=== PATIENT | female | born 1935 | race Caucasian/White ===

== ENCOUNTER → 2016-10-26 | Outpatient (CLI) | payer OTHER, BC ==
[~2016-10-26] MED LIST: ACET-1256 PO; ALBUAER INH; ARTI1SOL8 OP; BECL0.3A INH; BECL1AER5 NAE; BENZ100C84 PO; CALC500C70 PO; CETI10TA84 PO; CITA40TA4 PO; CLOT10TR2 MT; CLTP PO; CZR50 PO; DOXY100C2 PO; FLUT0.15 NAE; HYDR25TA4 PO; HYOS1TAB PO; METF500T PO; MOME200A PO; MULTTAB58 PO; NXM/40 PO; OXYC1TAB3 PO; PRED10TA PO; PRED20TA PO; SIMV10TA2 PO; SNG10 PO; SYMIN/8045 INH; VNTHFA/IN PO; [UNRECOGNIZED DRUG - CODE] OPB
[2016-10-26 13:13] LABS: ESTIMATED AVERAGE GLUCOSE 117 mg/dl; HA1C FLAG Normal (Normal)
== END | disposition home or self-care (01) ==
LOC: C.LAB1850 10:46
PROVIDERS: ATTEND Internal Medicine Pulmonary Disease
DX: I10 Essential (primary) hypertension (principal); J45.909 Unspecified asthma, uncomplicated; E11.9 Type 2 diabetes mellitus without complications; E78.5 Hyperlipidemia, unspecified; J30.9 Allergic rhinitis, unspecified

== ENCOUNTER 2016-11-03 17:20 | Emergency (ER) | payer OTHER, BC ==
[~2016-11-03] VITALS: Ht 147.3 cm; Wt 68.0 kg
[~2016-11-03 17:20] MED LIST changes: -ARTI1SOL8 OP; -BECL1AER5 NAE; -BENZ100C84 PO; -CALC500C70 PO; -CITA40TA4 PO; -HYOS1TAB PO; -MOME200A PO; -OXYC1TAB3 PO; -PRED20TA PO; -SYMIN/8045 INH; -VNTHFA/IN PO
[2016-11-03 17:22] VITALS: TEMP 36.9; Ht 147.3 cm; Wt 68.0 kg
[2016-11-03] MEDS ORDERED: CZR50 PO (17:31)
[2016-11-03] MEDS ORDERED: SNG10 PO (17:31)
[2016-11-03] MEDS ORDERED: CALC500C70 PO (17:32)
[2016-11-03] MEDS ORDERED: BECL1AER5 NAE (17:32)
[2016-11-03] MEDS ORDERED: MOME200A PO (17:32)
[2016-11-03] MEDS ORDERED: CITA40TA4 PO (17:32)
[2016-11-03] MEDS ORDERED: XYLOCAINE 1%/SOD BICARB 20 ML VIAL INFIL ONE (17:45)
[2016-11-03] MEDS ORDERED: HYOS1TAB PO (18:01)
[2016-11-03] MEDS ORDERED: VNTHFA/IN PO (18:01)
[2016-11-03] MEDS ORDERED: SYMIN/8045 INH (18:01)
[2016-11-03] MEDS ORDERED: ARTI1SOL8 OP (18:01)
--- NOTE | 2016-11-03 18:34 | DIAGNOSTIC IMAGING REPORT ---
CT SCAN OF THE BRAIN WITHOUT IV CONTRAST CLINICAL HISTORY: Fall with head injury. COMPARISON STUDY: No priors. TECHNIQUE: Unenhanced axial CT scan of the brain is performed from the vertex to the skull base. CT DOSE: 537.48 mGy.cm FINDINGS: Brain parenchyma: There are age-related involutional changes noting mild to moderate patchy subcortical and periventricular microangiopathic change. There is no hemorrhage, mass effect, or evidence of acute territorial ischemia by CT criteria. Grullon-white matter is preserved. No extra-axial fluid collection is seen. Ventricles, sulci, cisterns: Prominent secondary to involutional change. Intracranial vasculature: There is atherosclerotic calcification of the cavernous carotid and vertebral arteries. Calvarium: The skeletal structures are osteopenic. There is no depressed calvarial fracture. Soft tissues: There is minimal right posterior scalp contusion. Sinuses and mastoids: The visualized paranasal sinuses are clear. The mastoid air cells are well pneumatized. Orbits: The bony orbits are grossly intact. There are bilateral ocular lens implants. IMPRESSION: There is no hemorrhage, mass effect, or evidence of acute territorial ischemia by CT criteria. Electronically signed by: Derrick Lott M.D. 11/03/2016 6:33 PM Dictated Date/Time: 11/03/2016 6:31 PM
[2016-11-03] MEDS ORDERED: ACETAMINOPHEN 500 MG TAB PO ONE (18:36)
--- NOTE | 2016-11-03 18:50 | EMERGENCY ROOM VISIT NOTE ---
History First contact with patient: 17:31 Chief Complaint: FALL Stated Complaint: FALL IN THE BATHROOM History of Present Illness The patient is a 81 year old female who presents to the Emergency Room with complaints of losing her balance and falling in the bathroom at [facility] just prior to arrival. The patient states that she turned quickly and lost her balance and fell onto the tile floor. She states that her leg and arm hit the floor first and then her head went back against the support for the bathroom stall. The patient denies any loss of consciousness. The patient states her head hurts just at the area of a laceration on the back of her head. The patient denies any dizziness currently or any visual changes. The patient denies any nausea or vomiting. The patient denies any neck or back pain. The patient does admit to skin tears on her right upper arm and on her right lower leg. She states these areas were washed with antiseptic at the [facility] and bandaged the lower leg. The patient denies any elbow pain. She does admit to slight right shoulder pain but is able to move her shoulder without difficulty. The patient denies any knee or ankle pain. She is not on any blood thinners. Review of Systems 10 system review was performed and was negative unless stated otherwise history of present illness. Past Medical/Surgical History Medical Problems: (1) ALLERGIC RHINITIS NOS (2) ASTHMA, UNSPECIFIED (3) DIAB ADRIANA WO COMPL, TYPE II OR UNSPEC TYPE, NOT UNCNTRLD (4) OSTEOPOROSIS NOS Family History Diabetes mellitus FH: heart disease FHx: gallbladder disease Hypertension Social History Smoking Status: Former Smoker Alcohol Use: none Drug Use: none Marital Status: Housing Status: lives with family Occupation Status: retired Current/Historical Medications Scheduled Acetaminophen (Tylenol), 1,000 MG PO HS Artificial Tear Solution (Cvs Natural Tears 0.1-0.3 %), 2 PUFFS OP DAILY Budesonide/Formoterol Fumarate (Symbicort 80/4.5 Inhaler), 2 PUFFS INH BID Calcium/Vitamin D (Os-Lucho 500 Plus D), 1 TAB PO DAILY Cetirizine (Zyrtec), 10 MG PO DAILY Citalopram (Citalopram Hydrobromide), 40 MG PO DAILY Esomeprazole Magnesium (Nexium), 40 MG PO DAILY Fluticasone Propionate (Nasal) (Flonase Allergy Relief), 1 SPRAY VOLODYMYR DAILY Hydrochlorothiazide (Hctz), 25 MG PO DAILY Losartan Potassium (Losartan Potassium), 50 MG PO BID Metformin Hcl (Glucophage), 500 MG PO BID Montelukast Sod (Montelukast Sodium), 10 MG PO QPM Multiple Vitamin (Multivitamin), 1 TAB PO DAILY Simvastatin (Zocor), 10 MG PO QPM Scheduled PRN Albuterol Hfa (Ventolin Hfa), 2 PUFFS PO DAILY PRN for SOB/Wheezing Hyoscyamine Sulfate (Levsin), 0.125 MG PO DAILY PRN for GI Upset Allergies Coded Allergies: BO Inhibitors (Verified Allergy, Unknown, UNK, 11/03/16) Penicillins (Verified Allergy, Unknown, 11/03/16) Tetanus Toxoid (Verified Allergy, Unknown, 11/03/16) Physical Exam Vital Signs Date Time Temp Pulse Resp B/P Pulse Ox O2 Delivery O2 Flow Rate FiO2 11/03/16 17:22 36.9 73 20 145/82 97 Room Air Physical Exam GENERAL: 81-year-old white female appears in no acute distress. MENTAL STATUS: Patient is alert and oriented x3. HEAD: No gross bony abnormality noted there is a 2.5 cm laceration on the posterior aspect with mild active bleeding. The wound looks clean. Remainder hand is unremarkable. EYES: PERRLA. EOMs intact. EARS: Canals clear. TMs without hemotympanum noted. NECK: Supple, no lymphadenopathy noted. No carotid bruits noted. LUNGS: Clear auscultation without wheezes rales or rhonchi. CARDIAC: Regular rate and rhythm without murmur. Pulses is full and equal throughout. NEURO: Grossly intact. SPINE: Entire spine nontender to palpation. RIGHT ARM: There is ecchymosis and 2 small skin tears of the right upper arm. The patient is able to move her shoulder and elbow without difficulty. RIGHT LOWER LEG: Patient is able to move her knee and ankle without difficulty. Small skin tear on the anterior aspect of the proximal lower leg. The wound is clean. Medical Decision & Procedures ER Provider Diagnostic Interpretation: CT SCAN OF THE BRAIN WITHOUT IV CONTRAST CLINICAL HISTORY: Fall with head injury. COMPARISON STUDY: No priors. TECHNIQUE: Unenhanced axial CT scan of the brain is performed from the vertex to the skull base. CT DOSE: 537.48 mGy.cm FINDINGS: Brain parenchyma: There are age-related involutional changes noting mild to moderate patchy subcortical and periventricular microangiopathic change. There is no hemorrhage, mass effect, or evidence of acute territorial ischemia by CT criteria. Grullon-white matter is preserved. No extra-axial fluid collection is seen. Ventricles, sulci, cisterns: Prominent secondary to involutional change. Intracranial vasculature: There is atherosclerotic calcification of the cavernous carotid and vertebral arteries. Calvarium: The skeletal structures are osteopenic. There is no depressed calvarial fracture. Soft tissues: There is minimal right posterior scalp contusion. Sinuses and mastoids: The visualized paranasal sinuses are clear. The mastoid air cells are well pneumatized. Orbits: The bony orbits are grossly intact. There are bilateral ocular lens implants. IMPRESSION: There is no hemorrhage, mass effect, or evidence of acute territorial ischemia by CT criteria. Electronically signed by: Derrick Lott M.D. 11/03/2016 6:33 PM Dictated Date/Time: 11/03/2016 6:31 PM Medications Administered Medications (Trade) Dose Ordered Sig/José Route Start Time Stop Time Status Last Admin Dose Admin Lidocaine HCl (Buffered Lidocaine 1% Inj) 20 ml NOW ONCE INFIL 11/03/16 17:45 11/03/16 17:46 DC 11/03/16 17:45 20 ML Acetaminophen (Tylenol Tab) 1,000 mg STK-MED ONCE PO 11/03/16 18:36 11/03/16 18:37 DC 11/03/16 18:36 1,000 MG Procedure Wound Repair: Complexity: Basic. Verbal consent was obtained after the risks and benefits were explained, including but not limited to bleeding, scarring, infection, pain, and bone/joint /nerve damage. The skin was prepped with betadine and a sterile field set. The wound was anesthetized with 2.0 ml of 1% buffered lidocaine. Copious irrigation was performed using sterile saline. The wound was explored for foreign bodies and none found. Debridement was not performed. The wound edges were approximated using 4 gary Hemostasis and excellent approximation was achieved. Antibacterial ointment and a sterile dressing applied. Detailed wound care instructions and signs and symptoms of infection reviewed with the patient. No complications and the patient tolerated the procedure well. ED Course The patient was evaluated. The patient was given Tylenol 1 g by mouth for headache. The wounds were all cleansed and antibiotic ointment and bandages applied to the right arm and right lower leg. Laceration repair was performed as above. CT the head was ordered and interpreted by the radiologist as above without any acute findings. The patient was independently evaluated by Dr. Marmolejo who agrees with treatment plan. The patient was discharged home in stable condition. Medical Decision Differential includes head contusion, laceration, intercranial bleed, subarachnoid hemorrhage Impression Primary Impression: Fall Additional Impressions: Laceration of head Skin tear of right upper arm without complication Skin tear of right lower leg without complication Departure Information Dispostion Home / Self-Care Condition GOOD Referrals Thomas Edgar M.D. (PCP) Forms HOME CARE DOCUMENTATION FORM, IMPORTANT VISIT INFORMATION Patient Instructions ED Head Injury Closed, [facility] Additional Instructions Tylenol as needed for headache. Read head injury handout instructions. Any problems return to ER immediately. Return to ER in 8-10 days for removal of the gary. Keep the wound dry for 24 hours then you may wash her hair but be careful combing her hair. Keep the skin tears covered with antibiotic ointment and a bandage for 2-3 days. Any signs of infection, follow-up with your family doctor. Problem Qualifiers
--- NOTE | 2016-11-03 18:57 | EMERGENCY ROOM VISIT NOTE ---
ED Visit Note First contact with patient: 17:31 This Patient was discussed with the physician Reversal Print Inspector, Margo Martell PA-C. The pertinent historical and physical exam findings were confirmed. I agree with the studies ordered and with the interpretations of these studies. I agree with the disposition and care plan.
[2016-11-03 19:13] VITALS: BP 139/81; PULSE 75; O2SAT 95
== END 2016-11-03 19:14 | disposition home or self-care (01) ==
LOC: C.EDB 17:21 → C.EDD 19:14
DX: S01.91XA Laceration without foreign body of unspecified part of head, initial encounter (principal); S41.101A Unspecified open wound of right upper arm, initial encounter; S81.801A Unspecified open wound, right lower leg, initial encounter; W01.0XXA Fall on same level from slipping, tripping and stumbling without subsequent striking against object, initial encounter; E11.9 Type 2 diabetes mellitus without complications; J45.909 Unspecified asthma, uncomplicated; M81.0 Age-related osteoporosis without current pathological fracture; Z79.899 Other long term (current) drug therapy; Z87.891 Personal history of nicotine dependence; Z88.0 Allergy status to penicillin; Z88.8 Allergy status to other drugs, medicaments and biological substances; Z83.3 Family history of diabetes mellitus; Z82.49 Family history of ischemic heart disease and other diseases of the circulatory system; Z83.79 Family history of other diseases of the digestive system

== ENCOUNTER 2016-11-11 08:56 | Emergency (ER) | payer OTHER, BC ==
[~2016-11-11] VITALS: Ht 147.3 cm; Wt 69.3 kg
[~2016-11-11 08:56] MED LIST changes: -ALBUAER INH; +ARTI1SOL8 OP; -BECL0.3A INH; +CALC500C70 PO; +CITA40TA4 PO; -CLOT10TR2 MT; -CLTP PO; -DOXY100C2 PO; +HYOS1TAB PO; -PRED10TA PO; +SYMIN/8045 INH; +VNTHFA/IN PO; -[UNRECOGNIZED DRUG - CODE] OPB
[2016-11-11 09:01] VITALS: BP 146/85; PULSE 76; TEMP 36.5; O2SAT 97; Ht 147.3 cm; Wt 69.3 kg
[2016-11-11] MEDS ORDERED: SODIUM CHLORIDE 0.9% 500ML 500 ML IV STA (09:12)
[2016-11-11] MEDS ORDERED: KETOROLAC TROMETHAMINE 30 MG/ML VIAL IV STA (09:12)
[2016-11-11] MEDS ORDERED: PROCHLORPERAZINE 5 MG/ML 2 ML VIAL IV STA (09:12)
[2016-11-11] MEDS ORDERED: LORAZEPAM 2 MG/ML 1 ML VIAL IV STA (09:12)
[2016-11-11] MEDS ORDERED: DiphenhydrAMINE HCL 50 MG/ML VIAL IV STA (09:12)
[2016-11-11] MEDS ORDERED: OXYC1TAB3 PO (10:04)
--- NOTE | 2016-11-11 13:54 | EMERGENCY ROOM VISIT NOTE ---
History First contact with patient: 09:11 Chief Complaint: SUTURE/STAPLE REMOVAL Stated Complaint: STAPLE REMOVAL,RIB PAIN Nursing Triage Summary: pt has gary in her scalp, placed on thurs, pt c/o L Rib pain, she was reaching for a light cord and she stretched to reach for the string and she heard something go "pop" in her L rib area History of Present Illness The patient is a 81 year old female who presents to the Emergency Room for staple removal from a scalp laceration that was repaired in our department 8 days ago. She denies any wound complications. The patient also presents with complaint of left-sided rib pain and right shoulder pain. She reports that her right shoulder pain is likely from her fall that brought her into the emergency department on her last visit. She reports that the pain initially as mild, but is now starting to get worse. The patient does report a prior history of left frozen shoulder. She also complains of left sided rib pain that developed after trying to raise her left arm overhead to turn on a light in her laundry room. Review of Systems 10 system review was performed and was negative except for pertinent positives and negatives as indicated in history of present illness Past Medical/Surgical History Medical Problems: (1) ALLERGIC RHINITIS NOS (2) ASTHMA, UNSPECIFIED (3) DIAB ADRIANA WO COMPL, TYPE II OR UNSPEC TYPE, NOT UNCNTRLD (4) OSTEOPOROSIS NOS Family History Diabetes mellitus FH: heart disease FHx: gallbladder disease Hypertension Social History Smoking Status: Former Smoker Alcohol Use: none Drug Use: none Marital Status: Housing Status: lives with family Occupation Status: retired Current/Historical Medications Scheduled Acetaminophen (Tylenol), 1,000 MG PO HS Artificial Tear Solution (Cvs Natural Tears 0.1-0.3 %), 2 DROPS OP DAILY Budesonide/Formoterol Fumarate (Symbicort 80/4.5 Inhaler), 2 PUFFS INH BID Calcium/Vitamin D (Os-Lucho 500 Plus D), 1 TAB PO DAILY Cetirizine (Zyrtec), 10 MG PO DAILY Citalopram (Citalopram Hydrobromide), 40 MG PO DAILY Esomeprazole Magnesium (Nexium), 40 MG PO DAILY Fluticasone Propionate (Nasal) (Flonase Allergy Relief), 1 SPRAY VOLODYMYR DAILY Hydrochlorothiazide (Hctz), 25 MG PO DAILY Losartan Potassium (Losartan Potassium), 50 MG PO BID Metformin Hcl (Glucophage), 500 MG PO BID Montelukast Sod (Montelukast Sodium), 10 MG PO QPM Multiple Vitamin (Multivitamin), 1 TAB PO DAILY Simvastatin (Zocor), 10 MG PO QPM Scheduled PRN Albuterol Hfa (Ventolin Hfa), 2 PUFFS PO DAILY PRN for SOB/Wheezing Hyoscyamine Sulfate (Levsin), 0.125 MG PO QID PRN for GI Upset Oxycodone Ir (Roxicodone Ir), 1 TAB PO Q4H PRN for Pain Allergies Coded Allergies: BO Inhibitors (Verified Allergy, Unknown, UNK, 11/11/16) Penicillins (Verified Allergy, Unknown, 11/11/16) Tetanus Toxoid (Verified Allergy, Unknown, 11/11/16) Physical Exam Vital Signs Date Time Temp Pulse Resp B/P Pulse Ox O2 Delivery O2 Flow Rate FiO2 11/11/16 09:01 36.5 76 18 146/85 97 Room Air Physical Exam CONSTITUTIONAL: Healthy and well nourished. Alert and oriented X 3 with positive affect. HEENT: Examination shows a well-healed upper occiput laceration without erythema , fluctuance or drainage. No evidence for hematoma or tenderness to palpation about the laceration. NECK: Full active range of motion without discomfort. RESPIRATORY: Clear to auscultation bilaterally with no wheezing, crackles, rhonchi or stridor. CARDIOVASCULAR: Regular rate and rhythm with no murmurs, rubs or gallops. GASTROINTESTINAL: Bowel sounds present in all quadrants. MUSCULOSKELETAL: Examination shows relatively full range of motion of the right shoulder without significant discomfort. She has no focal tenderness over the distal clavicle or acromioclavicular joint. Examination also shows mild left anterolateral rib pain without any crepitance, subcutaneous emphysema or flail segment. Deep breathing does not cause any significant discomfort on exam. INTEGUMENTARY: No rash or other significant dermatologic conditions noted. NEUROLOGIC: No focal neurologic deficits noted. Medical Decision & Procedures ED Course Patient history and physical exam were performed. Scalp gary were removed. Further exam with the patient's complaint of right shoulder and left rib pain did not show any significant findings. I did offer to perform x-rays, but the patient refused, understanding that there really would not be any change in plan of care and treatment of her shoulder or rib. The patient was encouraged to perform deep breathing exercises to minimize risk for pneumonia. She was encouraged to follow-up with her PCP for further management of her rib and shoulder pain. Return to the emergency department for any progressively worsening symptoms. The patient was happy with plan of care, and voiced understanding of all discharge instructions. Medical Decision Impression Primary Impression: Rib pain on left side Additional Impressions: Encounter for removal of gary Right shoulder pain Departure Information Dispostion Home / Self-Care Prescriptions Oxycodone Ir (Roxicodone Ir) 5 Mg Tab 1 TAB PO Q4H Y for Pain, #10 TAB For Initial Treatment Prov: Rodríguez Veliz PA 11/11/16 Forms HOME CARE DOCUMENTATION FORM, IMPORTANT VISIT INFORMATION Patient Instructions [facility] Additional Instructions Intermittently apply ice to your right shoulder and left ribs. Perform shoulder range of motion exercises to prevent stiffness. Tylenol 1000 mg every 6-8 hours. OxyIR if needed for worse rib pain. Remember that OxyIR can make you drowsy and constipated. Follow-up with your family doctor as needed for any persistent symptoms. Problem Qualifiers Additional Impressions: Right shoulder pain Chronicity: acute Qualified Codes: M25.511 - Pain in right shoulder
== END 2016-11-11 10:13 | disposition home or self-care (01) ==
LOC: C.EDB 08:57
DX: R07.81 Pleurodynia (principal); M25.511 Pain in right shoulder; Z48.02 Encounter for removal of sutures; E11.9 Type 2 diabetes mellitus without complications; J45.909 Unspecified asthma, uncomplicated; M81.0 Age-related osteoporosis without current pathological fracture; Z87.891 Personal history of nicotine dependence; Z79.84 Long term (current) use of oral hypoglycemic drugs; Z79.899 Other long term (current) drug therapy; Z88.0 Allergy status to penicillin; Z88.8 Allergy status to other drugs, medicaments and biological substances; Z83.3 Family history of diabetes mellitus; Z82.49 Family history of ischemic heart disease and other diseases of the circulatory system; Z83.79 Family history of other diseases of the digestive system

== ENCOUNTER 2016-11-17 20:38 | Emergency (ER) | payer OTHER, BC ==
[~2016-11-17] VITALS: Ht 147.3 cm; Wt 69.0 kg
[~2016-11-17 20:38] MED LIST changes: +OXYC1TAB3 PO
[2016-11-17 20:43] VITALS: TEMP 36.9; Ht 147.3 cm; Wt 69.0 kg
[2016-11-17] MEDS ORDERED: ALBUT/IPRATROP 3MG/0.5MG NEB 3 ML VIAL INH STA (22:31)
--- NOTE | 2016-11-17 22:40 | EMERGENCY ROOM VISIT NOTE ---
History Report prepared by Henry: Rafy Lainez Under the Supervision of: Dr. Derrick Parson M.D. First contact with patient: 22:25 Chief Complaint: COUGH Stated Complaint: EXCESSIVE COUGHING Nursing Triage Summary: pt states "my asthma is acting up" family reports "she's downplaying it. she was at the doctors today and he downplayed it." reports feeling sob and coughing " so bad my throat hurts." states she has "milky mucous." upon assessment pt alert and oriented x4. breathing WNL, regularly and independently. pt sitting up in wheelchair. pt denies home o2 or smoking. pt denies chest pain. History of Present Illness The patient is a 81 year old female who presents to the Emergency Room with complaints of persistent shortness of breath beginning earlier today. Per the patient and her family, she has been short of breath all day today and has had a somewhat productive cough, occasionally with clear sputum, and nasal congestion for a few days. She has asthma, and has inhalers at home. She used Benadryl, albuterol, and Mucinex about 4.5 hours ago. The patient denies any fever, or chest pain. She did received the flu shot this year, and denies being around anyone with the flu or respiratory illness. The patient reports she has diabetes, but is able to take Prednisone. Source of History: patient Onset: earlier today Position: other (lungs) Quality: other (shortness of breath) Timing: other (persistent) Associated Symptoms: + cough, No chest pain, No fevers Note: The patient notes having nasal congestion. Review of Systems See HPI for pertinent positives & negatives. A total of 10 systems reviewed and were otherwise negative. Past Medical & Surgical Medical Problems: (1) ALLERGIC RHINITIS NOS (2) ASTHMA, UNSPECIFIED (3) DIAB ADRIANA WO COMPL, TYPE II OR UNSPEC TYPE, NOT UNCNTRLD (4) Gallbladder disease (5) OSTEOPOROSIS NOS (6) Pneumonia Family History Diabetes mellitus FH: heart disease FHx: gallbladder disease Hypertension Social History Smoking Status: Former Smoker Alcohol Use: none Drug Use: none Marital Status: Housing Status: lives with family Occupation Status: retired Current/Historical Medications Scheduled Acetaminophen (Tylenol), 1,000 MG PO HS Artificial Tear Solution (Cvs Natural Tears 0.1-0.3 %), 2 DROPS OP DAILY Benzonatate (Tessalon Perles), 1 CAP PO TID Budesonide/Formoterol Fumarate (Symbicort 80/4.5 Inhaler), 2 PUFFS INH BID Calcium/Vitamin D (Os-Lucho 500 Plus D), 1 TAB PO DAILY Cetirizine (Zyrtec), 10 MG PO DAILY Citalopram (Citalopram Hydrobromide), 40 MG PO DAILY Esomeprazole Magnesium (Nexium), 40 MG PO DAILY Fluticasone Propionate (Nasal) (Flonase Allergy Relief), 1 SPRAY VOLODYMYR DAILY Hydrochlorothiazide (Hctz), 25 MG PO DAILY Losartan Potassium (Losartan Potassium), 50 MG PO BID Metformin Hcl (Glucophage), 500 MG PO BID Montelukast Sod (Montelukast Sodium), 10 MG PO QPM Multiple Vitamin (Multivitamin), 1 TAB PO DAILY Prednisone (Prednisone), 0 PO DAILY Simvastatin (Zocor), 10 MG PO QPM Scheduled PRN Albuterol Hfa (Ventolin Hfa), 2 PUFFS PO DAILY PRN for SOB/Wheezing Allergies Coded Allergies: BO Inhibitors (Verified Allergy, Unknown, UNK, 11/17/16) Penicillins (Verified Allergy, Unknown, 11/17/16) Tetanus Toxoid (Verified Allergy, Unknown, 11/17/16) Physical Exam Vital Signs Date Time Temp Pulse Resp B/P Pulse Ox O2 Delivery O2 Flow Rate FiO2 11/17/16 23:50 72 20 167/96 97 Room Air 11/17/16 21:54 98 Room Air 11/17/16 21:54 69 18 150/93 98 Room Air 11/17/16 20:43 98 Room Air 11/17/16 20:43 36.9 70 20 177/83 98 Room Air Physical Exam GENERAL: Patient is in no acute distress. HEENT: No acute trauma, normocephalic atraumatic, mucous membranes moist, mild nasal congestion, no scleral icterus. No throat erythema or exudate. NECK: No stridor, no adenopathy, no meningismus, trachea is midline. LUNGS: Diminished breath sounds bilaterally. Breath sounds are equal. No respiratory distress. Scattered wheezes heard. HEART: Without murmurs gallops or rubs, regular rate and rhythm. ABDOMEN: Soft, nontender, bowel sounds positive, no hernias, no peritonitis. EXTREMITIES: No cyanosis or edema, full range of motion of all the joints without pain or difficulty, no signs for acute trauma. NEUROLOGIC: Oriented x 3, no acute motor or sensory deficits, no focal weakness. SKIN: No rash, no jaundice, no diaphoresis. Medical Decision & Procedures ER Provider Diagnostic Interpretation: Radiology results are stated below per my review and radiologist interpretation: CHEST ONE VIEW PORTABLE FINDINGS: There is mild elevation of the right hemidiaphragm. The heart is normal in size. There are calcified left hilar lymph nodes. There is a calcified granuloma within the left midlung zone. There are linear atelectatic changes at the left lung base. There is no lobar consolidation. There is no failure. There are no pleural effusions. IMPRESSION: No active disease in the chest. Electronically signed by: Zack Grey M.D. 11/17/2016 10:52 PM Dictated Date/Time: 11/17/2016 10:51 PM Medications Administered Medications (Trade) Dose Ordered Sig/Ojsé Route Start Time Stop Time Status Last Admin Dose Admin Albuterol/ Ipratropium (Duoneb) 3 ml NOW STAT INH 11/17/16 22:31 11/17/16 22:34 DC 11/17/16 22:40 3 ML Prednisone (PredniSONE TAB) 40 mg NOW STAT PO 11/17/16 22:31 11/17/16 22:34 DC 11/17/16 22:40 40 MG Benzonatate (Tessalon Perles Cap) 100 mg NOW ONCE PO 11/17/16 23:30 11/17/16 23:31 DC 11/17/16 23:54 100 MG ED Course 2227: The patient was evaluated in room C3. A complete history and physical exam was performed. 2231: Ordered Prednisone 40 mg PO, and Duoneb 3 ml INH. 2330: Ordered Benzonatate 100 mg PO. 2350: Reevaluated the patient. Discussed results and discharge instructions: She verbalized understanding and agreement. The patient is ready for discharge. Medical Decision Differentials include acute bronchitis, exacerbation of asthma, pneumothorax, CHF, and pneumonia. The patient presents with a cough, some shortness of breath and what she describes as an asthma flareup. The patient received a DuoNeb, she felt improved with this. She was given a Tessalon Perle for her cough. She was given a dose of oral prednisone. A chest film was done, no pneumonia, pneumothorax or CHF. The patient feels better after her treatment, she would like to be discharged home. She will be discharged on a prednisone taper. She will contact her doctor tomorrow about a nebulizer machine to use at home. She has agreed to return to this ER for worsening symptoms. The patient has a upper respiratory infection which has caused a flare of her asthma. At this point, I do not think antibiotics are indicated. Impression Primary Impression: Acute bronchitis Additional Impression: Exacerbation of asthma Scribe Attestation The scribe's documentation has been prepared under my direction and personally reviewed by me in its entirety. I confirm that the note above accurately reflects all work, treatment, procedures, and medical decision making performed by me. Departure Information Dispostion Home / Self-Care Prescriptions Benzonatate (Tessalon Perles) 100 Mg Cap 1 CAP PO TID for 10 Days, #30 CAP Prov: Derrick Parson M.D. 11/17/16 Prednisone (Prednisone) 20 Mg Tab 0 PO DAILY, #18 TAB 3 DAILY FOR 3 DAYS, THEN 2 DAILY FOR 3 DAYS, THEN 1 DAILY FOR 3 DAYS. Prov: Derrick Parson M.D. 11/17/16 Referrals Thomas Edgar M.D. (PCP) Patient Instructions My [facility] Additional Instructions talk with your doctor tomorrow for a nebulizer at home prednisone taper as directed deangelo marie for cough return for worsening breathing or if not improving follow with rossana guzman for a recheck chest film today was ok Problem Qualifiers
--- NOTE | 2016-11-17 22:53 | DIAGNOSTIC IMAGING REPORT ---
CHEST ONE VIEW PORTABLE CLINICAL HISTORY: cough COMPARISON STUDY: 01/13/2016 FINDINGS: There is mild elevation of the right hemidiaphragm. The heart is normal in size. There are calcified left hilar lymph nodes. There is a calcified granuloma within the left midlung zone. There are linear atelectatic changes at the left lung base. There is no lobar consolidation. There is no failure. There are no pleural effusions.[ IMPRESSION: No active disease in the chest. Electronically signed by: Zack Grey M.D. 11/17/2016 10:52 PM Dictated Date/Time: 11/17/2016 10:51 PM
[2016-11-17] MEDS ORDERED: BENZONATATE 100MG CAP PO ONE (23:30)
[2016-11-17] MEDS ORDERED: BENZ100C84 PO (23:49)
[2016-11-17] MEDS ORDERED: PRED20TA PO (23:49)
[2016-11-17 23:50] VITALS: BP 167/96; PULSE 72; O2SAT 97
== END 2016-11-18 00:05 | disposition home or self-care (01) ==
LOC: C.EDB 20:38 → C.EDC 11-18 00:05
DX: J20.9 Acute bronchitis, unspecified (principal); J45.901 Unspecified asthma with (acute) exacerbation; E11.9 Type 2 diabetes mellitus without complications; M81.0 Age-related osteoporosis without current pathological fracture; Z87.01 Personal history of pneumonia (recurrent); Z87.891 Personal history of nicotine dependence; Z88.0 Allergy status to penicillin; Z88.7 Allergy status to serum and vaccine; Z83.3 Family history of diabetes mellitus; Z82.49 Family history of ischemic heart disease and other diseases of the circulatory system

== ENCOUNTER → 2016-12-29 | Outpatient (CLI) | payer OTHER, BC ==
[~2016-12-29] MED LIST changes: -HYOS1TAB PO; -OXYC1TAB3 PO; +PRED20TA PO
--- NOTE | 2016-12-29 11:45 | DIAGNOSTIC IMAGING REPORT ---
RIGHT SHOULDER MIN 2 VIEWS ROUTINE CLINICAL HISTORY: M25.511 Shoulder pain, [id number] Right pain COMPARISON: None. DISCUSSION: Mild degenerative narrowing of the glenohumeral joint space. Mild degenerative subchondral cystic change greater tuberosity. Mild degenerative change acromioclavicular joint. There are no abnormal soft tissue calcifications. There is no evidence for soft tissue swelling. IMPRESSION: Mild/moderate degenerative change. Electronically signed by: Isak Martell M.D. 12/29/2016 11:43 AM Dictated Date/Time: 12/29/2016 11:42 AM
--- NOTE | 2016-12-29 11:45 | DIAGNOSTIC IMAGING REPORT ---
LEFT THUMB 3 VIEWS HISTORY: Left thumb pain. COMPARISON: None. FINDINGS: There is no fracture or dislocation. Soft tissues are unremarkable. No radiopaque foreign bodies. 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 There is moderate osteoarthritis at the first carpometacarpal joint. IMPRESSION: No fractures. Degenerative changes as described above. Electronically signed by: Shamar Garcia M.D. 12/29/2016 11:43 AM Dictated Date/Time: 12/29/2016 11:41 AM
== END | disposition home or self-care (01) ==
LOC: C.RAD1850 11:25
PROVIDERS: ATTEND Physician Assistant Medical
DX: M25.511 Pain in right shoulder (principal); M79.646 Pain in unspecified finger(s)

== ENCOUNTER → 2017-02-16 | Outpatient (CLI) | payer OTHER, BC | END | disposition home or self-care (01) | LOC: C.PATHSPEC 08:43 | PROVIDERS: ATTEND Obstetrics & Gynecology | DX: N90.810 Female genital mutilation status, unspecified (principal) ==

== ENCOUNTER → 2017-03-03 | Outpatient (CLI) | payer OTHER, BC ==
[2017-03-03 14:53] LABS: ESTIMATED AVERAGE GLUCOSE 128 mg/dl; HA1C FLAG Normal (Normal)
[2017-03-03 14:57] LABS: BASO % 0.8 %; BASO ABS # 0.05 K/uL (0-0.2); COMPLETE YES; EOS % 1.3 %; HEMATOCRIT 38.6 % (37-47); IG% 0.2 %; LYMPH % 28.4 %; LYMPH ABS # 1.79 K/uL (1.2-3.4); MEAN CELL VOLUME 83.2 fL (80-100); MEAN CORPUSCULAR HEMOGLOBIN 28.4 pg (25-34); MEAN CORPUSCULAR HGB CONC 34.2 g/dl (32-36); MEAN PLATELET VOLUME 9.9 fL (7.4-10.4); MONO % 12.8 %; NEUT % 56.5 %; PLATELET COUNT 344 K/uL (130-400); RED BLOOD COUNT 4.64 M/uL (4.2-5.4); WHITE BLOOD COUNT 6.31 K/uL (4.8-10.8)
[2017-03-03 15:04] LABS: CALCIUM 9.3 mg/dl (8.5-10.1)
[2017-03-03 15:08] LABS: ALT/SGPT 30 U/L (12-78); AST/SGOT 17 U/L (15-37); BLOOD UREA NITROGEN 11 mg/dl (7-18); BUN/CREATININE RATIO 14.3 (10-20); CARBON DIOXIDE 29 mmol/L (21-32); CHLORIDE 100 mmol/L (98-107); CHOLESTEROL 174 mg/dl (0-200); CREATININE 0.79 mg/dl (0.60-1.20); GLUCOSE 98 mg/dl (70-99); POTASSIUM 3.3 mmol/L (3.5-5.1); SODIUM 138 mmol/L (136-145); TRIGLYCERIDES 69 mg/dl (0-150); VERY LOW DENSITY LIPOPROT CALC 14 mg/dl
[2017-03-03 15:17] LABS: ALKALINE PHOSPHATASE 43 U/L (45-117); CHOLESTEROL/HDL RATIO 2.2; HDL CHOLESTEROL 79 mg/dl; LDL CHOLESTEROL CALCULATED 81 mg/dl
== END | disposition home or self-care (01) ==
LOC: C.LAB1850 10:49
PROVIDERS: ATTEND Internal Medicine Pulmonary Disease
DX: I10 Essential (primary) hypertension (principal); J45.909 Unspecified asthma, uncomplicated; E11.9 Type 2 diabetes mellitus without complications; E78.5 Hyperlipidemia, unspecified; J30.9 Allergic rhinitis, unspecified

== ENCOUNTER 2017-05-02 10:55 | Emergency (ER) | payer OTHER, BC ==
[~2017-05-02] VITALS: Ht 147.3 cm; Wt 68.0 kg
[2017-05-02 10:57] VITALS: TEMP 36.7; Ht 147.3 cm; Wt 68.0 kg
[2017-05-02] MEDS ORDERED: ONDANSETRON INJ 2 MG/ML 2 ML VIAL IV STA (12:18)
[2017-05-02] MEDS ORDERED: MECLIZINE HCL 12.5 MG TAB PO STA (12:18)
[2017-05-02] MEDS ORDERED: SODIUM CHLORIDE 0.9% 500ML 500 ML IV STA (12:18)
--- NOTE | 2017-05-02 12:24 | EMERGENCY ROOM VISIT NOTE ---
History Report prepared by Henry: Jeanette Wagner Under the Supervision of: Dr. Nader Castañeda M.D. First contact with patient: 11:08 Chief Complaint: FALL Stated Complaint: FELL BECAUSE LIGHTHEADED/DIZZY, COUGH History of Present Illness The patient is an 82 year old female who presents to the Emergency Room with complaints of an episode of a fall occurring this morning. The patient states that she became dizzy and lightheaded since last night. She states that she had a headache before she fell. She denies loss of consciousness and notes she landed on her butt. She denies any pain from the fall. She notes that she felt flushed and cold when she fell. She denies ringing in her ears when she fell. The patient currently complains of excessive cough and shortness of breath. She states that she believes the shortness of breath is related to her asthma. She states that movement worsens her symptoms. The patient denies taking blood thinners, chest pain, swelling in her legs, nausea, vomiting, medicine changes, ear pain, cardiac history, alcohol use, tobacco use, and visual changes. She notes that she had recently traveled by car to [place] and normally uses cane outside the house. She notes that today she had to use her walker. Source of History: patient Onset: this morning Position: other (global) Quality: other (global) Timing: other (episode) Modifying Factors (Worsening): movement Associated Symptoms: + headache, + cough, + SOB, No LOC, No chest pain, No nausea, No vomiting Note: The patient complains of dizziness and lightheadedness. The patient denies ringing in her ears before the fall, blood thinners, swelling in her legs, medicine changes, ear pain, cardiac history, alcohol use, tobacco use, and visual changes. Review of Systems See HPI for pertinent positives and negatives. A total of ten systems were reviewed and were otherwise negative. Past Medical & Surgical Medical Problems: (1) ALLERGIC RHINITIS NOS (2) ASTHMA, UNSPECIFIED (3) DIAB ADRIANA WO COMPL, TYPE II OR UNSPEC TYPE, NOT UNCNTRLD (4) Gallbladder disease (5) IBS (irritable bowel syndrome) (6) OSTEOPOROSIS NOS (7) Pneumonia Surgical Problems: (1) Hx of CABG Family History Diabetes mellitus FH: heart disease FHx: gallbladder disease Hypertension Social History Smoking Status: Former Smoker Alcohol Use: none Drug Use: none Marital Status: Housing Status: lives with family Occupation Status: retired Current/Historical Medications Scheduled Acetaminophen (Tylenol), 1,000 MG PO HS Artificial Tear Solution ([facility] Natural Tears 0.1-0.3 %), 2 DROPS OP DAILY Budesonide/Formoterol Fumarate (Symbicort 80/4.5 Inhaler), 2 PUFFS INH BID Calcium/Vitamin D (Os-Lucho 500 Plus D), 1 TAB PO DAILY Cetirizine (Zyrtec), 10 MG PO DAILY Citalopram (Citalopram Hydrobromide), 40 MG PO DAILY Esomeprazole Magnesium (Nexium), 40 MG PO DAILY Fluticasone Propionate (Nasal) (Flonase Allergy Relief), 1 SPRAY VOLODYMYR DAILY Hydrochlorothiazide (Hctz), 25 MG PO DAILY Losartan Potassium (Losartan Potassium), 50 MG PO BID Metformin Hcl (Glucophage), 500 MG PO BID Montelukast Sod (Montelukast Sodium), 10 MG PO QPM Multiple Vitamin (Multivitamin), 1 TAB PO DAILY Simvastatin (Zocor), 10 MG PO QPM Scheduled PRN Albuterol Hfa (Ventolin Hfa), 2 PUFFS PO DAILY PRN for SOB/Wheezing Allergies Coded Allergies: BO Inhibitors (Verified Allergy, Unknown, UNK, 05/02/17) Penicillins (Verified Allergy, Unknown, 05/02/17) Tetanus Toxoid (Verified Allergy, Unknown, 05/02/17) Physical Exam Vital Signs Date Time Temp Pulse Resp B/P (MAP) Pulse Ox O2 Delivery O2 Flow Rate FiO2 05/02/17 14:52 65 18 102/42 99 05/02/17 14:21 72 18 102/42 96 Room Air 05/02/17 12:18 75 20 105/64 96 Room Air 05/02/17 12:10 80 05/02/17 11:12 75 121/62 77 114/59 99 93/47 05/02/17 10:57 36.7 84 18 113/66 95 Physical Exam GENERAL: Awake, alert, well-appearing, NAD HENT: Normocephalic, atraumatic. EYES: Normal conjunctiva. Sclera non-icteric. NECK: Supple. No nuchal rigidity. FROM. RESPIRATORY: CTAB, no rhonchi, wheezing, crackles CARDIAC: RRR, no MRG ABDOMEN: Soft, NTND, BS+ MSK: No chest wall TTP, no LE edema. Bills negative NEURO: GCS 15, CN 2-12 intact, moves all 4s on command. Good finger to nose. No pronator drift. 5/5 UE and LE strength. GCS 15. SKIN: No rash or jaundice noted. Medical Decision & Procedures ER Provider Diagnostic Interpretation: Radiology results as stated below per my review and radiologist interpretation: CT HEAD WITHOUT CONTRAST (CT) CLINICAL HISTORY: vertigo COMPARISON STUDY: 11/03/2016 TECHNIQUE: Axial CT of the brain is performed from the vertex to the skull base. IV contrast was not administered for this examination. A dose lowering technique was utilized adhering to the principles of ALARA. CT DOSE: 537.48 mGy.cm FINDINGS: No intra or extra-axial mass lesions are visualized. There is no CT evidence of acute cortical infarction. There is no evidence of midline shift. There is no acute hemorrhage. No calvarial fractures are visualized. There are moderate white matter hypodensities likely on a small vessel basis. There is no evidence of pathologic ventricular dilatation. There is no evidence of acute sinusitis IMPRESSION: No acute intracranial findings Electronically signed by: Zack Grey M.D. 05/02/2017 12:51 PM Dictated Date/Time: 05/02/2017 12:50 PM CHEST ONE VIEW PORTABLE CLINICAL HISTORY: SOB TRAUMA. LIGHTHEADED. DIZZINESS. COMPARISON STUDY: 11/17/2016 FINDINGS: The heart is normal in size. There are calcified left hilar and mediastinal lymph nodes. There is a calcified left midlung zone granuloma. There is left basal atelectasis/scarring. There is no failure. There is no focal pulmonary consolidation. There are no pleural effusions.[ IMPRESSION: Old post inflammatory changes. No acute findings. Electronically signed by: Zack Grey M.D. 05/02/2017 12:36 PM Dictated Date/Time: 05/02/2017 12:35 PM Laboratory Results 05/02/17 12:04 Red Blood Count 5.14, Mean Corpuscular Volume 81.1, Mean Corpuscular Hemoglobin 26.5, Mean Corpuscular Hemoglobin Concent 32.6, Mean Platelet Volume 10.1, Neutrophils (%) (Auto) 71.9, Lymphocytes (%) (Auto) 13.1, Monocytes (%) (Auto) 14.4, Eosinophils (%) (Auto) 0.0, Basophils (%) (Auto) 0.2, Neutrophils # (Auto ) 4.11, Lymphocytes # (Auto) 0.75, Monocytes # (Auto) 0.82, Eosinophils # (Auto ) 0.00, Basophils # (Auto) 0.01 05/02/17 12:04 Test 05/02/17 12:04 05/02/17 13:15 05/02/17 13:28 White Blood Count 5.71 K/uL (4.8-10.8) Red Blood Count 5.14 M/uL (4.2-5.4) Hemoglobin 13.6 g/dL (12.0-16.0) Hematocrit 41.7 % (37-47) Mean Corpuscular Volume 81.1 fL (80-100) Mean Corpuscular Hemoglobin 26.5 pg (25-34) Mean Corpuscular Hemoglobin Concent 32.6 g/dl (32-36) Platelet Count 282 K/uL (130-400) Mean Platelet Volume 10.1 fL (7.4-10.4) Neutrophils (%) (Auto) 71.9 % Lymphocytes (%) (Auto) 13.1 % Monocytes (%) (Auto) 14.4 % Eosinophils (%) (Auto) 0.0 % Basophils (%) (Auto) 0.2 % Neutrophils # (Auto) 4.11 K/uL (1.4-6.5) Lymphocytes # (Auto) 0.75 K/uL (1.2-3.4) Monocytes # (Auto) 0.82 K/uL (0.11-0.59) Eosinophils # (Auto) 0.00 K/uL (0-0.5) Basophils # (Auto) 0.01 K/uL (0-0.2) RDW Standard Deviation 42.5 fL (36.4-46.3) RDW Coefficient of Variation 14.3 % (11.5-14.5) Immature Granulocyte % (Auto) 0.4 % Immature Granulocyte # (Auto) 0.02 K/uL (0.00-0.02) Prothrombin Time 11.3 SECONDS (9.0-12.0) Prothromb Time International Ratio 1.1 (0.9-1.1) Activated Partial Thromboplast Time 33.7 SECONDS (21.0-31.0) Partial Thromboplastin Ratio 1.3 Anion Gap 7.0 mmol/L (3-11) Est Creatinine Clear Calc Drug Dose 40.2 ml/min Estimated GFR () 70.9 Estimated GFR (Non- 61.2 BUN/Creatinine Ratio 10.2 (10-20) Calcium Level 8.9 mg/dl (8.5-10.1) Troponin I < 0.015 ng/ml (0-0.045) Venous Blood pH 7.40 (7.36-7.41) Venous Blood Partial Pressure CO2 41 mmHg (38.0-50.0) Venous Blood Partial Pressure O2 39 mmHg Venous Blood HCO3 25 mmol/L Venous Blood Oxygen Saturation 71.1 % Venous Blood Base Excess 0.3 mEq/L Bedside Lactic Acid Venous 1.92 mmol/L (0.90-1.70) Laboratory results reviewed by me Medications Administered Medications (Trade) Dose Ordered Sig/José Route Start Time Stop Time Status Last Admin Dose Admin Ondansetron HCl (Zofran Inj) 4 mg NOW STAT IV 05/02/17 12:18 05/02/17 12:21 DC 05/02/17 12:31 4 MG Sodium Chloride 500 ml @ 500 mls/hr Q1H STAT IV 05/02/17 12:18 05/02/17 13:17 DC 05/02/17 12:31 500 MLS/HR Meclizine HCl (Antivert Tab) 25 mg STK-MED ONCE PO 05/02/17 12:26 05/02/17 12:27 DC 05/02/17 12:31 25 MG ECG Indication: other (fall) Rate (beats per minute): 78 Rhythm: normal sinus Findings: other (normal PRS QTC interval, no significant STS changes and TWI) Comparison ECG Date: 01/13/2016 Change: no significant change ED Course 1122: The patient was evaluated in room C6. A complete history and physical exam was performed. 1218: Ordered NSS 500 ml @ 500 mls/hr IV, Antivert Tab 12.5 mg PO, Zofran Inj 4 mg IV. 1415: I reevaluated the patient and she is feeling mildly improved. We discussed her hyponatremia and its relation to her medication. Discussed results and discharge instructions: She verbalized understanding and agreement. The patient is ready for discharge. Medical Decision The patient is an 82 year old female who presents to the Emergency Room with complaints of an episode of a fall occurring this morning. The patient has a history of asthma, DM, a right CABG, and IBS. Differential diagnoses include peripheral vertigo, TIA, asthma, CHF. Patient's lab work was fairly unremarkable. Patient did have noted hypokalemia as well as hypo-tree media and hypochloremia. Patient is taking a thiazide diuretics which is most likely attributable to her hyponatremia. Of note patient's sodium was about the same at 129 over a year ago. Patient does not appear volume overloaded so less likely related to CHF liver or kidney failure. Patient's renal function fairly normal. Patient's neuro exam fairly unremarkable and given the chronicity of her vertigo CT of the brain was performed given her most recent fall onto her bottom however this was negative. Patient felt mildly improved after fluids and meclizine. Thus, at this time a CTA was performed. Patient was told that she should return if she has any worsening symptoms which included numbness tingling or weakness or difficulty with speech. Patient did have some chronic shortness of breath and had a fairly normal EKG. Patient did have some chronic changes on chest x-ray but nothing acute. Patient's cough has been more dry and does not some purulent patient was offered a course of azithromycin in the event she had a possible bronchitis versus atypical pneumonia. Patient declined at this time. Patient did have blood pressures approximately 100/40 and the patient was asymptomatic without any chest pain or shortness of breath. Patient did have a lactate of 1.9 that was less than 2 she was given additional fluid. Patient was able to ambulate with assistance which she does have at home. Patient was also informed of her chronic electrolyte abnormalities. Patient was comfortable with going home at this time and did not want to stay in the hospital. She was well-appearing. Patient was given strict follow-up, discharge, return precautions. Patient agreed with the plan of care and patient was discharged home. Medication Reconcilliation Current Medication List: was personally reviewed by me Blood Pressure Screening Patient's blood pressure: Normal blood pressure Impression Primary Impression: Chronic hyponatremia Additional Impressions: Vertigo Generalized weakness Cough Hypokalemia Scribe Attestation The scribe's documentation has been prepared under my direction and personally reviewed by me in its entirety. I confirm that the note above accurately reflects all work, treatment, procedures, and medical decision making performed by me. Departure Information Dispostion Home / Self-Care Referrals Thomas Edgar M.D. (PCP) Forms HOME CARE DOCUMENTATION FORM, IMPORTANT VISIT INFORMATION Patient Instructions ED Vertigo Unspecified, Hyponatremia Dc, My [facility] Additional Instructions Please follow-up with your primary care physician as you're able. If you have worsening or recurrent symptoms please return to the emergency department call your primary care's office. Problem Qualifiers
[2017-05-02] MEDS ORDERED: MECLIZINE HCL 25 MG TAB PO ONE (12:26)
--- NOTE | 2017-05-02 12:37 | DIAGNOSTIC IMAGING REPORT ---
CHEST ONE VIEW PORTABLE CLINICAL HISTORY: SOB TRAUMA. LIGHTHEADED. DIZZINESS. COMPARISON STUDY: 11/17/2016 FINDINGS: The heart is normal in size. There are calcified left hilar and mediastinal lymph nodes. There is a calcified left midlung zone granuloma. There is left basal atelectasis/scarring. There is no failure. There is no focal pulmonary consolidation. There are no pleural effusions.[ IMPRESSION: Old post inflammatory changes. No acute findings. Electronically signed by: Zack Grey M.D. 05/02/2017 12:36 PM Dictated Date/Time: 05/02/2017 12:35 PM
[2017-05-02 12:43] LABS: BASO % 0.2 %; BASO ABS # 0.01 K/uL (0-0.2); COMPLETE YES; HEMATOCRIT 41.7 % (37-47); IG% 0.4 %; LYMPH % 13.1 %; LYMPH ABS # 0.75 K/uL (1.2-3.4); MEAN CELL VOLUME 81.1 fL (80-100); MEAN CORPUSCULAR HEMOGLOBIN 26.5 pg (25-34); MEAN CORPUSCULAR HGB CONC 32.6 g/dl (32-36); MEAN PLATELET VOLUME 10.1 fL (7.4-10.4); MONO % 14.4 %; NEUT % 71.9 %; PLATELET COUNT 282 K/uL (130-400); RED BLOOD COUNT 5.14 M/uL (4.2-5.4); WHITE BLOOD COUNT 5.71 K/uL (4.8-10.8)
[2017-05-02 12:46] LABS: INR 1.1 (0.9-1.1); PARTIAL THROMBOPLASTIN RATIO 1.3; PROTHROMBIN TIME (PATIENT) 11.3 SECONDS (9.0-12.0)
--- NOTE | 2017-05-02 12:52 | DIAGNOSTIC IMAGING REPORT ---
CT HEAD WITHOUT CONTRAST (CT) CLINICAL HISTORY: vertigo COMPARISON STUDY: 11/03/2016 TECHNIQUE: Axial CT of the brain is performed from the vertex to the skull base. IV contrast was not administered for this examination. A dose lowering technique was utilized adhering to the principles of ALARA. CT DOSE: 537.48 mGy.cm FINDINGS: No intra or extra-axial mass lesions are visualized. There is no CT evidence of acute cortical infarction. There is no evidence of midline shift. There is no acute hemorrhage. No calvarial fractures are visualized. There are moderate white matter hypodensities likely on a small vessel basis. There is no evidence of pathologic ventricular dilatation. There is no evidence of acute sinusitis IMPRESSION: No acute intracranial findings Electronically signed by: Zack Grey M.D. 05/02/2017 12:51 PM Dictated Date/Time: 05/02/2017 12:50 PM
[2017-05-02 12:56] LABS: BLOOD UREA NITROGEN 9 mg/dl (7-18); BUN/CREATININE RATIO 10.2 (10-20); CALCIUM 8.9 mg/dl (8.5-10.1); CARBON DIOXIDE 27 mmol/L (21-32); CHLORIDE 93 mmol/L (98-107); CREATININE 0.88 mg/dl (0.60-1.20); GLUCOSE 121 mg/dl (70-99); SODIUM 127 mmol/L (136-145)
[2017-05-02 13:31] LABS: VEN BLD GAS O2 SATURATION 71.1 %; VEN BLOOD GAS BASE EXCESS 0.3 mEq/L
[2017-05-02 14:52] VITALS: BP 102/42; PULSE 65; O2SAT 99
== END 2017-05-02 14:53 | disposition home or self-care (01) ==
LOC: C.EDB 10:57 → C.EDC 14:53
DX: E87.1 Hypo-osmolality and hyponatremia (principal); R42 Dizziness and giddiness; R53.1 Weakness; R05 Cough; E87.6 Hypokalemia; W19.XXXA Unspecified fall, initial encounter; J45.909 Unspecified asthma, uncomplicated; E11.9 Type 2 diabetes mellitus without complications; K58.9 Irritable bowel syndrome, unspecified; M81.0 Age-related osteoporosis without current pathological fracture; Z83.3 Family history of diabetes mellitus; Z82.49 Family history of ischemic heart disease and other diseases of the circulatory system; Z87.891 Personal history of nicotine dependence

== ENCOUNTER → 2017-05-11 | Outpatient (CLI) | payer OTHER, BC ==
[~2017-05-11] MED LIST changes: -PRED20TA PO
[2017-05-11 16:03] LABS: BLOOD UREA NITROGEN 18 mg/dl (7-18); BUN/CREATININE RATIO 20.1 (10-20); CALCIUM 8.9 mg/dl (8.5-10.1); CARBON DIOXIDE 27 mmol/L (21-32); CHLORIDE 93 mmol/L (98-107); GLUCOSE 104 mg/dl (70-99); POTASSIUM 2.9 mmol/L (3.5-5.1); SODIUM 130 mmol/L (136-145)
== END | disposition home or self-care (01) ==
LOC: C.LAB1850 14:30
PROVIDERS: ATTEND Physician Assistant Medical
DX: E87.6 Hypokalemia (principal); E87.1 Hypo-osmolality and hyponatremia; E87.8 Other disorders of electrolyte and fluid balance, not elsewhere classified

== ENCOUNTER → 2017-05-19 | Outpatient (CLI) | payer OTHER, BC ==
[2017-05-19 13:55] LABS: BLOOD UREA NITROGEN 11 mg/dl (7-18); BUN/CREATININE RATIO 16.1 (10-20); CARBON DIOXIDE 31 mmol/L (21-32); CHLORIDE 103 mmol/L (98-107); GLUCOSE 91 mg/dl (70-99); POTASSIUM 3.7 mmol/L (3.5-5.1); SODIUM 138 mmol/L (136-145)
== END | disposition home or self-care (01) ==
LOC: C.LAB1850 12:09
PROVIDERS: ATTEND Physician Assistant Medical
DX: E87.6 Hypokalemia (principal); E87.1 Hypo-osmolality and hyponatremia; E87.8 Other disorders of electrolyte and fluid balance, not elsewhere classified

== ENCOUNTER → 2017-06-15 | Outpatient (CLI) | payer OTHER, BC ==
--- NOTE | 2017-06-15 12:06 | DIAGNOSTIC IMAGING REPORT ---
CHEST 2 VIEWS ROUTINE CLINICAL HISTORY: R05 [id number] cough. Dyspnea. COMPARISON STUDY: 05/02/2017 FINDINGS: Several stable calcified left hilar nodes. No evidence for cardiac enlargement. Unchanging platelike atelectasis left base. Mild chronic elevation right hemidiaphragm. No focal infiltrate. IMPRESSION: Chronic change. No acute process. The above report was generated using voice recognition software. It may contain grammatical, syntax or spelling errors. Electronically signed by: Isak Martell M.D. 06/15/2017 12:05 PM Dictated Date/Time: 06/15/2017 12:04 PM
[2017-06-15 13:24] LABS: BASO % 0.4 %; BASO ABS # 0.03 K/uL (0-0.2); COMPLETE YES; EOS % 1.7 %; HEMATOCRIT 37.6 % (37-47); IG% 0.5 %; LYMPH % 12.3 %; LYMPH ABS # 0.92 K/uL (1.2-3.4); MEAN CELL VOLUME 83.2 fL (80-100); MEAN CORPUSCULAR HEMOGLOBIN 27.2 pg (25-34); MEAN CORPUSCULAR HGB CONC 32.7 g/dl (32-36); MEAN PLATELET VOLUME 9.5 fL (7.4-10.4); MONO % 10.4 %; NEUT % 74.7 %; PLATELET COUNT 303 K/uL (130-400); RED BLOOD COUNT 4.52 M/uL (4.2-5.4)
[2017-06-15 13:37] LABS: ESTIMATED AVERAGE GLUCOSE 128 mg/dl; HA1C FLAG Normal (Normal)
[2017-06-15 13:53] LABS: BLOOD UREA NITROGEN 9 mg/dl (7-18); CREATININE 0.66 mg/dl (0.60-1.20); GLUCOSE 92 mg/dl (70-99)
[2017-06-15 13:54] LABS: ALT/SGPT 19 U/L (12-78); CALCIUM 8.8 mg/dl (8.5-10.1); CARBON DIOXIDE 25 mmol/L (21-32); CHLORIDE 101 mmol/L (98-107); POTASSIUM 3.3 mmol/L (3.5-5.1); SODIUM 134 mmol/L (136-145)
[2017-06-15 13:56] LABS: ALB/GLOB RATIO 0.7 (0.9-2); ALKALINE PHOSPHATASE 56 U/L (45-117); AST/SGOT 18 U/L (15-37)
== END | disposition home or self-care (01) ==
LOC: C.RAD1850 11:39
PROVIDERS: ATTEND Physician Assistant Medical
DX: I10 Essential (primary) hypertension (principal); J45.909 Unspecified asthma, uncomplicated; E11.9 Type 2 diabetes mellitus without complications; E78.5 Hyperlipidemia, unspecified; J30.9 Allergic rhinitis, unspecified; R05 Cough; R26.81 Unsteadiness on feet

== ENCOUNTER → 2017-06-29 | Outpatient (CLI) | payer OTHER, BC | END | disposition home or self-care (01) | LOC: C.LAB1850 14:01 | PROVIDERS: ATTEND Physician Assistant Medical | DX: F32.9 Major depressive disorder, single episode, unspecified (principal); R53.83 Other fatigue ==

== ENCOUNTER → 2017-08-16 | Outpatient (CLI) | payer OTHER, BC ==
[2017-08-16 15:06] LABS: BLOOD UREA NITROGEN 12 mg/dl (7-18); CREATININE 0.82 mg/dl (0.60-1.20)
== END | disposition home or self-care (01) ==
LOC: C.LAB1850 13:10
PROVIDERS: ATTEND Physician Assistant
DX: Z00.00 Encounter for general adult medical examination without abnormal findings (principal); E11.9 Type 2 diabetes mellitus without complications; R41.3 Other amnesia; R25.1 Tremor, unspecified

== ENCOUNTER → 2017-08-25 | Outpatient (CLI) | payer OTHER, BC ==
[~2017-08-25] MED LIST changes: +GADAVIST IV PRN
--- NOTE | 2017-08-25 15:05 | DIAGNOSTIC IMAGING REPORT ---
Brain MRI WITH AND WITHOUT CONTRAST HISTORY: Dizziness. BALANCE PROBLEM, MEMORY LOSS, TREMOR TECHNIQUE: Multiplanar multisequence MRI of the brain was performed both before and after the intravenous administration of contrast. COMPARISON STUDY: Head CT 05/02/2017. FINDINGS: There is no mass, hematoma, midline shift, or acute infarct. The paranasal sinuses are clear. The mastoid air cells are clear. The ventricles and sulci demonstrate mild age-related involutional changes. Scattered foci of T2 hyperintensity seen within the periventricular and subcortical white matter are nonspecific but suggestive of moderate microvascular ischemic changes. The major vascular flow voids at the skull base are well-maintained. No abnormal enhancement. IMPRESSION: No acute intracranial abnormality. Patchy areas of of T2 hyperintensity seen within the periventricular and subcortical white matter are nonspecific but favors moderate microvascular ischemic change. Electronically signed by: Shamar Garcia M.D. 08/25/2017 3:04 PM Dictated Date/Time: 08/25/2017 2:56 PM
== END | disposition home or self-care (01) ==
LOC: C.MRIBC 13:57
PROVIDERS: ATTEND Physician Assistant
DX: R41.3 Other amnesia (principal); R25.1 Tremor, unspecified; R26.89 Other abnormalities of gait and mobility; R90.89 Other abnormal findings on diagnostic imaging of central nervous system

== ENCOUNTER 2017-10-03 13:30 | Emergency (ER) | payer OTHER, BC ==
[~2017-10-03] VITALS: Ht 147.3 cm; Wt 67.0 kg
[~2017-10-03 13:30] MED LIST changes: -GADAVIST IV PRN
[2017-10-03 13:48] VITALS: TEMP 36.6; Ht 147.3 cm; Wt 67.0 kg
[2017-10-03] MEDS ORDERED: SODIUM CHLORIDE 0.9% 250ML 250 ML IV STA (14:40)
--- NOTE | 2017-10-03 14:56 | EMERGENCY ROOM VISIT NOTE ---
History First contact with patient: 14:28 Chief Complaint: WEAKNESS Stated Complaint: MUSCLE WEAKNESS History of Present Illness The patient is a 82 year old female who presents to the Emergency Room with complaints of muscle weakness that started yesterday morning. The patient has had difficulty ambulating at home. She typically is able to ambulate on her own. Yesterday, she had to use a walker. She is having difficulty even rising from the toilet. She denies any dizziness or lightheadedness. She denies any recent illnesses. There has been a cough/cold going around the household. She has been eating and drinking normally. No nausea or vomiting. Bowel movements have been regular. She denies any difficulty breathing. No chest pain. No urinary symptoms. Review of Systems 10 system review performed and negative unless noted in HPI or below Past Medical/Surgical History Medical Problems: (1) ALLERGIC RHINITIS NOS (2) ASTHMA, UNSPECIFIED (3) DIAB ADRIANA WO COMPL, TYPE II OR UNSPEC TYPE, NOT UNCNTRLD (4) Gallbladder disease (5) IBS (irritable bowel syndrome) (6) OSTEOPOROSIS NOS (7) Pneumonia Surgical Problems: (1) Hx of CABG Heart disease Family History Diabetes mellitus FH: heart disease FHx: gallbladder disease Hypertension Social History Smoking Status: Former Smoker Alcohol Use: none Drug Use: none Marital Status: Housing Status: lives with family Occupation Status: retired Current/Historical Medications Scheduled Acetaminophen (Tylenol), 1,000 MG PO HS Artificial Tear Solution ([facility] Natural Tears 0.1-0.3 %), 2 DROPS OP DAILY Artificial Tear Solution (Tears Naturale), 2 DROPS OPB DAILY Budesonide/Formoterol Fumarate (Symbicort 80/4.5 Inhaler), 2 PUFFS INH BID Budesonide/Formoterol Fumarate (Symbicort 80/4.5 Inhaler), 2 PUFFS INH BID Cetirizine (Zyrtec), 10 MG PO DAILY Cholecalciferol (Vitamin D), 1,000 UNITS PO BID Citalopram (Citalopram Hydrobromide), 40 MG PO DAILY Clobetasol Propionate (Clobetasol Propionate), 1 APPLN TOP BID Donepezil HCl (Aricept), 5 MG PO HS Esomeprazole Magnesium (Nexium), 40 MG PO DAILY Fluticasone Propionate (Nasal) (Flonase Allergy Relief), 1 SPRAY VOLODYMYR DAILY Hydrochlorothiazide (Hctz), 25 MG PO DAILY Losartan Potassium (Losartan Potassium), 50 MG PO BID Metformin Hcl (Glucophage), 500 MG PO BID Montelukast Sod (Montelukast Sodium), 10 MG PO QPM Multiple Vitamin (Multivitamin), 1 TAB PO DAILY Simvastatin (Zocor), 10 MG PO QPM Scheduled PRN Albuterol Hfa (Ventolin Hfa), 2 PUFFS PO DAILY PRN for SOB/Wheezing Physical Exam Vital Signs Date Time Temp Pulse Resp B/P (MAP) Pulse Ox O2 Delivery O2 Flow Rate FiO2 10/03/17 19:25 68 18 123/87 98 10/03/17 16:33 72 10/03/17 16:17 74 20 140/98 98 Room Air 10/03/17 15:19 90 16 96 Room Air 10/03/17 13:48 36.6 81 18 163/81 94 Room Air Physical Exam VITALS: Vitals are noted on the nurse's note and reviewed by myself. Vital signs stable. GENERAL: 82-year-old female, in no acute distress, nondiaphoretic, well- developed well-nourished. SKIN: The skin was without rashes, erythema, edema, or bruising. HEAD: Normocephalic atraumatic. EYES: Pupils equal round and reactive to light and accommodation. Conjunctivae without injection, sclerae without icterus. Extraocular movements intact. MOUTH: Mucous membranes moist. Tonsils are not enlarged. Pharynx without erythema or exudate. Uvula midline. Airway patent. Tongue does not deviate. NECK: Supple without nuchal rigidity. No lymphadenopathy. Cervical spine is nontender. No JVD. HEART: Regular rate and rhythm without murmurs gallops or rubs. LUNGS: Clear to auscultation bilaterally without wheezes, rales or rhonchi. No accessory muscle use. ABDOMEN: Positive bowel sounds x 4.Soft, nontender, without organomegaly. No guarding or rebound tenderness. MUSCULOSKELETAL: No muscle atrophy, erythema, or edema in the lower extremities bilaterally. Left upper extremity strength 4/5. Right upper extremity 5/5. Lower extremities 5/5 bilaterally. NEURO: Patient was alert and oriented to person place and time. Normal sensation to touch. No focal neurological deficits. Medical Decision & Procedures ER Provider Diagnostic Interpretation: Chest x-ray Patient Name: MIKE CHANEY Unit Number: [id number] Dictated: 10/03/171600 Transcribed: 10/03/171600 ARG Printed Date/Time: [~ rep prt dt]/[~ rep prt tm] [~ rep ct labl] - [~ rep ct ivnm] [facility] Radiology Department [place] [id number] Dictated: 10/03/171600 Transcribed: 10/03/171600 ARG Printed Date/Time: [~ rep prt dt]/[~ rep prt tm] [~ rep ct labl] - [~ rep ct ivnm] IMPRESSION: 1. Postinflammatory changes with stable lingular atelectasis/scarring 2. No acute parenchymal consolidation. No evidence of failure 3. Equivocal right basilar nodule, likely representing a summation Electronically signed by: Zack Grey M.D. 10/03/2017 4:03 PM Dictated Date/Time: 10/03/2017 4:01 PM The status of this report is Signed. Draft = Not yet reviewed or approved by Radiologist. Signed = Reviewed and approved by Radiologist. <AttendingPhy></AttendingPhy> <FamilyPhy>Thomas Edgar M.D.</FamilyPhy> < PrimaryPhy>Thomas Edgar M.D.</PrimaryPhy> <UnitNumber>[id number]</UnitNumber> < VisitNumber>[id number]</VisitNumber> <PatientName>MIKE CHANEY</PatientName > <DateOfBirth>1935</DateOfBirth> <Location>[facility]</Location> <ServiceDate> 10/03/17</ServiceDate> <MNE>ESINDI</MNE> <OrderingPhy>Pastora Webb PA-C</ OrderingPhy> <OrderingPhyMNE>f rep ord dr hillman</OrderingPhyMNE> <DictatingPhyMNE> f rep dict dr hillman</DictatingPhyMNE> <CCListMNE>f rep ct mne</CCListMNE> < AdmittingPhyMNE>f pt admit dr hillman</AdmittingPhyMNE> <AttendingPhyMNE>f pt attend dr hillman</AttendingPhyMNE> <ConsultingPhyMNE>f pt consult dr hillman</ConsultingPhyMNE> <FamilyPhyMNE>f pt fam dr hillman</FamilyPhyMNE> <OtherPhyMNE>f pt other dr hillman</OtherPhyMNE> < PrimaryPhyMNE>f pt prim care dr hillman</PrimaryPhyMNE> <ReferringPhyMNE>f pt referring dr hillman</ReferringPhyMNE> CT head without contrast Impression: Age-related change. No acute process. No change from the prior exam. The above report was generated using voice recognition software. It may contain grammatical, syntax or spelling errors. Electronically signed by: Isak Martell M.D. 10/03/2017 3:28 PM Dictated Date/Time: 10/03/2017 3:26 PM The status of this report is Signed. Draft = Not yet reviewed or approved by Radiologist. Signed = Reviewed and approved by Radiologist. Laboratory Results 10/03/17 15:00 Red Blood Count 4.79, Mean Corpuscular Volume 82.0, Mean Corpuscular Hemoglobin 26.9, Mean Corpuscular Hemoglobin Concent 32.8, Mean Platelet Volume 10.1, Neutrophils (%) (Auto) 72.0, Lymphocytes (%) (Auto) 13.0, Monocytes (%) (Auto) 14.0, Eosinophils (%) (Auto) 0.6, Basophils (%) (Auto) 0.2, Neutrophils # (Auto ) 6.29, Lymphocytes # (Auto) 1.14, Monocytes # (Auto) 1.22, Eosinophils # (Auto ) 0.05, Basophils # (Auto) 0.02 10/03/17 15:00 Test 10/03/17 15:00 10/03/17 15:40 White Blood Count 8.74 K/uL (4.8-10.8) Red Blood Count 4.79 M/uL (4.2-5.4) Hemoglobin 12.9 g/dL (12.0-16.0) Hematocrit 39.3 % (37-47) Mean Corpuscular Volume 82.0 fL (80-100) Mean Corpuscular Hemoglobin 26.9 pg (25-34) Mean Corpuscular Hemoglobin Concent 32.8 g/dl (32-36) Platelet Count 355 K/uL (130-400) Mean Platelet Volume 10.1 fL (7.4-10.4) Neutrophils (%) (Auto) 72.0 % Lymphocytes (%) (Auto) 13.0 % Monocytes (%) (Auto) 14.0 % Eosinophils (%) (Auto) 0.6 % Basophils (%) (Auto) 0.2 % Neutrophils # (Auto) 6.29 K/uL (1.4-6.5) Lymphocytes # (Auto) 1.14 K/uL (1.2-3.4) Monocytes # (Auto) 1.22 K/uL (0.11-0.59) Eosinophils # (Auto) 0.05 K/uL (0-0.5) Basophils # (Auto) 0.02 K/uL (0-0.2) RDW Standard Deviation 44.6 fL (36.4-46.3) RDW Coefficient of Variation 15.0 % (11.5-14.5) Immature Granulocyte % (Auto) 0.2 % Immature Granulocyte # (Auto) 0.02 K/uL (0.00-0.02) Anion Gap 6.0 mmol/L (3-11) Est Creatinine Clear Calc Drug Dose 50.9 ml/min Estimated GFR () 94.0 Estimated GFR (Non- 81.1 BUN/Creatinine Ratio 16.0 (10-20) Calcium Level 9.1 mg/dl (8.5-10.1) Total Bilirubin 2.1 mg/dl (0.2-1) Aspartate Amino Transf (AST/SGOT) 18 U/L (15-37) Alanine Aminotransferase (ALT/SGPT) 20 U/L (12-78) Alkaline Phosphatase 66 U/L (45-117) Total Protein 7.1 gm/dl (6.4-8.2) Albumin 3.2 gm/dl (3.4-5.0) Globulin 3.9 gm/dl (2.5-4.0) Albumin/Globulin Ratio 0.8 (0.9-2) Thyroid Stimulating Hormone (TSH) 2.850 uIu/ml (0.300-4.500) Influenza Type A Antigen Neg for Influ A (NEG) Influenza Type B Antigen Neg for Influ B (NEG) Urine Color DK YELLOW Urine Appearance CLEAR (CLEAR) Urine pH 6.5 (4.5-7.5) Urine Specific [place] 1.024 (1.000-1.030) Urine Protein NEG (NEG) Urine Glucose (UA) NEG (NEG) Urine Ketones NEG (NEG) Urine Occult Blood NEG (NEG) Urine Nitrite NEG (NEG) Urine Bilirubin NEG (NEG) Urine Urobilinogen POS (NEG) Urine Leukocyte Esterase NEG (NEG) Medications Administered Medications (Trade) Dose Ordered Sig/José Route Start Time Stop Time Status Last Admin Dose Admin Sodium Chloride 250 ml @ 999 mls/hr Q16M STAT IV 10/03/17 14:40 10/03/17 14:55 DC 10/03/17 15:07 999 MLS/HR ECG Indication: weakness Rate (beats per minute): 73 Rhythm: normal sinus ED Course Patient was seen and examined Vital signs including blood pressure were reviewed medications list was verified with patient Labs were obtained, and a saline lock was established The patient did not want anything for pain. She was hydrated with 250 mL of normal saline. The patient was also seen and evaluated by my supervising physician, who is in agreement with my plan. The case was discussed with case management who spoke with the patient and the patient's family. We reviewed her workup. She voiced understanding. An ambulatory trial was performed. This did not go well. Disposition options were discussed. The patient and the patient's family feel that rehabilitation is appropriate. A referral was made to [facility]. The patient was accepted, and transferred from the emergency department. Medical Decision Differential diagnosis: Dehydration, infectious etiology, intracranial abnormality, metabolic encephalopathy, peripheral neuromuscular disease, This patient is an 82-year-old female that presents to the emergency department with overall weakness for 1 day. On exam, her right upper extremity was slightly weaker than the rest of her extremities. Otherwise, her exam was unremarkable. She was alert and oriented 3. Her workup is fairly unremarkable. Renal function in tact. She is not anemic. Chest x-ray is not showing any signs of pneumonia. No UTI. CT of the head did not show any acute abnormalities. Medically, the patient is stable for discharge. It is possible that musculoskeletal pain is contributing to her symptoms. The patient did not do well with ambulatory trial. Rehabilitation was felt appropriate. The patient and the patient's daughter are comfortable with this plan. She will be transferred to [facility] for further treatment. This chart was completed in part utilizing [employer] Speech Voice Recognition software. Attempts were made to minimize the grammatical errors, random word insertions, pronoun errors and incomplete sentences. Any formal questions or concerns about the content, text or information contained within the body of this dictation should be directly addressed to the provider for clarification. Medication Reconcilliation Current Medication List: was personally reviewed by me Blood Pressure Screening Patient's blood pressure: Elevated blood pressure Blood pressure disposition: Did not require urgent referral Consults Consulting Physician: [facility] Impression Primary Impression: Ambulatory dysfunction Departure Information Dispostion Home / Self-Care Condition FAIR Referrals Thomas Edgar M.D. (PCP) Patient Instructions My [facility] Additional Instructions You had been evaluated in the emergency department for difficulty walking. No significant abnormalities were found in blood work and imaging today. Please go to [facility] rehabilitation for further treatment. Continue current medications as prescribed. Please follow-up with your primary care physician as soon as possible for a recheck. Please do not hesitate to return to the emergency department with any new, worsening or concerning symptoms.
[2017-10-03 15:18] LABS: BASO % 0.2 %; BASO ABS # 0.02 K/uL (0-0.2); EOS % 0.6 %; EOS ABS # 0.05 K/uL (0-0.5); HEMATOCRIT 39.3 % (37-47); HEMOGLOBIN 12.9 g/dL (12.0-16.0); IG# 0.02 K/uL (0.00-0.02); LYMPH ABS # 1.14 K/uL (1.2-3.4); MEAN CORPUSCULAR HEMOGLOBIN 26.9 pg (25-34); MEAN CORPUSCULAR HGB CONC 32.8 g/dl (32-36); MEAN PLATELET VOLUME 10.1 fL (7.4-10.4); MONO ABS # 1.22 K/uL (0.11-0.59); NEUT ABS # 6.29 K/uL (1.4-6.5); PLATELET COUNT 355 K/uL (130-400); RED CELL DISTRIBUTION WIDTH SD 44.6 fL (36.4-46.3); WHITE BLOOD COUNT 8.74 K/uL (4.8-10.8)
--- NOTE | 2017-10-03 15:29 | DIAGNOSTIC IMAGING REPORT ---
HEAD WITHOUT CONTRAST (CT) CT DOSE: 537.48 mGy.cm HISTORY: Mental status change weakness ? R>L UE TECHNIQUE: Multiaxial CT images of the head were performed without the use of intravenous contrast. A dose lowering technique was utilized adhering to the principles of ALARA. Comparison: HISTORY: 2016 Findings: The paranasal sinuses and mastoid air cells are clear. Chronic small vessel change of aging. No acute intracranial hemorrhage. Ventricular system is midline. Impression: Age-related change. No acute process. No change from the prior exam. The above report was generated using voice recognition software. It may contain grammatical, syntax or spelling errors. Electronically signed by: Isak Martell M.D. 10/03/2017 3:28 PM Dictated Date/Time: 10/03/2017 3:26 PM
[2017-10-03 15:39] LABS: ALBUMIN 3.2 gm/dl (3.4-5.0); CALCIUM 9.1 mg/dl (8.5-10.1); CREATININE 0.69 mg/dl (0.60-1.20); POTASSIUM 3.7 mmol/L (3.5-5.1)
[2017-10-03 15:46] LABS: INFLUENZA B ANTIGEN Neg for Influ B (NEG)
[2017-10-03 15:50] LABS: TOTAL PROTEIN 7.1 gm/dl (6.4-8.2)
--- NOTE | 2017-10-03 16:04 | DIAGNOSTIC IMAGING REPORT ---
CHEST 2 VIEWS ROUTINE CLINICAL HISTORY: cough weakness COMPARISON STUDY: 06/15/2017 FINDINGS: There is mild elevation right hemidiaphragm. There are densely calcified left hilar lymph nodes unchanged the prior study. There is a calcified left midlung zone granuloma. There is a linear atelectasis/scarring within the lingula. There is no failure. There is no acute parenchymal consolidation. There are no pleural effusions. Equivocal right basilar nodule, likely represents a summation. IMPRESSION: 1. Postinflammatory changes with stable lingular atelectasis/scarring 2. No acute parenchymal consolidation. No evidence of failure 3. Equivocal right basilar nodule, likely representing a summation Electronically signed by: Zack Grey M.D. 10/03/2017 4:03 PM Dictated Date/Time: 10/03/2017 4:01 PM
[2017-10-03] MEDS ORDERED: SYMIN/8045 INH (16:32)
[2017-10-03] MEDS ORDERED: DONE5TAB9 PO (16:32)
[2017-10-03] MEDS ORDERED: CLBPO15 TOP (16:32)
[2017-10-03] MEDS ORDERED: CHOL100010 PO (16:32)
[2017-10-03] MEDS ORDERED: ARTISOL OPB (16:32)
[2017-10-03 19:25] VITALS: BP 123/87; PULSE 68; O2SAT 98
== END 2017-10-03 19:29 ==
LOC: C.EDB 13:32 → C.EDC 19:29
DX: R26.89 Other abnormalities of gait and mobility (principal); J45.909 Unspecified asthma, uncomplicated; E11.9 Type 2 diabetes mellitus without complications; M81.0 Age-related osteoporosis without current pathological fracture; Z87.891 Personal history of nicotine dependence; Z83.3 Family history of diabetes mellitus; Z82.49 Family history of ischemic heart disease and other diseases of the circulatory system; Z83.79 Family history of other diseases of the digestive system

== ENCOUNTER → 2017-11-09 | Outpatient (CLI) | payer OTHER, BC ==
[~2017-11-09] MED LIST changes: +ARTISOL OPB; -CALC500C70 PO; +CHOL100010 PO; +CLBPO15 TOP; +DONE5TAB9 PO
[2017-11-09 15:08] LABS: BASO % 0.7 %; BASO ABS # 0.04 K/uL (0-0.2); EOS % 1.4 %; EOS ABS # 0.08 K/uL (0-0.5); HEMATOCRIT 39.5 % (37-47); HEMOGLOBIN 12.6 g/dL (12.0-16.0); IG# 0.01 K/uL (0.00-0.02); LYMPH % 30.3 %; LYMPH ABS # 1.74 K/uL (1.2-3.4); MEAN CELL VOLUME 81.6 fL (80-100); MEAN CORPUSCULAR HGB CONC 31.9 g/dl (32-36); MEAN PLATELET VOLUME 10.4 fL (7.4-10.4); MONO % 14.4 %; MONO ABS # 0.83 K/uL (0.11-0.59); NEUT ABS # 3.05 K/uL (1.4-6.5); PLATELET COUNT 261 K/uL (130-400); RED CELL DISTRIBUTION WIDTH SD 45.2 fL (36.4-46.3); WHITE BLOOD COUNT 5.75 K/uL (4.8-10.8)
[2017-11-09 15:15] LABS: ALBUMIN 3.2 gm/dl (3.4-5.0); ALT/SGPT 20 U/L (12-78); AST/SGOT 17 U/L (15-37); BLOOD UREA NITROGEN 10 mg/dl (7-18); CARBON DIOXIDE 28 mmol/L (21-32); CREATININE 0.73 mg/dl (0.60-1.20); GLUCOSE 84 mg/dl (70-99); POTASSIUM 3.9 mmol/L (3.5-5.1); SODIUM 138 mmol/L (136-145)
[2017-11-09 15:17] LABS: ALKALINE PHOSPHATASE 52 U/L (45-117); CHOLESTEROL 182 mg/dl (0-200); LDL CHOLESTEROL CALCULATED 91 mg/dl; TOTAL PROTEIN 6.9 gm/dl (6.4-8.2)
[2017-11-09 16:00] LABS: HEMOGLOBIN A1C 5.7 % (4.5-5.6)
== END | disposition home or self-care (01) ==
LOC: C.LAB1850 12:18
PROVIDERS: ATTEND Internal Medicine Pulmonary Disease
DX: I10 Essential (primary) hypertension (principal)

== ENCOUNTER → 2018-04-30 | Outpatient (CLI) | payer OTHER, BC ==
[2018-04-30 16:11] LABS: BLOOD UREA NITROGEN 16 mg/dl (7-18); CALCIUM 8.3 mg/dl (8.5-10.1); CARBON DIOXIDE 25 mmol/L (21-32); CREATININE 0.84 mg/dl (0.60-1.20); GLUCOSE 97 mg/dl (70-99); POTASSIUM 3.5 mmol/L (3.5-5.1); SODIUM 138 mmol/L (136-145)
== END | disposition home or self-care (01) ==
LOC: C.LAB1850 15:01
PROVIDERS: ATTEND Physician Assistant Medical
DX: R35.0 Frequency of micturition (principal)

== ENCOUNTER 2021-05-09 02:03 | Inpatient (IN) ==
[2021-05-09] MEDS ORDERED: ACETAMINOPHEN 1,000 MG/100 ML VIAL IV STA (04:23)
[2021-05-09] MEDS ORDERED: fentaNYL citrate 100 MCG/2 ML VIAL IV STA (04:23)
[2021-05-09 04:52] LABS: Hematocrit (blood only) 39.6 % (37-47); Hemoglobin 13.4 g/dL (12.0-16.0); Immature Granulocytes # (auto) 0.01 K/uL (0.00-0.02); Immature Granulocytes % (auto) 0.2 %; Lymphocytes # (auto) 0.97 K/uL (1.2-3.4); Lymphocytes % (auto) 21.5 %; Mean Corpuscular Hemoglobin 29.2 pg (25-34); Mean Corpuscular Hgb Conc 33.8 g/dL (32-36); Mean Corpuscular Volume 86.3 fL (80-100); Mean Platelet Volume 10.8 fL (7.4-10.4); Monocytes # (auto) 0.47 K/uL (0.11-0.59); Monocytes % (auto) 10.4 %; Neutrophils # (auto) 3.07 K/uL (1.4-6.5); Neutrophils % (auto) 67.9 %; Platelet Count 191 K/uL (130-400); RDW Coefficient of Variation 15.3 % (11.5-14.5); RDW Standard Deviation 48.8 fL (36.4-46.3); Red Blood Count 4.59 M/uL (4.2-5.4); White Blood Count 4.52 K/uL (4.8-10.8)
--- NOTE | 2021-05-09 05:07 | Emergency Department Note ---
History of Present Illness General Chief complaint: Fall Stated complaint: FALL w/RT. KNEE; lt WRIST PAIN Time Seen by Provider: 05/09/21 02:05 Source: patient Mode of arrival: EMS Limitations: no limitations History of Present Illness Provider complaint: Fall, knee pain, wrist pain Onset (ago): hour(s) Location: upper extremity and lower extremity Maximum Pain Intensity: 8 Associated symptoms: + denies other symptoms Treatments prior to arrival: none This is an 86-year-old female who presents via EMS from home after an accidental fall. Patient states she got up to do something and when she went to set her Rollator to the side her right knee gave out, however she states she fell towards her left. Patient denies striking her head or loss of consciousness. Patient states her right knee buckled underneath her and is painful and swollen. Patient is holding the leg in a flexed position. Patient also complains of pain along her left wrist. She denies headache, neck or back pain, numbness or tingling, other upper extremity injury, rib pain, or hip pain. Patient is not on antiplatelet or anticoagulation therapy. Patient states she has previously had similar falls. Pt seen during a time of high acuity and national emergency pandemic while wearing PPE. Home Medications Medication Instructions Recorded Confirmed Type cholecalciferol (vitamin D3) 25 2,000 unit PO DAILY 12/24/18 05/09/21 History mcg (1,000 unit) capsule (Vitamin D3) esomeprazole magnesium 40 mg 40 mg PO DAILY #90 cap 06/30/20 05/09/21 Rx capsule,delayed release losartan 50 mg tablet 50 mg PO BID #180 tab 07/07/20 05/09/21 Rx simvastatin 10 mg tablet 10 mg PO DAILY #90 tab 08/24/20 05/09/21 Rx albuterol sulfate 2.5 mg INHALATION QID PRN 09/23/20 05/09/21 History fluticasone propionate 50 1 spray INTRANASAL BID 09/23/20 05/09/21 History mcg/actuation nasal spray,suspension clobetasol 0.05 % topical ointment 1 g TOPICAL 2XWK #60 gm 09/29/20 05/09/21 Rx montelukast 10 mg tablet 10 mg PO DAILY #90 tab 10/14/20 05/09/21 Rx donepezil 10 mg tablet 10 mg PO DAILY #90 tab 12/02/20 05/09/21 Rx albuterol sulfate 90 mcg/actuation 2 puff INHALATION QID PRN #8.5 g 03/03/21 05/09/21 Rx aerosol inhaler citalopram 40 mg tablet 40 mg PO DAILY #90 tab 03/05/21 05/09/21 Rx budesonide-formoterol HFA 160 2 puff INHALATION BID #3 inhaler 04/26/21 05/09/21 Rx mcg-4.5 mcg/actuation aerosol inhaler (Symbicort) buspirone 7.5 mg tablet 7.5 mg PO BID #60 tab 05/04/21 05/09/21 Rx prednisone 10 mg tablet See Rx Instructions PO DAILY #40 05/07/21 05/09/21 Rx tab Allergies Allergy/AdvReac Type Severity Reaction Status Date / Time sulfamethoxazole Allergy Intermediate UNSURE Verified 05/09/21 02:30 trimethoprim Allergy Intermediate UNSURE Verified 05/09/21 02:30 BO Inhibitors Allergy Unknown UNK Verified 05/09/21 02:30 Penicillins Allergy Unknown Unknown Verified 05/09/21 02:30 tetanus toxoid, adsorbed Allergy Unknown Unknown Verified 05/09/21 02:30 Past Med/Surg History Medical History (Updated 05/09/21 @ 09:40 by Derrick Wiggins PA-C) Generalized weakness IBS (irritable bowel syndrome) Osteopenia Pneumonia Postmenopausal atrophic vaginitis Vertigo Vitamin D deficiency Surgical History History of appendectomy S/P bronchoscopy S/P cholecystectomy S/P colonoscopy S/P dilation and curettage S/P tonsillectomy and adenoidectomy S/P tooth extraction Family History Unknown Coronary arteriosclerosis Aneurysm of abdominal aorta Mother No problems noted. Other No pertinent family history Denies family history of Ovarian cancer Social History Smoking Status: Former smoker Tobacco Type: Cigarettes Second Hand Exposure: No; Do You Dip or Chew Tobacco: No; Tobacco Cessation Education Requested by Patient: No Hx Alcohol Use: No Hx Substance Use: No Preferred Language: Turkish Communication Ability: Effective Leadership Development Manager Required: No Beliefs That Will Affect Care: None marital status: / Current Living Situation: Family Current Living Situation Comment: Daughter and family live in Pt's home current occupational status: retired Other Information That Helps Us Care for You: No Feels Safe at Home: Yes Safety Concerns: Feels Safe At This Time Seatbelt Use: always Assistive Devices: Denture - Upper, Denture - Lower and Walker Review of Systems A total of 10 systems reviewed and were otherwise negative All systems reviewed & are unremarkable except as noted in HPI & below Physical Exam Vital Signs Vital Signs - 24 hr 05/09/21 02:07 05/09/21 04:48 05/09/21 06:00 Temperature 37.0 C Temperature Source Oral Pulse Rate 61 72 Pulse Rate [Bilateral] 74 Pulse Rate from SpO2 Sensor 73 Pulse Rhythm [Bilateral] Regular Pulse Strength [Bilateral] Normal Respiratory Rate 20 18 19 Respiratory Effort / Characteristics Non-Labored Spontaneous Respiratory Depth Normal Normal Blood Pressure 232/94 H 224/90 H Blood Pressure [Right Arm] 214/88 H Blood Pressure Mean 140 134 Blood Pressure Mean [Right Arm] 130 Blood Pressure Position [Right Arm] Lying Pulse Oximetry 95 92 94 Oxygen Delivery Method Room Air Room Air Room Air Oxygen Flow Rate Sepsis New/Unexplained Change in Mental Status N/A Sepsis Action Taken by Nursing No Action Required Oxygen Flow Rate - Titration Pulse Oximetry Post Tiitration 05/09/21 07:01 05/09/21 07:40 05/09/21 08:00 Temperature Temperature Source Pulse Rate 66 68 67 Pulse Rate [Bilateral] Pulse Rate from SpO2 Sensor 60 70 73 Pulse Rhythm [Bilateral] Pulse Strength [Bilateral] Respiratory Rate 22 13 21 Respiratory Effort / Characteristics Respiratory Depth Blood Pressure 210/110 H 195/119 H 205/105 H Blood Pressure [Right Arm] Blood Pressure Mean 143 144 138 Blood Pressure Mean [Right Arm] Blood Pressure Position [Right Arm] Pulse Oximetry 94 98 98 Oxygen Delivery Method Nasal Cannula Oxygen Flow Rate 0 Sepsis New/Unexplained Change in Mental Status Sepsis Action Taken by Nursing Oxygen Flow Rate - Titration 2 Pulse Oximetry Post Tiitration 98 05/09/21 09:00 05/09/21 09:24 Temperature Temperature Source Pulse Rate 85 Pulse Rate [Bilateral] Pulse Rate from SpO2 Sensor 67 Pulse Rhythm [Bilateral] Pulse Strength [Bilateral] Respiratory Rate 18 Respiratory Effort / Characteristics Respiratory Depth Blood Pressure 215/98 H Blood Pressure [Right Arm] 192/100 H Blood Pressure Mean 137 Blood Pressure Mean [Right Arm] 130 Blood Pressure Position [Right Arm] Lying Pulse Oximetry 98 Oxygen Delivery Method Oxygen Flow Rate Sepsis New/Unexplained Change in Mental Status Sepsis Action Taken by Nursing Oxygen Flow Rate - Titration Pulse Oximetry Post Tiitration GENERAL: alert, well appearing, well nourished, no distress, non-toxic HEAD: n/at, no evidence of facial trauma, no moscoso signs, no raccoon eyes EYE EXAM: normal conjunctiva, PERRL and EOM's grossly intact OROPHARYNX: no exudate, no erythema, lips, buccal mucosa, and tongue normal and mucous membranes are moist NECK: supple, no nuchal rigidity, no adenopathy, non-tender LUNGS: Clear to auscultation. Normal chest wall mechanics, no w/r/r HEART: no murmurs, S1 normal and S2 normal ABDOMEN: abdomen soft, non-tender, normo-active bowel sounds, no masses, no rebound or guarding. PELVIS: Stable to compression, nontender with palpation BACK: Back is symmetrical on inspection and there is no deformity, no midline tenderness, no CVA tenderness. SKIN: no rashes and no bruising UPPER EXTREMITIES: upper extremities are grossly normal. FROM, nml pulses b/l. LOWER EXTREMITIES: No pitting edema. FROM left lower extremity, nml pulses b/l. Sensation intact bilaterally. Patient's right knee held in flexion, unable to move secondary to pain. There is evidence of evolving contusion laterally as well as evolving joint effusion. Compartments soft. No other evidence for trauma. Pt can wiggle toes of RLE but refuses to perform any additional movement due to pain. NEURO EXAM: Normal sensorium, cranial nerves II-XII grossly intact, normal speech, no gross weakness of arms, no gross weakness of legs. Gross sensation intact. Course Course 0436: Patient and family at bedside updated on x-ray imaging. 07: Pt updated on CT results. Pt still hypertensive. Pain improved with pain meds. 08: Discussed with Dr. Bernal. 08: Patient splinted at bedside. Patient could not tolerate any additional extension at the knee. Patient given additional pain medication. NVS intact post splinting. 824: Discussed with Derrick Wiggins PA-C, [facility] physician group. Administered Medications Acetaminophen (Acetaminophen 325 Mg Tab) 650 mg PO Q4H PRN PRN Reason: Pain or Fever Stop: 06/08/21 10:44 Last Admin: 05/09/21 19:02 Dose: 650 mg Documented by: [id number] Admin: 05/09/21 13:55 Dose: 650 mg Documented by: [id number] Buspirone HCl (Buspirone 7.5 Mg Tab) 7.5 mg PO BID [facility] Stop: 06/08/21 20:59 Last Admin: 05/09/21 20:35 Dose: 7.5 mg Documented by: [id number] Clobetasol Propionate (Clobetasol Propionate 0.05% Oint 15 Gm Tube) 1 appln EXT 2XWK [facility] Stop: 06/08/21 10:44 Last Admin: 05/09/21 12:34 Dose: 1 appln Documented by: [id number] Enoxaparin Sodium (Enoxaparin Inj 40 Mg/0.4 Ml Syr) 40 mg SQ Q24H [facility] Stop: 06/08/21 10:44 Last Admin: 05/09/21 10:45 Dose: Not Given Documented by: [id number] Fluticasone Propionate (Fluticasone Propionate Na Spr 16 Gm Btl) 1 sprays VOLODYMYR BID [facility] Stop: 06/08/21 20:59 Last Admin: 05/09/21 20:35 Dose: 1 sprays Documented by: [id number] Hydralazine HCl (Hydralazine Hcl 20 Mg/Ml Vial) 10 mg IV Q8H PRN PRN Reason: Blood Pressure - High Stop: 06/08/21 10:44 Last Admin: 05/09/21 22:30 Dose: 10 mg Documented by: [id number] Sodium Chloride (Nss 1000ml) 1,000 mls @ 80 mls/hr IV .[id number] [facility] Stop: 05/10/21 21:14 Last Admin: 05/09/21 20:16 Dose: 80 mls/hr Documented by: [id number] Lorazepam (Lorazepam 1 Mg Tab) 0.5 mg SL Q8H PRN PRN Reason: Agitation Stop: 06/08/21 09:26 Last Admin: 05/09/21 23:36 Dose: 0.5 mg Documented by: [id number] Losartan Potassium (Losartan Potassium 50 Mg Tab) 50 mg PO BID [facility] Stop: 06/08/21 20:59 Last Admin: 05/09/21 20:35 Dose: 50 mg Documented by: [id number] Morphine Sulfate (Morphine Sulfate 2 Mg/Ml Carp) 2 mg IV Q3H PRN PRN Reason: Pain Stop: 05/23/21 10:44 Last Admin: 05/09/21 21:51 Dose: 2 mg Documented by: [id number] Discontinued Medications Fentanyl Citrate (Fentanyl Citrate 100 Mcg/2 Ml Vial) 50 mcg IV NOW STA Stop: 05/09/21 04:24 Last Admin: 05/09/21 04:39 Dose: 50 mcg Documented by: [id number] Hydralazine HCl (Hydralazine Hcl 20 Mg/Ml Vial) 10 mg IV NOW STA Stop: 05/09/21 09:28 Last Admin: 05/09/21 09:37 Dose: 10 mg Documented by: [id number] Acetaminophen (Ofirmev) 1,000 mg in 100 mls @ 400 mls/hr IV NOW STA Stop: 05/09/21 04:37 Last Infusion: 05/09/21 04:55 Dose: 0 mls/hr Documented by: [id number] Admin: 05/09/21 04:40 Dose: 400 mls/hr Documented by: [id number] Sodium Chloride (Nss) 500 mls @ 125 mls/hr IV .Q4H [facility] Stop: 06/08/21 06:59 Last Infusion: 05/09/21 20:17 Dose: 0 mls/hr Documented by: [id number] Admin: 05/09/21 19:06 Dose: 125 mls/hr Documented by: [id number] Infusion: 05/09/21 19:06 Dose: 125 mls/hr Documented by: [id number] Admin: 05/09/21 18:00 Dose: 125 mls/hr Documented by: [id number] Infusion: 05/09/21 17:56 Dose: 0 mls/hr Documented by: [id number] Admin: 05/09/21 13:56 Dose: 125 mls/hr Documented by: [id number] Infusion: 05/09/21 10:56 Dose: 0 mls/hr Documented by: [id number] Admin: 05/09/21 06:56 Dose: 125 mls/hr Documented by: [id number] Losartan Potassium (Losartan Potassium 50 Mg Tab) 50 mg PO NOW STA Stop: 05/09/21 08:04 Last Admin: 05/09/21 08:25 Dose: 50 mg Documented by: [id number] Morphine Sulfate (Morphine Sulfate 4 Mg/Ml 1 Ml Carp\Vial) 4 mg IV NOW STA Stop: 05/09/21 06:47 Last Admin: 05/09/21 06:54 Dose: 4 mg Documented by: [id number] Morphine Sulfate (Morphine Sulfate 2 Mg/Ml Carp) 2 mg IV NOW STA Stop: 05/09/21 08:21 Last Admin: 05/09/21 08:25 Dose: 2 mg Documented by: [id number] Medical Decision Making Differential Diagnosis Fracture, subluxation, dislocation, contusion, ligamentous injury, neurovascular, compartment syndrome, rhabdomyolysis, as well as other pathologies. Medical Records Attestation: I reviewed the patient's medical records. Home Medications Current Medication List: was personally reviewed by me Laboratory Data Attestation: I reviewed the patient's lab results. Result diagrams: 05/09/21 04:42 05/09/21 04:42 Lab Results 05/09/21 05/09/21 05/09/21 Range/Units 04:42 04:42 08:43 WBC 4.52 L (4.8-10.8) K/uL RBC 4.59 (4.2-5.4) M/uL Hgb 13.4 (12.0-16.0) g/dL Hct 39.6 (37-47) % MCV 86.3 (80-100) fL MCH 29.2 (25-34) pg MCHC 33.8 (32-36) g/dL RDW Std Deviation 48.8 H (36.4-46.3) fL RDW Coeff of Sukumar 15.3 H (11.5-14.5) % Plt Count 191 (130-400) K/uL MPV 10.8 H (7.4-10.4) fL Immature Gran % (Auto) 0.2 % Neut % (Auto) 67.9 % Lymph % (Auto) 21.5 % [place] % (Auto) 10.4 % Eos % (Auto) 0.0 % Baso % (Auto) 0.0 % Neut # (Auto) 3.07 (1.4-6.5) K/uL Lymph # (Auto) 0.97 L (1.2-3.4) K/uL [place] # (Auto) 0.47 (0.11-0.59) K/uL Eos # (Auto) 0.00 (0-0.5) K/uL Baso # (Auto) 0.00 (0-0.2) K/uL Immature Gran # (Auto) 0.01 (0.00-0.02) K/uL Sodium 141 (136-145) mmol/L Potassium 3.5 (3.5-5.1) mmol/L Chloride 109 H (98-107) mmol/L Carbon Dioxide 26 (21-32) mmol/L Anion Gap 6.0 (3-11) BUN 16 (7-18) mg/dl Creatinine 0.69 (0.6-1.2) mg/dl Est Cr Clr Drug Dosing 46.6 ml/min Est GFR ( Amer) 91.4 ml/min Est GFR (Non-Af Amer) 78.8 ml/min BUN/Creatinine Ratio 23.4 H (10-20) Glucose 103 H (70-99) mg/dl Calcium 8.8 (8.5-10.1) mg/dl Total Bilirubin 1.1 H (0.2-1) mg/dl AST 25 (15-37) U/L ALT 21 (12-78) U/L Alkaline Phosphatase 84 (45-117) U/L Total Protein 7.3 (6.4-8.2) gm/dl Albumin 3.7 (3.4-5.0) gm/dl Globulin 3.6 (2.5-4.0) gm/dl Albumin/Globulin Ratio 1.0 (0.9-2) COVID-19 Eval Order Covid19 at [facility] SARS-CoV-2 (PCR) (Negative) 05/09/21 Range/Units 08:43 WBC (4.8-10.8) K/uL RBC (4.2-5.4) M/uL Hgb (12.0-16.0) g/dL Hct (37-47) % MCV (80-100) fL MCH (25-34) pg MCHC (32-36) g/dL RDW Std Deviation (36.4-46.3) fL RDW Coeff of Sukumar (11.5-14.5) % Plt Count (130-400) K/uL MPV (7.4-10.4) fL Immature Gran % (Auto) % Neut % (Auto) % Lymph % (Auto) % [place] % (Auto) % Eos % (Auto) % Baso % (Auto) % Neut # (Auto) (1.4-6.5) K/uL Lymph # (Auto) (1.2-3.4) K/uL [place] # (Auto) (0.11-0.59) K/uL Eos # (Auto) (0-0.5) K/uL Baso # (Auto) (0-0.2) K/uL Immature Gran # (Auto) (0.00-0.02) K/uL Sodium (136-145) mmol/L Potassium (3.5-5.1) mmol/L Chloride (98-107) mmol/L Carbon Dioxide (21-32) mmol/L Anion Gap (3-11) BUN (7-18) mg/dl Creatinine (0.6-1.2) mg/dl Est Cr Clr Drug Dosing ml/min Est GFR ( Amer) ml/min Est GFR (Non-Af Amer) ml/min BUN/Creatinine Ratio (10-20) Glucose (70-99) mg/dl Calcium (8.5-10.1) mg/dl Total Bilirubin (0.2-1) mg/dl AST (15-37) U/L ALT (12-78) U/L Alkaline Phosphatase (45-117) U/L Total Protein (6.4-8.2) gm/dl Albumin (3.4-5.0) gm/dl Globulin (2.5-4.0) gm/dl Albumin/Globulin Ratio (0.9-2) COVID-19 Eval Order SARS-CoV-2 (PCR) NEGATIVE (Negative) Imaging Data My Impression: X-ray: I interpreted the following studies. Chest: A single view study of the chest was reviewed and was negative for cardiomegaly, focal infiltrate, effusion, pulmonary edema, or wide mediastinum. No obvious rib fracture or pneumothorax. Left wrist: No obvious fracture/dislocation/subluxation. Pelvis: No obvious fracture or dislocation. Right knee: Evidence of distal femur fracture and patella fracture. No obvious displacement of the femur fracture, there is significant distraction of the 2 fracture segments of the patella Radiologist's Impression: Chest X-Ray 05/09/21 02:41 XR chest 1V portable HISTORY: 86 years-old Female trauma acute chest trauma COMPARISON: 02/28/2021 TECHNIQUE: AP view of the chest FINDINGS: Cardiac silhouette is enlarged. Calcified hilar lymph nodes. Calcified pulmonary granulomata. No pneumothorax, pleural effusion, airspace consolidation or overt pulmonary edema. Mild right hemidiaphragmatic elevation. Degenerative changes of the shoulders and spine. IMPRESSION: 1. No acute process. 2. Prior granulomatous disease. ACT 112: Negative or not required by law. The above report was generated using voice recognition software. It may contain grammatical, syntax or spelling errors. Electronically signed by: Kunal River M.D. 05/09/2021 8:11 AM Hip/Pelvis X-Ray 05/09/21 02:41 XR hip LT 2V w pelvis HISTORY: 86 years-old Female trauma acute pelvic trauma COMPARISON: None TECHNIQUE: AP view the pelvis with 2 views of the left hip FINDINGS: Demineralized appearance of the bones. Mild osteoarthritis of the hips. No acute fracture, dislocation or avascular necrosis. Unremarkable soft tissues. IMPRESSION: No acute fracture. ACT 112: Negative or not required by law. The above report was generated using voice recognition software. It may contain grammatical, syntax or spelling errors. Electronically signed by: Kunal River M.D. 05/09/2021 8:01 AM Knee X-Ray 05/09/21 02:41 XR knee RT 3V HISTORY: 86 years-old Female trauma acute posttraumatic right knee pain COMPARISON: Right knee CT of same day TECHNIQUE: 3 views of the right knee FINDINGS: There is an acute comminuted and slightly distracted fracture of the patella with fracture separation measuring up to 7 mm. Moderate lipohemarthrosis. Dystrophic calcifications of the distal quadriceps. Demineralized appearance of the bones. Moderate tricompartmental osteoarthritis. No additional acute fracture or dislocation. IMPRESSION: Acute comminuted mildly displaced mid patellar fracture with moderate lipohemarthrosis. ACT 112: Negative or not required by law. The above report was generated using voice recognition software. It may contain grammatical, syntax or spelling errors. Electronically signed by: Kunal River M.D. 05/09/2021 7:59 AM Wrist X-Ray 05/09/21 02:44 XR wrist LT min 3V routine HISTORY: 86 years-old Female trauma acute left wrist pain status post fall COMPARISON: 12/24/2018 TECHNIQUE: 4 views of the left wrist FINDINGS: Chondrocalcinosis. Demineralized appearance of the bones. Multifocal osteo arthritis, severe within the first carpal metacarpal joint. No acute fracture, dislocation or opaque foreign body. Mild circumferential soft tissue swelling. IMPRESSION: Mild soft tissue swelling without acute fracture. ACT 112: Negative or not required by law. The above report was generated using voice recognition software. It may contain grammatical, syntax or spelling errors. Electronically signed by: Kunal River M.D. 05/09/2021 8:[address] 05/09/21 04:[address] DOSE: 200.99 mGy.cm HISTORY: Fall. distal femur fx/patella fx TECHNIQUE: Multiaxial CT images of the right knee were performed and reformatted in the sagittal and coronal plane without the use of contrast. A dose lowering technique was utilized adhering to the principles of ALARA. COMPARISON: Right knee 05/09/2021. FINDINGS: Slightly comminuted and distracted horizontal fracture within the mid patella. This demonstrates up to 8 mm of distraction. The distal femur, proximal tibia, and proximal fibula appear intact. There is chondrocalcinosis. There is a moderate lipohemarthrosis. IMPRESSION: Slightly comminuted and distracted fracture within the mid patella. ACT 112: Negative or not required by law. Electronically signed by: Shamar Garcia M.D. 05/09/2021 7:[address] right knee: Findings consistent with acute patellar fracture, with comminution and distraction. Hemarthrosis. Prepatellar soft tissue swelling. Chondrocalcinosis and tricompartmental degenerative changes. Severe joint space narrowing at patellofemoral compartment. Radiologist: Héctor Retana MD MDM Narrative This is an 86-year-old female who presents from home following a fall. Patient with obvious edema and injury to the right knee. Initially x-rays performed due to concern for injury, and patient found to have obvious patellar fracture to right knee. Due to concern for additional occult injury given significant joint effusion, patient sent for CT in addition. Patient initially markedly hypertensive here although initially this was thought to be secondary to pain. Patient cautiously given several doses of pain medication. Unfortunately with these she would temporarily become hypoxic. She was maintained well on oxygen v ia nasal cannula. Gentle IV fluid hydration was added. Patient denied any head injury or LOC throughout the event and is not anticoagulated. Significant delay obtaining CT results due to delays with overnight radiology group. CT with significant joint effusion/hemarthrosis in addition to the comminuted and distracted patellar fracture. No other acute injury noted based on my read. Case discussed with on-call orthopedics as a precaution. Due to significant pain and difficulty controlling pain without adverse reactions, joint effusion with accompanying hemarthrosis, and need to find an additional rehab or make additional arrangements for placement, case was discussed with the hospitalist for additional evaluation and management. Per orthopedic recommendations, a bulky dressing with lateral splinting was performed. Patient unable perform any additional extension due to pain. She was given additional pain medication. Will allow patient to remain in this flexed and splinted position at this time pending additional orthopedic follow-up. Patient neurovascularly intact throughout. Impression & Plan Acute pain of right knee, Fall, Patellar fracture, Hemarthrosis, Acute joint effusion Discharge Plan Visit Data Chief Complaint: Fall Stated Complaint: FALL w/RT. KNEE; lt WRIST PAIN ED Provider: Angie Carlisle Discharge Problem: Acute pain of right knee, Fall, Patellar fracture, Hemarthrosis, Acute joint effusion Patient Disposition: Admitted As Inpatient Discharge Instructions Interventions: ED Discharge Assessment Last Done: 05/09/21 10:08 Discharge Problem: Fall Qualifiers: Encounter type: initial encounter Qualified Code(s): W19.XXXA - Unspecified fall, initial encounter Patellar fracture Qualifiers: Encounter type: initial encounter Fracture type: closed Fracture morphology: comminuted Fracture alignment: displaced Laterality: right Qualified Code(s): S82.041A - Displaced comminuted fracture of right patella, initial encounter for closed fracture
[2021-05-09 05:10] LABS: Albumin Level 3.7 gm/dl (3.4-5.0); BUN Creatinine Ratio 23.4 (10-20); Calcium 8.8 mg/dl (8.5-10.1); Creatinine Clr Calc Pharmacy 46.6 ml/min; Est GFR (African American) 91.4 ml/min; Est GFR (Non-African American) 78.8 ml/min; Potassium 3.5 mmol/L (3.5-5.1)
[2021-05-09 05:13] LABS: Bilirubin,Total 1.1 mg/dl (0.2-1); Globulin 3.6 gm/dl (2.5-4.0); Total Protein 7.3 gm/dl (6.4-8.2)
[2021-05-09] MEDS ORDERED: MoRPHine SULFATE 4 MG/ML 1 ML CARP\\VIAL IV STA (06:46)
[2021-05-09] MEDS: SODIUM CHLORIDE 0.9% 500 ML IV SCH ×4 (06:56→19:06)
--- NOTE | 2021-05-09 07:35 | CT Scan Report ---
RIGHT KNEE CT CT DOSE: 200.99 mGy.cm HISTORY: Fall. distal femur fx/patella fx TECHNIQUE: Multiaxial CT images of the right knee were performed and reformatted in the sagittal and coronal plane without the use of contrast. A dose lowering technique was utilized adhering to the pr inciples of FLORECITA. COMPARISON: Right knee 05/09/2021. FINDINGS: Slightly comminuted and distracted horizontal fracture within the mid patella. This demonst rates up to 8 mm of distraction. The distal femur, proximal tibia, and proximal fibula appear intact. There is chondrocalcinosis. There is a moderate lipohemarthrosis. IMPRESSION: Slightly comminuted and distracted fracture within the mid patella. ACT 112: Negative or not required by law. Electronically signed by: Shamar Garcia M.D. 05/09/2021 7:34 AM
--- NOTE | 2021-05-09 08:01 | XRay Report ---
XR knee RT 3V HISTORY: 86 years-old Female trauma acute posttraumatic right knee pain COMPARISON: Right knee CT of same day TECHNIQUE: 3 views of the right knee FINDINGS: There is an acute comminuted and slightly distracted fracture of the patella with fracture separation measuring up to 7 mm. Moderate lipohemarthrosis. Dystrophic calcifications of the distal quadriceps. Demineralized appearance of the bones. Moderate tricompartmental osteoarthritis. No additional acute fracture or dislocation. IMPRESSION: Acute comminuted mildly displaced mid patellar fracture with moderate lipohemarthrosis. ACT 112: Negative or not required by law. The above report was generated using voice recognition software. It may contain grammatical, syntax o r spelling errors. Electronically signed by: Kunal River M.D. 05/09/2021 7:59 AM
--- NOTE | 2021-05-09 08:02 | XRay Report ---
XR hip LT 2V w pelvis HISTORY: 86 years-old Female trauma acute pelvic trauma COMPARISON: None TECHNIQUE: AP view the pelvis with 2 views of the left hip FINDINGS: Demineralized appearance of the bones. Mild osteoarthritis of the hips. No acute fracture, dislocatio n or avascular necrosis. Unremarkable soft tissues. IMPRESSION: No acute fracture. ACT 112: Negative or not required by law. The above report was generated using voice recognition software. It may contain grammatical, syntax o r spelling errors. Electronically signed by: Kunal River M.D. 05/09/2021 8:01 AM
[2021-05-09] MEDS ORDERED: LOSARTAN POTASSIUM 50 MG TAB PO STA (08:03)
--- NOTE | 2021-05-09 08:09 | XRay Report ---
XR wrist LT min 3V routine HISTORY: 86 years-old Female trauma acute left wrist pain status post fall COMPARISON: 12/24/2018 TECHNIQUE: 4 views of the left wrist FINDINGS: Chondrocalcinosis. Demineralized appearance of the bones. Multifocal osteoarthritis, severe within th e first carpal metacarpal joint. No acute fracture, dislocation or opaque foreign body. Mild circumfe rential soft tissue swelling. IMPRESSION: Mild soft tissue swelling without acute fracture. ACT 112: Negative or not required by law. The above report was generated using voice recognition software. It may contain grammatical, syntax o r spelling errors. Electronically signed by: Kunal River M.D. 05/09/2021 8:07 AM
--- NOTE | 2021-05-09 08:12 | XRay Report ---
XR chest 1V portable HISTORY: 86 years-old Female trauma acute chest trauma COMPARISON: 02/28/2021 TECHNIQUE: AP view of the chest FINDINGS: Cardiac silhouette is enlarged. Calcified hilar lymph nodes. Calcified pulmonary granulomata. No pneu mothorax, pleural effusion, airspace consolidation or overt pulmonary edema. Mild right hemidiaphragm atic elevation. Degenerative changes of the shoulders and spine. IMPRESSION: 1. No acute process. 2. Prior granulomatous disease. ACT 112: Negative or not required by law. The above report was generated using voice recognition software. It may contain grammatical, syntax o r spelling errors. Electronically signed by: Kunal River M.D. 05/09/2021 8:11 AM
[2021-05-09] MEDS ORDERED: MoRPHine SULFATE 2 MG/ML CARP IV STA (08:20)
[2021-05-09] MEDS ORDERED: hydrALAZINE HCL 20 MG/ML VIAL IV STA (09:27)
--- NOTE | 2021-05-09 09:43 | History & Physical Report ---
Date of Service May 09, 2021 Assessment & Plan (1) Patellar fracture: Plan: Attending: Dr. Combs Impression: 86-year-old female with a mechanical fall at home in the middle of the night. She was transferring from a roller board onto the toilet. She had her right leg give out and she struck her right knee on the floor resulting in a patellar fracture. This was confirmed by x-ray as well as CT scan of the knee. Dr. Bernal was contacted by the emergency department and at this time will follow peripherally. Patient also had hypertensive urgency with a systolic pressure of 205 on my arrival. She was given her home dose of 50 mg of losartan and 10 mg of IV hydralazine. She will be admitted to the medical telemetry unit. Once blood pressure is managed, she can be transferred to [facility]. Patellar fracture: * Mechanical fall * Morphine 2 mg every 3 hours IV for pain * Lorazepam 0.5 mg sublingually every 8 hours for anxiety * PT/OT evaluations ordered. Nonweightbearing on right leg * Further management per orthopedics (2) Acute pain of right knee: Plan: Secondary to acute fracture patella Patient also has chronic osteoarthritis and degenerative joint disease of the knees PT/OT Pain management as above Followed by [facility] as an outpatient (3) Fall: Plan: This appears to be a mechanical fall per patient's history Will administer telemetry until blood pressure is well managed PT/OT Suspect patient will need some level of assisted or rehab prior to returning home (4) Asthma: Plan: Follows with Dr. Edgar She was recently placed on a prednisone taper starting Monday, May 07, 2021 No bronchospasm on exam At this time we will discontinue prednisone taper as this is most likely adding to anxiety with her fracture (5) Diabetes mellitus: Plan: Patient reports that this is resolved and diet controlled She is not on any insulin or oral treatment at home We will continue with diabetic diet Outpatient management (6) Acid reflux: Plan: No current complaints Continue PPI (7) Anxiety: Plan: Discontinue prednisone taper which was started on 05/07/2021 Lorazepam 0.5 mg sublingually every 8 hours as needed (8) Mild dementia: Plan: Continue Aricept (9) Hypertension: Plan: Continue home medications We will also start hydralazine 10 mg IV Follow on medical telemetry until stable (10) Dyslipidemia: Plan: Continue simvastatin 10 mg daily (11) Depression: Plan: Continue citalopram and buspirone (12) Allergic rhinitis: Plan: Flonase twice daily (13) DVT prophylaxis: Plan: Lovenox 40 mg subcutaneously daily Please refer to Dr. Combs's addendum for further recommendations and corrections. History of Present Illness Chief Complaint: Status post fall Right patellar fracture Primary Care Provider: Thomas Edgar MD Attending: Dr. Combs This is an 86-year-old female with a past medical tension, asthma, anx iety, degenerative arthritis of the knee, mild dementia, balance impairment, dyslipidemia, irritable bowel syndrome, history of diabetes mellitus, acid reflux, and history of remote tobacco abuse Patient lives with her family and got up this morning to go to the bathroom. She was using a roller board to transfer to the toilet when her knee gave out and she fell striking her knee on the floor. Family was able to get her up and brought her to the emergency department where she was found to have a right fractured patella with hemarthrosis on x-ray and confirmed by CT of the knee. The patient reports that she is anxious that she has family plans that she was hoping to go camping this week. Her blood pressure was elevated at 192/100. She was given her home dose of 50 mg of oral losartan without much improvement. 10 mg of IV hydralazine has been ordered but not yet administered. Patient also is ordered 1/2 mg of sublingual lorazepam for anxiety. The patient denies syncope or presyncope with the fall. She had no loss of consciousness. She had no lightheadedness or dizziness. She had no chest pain or tightness or dyspnea. She reports it was strictly a mechanical fall. Patient denies any recent illness. She has no fever, chills, sweats, rigors. She has no recent travel. Family is traveling in to visit but she has not seen them yet. She has no history of Covid. She does report that she has been vaccinated for Covid. She was recently seen in Dr. Edgar's office and was started on a prednisone taper on 05/07/2021. She took her dose as prescribed on Monday and on Monday. This most likely is contributing to some of her anxiety. This taper will be held while inpatient and patient will be monitored for respiratory status. The patient does have remote tobacco abuse history of 30 pack years. She states that she quit smoking in the 1960s The patient does report some intentional weight loss over the past year. Otherwise health has been stable. Allergies Allergy/AdvReac Type Severity Reaction Status Date / Time sulfamethoxazole Allergy Intermediate UNSURE Verified 05/09/21 02:30 trimethoprim Allergy Intermediate UNSURE Verified 05/09/21 02:30 SHARAN Inhibitors Allergy Unknown UNK Verified 05/09/21 02:30 Penicillins Allergy Unknown Unknown Verified 05/09/21 02:30 tetanus toxoid, adsorbed Allergy Unknown Unknown Verified 05/09/21 02:30 Home Medications Medication Instructions Recorded Confirmed Type cholecalciferol (vitamin D3) 25 2,000 unit PO DAILY 12/24/18 05/09/21 History mcg (1,000 unit) capsule (Vitamin D3) esomeprazole magnesium 40 mg 40 mg PO DAILY #90 cap 06/30/20 05/09/21 Rx capsule,delayed release losartan 50 mg tablet 50 mg PO BID #180 tab 07/07/20 05/09/21 Rx simvastatin 10 mg tablet 10 mg PO DAILY #90 tab 08/24/20 05/09/21 Rx albuterol sulfate 2.5 mg INHALATION QID PRN 09/23/20 05/09/21 History fluticasone propionate 50 1 spray INTRANASAL BID 09/23/20 05/09/21 History mcg/actuation nasal spray,suspension clobetasol 0.05 % topical ointment 1 g TOPICAL 2XWK #60 gm 09/29/20 05/09/21 Rx montelukast 10 mg tablet 10 mg PO DAILY #90 tab 10/14/20 05/09/21 Rx donepezil 10 mg tablet 10 mg PO DAILY #90 tab 12/02/20 05/09/21 Rx albuterol sulfate 90 mcg/actuation 2 puff INHALATION QID PRN #8.5 g 03/03/21 05/09/21 Rx aerosol inhaler citalopram 40 mg tablet 40 mg PO DAILY #90 tab 03/05/21 05/09/21 Rx budesonide-formoterol HFA 160 2 puff INHALATION BID #3 inhaler 04/26/21 05/09/21 Rx mcg-4.5 mcg/actuation aerosol inhaler (Symbicort) buspirone 7.5 mg tablet 7.5 mg PO BID #60 tab 05/04/21 05/09/21 Rx prednisone 10 mg tablet See Rx Instructions PO DAILY #40 05/07/21 05/09/21 Rx tab Past Med/Surg History Medical History (Updated 05/09/21 @ 09:40 by Derrick Wiggins PA-C) Generalized weakness IBS (irritable bowel syndrome) Osteopenia Pneumonia Postmenopausal atrophic vaginitis Vertigo Vitamin D deficiency Surgical History History of appendectomy S/P bronchoscopy S/P cholecystectomy S/P colonoscopy S/P dilation and curettage S/P tonsillectomy and adenoidectomy S/P tooth extraction Family History Unknown Coronary arteriosclerosis Aneurysm of abdominal aorta Mother No problems noted. Other No pertinent family history Denies family history of Ovarian cancer Social History Smoking Status: Former smoker Tobacco Type: Cigarettes Second Hand Exposure: No; Do You Dip or Chew Tobacco: No; Tobacco Cessation Education Requested by Patient: No Hx Alcohol Use: No Hx Substance Use: No Preferred Language: Slovak Communication Ability: Effective Whitewasher Required: No Beliefs That Will Affect Care: None marital status: / Current Living Situation: Family Current Living Situation Comment: Daughter and family live in Pt's home current occupational status: retired Other Information That Helps Us Care for You: No Feels Safe at Home: Yes Safety Concerns: Feels Safe At This Time Seatbelt Use: always Assistive Devices: Denture - Upper, Denture - Lower and Walker Review of Systems Review of Systems: All systems reviewed & are unremarkable except as noted in Subjective Physical Exam Physical Exam: GENERAL : No acute distress but noticeably anxious EYES: No icterus, gaze conjugate. Pupils equal round and reactive to light NOSE: No evidence of epistaxis. MOUTH: No lesions or candidiasis. Upper dentures and lower bridge is intact. Tongue is midline. Mucosa is moist. NECK: Supple. No carotid bruits or stridor appreciated LUNGS: CTA B/L, no wheezes, rales or rhonchi HEART: Regular, rate controlled ABDOMEN: Soft, NT, ND, BS Present EXTREMITIES: No LE edema, pedal pulses intact and equal bilaterally. Patient has Sharan wrap from the mid thigh down to the calf NEURO: A&OX3. Pupils equal round and reactive to light. Results & Data Results & Data ([facility]) Vital Signs (Past 12 Hours) Vital Signs Temp Pulse Pulse Resp BP BP Pulse Ox 05/09/21 09:24 192/100 H 05/09/21 08:00 67 21 205/105 H 98 05/09/21 07:40 68 13 195/119 H 98 05/09/21 07:01 66 22 210/110 H 94 05/09/21 06:00 72 19 224/90 H 94 05/09/21 04:48 74 18 214/88 H 92 05/09/21 02:07 37.0 C 61 20 232/94 H 95 Laboratory Results 05/09/21 04:42 05/09/21 04:42 Diagnostic Findings XR chest 1V portable HISTORY: 86 years-old Female trauma acute chest trauma COMPARISON: 02/28/2021 TECHNIQUE: AP view of the chest FINDINGS: Cardiac silhouette is enlarged. Calcified hilar lymph nodes. Calcified pulmonary granulomata. No pneumothorax, pleural effusion, airspace consolidation or overt pulmonary edema. Mild right hemidiaphragmatic elevation. Degenerative changes of the shoulders and spine. IMPRESSION: 1. No acute process. 2. Prior granulomatous disease. ACT 112: Negative or not required by law. The above report was generated using voice recognition software. It may contain grammatical, syntax or spelling errors. Electronically signed by: Kunal River M.D. 05/09/2021 8:[address] DOSE: 200.99 mGy.cm HISTORY: Fall. distal femur fx/patella fx TECHNIQUE: Multiaxial CT images of the right knee were performed and reformatted in the sagittal and coronal plane without the use of contrast. A dose lowering technique was utilized adhering to the principles of ALARA. COMPARISON: Right knee 05/09/2021. FINDINGS: Slightly comminuted and distracted horizontal fracture within the mid patella. This demonstrates up to 8 mm of distraction. The distal femur, proximal tibia, and proximal fibula appear intact. There is chondrocalcinosis. There is a moderate lipohemarthrosis. IMPRESSION: Slightly comminuted and distracted fracture within the mid patella. ACT 112: Negative or not required by law. Electronically signed by: Shamar Garcia M.D. 05/09/2021 7:34 AM Code Status & VTE Plan Code Status Full resuscitation: Level I VTE Prophylaxis Plan VTE Prophylaxis will be ordered: Yes Supervising Physician Co-Signing Physician Notes Patient was seen and examined independently I discussed the case with Derrick UGARTE I reviewed pertinent past medical social family history and also the plan of care and agree with the plan of care. Patient seen in the ER has significant knee pain and swelling on the right. She also explains about a recent progressive worsening of some panic attacks. She is very angry at herself for having this fall and having her not be able to attend family camping weakness being planned for the next week Physical examination her heart sounds regular I do not hear murmurs her lungs are clear abdomen NABS and soft her knee is markedly swollen its almost too tender to touch she is kept it in flexion she has distal strength sensation capillary refill intact. Orthopedic has recommended conservative management but will review of the patient mid for pain control physical occupational therapy. Any exceptions will be noted below PG Care Time/CCT Total # of Minutes Spent Total Time Spent with Patient: Total time spent is greater than 50% in coordination of care (as documented) at patient's floor/unit and/or counseling patient: 60 minutes Coding Level of Care Code 19193 Initial Inpt Care Lvl 3 Diagnoses Patellar fracture S82.041A Encounter type: initial encounter Fracture alignment: displaced Fracture morphology: comminuted Fracture type: closed Laterality: right Acute pain of right knee M25.561 Fall W19.XXXA Encounter type: initial encounter Asthma J45.909 Diabetes mellitus E11.9 Acid reflux K21.9 Anxiety F41.9 Mild dementia F03.90 Hypertension I10 Dyslipidemia E78.5 Depression F32.9 Allergic rhinitis J30.9 DVT prophylaxis Z29.9 Time Spent (min) 60 (1) Fall Encounter type: initial encounter Qualified Code(s): W19.XXXA - Unspecified fall, initial encounter (2) Patellar fracture Encounter type: initial encounter Fracture alignment: displaced Fracture morphology: comminuted Fracture type: closed Laterality: right Qualified Code(s): S82.041A - Displaced comminuted fracture of right patella, initial encounter for closed fracture
[2021-05-09] MEDS ORDERED: Nursing to Pharmacy Communication SCH (10:30)
[2021-05-09] MEDS ORDERED: ALBUTEROL 0.083% NEBU SOLN 3 ML VIAL INH PRN (10:45)
[2021-05-09] MEDS ORDERED: ONDANSETRON INJ 2 MG/ML 2 ML VIAL IV PRN (10:45)
[2021-05-09] MEDS ORDERED: ALBUTEROL HFA 8 GM INHALER INH PRN (10:45)
[2021-05-09] MEDS ORDERED: MAGNESIUM HYDROXIDE SUSP 30 ML UDC PO PRN (10:45)
[2021-05-09] MEDS ORDERED: ALUMINUM/MAGNESIUM SUSP 30 ML UDC PO PRN (10:45)
[2021-05-09] MEDS: ENOXAPARIN INJ 40 MG/0.4 ML SYR SQ SCH (10:45)
[2021-05-09] MEDS ORDERED: POLYETHYLENE (MIRALAX) 17 GM PACK PO PRN (10:45)
--- NOTE | 2021-05-09 11:42 | Consultation Report ---
DATE OF SURGERY: 05/09/2021. Special attention to right patella fracture. HISTORY OF PRESENT ILLNESS: This is an 86-year-old female who sustained a mechanical fall approximately 1:00 a.m. last night. She was transferring on a roller board onto her toilet. She states her right knee gave out. She is uncertain if she struck the floor, also gave out prior to striking the floor. She was seen in the Emergency Department, admitted to the hospitalist service with hypertensive urgency and a patella fracture. Right leg examination, her compartments are soft. She is currently in a Dalal dressing with a slab of plaster on each side of the knee. Compartments are soft in the thigh. She can flex and extend her ankle and her toes. Her foot is warm and well perfused. As per the Emergency Department there is no evidence of open injuries. PAST MEDICAL HISTORY: Hypertensive urgency, history of asthma, recently on prednisone taper, history of diabetes, diet controlled, acid reflux, history of anxiety, mild dementia. I reviewed, AP and lateral of the right knee as well as CAT scan of the right knee. The knee does show a flexed posture, which is likely due to hemarthrosis. There is no evidence of a knee dislocation. The patella does show a fracture with approximately 1 cm of displacement. I do not identify any evidence of additional fractures, but the knee does show significant underlying arthritic changes and osteoporosis. ASSESSMENT: An 86-year-old female with right patella fracture. PLAN: I discussed findings and treatment with her, options for treatment can include a surgical treatment with ORIF of the patella which would be a reasonable consideration. She was seen recently in our office by Dr. Salmeron's team for injection for arthritis in the knee with hyaluronic acid. We will discuss further with Dr. Salmeron and team further treatment options for patellar ORIF. At this point in time, we will hold Lovenox and make NPO after midnight. Job ID: [id number] [facility]
[2021-05-09] MEDS: CLOBETASOL PROPIONATE 0.05% OINT 15 GM TUBE EXT SCH (12:34)
[2021-05-09] MEDS: ACETAMINOPHEN 325 MG TAB PO PRN ×2 (13:55→19:02)
[2021-05-09] MEDS: SODIUM CHLORIDE 0.9% 1000ML 1,000 ML IV SCH (20:16)
[2021-05-09] MEDS: busPIRone 7.5 MG TAB PO SCH (20:35)
[2021-05-09] MEDS: FLUTICASONE PROPIONATE NA SPR 16 GM BTL NAE SCH (20:35)
[2021-05-09] MEDS: LOSARTAN POTASSIUM 50 MG TAB PO SCH (20:35)
[2021-05-09] MEDS: MoRPHine SULFATE 2 MG/ML CARP IV PRN (21:51)
[2021-05-09] MEDS: hydrALAZINE HCL 20 MG/ML VIAL IV PRN (22:30)
[2021-05-09] MEDS: LORazepam 1 MG TAB SL PRN (23:36)
[2021-05-10] MEDS: ACETAMINOPHEN 325 MG TAB PO PRN ×2 (02:08→06:10)
[2021-05-10] MEDS: MoRPHine SULFATE 2 MG/ML CARP IV PRN ×2 (07:41→11:15)
[2021-05-10 08:27] LABS: INR 1.1 (0.9-1.1); Partial Thromboplastin Ratio 1.1; Partial Thromboplastin Time 29.3 Seconds (21.0-31.0); Prothrombin Time 11.2 Seconds (9.0-12.0)
[2021-05-10 08:51] LABS: BUN Creatinine Ratio 23.6 (10-20); Calcium 7.9 mg/dl (8.5-10.1); Creatinine Clr Calc Pharmacy 57.7 ml/min; Est GFR (African American) 98.4 ml/min; Est GFR (Non-African American) 84.9 ml/min; Potassium 3.1 mmol/L (3.5-5.1)
[2021-05-10] MEDS: SODIUM CHLORIDE 0.9% 1000ML 1,000 ML IV SCH (08:51)
[2021-05-10] MEDS: PANTOprazole 40 MG TAB PO SCH (08:52)
[2021-05-10] MEDS: busPIRone 7.5 MG TAB PO SCH ×2 (08:52→20:31)
[2021-05-10] MEDS: DONEPEZIL HCL 10 MG TAB PO SCH (08:53)
[2021-05-10] MEDS: MONTELUKAST SODIUM 10 MG TABLET PO SCH (08:53)
[2021-05-10] MEDS: CHOLECALCIFEROL 1,000 UNITS 25 MCG TAB PO SCH (08:53)
[2021-05-10] MEDS: CITALOPRAM 40 MG TAB PO SCH (08:53)
[2021-05-10] MEDS: LOSARTAN POTASSIUM 50 MG TAB PO SCH ×2 (08:54→20:31)
[2021-05-10] MEDS: FLUTICASONE PROPIONATE NA SPR 16 GM BTL NAE SCH ×2 (08:54→20:32)
[2021-05-10] MEDS: FLUTICASONE/VILANTEROL 200/25MCG 14 PUFFS/INHALER INH SCH (08:55)
[2021-05-10] MEDS: SIMVASTATIN 10 MG TAB PO SCH (10:07)
[2021-05-10] MEDS: LORazepam 1 MG TAB SL PRN (10:08)
[2021-05-10] MEDS: hydrALAZINE HCL 20 MG/ML VIAL IV PRN ×2 (10:08→18:35)
[2021-05-10] MEDS: CLOBETASOL PROPIONATE 0.05% OINT 15 GM TUBE EXT SCH (11:17)
[2021-05-10] MEDS ORDERED: fentaNYL citrate 100 MCG/2 ML VIAL IV PRN (14:01)
[2021-05-10] MEDS ORDERED: ONDANSETRON INJ 2 MG/ML 2 ML VIAL IV PRN (14:01)
[2021-05-10] MEDS ORDERED: ePHEDrine sulfate 50 MG/ML AMP IV PRN (14:01)
[2021-05-10] MEDS ORDERED: ATROPINE SULFATE 0.1 MG/ML 10ML SYR IV PRN (14:01)
[2021-05-10] MEDS ORDERED: HYDROmorphone INJ 2 MG/ML SYR/VIAL IV PRN (14:01)
--- NOTE | 2021-05-10 14:01 | Anesthesiology Consultation ---
Date of Service May 10, 2021 Assessment & Plan ASA ASA3 Proposed Anesthesia Anesthesia Type: General Risk / Benefits Reviewed With: PT / POA / Parent / Guardian, Accepts Plan and Informed Consent Obtained History Surgery Operation Date: 05/10/21 07:00 Proposed Procedures p Right Patella Open Reduction Internal Fixation - Yordan Salmeron MD Height/Weight Height: 4 ft 9 in Weight: 66.6 kg Allergies Allergy/AdvReac Type Severity Reaction Status Date / Time sulfamethoxazole Allergy Intermediate UNSURE Verified 05/09/21 02:30 trimethoprim Allergy Intermediate UNSURE Verified 05/09/21 02:30 BO Inhibitors Allergy Unknown UNK Verified 05/09/21 02:30 Penicillins Allergy Unknown Unknown Verified 05/09/21 02:30 tetanus toxoid, adsorbed Allergy Unknown Unknown Verified 05/09/21 02:30 Medications Home Medications Medication Instructions Recorded Confirmed Last Taken cholecalciferol (vitamin D3) 25 2,000 unit PO DAILY 12/24/18 05/09/21 05/08/21 mcg (1,000 unit) capsule (Vitamin D3) esomeprazole magnesium 40 mg 40 mg PO DAILY #90 cap 06/30/20 05/09/21 05/08/21 capsule,delayed release losartan 50 mg tablet 50 mg PO BID #180 tab 07/07/20 05/09/21 05/08/21 simvastatin 10 mg tablet 10 mg PO DAILY #90 tab 08/24/20 05/09/21 05/08/21 albuterol sulfate 2.5 mg INHALATION QID PRN 09/23/20 05/09/21 09/22/20 fluticasone propionate 50 1 spray INTRANASAL BID 09/23/20 05/09/21 05/08/21 mcg/actuation nasal spray,suspension clobetasol 0.05 % topical ointment 1 g TOPICAL 2XWK #60 gm 09/29/20 05/09/21 Unknown montelukast 10 mg tablet 10 mg PO DAILY #90 tab 10/14/20 05/09/21 05/08/21 donepezil 10 mg tablet 10 mg PO DAILY #90 tab 12/02/20 05/09/21 05/08/21 albuterol sulfate 90 mcg/actuation 2 puff INHALATION QID PRN #8.5 g 03/03/21 05/09/21 Unknown aerosol inhaler citalopram 40 mg tablet 40 mg PO DAILY #90 tab 03/05/21 05/09/21 05/08/21 budesonide-formoterol HFA 160 2 puff INHALATION BID #3 inhaler 04/26/21 05/09/21 05/08/21 mcg-4.5 mcg/actuation aerosol inhaler (Symbicort) buspirone 7.5 mg tablet 7.5 mg PO BID #60 tab 05/04/21 05/09/21 05/09/21 01:30 prednisone 10 mg tablet See Rx Instructions PO DAILY #40 05/07/21 05/09/21 05/08/21 tab 40 MG DAY . Active Medications Generic Name Dose Route Start Last Admin Trade Name Freq PRN Reason Stop Dose Admin Acetaminophen 650 mg 05/09/21 10:45 05/10/21 06:10 Acetaminophen 325 Mg Tab PO 06/08/21 10:44 650 mg Q4H PRN Administration Pain or Fever Buspirone HCl 7.5 mg 05/09/21 21:00 05/10/21 08:52 Buspirone 7.5 Mg Tab PO 06/08/21 20:59 7.5 mg BID MASON Administration Citalopram Hydrobromide 40 mg 05/10/21 09:00 05/10/21 08:53 Citalopram 40 Mg Tab PO 06/09/21 08:59 40 mg DAILY MASON Administration Clobetasol Propionate 1 appln 05/09/21 10:45 05/10/21 11:17 Clobetasol Propionate 0.05% Oint 15 Gm Tube EXT 06/08/21 10:44 Not Given 2XWK MASON Donepezil HCl 10 mg 05/10/21 09:00 05/10/21 08:53 Donepezil Hcl 10 Mg Tab PO 06/09/21 08:59 10 mg DAILY MASON Administration Enoxaparin Sodium 40 mg 05/09/21 10:45 05/09/21 10:45 Enoxaparin Inj 40 Mg/0.4 Ml Syr SQ 06/08/21 10:44 Not Given Q24H MASON Fluticasone Propionate 1 sprays 05/09/21 21:00 05/10/21 08:54 Fluticasone Propionate Na Spr 16 Gm Btl VOLODYMYR 06/08/21 20:59 1 sprays BID MASON Administration Fluticasone/Vilanterol 1 puffs 05/10/21 09:00 05/10/21 08:55 Fluticasone/Vilanterol 200/25mcg 14 Puffs/Inhaler INH 06/09/21 08:59 1 puffs DAILY MASON Administration Hydralazine HCl 10 mg 05/09/21 10:45 05/10/21 10:08 Hydralazine Hcl 20 Mg/Ml Vial IV 06/08/21 10:44 10 mg Q8H PRN Administration Blood Pressure - High Lorazepam 0.5 mg 05/09/21 09:27 05/10/21 10:08 Lorazepam 1 Mg Tab SL 06/08/21 09:26 0.5 mg Q8H PRN Administration Agitation Losartan Potassium 50 mg 05/09/21 21:00 05/10/21 08:54 Losartan Potassium 50 Mg Tab PO 06/08/21 20:59 50 mg BID MASON Administration Montelukast Sodium 10 mg 05/10/21 09:00 05/10/21 08:53 Montelukast Sodium 10 Mg Tablet PO 06/09/21 08:59 10 mg DAILY MASON Administration Morphine Sulfate 2 mg 05/09/21 10:45 05/10/21 11:15 Morphine Sulfate 2 Mg/Ml Carp IV 05/23/21 10:44 2 mg Q3H PRN Administration Pain Pantoprazole Sodium 40 mg 05/10/21 09:00 05/10/21 08:52 Pantoprazole 40 Mg Tab PO 06/09/21 08:59 40 mg DAILY MASON Administration Simvastatin 10 mg 05/10/21 09:00 05/10/21 10:07 Simvastatin 10 Mg Tab PO 06/09/21 08:59 10 mg DAILY MASON Administration Vitamin D 2,000 units 05/10/21 09:00 05/10/21 08:53 Cholecalciferol 1,000 Units 25 Mcg Tab PO 06/09/21 08:59 2,000 units DAILY MASON Administration NPO Date Last Intake of Fluids: 05/09/21 Time Last Intake of Fluids: 23:55 Date Last Intake of Solids: 05/09/21 Time Last Intake of Solids: 17:00 Past Medical History Medical History (Updated 05/09/21 @ 09:40 by Derrick Wiggins PA-C) Generalized weakness IBS (irritable bowel syndrome) Osteopenia Pneumonia Postmenopausal atrophic vaginitis Vertigo Vitamin D deficiency Exercise / Class Metabolic Activity II 4-5 Yardwork/Stairs/Walk up hill Past Family History Family History Unknown Coronary arteriosclerosis Aneurysm of abdominal aorta Mother No problems noted. Other No pertinent family history Denies family history of Ovarian cancer Past Surgical History Surgical History History of appendectomy S/P bronchoscopy S/P cholecystectomy S/P colonoscopy S/P dilation and curettage S/P tonsillectomy and adenoidectomy S/P tooth extraction Past Anesthesia History No Hx of Anesthesia Complications and No Family Hx of Anesthesia Complications History of PONV No Hx of PONV and No Hx of Motion Sickness Social History Smoking Status: Former smoker tobacco type: cigarettes Do You Dip or Chew Tobacco: No Hx Alcohol Use: No Hx Substance Use: No substance use type: does not use Review of Systems denies fever/cough/ colds/ chest pain/ SOB/ SHERIF denies SHERIF Physical Exam Vital Signs Last Vital Signs Temp 37.3 C 05/10/21 13:36 Pulse 84 05/10/21 13:36 Resp 20 05/10/21 13:36 BP 170/64 H 05/10/21 13:36 Pulse Ox 95 05/10/21 13:50 ENMT Mouth: + dentures; no TMJ abnormality and no dentition abnormality Thyromental Distance: > or= 3.5 Finger Breadths Mallampati Class: II Neck neck extension not limited Respiratory normal respiratory effort; no respiratory distress Auscultation: lungs clear to auscultation bilaterally Cardiovascular Rate/Rhythm: regular rate and regular rhythm Neurologic moves all extremities Psychiatric Orientation: alert and oriented x 3 Testing Laboratory Results 05/09/21 04:42 05/10/21 07:56 PT 11.2 Seconds (9.0-12.0) 05/10/21 07:56 INR 1.1 (0.9-1.1) 05/10/21 07:56 APTT 29.3 Seconds (21.0-31.0) 05/10/21 07:56 05/10/21 05/10/21 11:18 07:36 POC Glucose 99 103 H
--- NOTE | 2021-05-10 14:04 | History & Physical Bridge Note ---
Date of Service May 10, 2021 History & Physical Bridge Note I have examined the patient, reviewed the History & Physical and in the interval since the performance of the History & Physical I have noted the following changes of clinical significance: no changes noted
[2021-05-10] MEDS ORDERED: CLINDAMYCIN 600 MG/54 ML D5W IV ONE ×2 (14:06→14:07)
[2021-05-10] MEDS ORDERED: BUPIVACAINE 0.5 % 5 MG/1 ML MPF 30ML VIAL ONE (14:15)
[2021-05-10] MEDS ORDERED: CLINDAMYCIN 600 MG/54 ML BAG IV SCH (14:30)
[2021-05-10] MEDS ORDERED: ONDANSETRON INJ 2 MG/ML 2 ML VIAL ONE (14:33)
[2021-05-10] MEDS ORDERED: PROPOFOL IV EMULSION 10 MG/ML 20 ML VIAL IV ONE (14:33)
[2021-05-10] MEDS ORDERED: LIDOCAINE 2% 2 ML VIAL/AMP(20MG/ML) INFIL ONE (14:33)
[2021-05-10] MEDS ORDERED: MIDAZOLAM HCL 1 MG/ML 2ML VIAL ONE (14:34)
[2021-05-10] MEDS ORDERED: fentaNYL citrate 100 MCG/2 ML VIAL ONE ×2 (14:34→15:13)
--- NOTE | 2021-05-10 16:13 | Operative Report ---
Post Operative Report Pre & Post Diagnosis Operation Date: 05/10/21 07:00 Pre-Op Diagnosis: Fractured right patella with comminution and displacement Post-Op Diagnosis: Fractured right patella with comminution and displacement I identified the patient and participated in the time-out.: Yes Procedure Operation Date: 05/10/21 07:00 Actual Procedures p Right Patella Open Reduction Internal Fixation, tension band wiring technique (Right) - Yordan Salmeron MD Surgeon Yordan Salmeron MD Student Services Rep Reed VEE Estimated Blood Loss 15 Findings Consistent with Post-Op Diagnosis Specimens None Drains None Anesthesia Type General Complications none Disposition Accompanied Patient To Recovery: No Disposition: Recovery Room Indications 86-year-old female with advanced osteoarthritis in the right knee suffered an injury and fracture to patella. X-rays and CT scan demonstrate comminuted transverse displaced patella fracture. There is a reasonable amount of bone in the inferior pole of the patella that we can use for internal fixation. Description of Procedure Patient was placed under general LMA anesthesia. Pneumatic tourniquet was placed about the right upper thigh right lower extremity was prepped and draped in sterile fashion. Patient had relatively thin leg. Patella had a defect in the central to inferior third consistent with a displaced fracture. Skin was intact. The leg was elevated exsanguinated with an Esmarch bandage and the pneumatic tourniquet was raised to 300 mmHg. A longitudinal anterior incision was made across the patella. Subcutaneous flaps were elevated. Transverse incision was made through the periosteum over the fracture site exposing a moderately large hematoma and hemarthrosis. Bone fragments were distracted superiorly and inferiorly and the intra-articular hemarthrosis was evacuated with suction and the knee was copiously irrigated pulsatile lavage saline solution. It was noted that there was eburnated bone in the trochlear groove with ridging and similar findings on the patella consistent with grade 4 end- stage osteoarthritis of the patellofemoral joint. Most of the comminuted fragments were dorsal and around the edges and there was a reasonably large inferior pole fragment that could be internally fixed with K wires. The bone fragments were positioned together anatomically and a bone clamp was placed from the superior to inferior pole the patella. The fluoroscopy C arm was used to visualize the fracture reduction on AP and lateral views to be acceptable. The joint was anatomically aligned. Under fluoroscopic guidance 2 parallel 1.6 mm K wires were placed from superior to inferior capturing bone fragments on both sides of the fracture. A 14-gauge angiocatheter was used to assist in passing an 18-gauge wire in a [id number] fashion underlying the pins distally at the inferior pole and proximal mid superior pole. Tension band wire fixation was tightened leaving the wire in 1 side and tightening both sides down together to make symmetrical tightening. The wires were then cut and bent over impacted into the superior patella with a bone tamp. The proximal ends of the K wire were bent at a right angle turned and impacted into the quad tendon with a bone tamp. Knee was taken through range of motion under fluoroscopy the construction was stable with passive range of motion the patella was anatomically aligned. There was no tension on repair with 0 through 45 degrees range of motion. The transverse separation in the tendon and periosteal tissue was repaired with interrupted #1 Vicryl sutures. The subcutaneous tissues were closed into 2-0 Vicryl sutures the skin was closed with gary sterile dressings were applied and a knee immobilizer with the knee in full extension. The tourniquet was let down patient had satisfactory capillary refill. The patient tolerated the procedure well. There were no complications. My lpn or medical assistant Reed VEE assisted me throughout the procedure including patient positioning tourniquet application soft tissue retraction and perform the subcutaneous and skin closure and will participate in postop care the patient. I attest to the content of the Intraoperative Record and any orders documented therein. Any exceptions are noted below.
[2021-05-10] MEDS ORDERED: ePHEDrine sulfate 50 MG/ML SYR ONE (16:45)
--- NOTE | 2021-05-10 16:51 | Fluoroscopy Report ---
FL knee RT 1 or 2V CLINICAL HISTORY: RT ORIF PATELLA. Patellar fracture. Intraoperative study COMPARISON STUDY: Right knee CT 05/09/2021. FLUOROSCOPY TIME: 31 seconds. FINDINGS: 2 fluoroscopic spot images of the right knee demonstrates internal fixation of the patellar fracture with 2 pins and cerclage wires. The hardware appears intact. The alignment is near-anatomic . IMPRESSION: Fluoroscopy provided for internal fixation of a right patellar fracture. ACT 112: Negative or not required by law. Electronically signed by: Shamar Garcia M.D. 05/10/2021 4:50 PM
[2021-05-10] MEDS ORDERED: SODIUM CHLORIDE 0.9% 1000ML 1,000 ML IV SCH (17:13)
[2021-05-10] MEDS ORDERED: NALOXONE HCL 0.4 MG/1 ML VIAL/CARP IV PRN (17:13)
[2021-05-10] MEDS ORDERED: bisacodyL 10 MG SUPP PR PRN (17:13)
--- NOTE | 2021-05-10 17:24 | Anesthesiology Progress Note ---
Date of Service May 10, 2021 Anesthesia Post Procedure Vital Signs Vital Signs: Temp Pulse Pulse Pulse Pulse Resp BP 05/10/21 16:59 36.4 C L 65 16 180/72 H 05/10/21 16:50 66 16 168/69 H 05/10/21 16:40 67 18 163/70 H 05/10/21 16:32 36.4 C L 68 18 143/63 H 05/10/21 13:50 05/10/21 13:48 05/10/21 13:36 37.3 C 84 20 170/64 H 05/10/21 13:13 36.6 C 79 18 169/70 H 05/10/21 11:26 36.9 C 76 20 166/67 H 05/10/21 10:20 73 05/10/21 08:00 36.7 C 76 18 212/76 H 05/10/21 04:27 74 05/10/21 02:30 37 C 76 18 162/67 H 05/09/21 22:27 36.9 C 60 18 210/102 H 05/09/21 19:26 36.6 C 60 18 181/67 H Pulse Ox 05/10/21 16:59 94 05/10/21 16:50 94 05/10/21 16:40 93 05/10/21 16:32 92 05/10/21 13:50 95 05/10/21 13:48 90 05/10/21 13:36 91 05/10/21 13:13 93 05/10/21 11:26 95 05/10/21 10:20 05/10/21 08:00 96 05/10/21 04:27 05/10/21 02:30 96 05/09/21 22:27 99 05/09/21 19:26 98 Pain Intensity Right Knee: Pain Intensity: 7 Transfer of Care Handoff Completed per policy Notes Mental Status: alert / awake / arousable and participated in evaluation Patient Amnestic to Procedure: Yes Nausea / Vomiting: adequately controlled Pain: adequately controlled Airway Patency, RR, SpO2: stable & adequate BP & HR: stable & adequate Hydration State: stable & adequate Anesthetic Complications: no major complications apparent
[2021-05-10] MEDS: POTASSIUM CHLORIDE 30 MEQ in SODIUM CHLORIDE 0.9% 1000ML 1,000 ML IV SCH (18:11)
[2021-05-10] MEDS: POTASSIUM CHLORIDE / WTR 10 MEQ/100 ML PLCT IV SCH ×3 (18:12→20:07)
[2021-05-10] MEDS: traMADol HCL 50 MG TABLET PO PRN (18:34)
--- NOTE | 2021-05-10 20:15 | Hospitalist Progress Note ---
Date of Service May 10, 2021 Assessment & Plan (1) Patellar fracture: Plan: - Comminuted and Displaced; Secondary to a mechanical fall now S/P ORIF on 10 May - Pain control with Tylenol, Tramadol, and Morphine PRN - PT/OT evaluations; case management - Orthopedics following - appreciate surgical intervention and management (2) Asthma: Plan: - STABLE; Follows with Dr. Edgar - Recent prednisone taper initiated on 07 May - currently on hold and possibly contributing to anxiety - Continue Albuterol PRN; Singulair 10 mg dailiy (3) Diabetes mellitus: Plan: - Diet controlled (4) Acid reflux: Plan: - STABLE - Continue (5) Anxiety: Plan: - Anxiety and Depression - Prednisone taper was discontinued which was started on 05/07/2021 - Lorazepam 0.5 mg PRN; Buspar 7.5 mg BID; Celexa 40 mg daily (6) Mild dementia: Plan: - Continue Aricept 10 mg daily (7) Hypertension: Plan: - IMPROVED - has been elevated likely related to pain and anxiety - Currently on monitor - if remains stable can likely be removed - Continue Losartan 50 mg BID (8) Dyslipidemia: Plan: - Continue Simvastatin 10 mg daily (9) DVT prophylaxis: Plan: - Lovenox 40 mg subcutaneously daily currently on hold 2/2 surgical intervention Admission and Anticipated Discharge Date Admission Date: May 09, 2021 Subjective Pt was seen post-operatively. Resting comfortably in bed. Drowsy but answering questions. Reports no current pain at this time. Review of Systems Constitutional: + fatigue; no fever and no chills Respiratory: no cough and no dyspnea Cardiovascular: no chest pain Gastrointestinal: no abdominal pain and no nausea Musculoskeletal: no joint pain Psychiatric: no anxiety Physical Exam Constitutional: no acute distress Eyes: no conjunctival abnormality Neck: trachea midline Respiratory: normal respiratory effort, lungs clear to auscultation + cough Cardiovascular: RRR, no murmur, no edema Gastrointestinal (Abdomen): normal bowel sounds, soft, nontender, no hepatosplenomegaly Musculoskeletal: RLE with juan wrap and ice packs applied Psychiatric: Orientation: alert (but drowsy) Results & Data Results & Data ([facility]) Vital Signs (Past 12 Hours) Vital Signs Temp Pulse Pulse Pulse Pulse Resp BP 05/10/21 19:43 36.9 C 74 18 128/68 05/10/21 18:43 36.9 C 77 18 131/69 05/10/21 18:29 37.1 C 69 18 189/77 H 05/10/21 17:25 37.1 C 69 18 168/82 H 05/10/21 17:13 37.1 C 69 69 18 168/75 H 05/10/21 16:59 36.4 C L 65 16 180/72 H 05/10/21 16:50 66 16 168/69 H 05/10/21 16:40 67 18 163/70 H 05/10/21 16:32 36.4 C L 68 18 143/63 H 05/10/21 13:50 05/10/21 13:48 05/10/21 13:36 37.3 C 84 20 170/64 H 05/10/21 13:13 36.6 C 79 18 169/70 H 05/10/21 11:26 36.9 C 76 20 166/67 H 05/10/21 10:20 73 05/10/21 08:00 36.7 C 76 18 212/76 H Pulse Ox 05/10/21 19:43 96 05/10/21 18:43 96 05/10/21 18:29 96 05/10/21 17:25 2 L 05/10/21 17:13 96 05/10/21 16:59 94 05/10/21 16:50 94 05/10/21 16:40 93 05/10/21 16:32 92 05/10/21 13:50 95 05/10/21 13:48 90 05/10/21 13:36 91 05/10/21 13:13 93 05/10/21 11:26 95 05/10/21 10:20 05/10/21 08:00 96 PG Care Time/CCT Total # of Minutes Spent Total Time Spent with Patient: Total time spent is greater than 50% in coordination of care (as documented) at patient's floor/unit and/or counseling patient: Coding Level of Care Code 86496 Subseq Hosp Care Lvl 2 Diagnoses Patellar fracture S82.041A Encounter type: initial encounter Fracture alignment: displaced Fracture morphology: comminuted Fracture type: closed Laterality: right Asthma J45.909 Diabetes mellitus E11.9 Acid reflux K21.9 Anxiety F41.9 Mild dementia F03.90 Hypertension I10 Dyslipidemia E78.5 DVT prophylaxis Z29.9 (1) Patellar fracture Encounter type: initial encounter Fracture alignment: displaced Fracture morphology: comminuted Fracture type: closed Laterality: right Qualified Code(s): S82.041A - Displaced comminuted fracture of right patella, initial encounter for closed fracture
[2021-05-10] MEDS: CLINDAMYCIN 600 MG in DEXTROSE 5% 50 ML IV SCH (21:19)
[2021-05-11] MEDS: LORazepam 1 MG TAB SL PRN ×2 (00:45→23:44)
[2021-05-11] MEDS: CLINDAMYCIN 600 MG in DEXTROSE 5% 50 ML IV SCH (05:52)
[2021-05-11] MEDS: POTASSIUM CHLORIDE 30 MEQ in SODIUM CHLORIDE 0.9% 1000ML 1,000 ML IV SCH ×2 (06:24→18:48)
[2021-05-11] MEDS: CITALOPRAM 40 MG TAB PO SCH (08:33)
[2021-05-11] MEDS: LOSARTAN POTASSIUM 50 MG TAB PO SCH ×2 (08:33→20:50)
[2021-05-11] MEDS: SIMVASTATIN 10 MG TAB PO SCH (08:33)
[2021-05-11] MEDS: DONEPEZIL HCL 10 MG TAB PO SCH (08:33)
[2021-05-11] MEDS: busPIRone 7.5 MG TAB PO SCH ×2 (08:33→20:49)
[2021-05-11] MEDS: CHOLECALCIFEROL 1,000 UNITS 25 MCG TAB PO SCH (08:34)
[2021-05-11] MEDS: PANTOprazole 40 MG TAB PO SCH (08:34)
[2021-05-11] MEDS: FLUTICASONE/VILANTEROL 200/25MCG 14 PUFFS/INHALER INH SCH (08:34)
[2021-05-11] MEDS: MONTELUKAST SODIUM 10 MG TABLET PO SCH (08:34)
[2021-05-11] MEDS: FLUTICASONE PROPIONATE NA SPR 16 GM BTL NAE SCH ×2 (08:35→20:49)
[2021-05-11] MEDS: CLOBETASOL PROPIONATE 0.05% OINT 15 GM TUBE EXT SCH (10:50)
--- NOTE | 2021-05-11 10:53 | Orthopedic Progress Note ---
Date of Service May 11, 2021 Assessment & Plan (1) Patellar fracture: Plan: POD 1 s/p ORIF Right Patella PT/OT protocol. WBAT with immobilizer on at all times. DVT prophylaxis - Resume Enoxaparin later today. SCD's Pain management as written. Possible need for Rehab. Will see how she progresses with PT/OT. Admission and Anticipated Discharge Date Admission Date: May 09, 2021 Subjective POD 1 Pt sitting up in bed. About to start her PT session. Having some pain in the knee today. No other complaints. Discussed use of immobilizer and WB status (WBAT) Physical Exam Physical Exam: Dressings C/D/I. Toes pink/warm. Calves soft, NT. NV intact. Toes mobile. Results & Data ([facility]) Vital Signs (Past 12 Hours) Vital Signs Temp Pulse Pulse Resp BP BP Pulse Ox 05/11/21 07:52 90 05/11/21 07:37 37.0 C 91 H 20 189/88 H 96 05/11/21 03:46 36.7 C 89 20 178/73 H 94 05/10/21 23:15 37 C 77 18 143/63 H 95 (1) Patellar fracture Encounter type: initial encounter Fracture alignment: displaced Fracture morphology: comminuted Fracture type: closed Laterality: right Qualified Code(s): S82.041A - Displaced comminuted fracture of right patella, initial encounter for closed fracture
[2021-05-11] MEDS: ACETAMINOPHEN 325 MG TAB PO PRN ×2 (13:50→18:47)
--- NOTE | 2021-05-11 17:04 | Hospitalist Progress Note ---
Date of Service May 11, 2021 Assessment & Plan (1) Patellar fracture: Plan: - Comminuted and Displaced; Secondary to a mechanical fall now S/P ORIF on 10 May - Pain control with Tylenol, Tramadol, and Morphine PRN - continue to be mindful of sedation - PT/OT evaluations; case management - Orthopedics following - appreciate surgical intervention and management - Resume DVT prophylaxis; WBAT with knee immobilizer (2) Asthma: Plan: - STABLE; Follows with Dr. Edgar - Recent prednisone taper initiated on 07 May - currently on hold and possibly contributing to anxiety - Continue Albuterol PRN; Singulair 10 mg dailiy (3) Diabetes mellitus: Plan: - Diet controlled (4) Acid reflux: Plan: - STABLE - Continue Protonix 40 mg daily (5) Anxiety: Plan: - Anxiety and Depression - Prednisone taper was discontinued which was started on 05/07/2021 - Lorazepam 0.5 mg PRN; Buspar 7.5 mg BID; Celexa 40 mg daily (6) Mild dementia: Plan: - Continue Aricept 10 mg daily (7) Hypertension: Plan: - IMPROVED - has been elevated likely related to pain and anxiety - Currently on monitor - if remains stable can likely be removed - Continue Losartan 50 mg BID (8) Dyslipidemia: Plan: - Continue Simvastatin 10 mg daily (9) DVT prophylaxis: Plan: - Lovenox 40 mg subcutaneously daily resumed Disposition: - PT/OT recommendations for rehab; discussed with daughter who is considering [facility] - Case management to make arrangements; will F/U with orthopedics for any further management needs and DVT prophylaxis duration Admission and Anticipated Discharge Date Admission Date: May 09, 2021 Subjective Reports pain level is much improved since having surgery. However increased with movement. She continues to be drowsy but easily awakens and participated in therapy and eating meals. BP remains elevated. Can be WBAT with immobilizer. Discussed with daughter over the phone with patient permission. Daughter recommending inpatient rehab before returning home Review of Systems Constitutional: + fatigue; no fever and no chills Respiratory: no cough and no dyspnea Cardiovascular: no chest pain Gastrointestinal: no abdominal pain and no nausea Musculoskeletal: no joint pain (at rest; increased pain with movement) Psychiatric: no anxiety Physical Exam Constitutional: no acute distress Eyes: no conjunctival abnormality Neck: trachea midline Respiratory: normal respiratory effort, lungs clear to auscultation no cough Cardiovascular: RRR, no murmur, no edema Gastrointestinal (Abdomen): normal bowel sounds, soft, nontender, no hepatosplenomegaly Musculoskeletal: RLE with BO wrap and immobilizer; movement to toes present and sensation intact to light touch Psychiatric: Orientation: alert (but drowsy) Results & Data Results & Data ([facility]) Vital Signs (Past 12 Hours) Vital Signs Temp Pulse Pulse Resp BP Pulse Ox 05/11/21 16:36 81 16 96 05/11/21 15:27 37.2 C 89 18 172/75 H 94 05/11/21 15:21 88 05/11/21 13:55 95 05/11/21 07:52 90 05/11/21 07:37 37.0 C 91 H 20 189/88 H 96 PG Care Time/CCT Total # of Minutes Spent Total Time Spent with Patient: Total time spent is greater than 50% in coordination of care (as documented) at patient's floor/unit and/or counseling patient: Coding Level of Care Code 32818 Subseq Hosp Care Lvl 2 Diagnoses Patellar fracture S82.041A Encounter type: initial encounter Fracture alignment: displaced Fracture morphology: comminuted Fracture type: closed Laterality: right Asthma J45.909 Diabetes mellitus E11.9 Acid reflux K21.9 Anxiety F41.9 Mild dementia F03.90 Hypertension I10 Dyslipidemia E78.5 DVT prophylaxis Z29.9 (1) Patellar fracture Encounter type: initial encounter Fracture alignment: displaced Fracture morphology: comminuted Fracture type: closed Laterality: right Qualified Code(s): S82.041A - Displaced comminuted fracture of right patella, initial encounter for closed fracture
[2021-05-11] MEDS: hydrALAZINE HCL 20 MG/ML VIAL IV PRN (23:55)
[2021-05-12] MEDS: POTASSIUM CHLORIDE 30 MEQ in SODIUM CHLORIDE 0.9% 1000ML 1,000 ML IV SCH (06:25)
[2021-05-12 08:05] LABS: Hematocrit (blood only) 34.4 % (37-47); Hemoglobin 11.3 g/dL (12.0-16.0); Mean Corpuscular Hemoglobin 28.9 pg (25-34); Mean Corpuscular Hgb Conc 32.8 g/dL (32-36); Mean Platelet Volume 10.5 fL (7.4-10.4); Platelet Count 164 K/uL (130-400); RDW Coefficient of Variation 15.6 % (11.5-14.5); RDW Standard Deviation 50.3 fL (36.4-46.3); Red Blood Count 3.91 M/uL (4.2-5.4); White Blood Count 7.56 K/uL (4.8-10.8)
[2021-05-12] MEDS: DONEPEZIL HCL 10 MG TAB PO SCH (08:33)
[2021-05-12] MEDS: CITALOPRAM 40 MG TAB PO SCH (08:33)
[2021-05-12] MEDS: CHOLECALCIFEROL 1,000 UNITS 25 MCG TAB PO SCH (08:33)
[2021-05-12] MEDS: FLUTICASONE PROPIONATE NA SPR 16 GM BTL NAE SCH ×2 (08:33→20:48)
[2021-05-12] MEDS: busPIRone 7.5 MG TAB PO SCH ×2 (08:33→20:49)
[2021-05-12] MEDS: SIMVASTATIN 10 MG TAB PO SCH (08:34)
[2021-05-12] MEDS: PANTOprazole 40 MG TAB PO SCH (08:34)
[2021-05-12] MEDS: FLUTICASONE/VILANTEROL 200/25MCG 14 PUFFS/INHALER INH SCH (08:34)
[2021-05-12] MEDS: MONTELUKAST SODIUM 10 MG TABLET PO SCH (08:34)
[2021-05-12] MEDS: LOSARTAN POTASSIUM 50 MG TAB PO SCH ×2 (08:34→20:49)
[2021-05-12 08:35] LABS: BUN Creatinine Ratio 23.8 (10-20); Calcium 7.9 mg/dl (8.5-10.1); Creatinine Clr Calc Pharmacy 80.2 ml/min; Est GFR (African American) 109.3 ml/min; Est GFR (Non-African American) 94.3 ml/min; Potassium 3.8 mmol/L (3.5-5.1)
[2021-05-12] MEDS: traMADol HCL 50 MG TABLET PO PRN (10:48)
--- NOTE | 2021-05-12 10:49 | Orthopedic Progress Note ---
Date of Service May 12, 2021 Assessment & Plan (1) Patellar fracture: Plan: POD 2 s/p ORIF Right Patella PT/OT protocol. WBAT with immobilizer on at all times. DVT prophylaxis - Enoxaparin, SCD's Pain management as written. Possible need for Rehab. Will see how she progresses with PT/OT. Admission and Anticipated Discharge Date Admission Date: May 09, 2021 Subjective POD 2 Pt sitting up in bed. No complaints this AM. Pain controlled. Would like to get OOB if possible. Physical Exam Physical Exam: Dressings changed. Incision benign. Mild ecchymosis noted. Mild erythema. No drainage. Calves soft,NT. NV intact. Toes mobile. Redressed. Immobilizer placed back on. Results & Data ([facility]) Vital Signs (Past 12 Hours) Vital Signs Temp Pulse Pulse Resp BP BP Pulse Ox 05/12/21 07:19 84 05/12/21 07:00 37.0 C 90 16 202/80 H 108/65 92 05/12/21 03:15 187/71 H 05/12/21 03:14 187/71 H 05/12/21 03:07 37.6 C H 97 H 18 187/71 H 93 05/12/21 01:16 201/73 H 05/12/21 00:29 92 H 199/75 H 05/11/21 23:51 224/90 H 05/11/21 23:50 216/90 H 05/11/21 23:29 36.9 C 84 16 229/93 H 93 (1) Patellar fracture Encounter type: initial encounter Fracture alignment: displaced Fracture morphology: comminuted Fracture type: closed Laterality: right Qualified Code(s): S82.041A - Displaced comminuted fracture of right patella, initial en counter for closed fracture
[2021-05-12] MEDS: CLOBETASOL PROPIONATE 0.05% OINT 15 GM TUBE EXT SCH (10:50)
--- NOTE | 2021-05-12 11:06 | Hospitalist Progress Note ---
Date of Service May 12, 2021 Assessment & Plan (1) Patellar fracture: Plan: - Comminuted and Displaced; Secondary to a mechanical fall now S/P ORIF on 10 May - Pain control with Tylenol, Tramadol, and Morphine PRN - will MASON Tylenol to get better around the clock coverage with other options for PRN usage - DVT prophylaxis - Lovenox - PT/OT evaluations; case management - Orthopedics following - appreciate surgical intervention and management - WBAT with knee immobilizer (2) Asthma: Plan: - STABLE; Follows with Dr. Edgar - Recent prednisone taper initiated on 07 May - currently on hold and possibly contributing to anxiety - Continue Albuterol PRN; Singulair 10 mg dailiy (3) Diabetes mellitus: Plan: - Diet controlled (4) Acid reflux: Plan: - STABLE - Continue Protonix 40 mg daily (5) Anxiety: Plan: - Anxiety and Depression - Prednisone taper was discontinued which was started on 05/07/2021 - Lorazepam 0.5 mg PRN; Buspar 7.5 mg BID; Celexa 40 mg daily (6) Mild dementia: Plan: - Continue Aricept 10 mg daily (7) Hypertension: Plan: - Variable - has been elevated likely related to pain and anxiety and worsens at night -- Only had Tylenol intermittent on 11 May and doesn't ask for medications often - will MASON Tylenol and try to better control pain as likely contributing - Continue Losartan 50 mg BID; Hydralazine PRN (8) Dyslipidemia: Plan: - Continue Simvastatin 10 mg daily (9) DVT prophylaxis: Plan: - Lovenox 40 mg subcutaneously daily Disposition: - PT/OT recommendations for rehab; discussed with daughter who is considering [facility] - Case management to make arrangements; will F/U with orthopedics for any further management needs and DVT prophylaxis duration Admission and Anticipated Discharge Date Admission Date: May 09, 2021 Subjective Patient reporting feeling uncomfortable today. States she is not used to sitting in a bed so much. Having knee pain but also buttocks pain that she states is still sore from her fall. She feels restless and uncomfortable. BP was elevated through the night. Coming down this AM since BP medication given. Uncomfortable this AM but doesn't ask for much in regards to pain medication. Will MASON Tylenol and stop extra IV fluids as she is eating and drinking. And monitor BP Review of Systems Constitutional: + fatigue; no fever and no chills Respiratory: no cough and no dyspnea Cardiovascular: no chest pain Gastrointestinal: no abdominal pain and no nausea Musculoskeletal: + joint pain (R knee) Neurologic: no tingling and no numbness Physical Exam Constitutional: no acute distress (but uncomfortable appearing) Eyes: + anicteric sclerae; no conjunctival abnormality Neck: trachea midline Respiratory: normal respiratory effort, lungs clear to auscultation no cough Cardiovascular: RRR, no murmur, no edema Gastrointestinal (Abdomen): normal bowel sounds, soft, nontender, no hepatosplenomegaly Musculoskeletal: R knee with BO wrap around knee and immobilizer in place (removed for assessment); sensation and movement to toes; pedal pulse 2+ Neurologic: moves all extremities (did not have patient actively move RLE) Psychiatric: Orientation: alert Results & Data Results & Data ([facility]) Vital Signs (Past 12 Hours) Vital Signs Temp Pulse Pulse Resp BP BP Pulse Ox 05/12/21 10:50 178/90 H 05/12/21 07:19 84 05/12/21 07:00 37.0 C 90 16 202/80 H 108/65 92 05/12/21 03:15 187/71 H 05/12/21 03:14 187/71 H 05/12/21 03:07 37.6 C H 97 H 18 187/71 H 93 05/12/21 01:16 201/73 H 05/12/21 00:29 92 H 199/75 H 05/11/21 23:51 224/90 H 05/11/21 23:50 216/90 H 05/11/21 23:29 36.9 C 84 16 229/93 H 93 PG Care Time/CCT Total # of Minutes Spent Total Time Spent with Patient: Total time spent is greater than 50% in coordination of care (as documented) at patient's floor/unit and/or counseling patient: Coding Level of Care Code 42723 Subseq Hosp Care Lvl 3 Diagnoses Patellar fracture S82.041A Encounter type: initial encounter Fracture alignment: displaced Fracture morphology: comminuted Fracture type: closed Laterality: right Asthma J45.909 Diabetes mellitus E11.9 Acid reflux K21.9 Anxiety F41.9 Mild dementia F03.90 Hypertension I10 Dyslipidemia E78.5 DVT prophylaxis Z29.9 (1) Patellar fracture Encounter type: initial encounter Fracture alignment: displaced Fracture morphology: comminuted Fracture type: closed Laterality: right Qualified Code(s): S82.041A - Displaced comminuted fracture of right patella, initial encounter for closed fracture
[2021-05-12] MEDS: hydrALAZINE HCL 20 MG/ML VIAL IV PRN (11:57)
[2021-05-12] MEDS: ACETAMINOPHEN 500 MG TAB PO SCH ×2 (13:34→20:48)
[2021-05-12] MEDS: ENOXAPARIN INJ 40 MG/0.4 ML SYR SQ SCH (13:35)
[2021-05-12] MEDS ORDERED: amLODIPine BESYLATE 5 MG TAB PO ONE (15:04)
[2021-05-13] MEDS: hydrALAZINE HCL 20 MG/ML VIAL IV PRN (03:50)
[2021-05-13] MEDS: ACETAMINOPHEN 500 MG TAB PO SCH ×3 (08:27→21:07)
[2021-05-13] MEDS: busPIRone 7.5 MG TAB PO SCH ×2 (08:28→21:05)
[2021-05-13] MEDS: amLODIPine BESYLATE 5 MG TAB PO SCH (08:28)
[2021-05-13] MEDS: CHOLECALCIFEROL 1,000 UNITS 25 MCG TAB PO SCH (08:29)
[2021-05-13] MEDS: CITALOPRAM 40 MG TAB PO SCH (08:29)
[2021-05-13] MEDS: DONEPEZIL HCL 10 MG TAB PO SCH (08:29)
[2021-05-13] MEDS: FLUTICASONE PROPIONATE NA SPR 16 GM BTL NAE SCH ×2 (08:30→21:10)
[2021-05-13] MEDS: MONTELUKAST SODIUM 10 MG TABLET PO SCH (08:31)
[2021-05-13] MEDS: LOSARTAN POTASSIUM 50 MG TAB PO SCH ×2 (08:31→21:05)
[2021-05-13] MEDS: FLUTICASONE/VILANTEROL 200/25MCG 14 PUFFS/INHALER INH SCH (08:31)
[2021-05-13] MEDS: PANTOprazole 40 MG TAB PO SCH (08:32)
[2021-05-13] MEDS: SIMVASTATIN 10 MG TAB PO SCH (08:32)
[2021-05-13] MEDS ORDERED: amLODIPine BESYLATE 5 MG TAB PO SCH (09:00)
[2021-05-13] MEDS: ENOXAPARIN INJ 40 MG/0.4 ML SYR SQ SCH (10:15)
--- NOTE | 2021-05-13 11:50 | Orthopedic Progress Note ---
Date of Service May 13, 2021 Assessment & Plan (1) Right patella fracture: Plan: Postoperative day #3 status post ORIF of right patella fracture by Dr. Salmeron. Weightbearing as tolerated in full knee extension with the knee immobilizer in place. Continue working with therapy. Follow-up with Dr. Salmeron at [facility] 10 to 14 days after surgery. Please call [phone] to make an appointment. Orthopedics will sign off at this time. Please call with questions. Admission and Anticipated Discharge Date Admission Date: May 09, 2021 Subjective Patient resting comfortably. She is sitting in a chair. She says of the this is the first time she has been out of bed since surgery. She feels like her knee is better every day. Physical Exam Physical Exam: Immobilizer and dressings are clean, dry, and intact. Motor a nd sensory function is intact distally. Results & Data ([facility]) Vital Signs (Past 12 Hours) Vital Signs Temp Pulse Pulse Resp BP Pulse Ox 05/13/21 07:23 85 05/13/21 07:00 36.8 C 84 18 200/75 H 95 05/13/21 03:07 36.7 C 84 16 212/87 H 95 05/13/21 00:00 89
[2021-05-13] MEDS: CLOBETASOL PROPIONATE 0.05% OINT 15 GM TUBE EXT SCH (14:19)
--- NOTE | 2021-05-13 17:43 | Hospitalist Progress Note ---
Date of Service May 13, 2021 Assessment & Plan (1) Patellar fracture: Plan: - Comminuted and Displaced; Secondary to a mechanical fall now S/P ORIF on 10 May - Pain control with Tylenol, Tramadol, and Morphine PRN - MASON Tylenol to get better around the clock coverage with other options for PRN usage - DVT prophylaxis - Lovenox - PT/OT evaluations; case management - Orthopedics following - appreciate surgical intervention and management - WBAT with knee immobilizer - Discussed with ortho - good to move to rehab (2) Asthma: Plan: - STABLE; Follows with Dr. Edgar - Recent prednisone taper initiated on 07 May - currently on hold and possibly contributed to anxiety - Continue Albuterol PRN; Singulair 10 mg daily (3) Diabetes mellitus: Plan: - Diet controlled (4) Acid reflux: Plan: - STABLE - Continue Protonix 40 mg daily (5) Anxiety: Plan: - Anxiety and Depression - Prednisone taper was discontinued which was started on 05/07/2021 - Lorazepam 0.5 mg PRN; Buspar 7.5 mg BID; Celexa 40 mg daily (6) Mild dementia: Plan: - Continue Aricept 10 mg daily (7) Hypertension: Plan: - Variable - has been elevated likely related to pain and anxiety and worsens at night however diastolic has been consistent and acceptable -- Some systolic differences noted between arms however this is not consistent as well - Continue Losartan 50 mg BID; did add Amlodipine 10 mg and can continue (8) Dyslipidemia: Plan: - Continue Simvastatin 10 mg daily (9) DVT prophylaxis: Plan: - Lovenox 40 mg subcutaneously daily Disposition: - PT/OT recommendations for rehab - can go to [facility] tomorrow; daughter requesting [facility] for transport Admission and Anticipated Discharge Date Admission Date: May 09, 2021 Subjective Pt with some pain this AM. Assisted with placing on bedpen and was quite anxious. However, drastically improved throughout the day and reports pain is doing better. BP is improving with amlodipine and also with her feeling more comfortable. Tolerating diet without issue. Planning on D/C to [facility] tomorrow Review of Systems Review of Systems: REVIEW OF SYSTEMS General/Constitutional: Denies fever/chills, fatigue, weakness Cardiovascular: Denies chest pain, palpitations, edema Respiratory: Denies cough, sputum, SOB, wheezing, orthopnea GI: Denies nausea, vomiting, abdominal pain, constipation, diarrhea : Denies dysuria, frequency, hematuria Musculoskeletal: + R knee pain Neurologic: Denies dizziness/lightheadedness, numbness/tingling Skin: Denies rash, itch, new skin changes Physical Exam Physical Exam: PHYSICAL EXAM General Appearance: WDWN in NAD who is A&O x 3 HEENT: Head is normocephalic/atraumatic; Hearing grossly intact; Mucous membranes moist; Pharynx negative for exudate/lesions Neck: Supple; Trachea midline; Neg JVD Heart: RRR with no M/G/R Lungs: CTA in all lung bedolla bilaterally; Respirations unlabored; Neg accessory muscle use Abdomen: Soft, non-tender, non-distended; Positive BS x 4 quadrants Extremities: Capillary refill < 2 seconds; Neg cyanosis or edema Neurological: Speech clear; Gross motor/sensory function intact; Neg focal neurologic deficits Psychiatric: Appropriate mood/affect; intermittently anxious but has been improving especially with family members visiting Skin: Normal Color; Warm/Dry; Neg rashes Results & Data Results & Data ([facility]) Vital Signs (Past 12 Hours) Vital Signs Temp Pulse Pulse Resp BP BP Pulse Ox 05/13/21 15:19 51 L 05/13/21 15:00 36.6 C 88 20 144/73 H 95 05/13/21 11:00 36.6 C 94 H 18 119/71 95 05/13/21 07:23 85 05/13/21 07:00 36.8 C 84 18 200/75 H 95 PG Care Time/CCT Total # of Minutes Spent Total Time Spent with Patient: Total time spent is greater than 50% in coordination of care (as documented) at patient's floor/unit and/or counseling patient: Coding Level of Care Code 62444 Subseq Hosp Care Lvl 2 Diagnoses Patellar fracture S82.041A Encounter type: initial encounter Fracture alignment: displaced Fracture morphology: comminuted Fracture type: closed Laterality: right Asthma J45.909 Diabetes mellitus E11.9 Acid reflux K21.9 Anxiety F41.9 Mild dementia F03.90 Hypertension I10 Dyslipidemia E78.5 DVT prophylaxis Z29.9 (1) Patellar fracture Encounter type: initial encounter Fracture alignment: displaced Fracture morphology: comminuted Fracture type: closed Laterality: right Qualified Code(s): S82.041A - Displaced comminuted fracture of right patella, initial encounter for closed fracture
[2021-05-14] MEDS: MoRPHine SULFATE 2 MG/ML CARP IV PRN (01:42)
[2021-05-14 08:37] LABS: Hematocrit (blood only) 37.4 % (37-47); Hemoglobin 12.3 g/dL (12.0-16.0); Mean Corpuscular Hemoglobin 28.4 pg (25-34); Mean Corpuscular Hgb Conc 32.9 g/dL (32-36); Mean Corpuscular Volume 86.4 fL (80-100); Mean Platelet Volume 9.8 fL (7.4-10.4); Platelet Count 236 K/uL (130-400); RDW Coefficient of Variation 15.7 % (11.5-14.5); RDW Standard Deviation 49.8 fL (36.4-46.3); Red Blood Count 4.33 M/uL (4.2-5.4); White Blood Count 5.21 K/uL (4.8-10.8)
[2021-05-14] MEDS: FLUTICASONE/VILANTEROL 200/25MCG 14 PUFFS/INHALER INH SCH (08:42)
[2021-05-14] MEDS: FLUTICASONE PROPIONATE NA SPR 16 GM BTL NAE SCH (08:42)
[2021-05-14] MEDS: ACETAMINOPHEN 500 MG TAB PO SCH ×2 (08:43→12:46)
[2021-05-14] MEDS: LOSARTAN POTASSIUM 50 MG TAB PO SCH (08:44)
[2021-05-14] MEDS: busPIRone 7.5 MG TAB PO SCH (08:45)
[2021-05-14] MEDS: PANTOprazole 40 MG TAB PO SCH (08:45)
[2021-05-14] MEDS: DONEPEZIL HCL 10 MG TAB PO SCH (08:45)
[2021-05-14] MEDS: CITALOPRAM 40 MG TAB PO SCH (08:45)
[2021-05-14] MEDS: MONTELUKAST SODIUM 10 MG TABLET PO SCH (08:45)
[2021-05-14] MEDS: SIMVASTATIN 10 MG TAB PO SCH (08:46)
[2021-05-14] MEDS: CHOLECALCIFEROL 1,000 UNITS 25 MCG TAB PO SCH (08:46)
[2021-05-14 08:54] LABS: BUN Creatinine Ratio 16.7 (10-20); Calcium 8.3 mg/dl (8.5-10.1); Creatinine Clr Calc Pharmacy 62.4 ml/min; Est GFR (African American) 100.9 ml/min; Est GFR (Non-African American) 87.1 ml/min; Potassium 3.3 mmol/L (3.5-5.1)
[2021-05-14] MEDS: amLODIPine BESYLATE 5 MG TAB PO SCH (11:07)
[2021-05-14] MEDS: ENOXAPARIN INJ 40 MG/0.4 ML SYR SQ SCH (11:11)
[2021-05-14] MEDS: CLOBETASOL PROPIONATE 0.05% OINT 15 GM TUBE EXT SCH (11:22)
[2021-05-14] MEDS: traMADol HCL 50 MG TABLET PO PRN (11:35)
--- NOTE | 2021-05-14 18:58 | Discharge Summary ---
Date of Service May 14, 2021 Admission HPI Per Admitting Provider Attending: Dr. Combs This is an 86-year-old female with a past medical tension, asthma, anxiety, degenerative arthritis of the knee, mild dementia, balance impairment, dyslipidemia, irritable bowel syndrome, history of diabetes mellitus, acid reflux, and history of remote tobacco abuse Patient lives with her family and got up this morning to go to the bathroom. She was using a roller board to transfer to the toilet when her knee gave out and she fell striking her knee on the floor. Family was able to get her up and brought her to the emergency department where she was found to have a right fra ctured patella with hemarthrosis on x-ray and confirmed by CT of the knee. The patient reports that she is anxious that she has family plans that she was hoping to go camping this week. Her blood pressure was elevated at 192/100. She was given her home dose of 50 mg of oral losartan without much improvement. 10 mg of IV hydralazine has been ordered but not yet administered. Patient also is ordered 1/2 mg of sublingual lorazepam for anxiety. The patient denies syncope or presyncope with the fall. She had no loss of consciousness. She had no lightheadedness or dizziness. She had no chest pain or tightness or dyspnea. She reports it was strictly a mechanical fall. Patient denies any recent illness. She has no fever, chills, sweats, rigors. She has no recent travel. Family is traveling in to visit but she has not seen them yet. She has no history of Covid. She does report that she has been vaccinated for Covid. She was recently seen in Dr. Edgar's office and was started on a prednisone taper on 05/07/2021. She took her dose as prescribed on Monday and on Monday. This most likely is contributing to some of her anxiety. This taper will be held while inpatient and patient will be monitored for respiratory status. The patient does have remote tobacco abuse history of 30 pack years. She states that she quit smoking in the 1960s The patient does report some intentional weight loss over the past year. Otherwise health has been stable. Principal Diagnosis R Fractured Patella S/P Repair Discharge Exam Constitutional no acute distress Eyes + anicteric sclerae; no conjunctival abnormality Neck trachea midline Respiratory normal respiratory effort, lungs clear to auscultation no cough Cardiovascular RRR, no murmur, no edema Gastrointestinal (Abdomen) normal bowel sounds, soft, nontender, no hepatosplenomegaly Musculoskeletal knee immobilizer in place Neurologic moves all extremities Psychiatric Orientation: alert Discharge Data Allergies Allergy/AdvReac Type Severity Reaction Status Date / Time sulfamethoxazole Allergy Intermediate UNSURE Verified 05/09/21 02:30 trimethoprim Allergy Intermediate UNSURE Verified 05/09/21 02:30 BO Inhibitors Allergy Unknown UNK Verified 05/09/21 02:30 Penicillins Allergy Unknown Unknown Verified 05/09/21 02:30 tetanus toxoid, adsorbed Allergy Unknown Unknown Verified 05/09/21 02:30 Consultations 05/09/21 08:30 ED Decision to Admit Stat 05/09/21 10:45 Consult Orthopedic Surgery Routine Procedures Performed Operation Date: 05/10/21 07:00 Actual Procedures p Right Patella Open Reduction Internal Fixation(Right) - Yordan Salmeron MD Ordered Studies 05/09/21 04:23 CT knee RT wo con Urgent 05/10/21 FL knee RT 1 or 2V Routine Hospital Course (1) Patellar fracture: - Comminuted and Displaced; Secondary to a mechanical fall now S/P ORIF on 10 May - Pain control with MASON Tylenol and Tramadol PRN - DVT prophylaxis - Lovenox - discussed with ortho to continue x 4 weeks unless better mobility - Orthopedics following; plan on outpatient follow-up in 10-14 days - WBAT with knee immobilizer (2) Asthma: - STABLE; Follows with Dr. Edgar - Recent prednisone taper initiated on 07 May - currently on hold and possibly contributed to anxiety in-house - Continue Albuterol PRN; Singulair 10 mg daily (3) Diabetes mellitus: - Diet controlled (4) Acid reflux: - STABLE - Continue Protonix 40 mg daily (5) Anxiety: - Anxiety and Depression - Lorazepam 0.5 mg PRN; Buspar 7.5 mg BID; Celexa 40 mg daily (6) Mild dementia: - Continue Aricept 10 mg daily (7) Hypertension: - Variable - has been elevated likely related to pain and anxiety and worsens at night however diastolic has been consistent and acceptable -- Some systolic differences noted between arms however this is not consistent as well and rotates between each arm - Continue Losartan 50 mg BID; did add Amlodipine 10 mg and can continue and monitor while at [facility] (8) Dyslipidemia: - Continue Simvastatin 10 mg daily (9) DVT prophylaxis: - Lovenox 40 mg subcutaneously daily until more mobility Disposition: - [facility] for rehab Total Time Total Time Spent Total Time Spent (In Minutes): Greater than 30 minutes Discharge Plan Discharge Items Patient Disposition: Transfer Inpatient Rehab Fac Reason For Visit: FRACTURED RIGHT PATELLA Discharge Diagnosis: Fractured Right Patella with Repair Activity: Per Instructions section Lifting: Gradually increase as tolerated Bathing: No limitations Exercise/Sports: Gradually increase as tolerated Weightbearing: Right weightbearing Weightbearing Comment: weight as tolerated with immobilizer on Non-emergency contact: Primary Care Provider and Surgeon Call non-emergency contact if: you have any medication questions, your symptoms worsen and you have a fever Follow-up/Referrals: Thomas Edgar MD [Primary Care Provider] - Yordan Salmeron MD [Surgeon] - (follow up in 10-14 days for wound check) Diet: Regular Addtl Attending Provider Instructions: Patellar fracture: - Comminuted and Displaced; Secondary to a mechanical fall now S/P ORIF on 10 May - Pain control with MASON Tylenol and Tramadol as needed for breakthrough - each day is slightly improving; morning the worst for pain - Lovenox daily - discussed with orthopedics and can reduce as she gets more mobile - Please follow the directions as below from ortho for ambulation instructions and follow-up Asthma: - STABLE; Follows with Dr. Edgar - Recent prednisone taper initiated on 07 May - currently on hold and possibly contributed to anxiety - Continue Albuterol PRN; Singulair 10 mg daily Diabetes mellitus: - Diet controlled Acid reflux: - STABLE - Continue Protonix 40 mg daily Anxiety: - Anxiety and Depression Buspar 7.5 mg BID; Celexa 40 mg daily Mild dementia: - Continue Aricept 10 mg daily Hypertension: - Variable - has been elevated likely related to pain and anxiety and worsens at night however diastolic has been consistent and acceptable -- Some systolic differences noted between arms however this is not consistent as well - Continue Losartan 50 mg BID; did add Amlodipine 10 mg and can continue Dyslipidemia: - Continue Simvastatin 10 mg daily DVT prophylaxis: - Lovenox 40 mg subcutaneously daily Addtl Trim Setter Provider Instructions: Weight bearing as tolerated on the right foot. You MUST wear the immobilizer at all times. You may remove for bathing and changing clothes. No Range of Motion of the right knee at this time. Do not bend the knee. Change your dressing daily. If the wound is dry, you can change the dressing every other day. Follow up with Dr. Salmeron in 10-14 days from the day of surgery. [phone] Pending Studies at Discharge: No Stand-Alone Forms: My [facility] Skilled Items Patient informed of condition?: Yes DNR: No Discharge Level of Care: Acute rehab Communicable Disease: No Discharge Prognosis: Stable Lines: None Urinary Catheter: No Medications and DC Order Prescriptions: New enoxaparin 40 mg/0.4 mL Syringe 40 mg subcut Q24H 21 Days Qty: 8.4 RF: 0 amlodipine [Norvasc] 5 mg Tablet 10 mg PO QAM 30 Days Qty: 60 RF: 0 acetaminophen [Tylenol Extra Strength] 500 mg Tablet 1,000 mg PO TID 30 Days Qty: 180 RF: 0 Continued esomeprazole magnesium 40 mg capsule,delayed release(DR/EC) 40 mg PO DAILY Qty: 90 RF: 3 losartan 50 mg tablet 50 mg PO BID Qty: 180 RF: 3 simvastatin 10 mg tablet 10 mg PO DAILY Qty: 90 RF: 3 clobetasol 0.05 % ointment 1 g topical 2XWK Qty: 60 RF: 0 montelukast 10 mg tablet 10 mg PO DAILY Qty: 90 RF: 3 donepezil 10 mg tablet 10 mg PO DAILY Qty: 90 RF: 3 albuterol sulfate 90 mcg/actuation HFA aerosol inhaler 2 puff INHALATION QID PRN (Reason: Shortness Of Breath Or Wheezing) Qty: 8.5 RF: 6 citalopram 40 mg tablet 40 mg PO DAILY Qty: 90 RF: 3 Symbicort 160-4.5 mcg/actuation HFA aerosol inhaler 2 puff Inhalation BID Qty: 3 RF: 3 buspirone 7.5 mg tablet 7.5 mg PO BID Qty: 60 RF: 4 cholecalciferol (vitamin D3) [Vitamin D3] 1,000 unit Capsule 2,000 unit PO DAILY RF: 0 fluticasone propionate 50 mcg/actuation spray,suspension 1 spray intranasal BID RF: 0 albuterol sulfate 2.5 mg /3 mL (0.083 %) Solution For Nebulization 2.5 mg INHALATION QID PRN (Reason: Shortness Of Breath Or Wheezing) RF: 0 Discontinued prednisone 10 mg tablet See Rx Instructions PO DAILY Qty: 40 RF: 0 Discharge Orders: Discharge Order (Routine); Ordered 05/14/21 Ordered By: Destiney Norris Admission Data Admit Date/Time: 05/09/21 09:27 Attending Provider: Joselo Tellez Admit Provider: Geoff Combs Primary Care Provider: Thomas Edgar Other Providers: Geoff Combs ; Dipesh Bernal ; [facility] Other Interventions: Discharge Summary Assessment (RN) Last Done: 05/14/21 13:03 Supervising Physician Co-Signing Physician Notes Attending note: patient seen and examined with Destiney Norris PA-C. I agree with her discharge summary. I personally reviewed the labs and imaging findings. patients pain is reasonably controlled some issues with BP management, needed to add amlodipine, could be due to pain/anxiety/white coat HTN? eating well, breathing comfortably, no chest pain/pressure, moving bowels - Patellar fracture, s/p ORIF: will go to rehab today Coding Level of Care Code D/C DAY MANAGEMENT >30 MINS Diagnoses Patellar fracture S82.041A Encounter type: initial encounter Fracture alignment: displaced Fracture morphology: comminuted Fracture type: closed Laterality: right Asthma J45.909 Diabetes mellitus E11.9 Acid reflux K21.9 Anxiety F41.9 Mild dementia F03.90 Hypertension I10 Dyslipidemia E78.5 DVT prophylaxis Z29.9
== END 2021-05-14 14:10 | DRG 517 ==
LOC: ED 02:03 → 2N 09:27 → SUATTDRO 09:27 → 2N 10:08

== ENCOUNTER 2023-05-01 20:16 | Inpatient (IN) ==
[2023-05-01] MEDS ORDERED: methylPREDNISolone 1,000 MG in DEXTROSE 5% 250 ML IV STA (20:52)
[2023-05-01] MEDS ORDERED: IMMUNE GLOBULIN (HUMAN) SOLN IV ONE (20:52)
[2023-05-01 21:05] LABS: Partial Thromboplastin Time 29.2 Seconds (21.0-31.0)
[2023-05-01 21:07] LABS: Albumin Level 4.1 gm/dl (3.4-5.0); Bilirubin,Total 1.2 mg/dl (0.2-1.0); Calcium 8.8 mg/dl (8.6-10.3); Potassium 3.7 mmol/L (3.5-5.1)
[2023-05-01 21:08] LABS: Basophils # (auto) 0.01 K/uL (0-0.2); Basophils % (auto) 0.2 %; Eosinophils # (auto) 0.01 K/uL (0-0.50); Eosinophils % (auto) 0.2 %; Hematocrit (blood only) 37.9 % (37.0-47.0); Immature Granulocytes # (auto) 0.03 K/uL (0.01-0.20); Immature Granulocytes % (auto) 0.7 %; Lymphocytes # (auto) 1.31 K/uL (1.2-3.4); Lymphocytes % (auto) 30.4 %; Mean Corpuscular Hemoglobin 25.8 pg (25.0-34.0); Mean Corpuscular Hgb Conc 31.7 g/dL (32.0-36.0); Mean Corpuscular Volume 81.3 fL (80.0-100.0); Monocytes # (auto) 0.89 K/uL (0.11-0.59); Monocytes % (auto) 20.6 %; Neutrophils # (auto) 2.06 K/uL (1.40-6.50); Neutrophils % (auto) 47.9 %; Platelet Count 2 K/uL (130-400); Platelet Estimate Signific. Decreased (Normal); RDW Coefficient of Variation 18.9 % (11.5-14.5); Red Blood Count 4.66 M/uL (4.20-5.40); White Blood Count 4.31 K/ul (4.8-10.8)
[2023-05-01 21:13] LABS: Albumin Globulin Ratio 1.2 (0.9-2); Creatinine Clr Calc Pharmacy 36.7 ml/min; Est GFR (African American) 75.2 ml/min; Est GFR (Non-African American) 64.8 ml/min; Globulin 3.3 gm/dl (2.5-4.0); Total Protein 7.4 gm/dl (6.0-8.3)
--- NOTE | 2023-05-01 21:44 | CT Scan Report ---
Exam(s): CT HEAD Without Contrast EXAM: CT Head Without Intravenous Contrast CLINICAL HISTORY: Reason for exam: ro ich. TECHNIQUE: Axial computed tomography images of the head/brain without intravenous contrast. CTDI is 37.95 mGy and DLP is 546.36 mGy-cm. Automated exposure control was utilized for the study. A dose lowering technique was utilized adhering to the principles of ALARA. COMPARISON: Head CT 10/03/17. FINDINGS: Brain: No mass effect or acute infarct. No acute hemorrhage. Moderate atrophy and chronic white matter disease, relatively unchanged. Ventricles: No hydrocephalus or midline shift. Bones/joints: No skull fracture. Soft tissues: No scalp hematoma. Sinuses: Clear. Mastoid air cells: No mastoid effusion. IMPRESSION: 1. Moderate age-related findings are stable. 2. No acute infarct, bleed, or acute intracranial abnormality. Electronically signed by: Silvia Santana M.D. 05/01/23 21:43 PM
[2023-05-01 22:24] LABS: Folate (Folic Acid),Ser orPlas 6.97 ng/ml (>5.38)
[2023-05-01] MEDS ORDERED: Octagam 10% IVIG 5 gram bottle IV SCH (23:00)
--- NOTE | 2023-05-01 23:05 | Emergency Department Note ---
History of Present Illness General Chief Complaint: Abnormal Labs/Diagnostic Testing Stated Complaint: PLATELET COUNT LOW Time Seen by Provider: 05/01/23 20:38 History of Present Illness Provider Complaint: + abnormal lab Description of abnormal result: Platelet count 1 Associated symptoms: + rash; no chest pain or no shortness of breath HPI narrative: 80-year-old female presents emergency department for abnormal labs. Patient reports that she has been having increasing bruising on her body. She states she went to her PCP who did outpatient blood work which showed a platelet count of 1 and she was referred to the emergency department. Patient denies any vaginal bleeding. She denies any melena or hematochezia. No hematuria. No abdominal pain. No chest pain. No headaches. Home Medications Medication Instructions Recorded Confirmed Type acetaminophen 500 mg tablet 1,000 mg PO DIRECTED PRN Pain 02/03/22 05/01/23 History cetirizine 10 mg tablet 10 mg PO DAILY 02/03/22 05/01/23 History focus select 2 tab PO DAILY 02/03/22 05/01/23 History albuterol sulfate 90 mcg/actuation 2 puff inhalation QID PRN 01/12/23 05/01/23 Rx aerosol inhaler Shortness Of Breath Or Wheezing #8.5 grams cholecalciferol (vitamin D3) 25 1,000 unit PO DAILY 01/30/23 05/01/23 History mcg (1,000 unit) capsule (Vitamin D3) ipratropium bromide 21 mcg (0.03 See Rx Instructions .Route 02/23/23 05/01/23 Rx %) nasal spray .COMPLEX #30 mL memantine 5 mg tablet 5 mg PO BID #60 tabs 02/27/23 05/01/23 Rx amlodipine 10 mg tablet 10 mg PO DAILY #30 tabs 04/03/23 05/01/23 Rx prednisone 10 mg tablet See Rx Instructions PO DAILY #30 04/20/23 05/01/23 Rx tabs budesonide-formoterol HFA 160 2 inh inhalation BID 05/01/23 05/01/23 History mcg-4.5 mcg/actuation aerosol inhaler (Symbicort) buspirone 10 mg tablet 10 mg PO BID 05/01/23 05/01/23 History citalopram 40 mg tablet 40 mg PO DAILY 05/01/23 05/01/23 History clobetasol 0.05 % topical ointment 1 applic topical 2XWK 05/01/23 05/01/23 History donepezil 10 mg tablet 10 mg PO DAILY 05/01/23 05/01/23 History esomeprazole magnesium 40 mg 40 mg PO DAILY 05/01/23 05/01/23 History capsule,delayed release fluticasone propionate 50 1 spray intranasal BID 05/01/23 05/01/23 History mcg/actuation nasal spray,suspension losartan 50 mg tablet 50 mg PO BID 05/01/23 05/01/23 History montelukast 10 mg tablet 10 mg PO DAILY 05/01/23 05/01/23 History simvastatin 10 mg tablet 10 mg PO DAILY 05/01/23 05/01/23 History Allergies Allergy/AdvReac Type Severity Reaction Status Date / Time sulfamethoxazole Allergy Intermediate UNSURE Verified 05/01/23 21:47 trimethoprim Allergy Intermediate UNSURE Verified 05/01/23 21:47 BO Inhibitors Allergy Unknown UNK Verified 05/01/23 21:47 Penicillins Allergy Unknown Unknown Verified 05/01/23 21:47 tetanus toxoid, adsorbed Allergy Unknown Unknown Verified 05/01/23 21:47 Past Med/Surg History Medical History (Updated 05/01/23 @ 23:05 by Lester Kendrick MD) Acute joint effusion Fall Generalized weakness Hemarthrosis IBS (irritable bowel syndrome) Osteopenia Pneumonia Postmenopausal atrophic vaginitis Vertigo Vitamin D deficiency Surgical History History of appendectomy S/P bronchoscopy S/P cholecystectomy S/P colonoscopy S/P dilation and curettage S/P tonsillectomy and adenoidectomy S/P tooth extraction Family History Unknown Coronary arteriosclerosis Aneurysm of abdominal aorta Mother No problems noted. Other No pertinent family history Denies family history of Ovarian cancer Social History Smoking Status: Former smoker Tobacco Type: Cigarettes Second Hand Exposure: No; Do You Dip or Chew Tobacco: No; Hx Alcohol Use: No Hx Substance Use: No Preferred Language: Thai Communication Ability: Effective Pegger Required: No Beliefs That Will Affect Care: None marital status: / Current Living Situation: Family Current Living Situation Comment: Daughter and family live in Pt's home current occupational status: retired Feels Safe at Home: Yes Seatbelt Use: always Assistive Devices: Glasses Physical Exam Vital Signs: Vital Signs - 24 hr 05/01/23 20:20 05/01/23 20:59 05/01/23 21:20 Temperature 36.4 C L Temperature Source Temporal Artery Sc an Pulse Rate 78 64 Pulse Rate [Apical ] 64 Pulse Rate from Sp O2 Sensor 64 Respiratory Rate 16 15 14 Respiratory Depth Normal Blood Pressure [Le ft Arm] 132/74 Blood Pressure Tessa n [Left Arm] 93 Blood Pressure Pos ition [Left Arm] Lying Pulse Oximetry 97 95 97 Oxygen Delivery Me thod Room Air Sepsis Recent Feve r Within 48 Hours No Sepsis New/Unexpla ined Change in Men manuel Status No Sepsis Action Take n by Nursing No Action Required 05/01/23 21:30 05/01/23 21:40 05/01/23 21:50 Temperature Temperature Source Pulse Rate 63 62 64 Pulse Rate [Apical ] Pulse Rate from Sp O2 Sensor 63 63 64 Respiratory Rate 16 15 21 Respiratory Depth Blood Pressure [Le ft Arm] Blood Pressure Tessa n [Left Arm] Blood Pressure Pos ition [Left Arm] Pulse Oximetry 95 97 97 Oxygen Delivery Me thod Sepsis Recent Feve r Within 48 Hours Sepsis New/Unexpla ined Change in Men manuel Status Sepsis Action Take n by Nursing 05/01/23 22:00 05/01/23 22:10 05/01/23 22:20 Temperature Temperature Source Pulse Rate 61 61 61 Pulse Rate [Apical ] Pulse Rate from Sp O2 Sensor 63 62 61 Respiratory Rate 21 18 16 Respiratory Depth Blood Pressure [Le ft Arm] Blood Pressure Tessa n [Left Arm] Blood Pressure Pos ition [Left Arm] Pulse Oximetry 95 95 95 Oxygen Delivery Me thod Sepsis Recent Feve r Within 48 Hours Sepsis New/Unexpla ined Change in Men manuel Status Sepsis Action Take n by Nursing Physical Exam: Physical Exam GENERAL: She is oriented to person, place, and time. She appears well-developed and well-nourished. She does not appear distressed. HENT: Exam performed. -Head: Normocephalic and atraumatic. -Mouth/Throat: Wet purpura lesions over the patient's upper hard and soft palate. EYES: Conjunctivae and EOM are normal. Pupils are equal, round, and reactive to light. Right eye exhibits no discharge. Left eye exhibits no discharge. No scleral icterus. NECK: Normal range of motion. Neck supple. No JVD present. No spinous process tenderness present. No tracheal deviation and normal range of motion present. CV: Normal rate, regular rhythm, normal heart sounds and intact distal pulses. There is no peripheral edema. Palpable radial pulses bue. PULM/CHEST: Effort normal and breath sounds normal. No respiratory distress. No stridor. She has no wheezes. She has no rales. ABD: The abdomen is soft. There is no tenderness. There is no rebound, no guarding NEURO:She has normal strength. No cranial nerve deficit or sensory deficit. GCS eye subscore is 4. GCS verbal subscore is 5. GCS motor subscore is 6. Cerebellar tests wnl. SKIN: Diffuse ecchymosis over the patient's bilateral upper and bilateral lower extremities. Petechial rash over the patient's bilateral lower extremities also. Course Course 2037: The patient was evaluated in room B8. A complete history and physical exam was performed Cardiac monitoring: An order was placed for continuous cardiac monitoring. The monitor shows a rate of 60 with sinus rhythm interpreted by in 2048: Spoke with Dr. Spence who agrees that this sounds like ITP. She recommends methylprednisolone 1 g/day. She recommends IVIG 63 g/day. She states no platelet transfusion at this time. She also asked that a peripheral smear Path consultation be placed, hepatitis acute panel be placed, a folate level be placed, she [facility]. [facility]237: Received a [facility] Her[facility]. She was asking if the IVIG should be done based off of adjusted body weight and should be 50 g. I told her that the dosing was done by Dr. Spence who was contacted and stated she would contact her about the dosing of the IVIG. Dr. Romero notified. Administered Medications Discontinued Medications Methylprednisolone 1,000 mg/ (Dextrose) 266 mls @ 266 mls/hr IV NOW STA Stop: 05/01/23 21:51 Last Admin: 05/01/23 21:32 Dose: 266 mls/hr Documented By: [facility] Medical Decision Making Laboratory Data Attestation: I reviewed the patient's lab results. 05/01/23 20:05 05/01/23 20:05 Lab Results 05/01/23 05/01/23 05/01/23 Range/Units 20:05 20:05 20:05 WBC 4.31 L (4.8-10.8) K/ul RBC 4.66 (4.20-5.40) M/uL Hgb 12.0 (12.0-16.0) g/dl Hct 37.9 (37.0-47.0) % MCV 81.3 (80.0-100.0) fL MCH 25.8 (25.0-34.0) pg MCHC 31.7 L (32.0-36.0) g/dL RDW Std Deviation 55.0 H (36.4-46.3) fL RDW Coeff of Sukumar 18.9 H (11.5-14.5) % Plt Count 2 L* D (130-400) K/uL Immature Gran % (Auto) 0.7 % Neut % (Auto) 47.9 % Lymph % (Auto) 30.4 % Wetzel % (Auto) 20.6 % Eos % (Auto) 0.2 % Baso % (Auto) 0.2 % Neut # (Auto) 2.06 (1.40-6.50) K/uL Lymph # (Auto) 1.31 (1.2-3.4) K/uL Wetzel # (Auto) 0.89 H (0.11-0.59) K/uL Eos # (Auto) 0.01 (0-0.50) K/uL Baso # (Auto) 0.01 (0-0.2) K/uL Immature Gran # (Auto) 0.03 (0.01-0.20) K/uL Platelet Estimate Signific. Decreased L (Normal) Peripher Smr Path Cons PT 11.0 (9.0-12.0) Seconds INR 1.0 (0.9-1.1) APTT 29.2 (21.0-31.0) Seconds PTT Ratio 1.0 Sodium 138 (136-145) mmol/L Potassium 3.7 (3.5-5.1) mmol/L Chloride 105 (98-107) mmol/L Carbon Dioxide 24 (21-32) mmol/L Anion Gap 9 (3-11) BUN 17 (6-23) mg/dl Creatinine 0.81 (0.6-1.2) mg/dl Est Cr Clr Drug Dosing 36.7 ml/min Est GFR ( Amer) 75.2 ml/min Est GFR (Non-Af Amer) 64.8 ml/min BUN/Creatinine Ratio 21.0 H (10-20) Glucose 90 (70-99(Fasting)) mg/dl Calcium 8.8 (8.6-10.3) mg/dl Total Bilirubin 1.2 H (0.2-1.0) mg/dl AST 26 (13-39) U/L ALT 11 (7-52) U/L Alkaline Phosphatase 53 (34-104) U/L Total Protein 7.4 (6.0-8.3) gm/dl Albumin 4.1 (3.4-5.0) gm/dl Globulin 3.3 (2.5-4.0) gm/dl Albumin/Globulin Ratio 1.2 (0.9-2) Vitamin B12 Folate Blood Type Blood Type Recheck Antibody Screen 05/01/23 05/01/23 05/01/23 Range/Units 20:05 20:21 21:28 WBC (4.8-10.8) K/ul RBC (4.20-5.40) M/uL Hgb (12.0-16.0) g/dl Hct (37.0-47.0) % MCV (80.0-100.0) fL MCH (25.0-34.0) pg MCHC (32.0-36.0) g/dL RDW Std Deviation (36.4-46.3) fL RDW Coeff of Sukumar (11.5-14.5) % Plt Count (130-400) K/uL Immature Gran % (Auto) % Neut % (Auto) % Lymph % (Auto) % Wetzel % (Auto) % Eos % (Auto) % Baso % (Auto) % Neut # (Auto) (1.40-6.50) K/uL Lymph # (Auto) (1.2-3.4) K/uL Wetzel # (Auto) (0.11-0.59) K/uL Eos # (Auto) (0-0.50) K/uL Baso # (Auto) (0-0.2) K/uL Immature Gran # (Auto) (0.01-0.20) K/uL Platelet Estimate (Normal) Peripher Smr Path Cons Cancelled PT (9.0-12.0) Seconds INR (0.9-1.1) APTT (21.0-31.0) Seconds PTT Ratio Sodium (136-145) mmol/L Potassium (3.5-5.1) mmol/L Chloride (98-107) mmol/L Carbon Dioxide (21-32) mmol/L Anion Gap (3-11) BUN (6-23) mg/dl Creatinine (0.6-1.2) mg/dl Est Cr Clr Drug Dosing ml/min Est GFR ( Amer) ml/min Est GFR (Non-Af Amer) ml/min BUN/Creatinine Ratio (10-20) Glucose (70-99(Fasting)) mg/dl Calcium (8.6-10.3) mg/dl Total Bilirubin (0.2-1.0) mg/dl AST (13-39) U/L ALT (7-52) U/L Alkaline Phosphatase (34-104) U/L Total Protein (6.0-8.3) gm/dl Albumin (3.4-5.0) gm/dl Globulin (2.5-4.0) gm/dl Albumin/Globulin Ratio (0.9-2) Vitamin B12 Cancelled Folate Cancelled Blood Type A Positive Blood Type Recheck Antibody Screen NEGATIVE 05/01/23 05/01/23 Range/Units 21:28 21:30 WBC (4.8-10.8) K/ul RBC (4.20-5.40) M/uL Hgb (12.0-16.0) g/dl Hct (37.0-47.0) % MCV (80.0-100.0) fL MCH (25.0-34.0) pg MCHC (32.0-36.0) g/dL RDW Std Deviation (36.4-46.3) fL RDW Coeff of Sukumar (11.5-14.5) % Plt Count (130-400) K/uL Immature Gran % (Auto) % Neut % (Auto) % Lymph % (Auto) % Wetzel % (Auto) % Eos % (Auto) % Baso % (Auto) % Neut # (Auto) (1.40-6.50) K/uL Lymph # (Auto) (1.2-3.4) K/uL Wetzel # (Auto) (0.11-0.59) K/uL Eos # (Auto) (0-0.50) K/uL Baso # (Auto) (0-0.2) K/uL Immature Gran # (Auto) (0.01-0.20) K/uL Platelet Estimate (Normal) Peripher Smr Path Cons PT (9.0-12.0) Seconds INR (0.9-1.1) APTT (21.0-31.0) Seconds PTT Ratio Sodium (136-145) mmol/L Potassium (3.5-5.1) mmol/L Chloride (98-107) mmol/L Carbon Dioxide (21-32) mmol/L Anion Gap (3-11) BUN (6-23) mg/dl Creatinine (0.6-1.2) mg/dl Est Cr Clr Drug Dosing ml/min Est GFR ( Amer) ml/min Est GFR (Non-Af Amer) ml/min BUN/Creatinine Ratio (10-20) Glucose (70-99(Fasting)) mg/dl Calcium (8.6-10.3) mg/dl Total Bilirubin (0.2-1.0) mg/dl AST (13-39) U/L ALT (7-52) U/L Alkaline Phosphatase (34-104) U/L Total Protein (6.0-8.3) gm/dl Albumin (3.4-5.0) gm/dl Globulin (2.5-4.0) gm/dl Albumin/Globulin Ratio (0.9-2) Vitamin B12 417 Folate 6.97 Blood Type Blood Type Recheck A Positive Antibody Screen Imaging Data Radiologist's Impression: Head CT 05/01/23 20:38 Exam(s): CT HEAD Without Contrast EXAM: CT Head Without Intravenous Contrast CLINICAL HISTORY: Reason for exam: ro ich. TECHNIQUE: Axial computed tomography images of the head/brain without intravenous contrast. CTDI is 37.95 mGy and DLP is 546.36 mGy-cm. Automated exposure control was utilized for the study. A dose lowering technique was utilized adhering to the principles of ALARA. COMPARISON: Head CT 10/03/17. FINDINGS: Brain: No mass effect or acute infarct. No acute hemorrhage. Moderate atrophy and chronic white matter disease, relatively unchanged. Ventricles: No hydrocephalus or midline shift. Bones/joints: No skull fracture. Soft tissues: No scalp hematoma. Sinuses: Clear. Mastoid air cells: No mastoid effusion. IMPRESSION: 1. Moderate age-related findings are stable. 2. No acute infarct, bleed, or acute intracranial abnormality. Electronically signed by: Silvia Santana M.D. 05/01/23 21:43 PM [facility] Narrative 2037: The patient was evaluated in room B8. A complete history and physical exam was performed Cardiac monitoring: An order was placed for continuous cardiac monitoring. The monitor shows a rate of 60 with sinus rhythm interpreted by in 2048: Spoke with Dr. Spence who agrees that this sounds like ITP. She recommends methylprednisolone 1 g/day. She recommends IVIG 63 g/day. She states no platelet transfusion at this time. She also asked that a peripheral smear Path consultation be placed, hepatitis acute panel be placed, a folate level be placed, she recommends inpatient admission. [facility] hospitalist team Dr. Romero will be notified. 2237: Received a [facility]. She was asking if the IVIG should be done based off of adjusted body weight and should be 50 g. I told her that the dosing was done by Dr. Spence who was contacted and stated she would contact her about the dosing of the IVIG. Dr. Romero notified. Impression & Plan Acute ITP Discharge Plan Visit Data Chief Complaint: Abnormal Labs/Diagnostic Testing Stated Complaint: PLATELET COUNT LOW ED Provider: Lester Kendrick Discharge Problem: Acute ITP Patient Disposition: Admitted As Inpatient Forms Stand Alone Forms: My [facility] Prescriptions Prescriptions: No Action albuterol sulfate 90 mcg/actuation HFA aerosol inhaler 2 puff INHALATION QID PRN (Reason: Shortness Of Breath Or Wheezing) Qty: 8.5 6RF memantine 5 mg tablet 5 mg PO BID Qty: 60 2RF Rx Instructions: PER PT'S FAMILY, "ON HOLD PER MD". amlodipine 10 mg tablet 10 mg PO DAILY Qty: 30 11RF focus select 2 tab PO DAILY acetaminophen 500 mg tablet 1,000 mg PO DIRECTED PRN (Reason: Pain) cetirizine 10 mg tablet 10 mg PO DAILY prednisone 10 mg tablet See Rx Instructions PO DAILY Qty: 30 0RF Rx Instructions: STARTED 04/20/23 FOR 12 DAYS. TAKE 4 TABS DAILY X3 DAYS, 3 TABS DAILY X3 DAYS, 2 TABS DAILY X3 DAYS, AND 1 TAB DAILY X3 DAYS WITH FOOD. ipratropium bromide 21 mcg (0.03 %) spray,non-aerosol See Rx Instructions .ROUTE .COMPLEX Qty: 30 5RF Rx Instructions: USE 1-2 SPRAYS EACH NOSTRIL 1-2 TIMES DAILY.; administer into each nostril cholecalciferol (vitamin D3) [Vitamin D3] 25 mcg (1,000 unit) capsule 1,000 unit PO DAILY losartan 50 mg tablet 50 mg PO BID Rx Instructions: TAKE 1 TABLET BY MOUTH TWICE DAILY citalopram 40 mg tablet 40 mg PO DAILY Rx Instructions: TAKE 1 TABLET BY MOUTH ONCE DAILY donepezil 10 mg tablet 10 mg PO DAILY Rx Instructions: TAKE 1 TABLET BY MOUTH ONCE DAILY simvastatin 10 mg tablet 10 mg PO DAILY Rx Instructions: TAKE 1 TABLET BY MOUTH ONCE DAILY esomeprazole magnesium 40 mg capsule,delayed release(DR/EC) 40 mg PO DAILY Rx Instructions: TAKE 1 CAPSULE BY MOUTH ONCE DAILY buspirone 10 mg tablet 10 mg PO BID Rx Instructions: TAKE 1 TABLET BY MOUTH TWICE DAILY montelukast 10 mg tablet 10 mg PO DAILY Rx Instructions: TAKE 1 TABLET BY MOUTH ONCE DAILY clobetasol 0.05 % ointment 1 applic topical 2XWK Rx Instructions: 1 applic topical monday, fluticasone propionate 50 mcg/actuation spray,suspension 1 spray intranasal BID Rx Instructions: USE 1 SPRAY IN EACH NOSTRIL ONCE TO TWICE DAILY budesonide-formoterol [Symbicort] 160-4.5 mcg/actuation HFA aerosol inhaler 2 inh inhalation BID Rx Instructions: INHALE 2 PUFFS TWICE DAILY BY MOUTH WITH A RINSE OF WATER AFTERWARDS Referrals Referrals: Thomas Edgar MD [Primary Care Provider] -
--- NOTE | 2023-05-01 23:59 | History & Physical Report ---
Date of Service May 01, 2023 Assessment & Plan (1) Acute ITP: (2) Acid reflux: (3) Allergic rhinitis: (4) Asthma: (5) Depression: (6) Diabetes mellitus: (7) Dyslipidemia: (8) Hypertension: (9) Mild dementia: Plan #ITP - Isolated thrombocytopenia, Plt count of 2, in the setting of preserved PT/PTT, 11.0 and 29.2 respectively - Hematology consult placed - Continue Methylprednisolone 1g daily - Continue IVIG 63g daily - Lyme/anaplasmosis screen pending - Blood smear pending #Acid Reflux - continue PPi #Allergic Rhinitis: - Continue Cetirizine #Asthma - continue symbicort + albuterol + singulair #Depression - continue citalopram #Diabetes Mellitus - Insulin sliding scale #HLD - continue simvastatin #HTN: - continue losartan, amlodipine #Mild Dementia: - Continue Donepezil - Hold memantine - thrombocytopenia listed as a rare adverse effect, unlikely to be cause of current presentation but will still hold for time being VTE ppx: SCD Dispo: PCU Diet: DM2/HH Full Code Admission and Anticipated Discharge Date Admission Date: 05/01/2023 History of Present Illness Primary Care Provider: Thomas Edgar MD Pt is an 88 year old female presenting due to abnormal outpatient lab results. Patient and daughter have noticed that patient has been bruising much more easily for the past 1-1.5 weeks, outpatient lab work showed severe thrombocytopenia, patient was told to present to the ED for further evaluation. Patient denies recent heparin exposure, newest medication change was addition of memantine in February 2023. Patient denies history of abnormal platelet counts in the past. Denies h/o autoimmune conditions. Denies overt bleeding. Denies recent illness. ED course: - Plt count 2 in ED - CT Head negative for ICH or other acute processes - Blood smear pending - Patient started on IV methylprednisolone and IVIG in ED Allergies Allergy/AdvReac Type Severity Reaction Status Date / Time sulfamethoxazole Allergy Intermediate UNSURE Verified 05/01/23 21:47 trimethoprim Allergy Intermediate UNSURE Verified 05/01/23 21:47 BO Inhibitors Allergy Unknown UNK Verified 05/01/23 21:47 Penicillins Allergy Unknown Unknown Verified 05/01/23 21:47 tetanus toxoid, adsorbed Allergy Unknown Unknown Verified 05/01/23 21:47 Home Medications Medication Instructions Recorded Confirmed Type acetaminophen 500 mg tablet 1,000 mg PO DIRECTED PRN Pain 02/03/22 05/01/23 History cetirizine 10 mg tablet 10 mg PO DAILY 02/03/22 05/01/23 History focus select 2 tab PO DAILY 02/03/22 05/01/23 History albuterol sulfate 90 mcg/actuation 2 puff inhalation QID PRN 01/12/23 05/01/23 Rx aerosol inhaler Shortness Of Breath Or Wheezing #8.5 grams cholecalciferol (vitamin D3) 25 1,000 unit PO DAILY 01/30/23 05/01/23 History mcg (1,000 unit) capsule (Vitamin D3) ipratropium bromide 21 mcg (0.03 See Rx Instructions .Route 02/23/23 05/01/23 Rx %) nasal spray .COMPLEX #30 mL memantine 5 mg tablet 5 mg PO BID #60 tabs 02/27/23 05/01/23 Rx amlodipine 10 mg tablet 10 mg PO DAILY #30 tabs 04/03/23 05/01/23 Rx prednisone 10 mg tablet See Rx Instructions PO DAILY #30 04/20/23 05/01/23 Rx tabs budesonide-formoterol HFA 160 2 inh inhalation BID 05/01/23 05/01/23 History mcg-4.5 mcg/actuation aerosol inhaler (Symbicort) buspirone 10 mg tablet 10 mg PO BID 05/01/23 05/01/23 History citalopram 40 mg tablet 40 mg PO DAILY 05/01/23 05/01/23 History clobetasol 0.05 % topical ointment 1 applic topical 2XWK 05/01/23 05/01/23 History donepezil 10 mg tablet 10 mg PO DAILY 05/01/23 05/01/23 History esomeprazole magnesium 40 mg 40 mg PO DAILY 05/01/23 05/01/23 History capsule,delayed release fluticasone propionate 50 1 spray intranasal BID 05/01/23 05/01/23 History mcg/actuation nasal spray,suspension losartan 50 mg tablet 50 mg PO BID 05/01/23 05/01/23 History montelukast 10 mg tablet 10 mg PO DAILY 05/01/23 05/01/23 History simvastatin 10 mg tablet 10 mg PO DAILY 05/01/23 05/01/23 History Past Med/Surg History Medical History (Updated 05/01/23 @ 23:05 by Lester Kendrick MD) Acute joint effusion Fall Generalized weakness Hemarthrosis IBS (irritable bowel syndrome) Osteopenia Pneumonia Postmenopausal atrophic vaginitis Vertigo Vitamin D deficiency Surgical History History of appendectomy S/P bronchoscopy S/P cholecystectomy S/P colonoscopy S/P dilation and curettage S/P tonsillectomy and adenoidectomy S/P tooth extraction Family History Unknown Coronary arteriosclerosis Aneurysm of abdominal aorta Mother No problems noted. Other No pertinent family history Denies family history of Ovarian cancer Social History Smoking Status: Former smoker Tobacco Type: Cigarettes Second Hand Exposure: No; Do You Dip or Chew Tobacco: No; Hx Alcohol Use: No Hx Substance Use: No Preferred Language: Macedonian Communication Ability: Effective Servicing Rep Required: No Beliefs That Will Affect Care: None marital status: / Current Living Situation: Family Current Living Situation Comment: lives with daughter and son in law current occupational status: retired Feels Safe at Home: Yes Safety Concerns: Feels Safe At This Time Seatbelt Use: always Assistive Devices: Glasses and Walker Review of Systems Review of Systems: All systems reviewed & are unremarkable except as noted in HPI & below Physical Exam Constitutional: WD/WN, vitals as above + frail appearing; no acute distress ENMT: - oral mucosal bleeding Respiratory: normal respiratory effort, lungs clear to auscultation Cardiovascular: regular rate and rhythm, systolic ejection murmur appreciated on auscultation Skin: diffuse petechiae and purpura throughout body Psychiatric: A+Ox3, euthymic affect Results & Data Results & Data Vital Signs (Past 12 Hours) Vital Signs Temp Pulse Pulse Resp BP Pulse Ox O2 Del Method 05/01/23 22:20 61 16 95 05/01/23 22:10 61 18 95 05/01/23 22:00 61 21 95 05/01/23 21:50 64 21 97 05/01/23 21:40 62 15 97 05/01/23 21:30 63 16 95 05/01/23 21:20 64 14 97 05/01/23 20:59 64 15 132/74 95 05/01/23 20:20 36.4 C L 78 16 97 Room Air Code Status & VTE Plan VTE Prophylaxis Plan VTE Prophylaxis will be ordered: Yes Supervising Physician Co-Signing Physician Notes Patient seen and examined, chart reviewed, case discussed with Dr. Glass and I agree with the assessment and plan as documented above. In brief, patient is an 88yo female presenting with thrombocytopenia - platelets=2. She has petechiae, diffuse bruising and wet purpura on her lip and palate. On exam patient is an elderly female patient, oriented x 2 Skin - diffuse bruising, petechiae, purpura on oropharynx HEENT - NC/AT, PERRL Heart - +S1/S2, regular, no m/r/g Lungs - CTA Abd - soft, NT/ND Ext - warm, well perfused, no clubbing/cyanosis or edema Labs and images reviewed CT head with no bleeding Assessment/Plan Severe thrombocytopenia - platelets=2. No recent illness reported. No recent exposure to heparin. Recently started on namenda. No prior thrombocytopenia episodes per patient. Ddx to include ITP, less likely viral or medication effects, consider malignancy -Check acute hepatitis panel -B12, Folate, Peripheral smear -Solumedrol and IVIG given in the ER with direction from Hematology - will continue -Repeat labs in AM -Remainder as above Resident Activity Tracking Resident Involvement: Resident Care Provided Care Provided: Adult Hospital Medicine
[2023-05-02] MEDS ORDERED: ALBUTEROL HFA 8 GM INHALER INH PRN (00:32)
[2023-05-02] MEDS ORDERED: GLUCOSE 10 TAB/TUBE PO PRN (00:32)
[2023-05-02] MEDS ORDERED: GLUCAGON FOR INJ 1 MG VIAL SQ PRN (00:32)
[2023-05-02] MEDS ORDERED: ONDANSETRON 4 MG OD TAB PO PRN (00:32)
[2023-05-02] MEDS ORDERED: POLYETHYLENE (MIRALAX) 17 GM PACK PO PRN (00:32)
[2023-05-02] MEDS ORDERED: GLUCOSE 40% GEL 15 GM TUBE PO PRN (00:32)
[2023-05-02] MEDS ORDERED: CARBOHYDRATES FOR HYPOGLYCEMIA PO PRN (00:32)
[2023-05-02] MEDS ORDERED: DEXTROSE 50% 50 ML SYRINGE IV PRN (00:32)
[2023-05-02] MEDS ORDERED: ACETAMINOPHEN 325 MG TAB PO PRN (00:32)
[2023-05-02] MEDS ORDERED: PNEUMOCOCCAL POLYSACCHARIDES 25 MCG/0.5 ML VIAL/SYR IM ONE (00:56)
[2023-05-02 01:25] LABS: Lyme Ab IgG w/WB Rflx Negative (Negative)
[2023-05-02 01:26] LABS: Lyme Ab IgM w/WB Rflx Negative (Negative)
[2023-05-02] MEDS: Octagam 10% IVIG 20 gram bottle IV SCH ×3 (01:30→04:27)
--- NOTE | 2023-05-02 01:45 | Billing Data ---
Date of Service May 01, 2023 Coding Level of Care Code 13051 INT INP/OBS CARE
[2023-05-02 07:14] LABS: INR 1.1 (0.9-1.1); Partial Thromboplastin Time 27.9 Seconds (21.0-31.0); Prothrombin Time 11.7 Seconds (9.0-12.0)
[2023-05-02 07:21] LABS: Hematocrit (blood only) 29.9 % (37.0-47.0); Hemoglobin 9.5 g/dl (12.0-16.0); Mean Corpuscular Hemoglobin 25.5 pg (25.0-34.0); Mean Corpuscular Hgb Conc 31.8 g/dL (32.0-36.0); Mean Corpuscular Volume 80.4 fL (80.0-100.0); Platelet Count 1 K/uL (130-400); Platelet Estimate Signific. Decreased (Normal); RDW Coefficient of Variation 18.6 % (11.5-14.5); RDW Standard Deviation 53.9 fL (36.4-46.3); Red Blood Count 3.72 M/uL (4.20-5.40); White Blood Count 0.84 K/ul (4.8-10.8)
[2023-05-02 07:43] LABS: Albumin Globulin Ratio 0.6 (0.9-2); Albumin Level 3.2 gm/dl (3.4-5.0); BUN Creatinine Ratio 22.7 (10-20); Bilirubin,Total 1.1 mg/dl (0.2-1.0); Calcium 8.2 mg/dl (8.6-10.3); Est GFR (African American) 82.5 ml/min; Est GFR (Non-African American) 71.2 ml/min; Potassium 3.9 mmol/L (3.5-5.1); Total Protein 8.2 gm/dl (6.0-8.3)
[2023-05-02 07:44] LABS: Estimated Average Glucose 111 mg/dl; Hemoglobin A1C 5.5 % (4.5-5.6)
--- NOTE | 2023-05-02 07:46 | Oncology Consultation ---
Date of Consultation May 02, 2023 Assessment & Plan (1) Pancytopenia: Plan Very pleasant patient who initially presented with severe thrombocytopenia and platelet count of 2000 highly suggestive of ITP. At the time of initial presentation, she had a normal hemoglobin and white blood cell count which was highly suggestive of ITP for which she was started on IVIG and high-dose steroids. Repeat CBC obtained today however shows pancytopenia with white cell count of less than 1000 and hemoglobin of 9.5 as well as persistent thrombocytopenia with platelet count of 1000. Viral studies including acute hepatitis panel are pending -Would recommend repeating CBC. Although, still have high suspicion that she has ITP, cannot rule out underlying hematologic malignancy such as MDS/acute leukemia in the setting of new onset pancytopenia . Therefore recommend obtaining bone marrow biopsy to rule out underlying malignancy. In the meantime, continue with IVIG and steroids pending bone marrow biopsy results -Obtain work-up for infection including blood cultures and urinalysis with reflex to culture to rule out infectious causes of pancytopenia. -Although I usually do not recommend platelet transfusion in the setting of ITP because of brief response, Can consider transfusing in this setting with 1 unit of platelets since underlying hematologic malignancy/infection cannot be ruled out at this time and Platelet count is less than 10,000. Thank you for this consult. Hematology will continue following patient while in the hospital. Please feel free to call if have any further questions History of Present Illness Reason for Consultation: Severe thrombocytopenia Attending Physician: Dipesh Beckwith MD History of Present Illness Very pleasant 88-year-old female with history of mild dementia who presented to the ER at [facility] on advice of PCP due to CBC. Labs obtained in the ED revealed white cell count of 4.31, hemoglobin of 12.0, hematocrit of 37.9, MCV of 81.3 and platelet count of 2000.Due to concern for ITP, recommended starting her on IVIG 1 g/kg/day and methylprednisolone 1 g/day which was started in the ER. Peripheral smear review did not show any evidence of dysplastic changes or obvious hematologic malignancy. Repeat CBC obtained this morning revealed white cell count of 0.84, hemoglobin of 9.5 and platelet count of 1000 She endorses significant bruising which started last week. Denies abnormal bleeding. Denies new medications or infections. Denies significant weight loss or palpable lymphadenopathy. Allergies Allergy/AdvReac Type Severity Reaction Status Date / Time sulfamethoxazole Allergy Intermediate UNSURE Verified 05/01/23 21:47 trimethoprim Allergy Intermediate UNSURE Verified 05/01/23 21:47 BO Inhibitors Allergy Unknown UNK Verified 05/01/23 21:47 Penicillins Allergy Unknown Unknown Verified 05/01/23 21:47 tetanus toxoid, adsorbed Allergy Unknown Unknown Verified 05/01/23 21:47 Home Medications Medication Instructions Recorded Confirmed Type acetaminophen 500 mg tablet 1,000 mg PO DIRECTED PRN Pain 02/03/22 05/01/23 History cetirizine 10 mg tablet 10 mg PO DAILY 02/03/22 05/01/23 History focus select 2 tab PO DAILY 02/03/22 05/01/23 History albuterol sulfate 90 mcg/actuation 2 puff inhalation QID PRN 01/12/23 05/01/23 Rx aerosol inhaler Shortness Of Breath Or Wheezing #8.5 grams cholecalciferol (vitamin D3) 25 1,000 unit PO DAILY 01/30/23 05/01/23 History mcg (1,000 unit) capsule (Vitamin D3) ipratropium bromide 21 mcg (0.03 See Rx Instructions .Route 02/23/23 05/01/23 Rx %) nasal spray .COMPLEX #30 mL memantine 5 mg tablet 5 mg PO BID #60 tabs 02/27/23 05/01/23 Rx amlodipine 10 mg tablet 10 mg PO DAILY #30 tabs 04/03/23 05/01/23 Rx prednisone 10 mg tablet See Rx Instructions PO DAILY #30 04/20/23 05/01/23 Rx tabs budesonide-formoterol HFA 160 2 inh inhalation BID 05/01/23 05/01/23 History mcg-4.5 mcg/actuation aerosol inhaler (Symbicort) buspirone 10 mg tablet 10 mg PO BID 05/01/23 05/01/23 History citalopram 40 mg tablet 40 mg PO DAILY 05/01/23 05/01/23 History clobetasol 0.05 % topical ointment 1 applic topical 2XWK 05/01/23 05/01/23 History donepezil 10 mg tablet 10 mg PO DAILY 05/01/23 05/01/23 History esomeprazole magnesium 40 mg 40 mg PO DAILY 05/01/23 05/01/23 History capsule,delayed release fluticasone propionate 50 1 spray intranasal BID 05/01/23 05/01/23 History mcg/actuation nasal spray,suspension losartan 50 mg tablet 50 mg PO BID 05/01/23 05/01/23 History montelukast 10 mg tablet 10 mg PO DAILY 05/01/23 05/01/23 History simvastatin 10 mg tablet 10 mg PO DAILY 05/01/23 05/01/23 History Patient History Medical History (Updated 05/01/23 @ 23:05 by Lester Kendrick MD) Acute joint effusion Fall Generalized weakness Hemarthrosis IBS (irritable bowel syndrome) Osteopenia Pneumonia Postmenopausal atrophic vaginitis Vertigo Vitamin D deficiency Surgical History History of appendectomy S/P bronchoscopy S/P cholecystectomy S/P colonoscopy S/P dilation and curettage S/P tonsillectomy and adenoidectomy S/P tooth extraction Family History Unknown Coronary arteriosclerosis Aneurysm of abdominal aorta Mother No problems noted. Other No pertinent family history Denies family history of Ovarian cancer Social History Smoking Status: Former smoker Tobacco Type: Cigarettes Second Hand Exposure: No; Do You Dip or Chew Tobacco: No; Hx Alcohol Use: No Hx Substance Use: No Preferred Language: Danish Communication Ability: Effective Survey Methodologist Required: No Beliefs That Will Affect Care: None marital status: / Current Living Situation: Family Current Living Situation Comment: lives with daughter and son in law current occupational status: retired Feels Safe at Home: Yes Safety Concerns: Feels Safe At This Time Seatbelt Use: always Assistive Devices: None Physical Exam Constitutional: WD/WN, vitals as above Eyes: PERRL, conjunctivae normal, anicteric sclerae Respiratory: normal respiratory effort, lungs clear to auscultation Cardiovascular: RRR, no murmur, no edema Gastrointestinal (Abdomen): normal bowel sounds, soft, nontender, no hepatosplenomegaly Results & Data Vital Signs (Past 12 Hours) Vital Signs Temp Pulse Pulse Resp BP BP Pulse Ox 05/02/23 07:22 62 05/02/23 00:47 63 05/02/23 00:45 05/02/23 02:31 36.5 C 61 16 124/64 95 05/02/23 00:45 36.3 C L 66 20 138/72 95 05/01/23 22:20 61 16 95 05/01/23 22:10 61 18 95 05/01/23 22:00 61 21 95 05/01/23 21:50 64 21 97 05/01/23 21:40 62 15 97 05/01/23 21:30 63 16 95 05/01/23 21:20 64 14 97 05/01/23 20:59 64 15 132/74 95 05/01/23 20:20 36.4 C L 78 16 97 O2 Del Method 05/02/23 07:22 05/02/23 00:47 05/02/23 00:45 Room Air 05/02/23 02:31 Room Air 05/02/23 00:45 Room Air 05/01/23 22:20 05/01/23 22:10 05/01/23 22:00 05/01/23 21:50 05/01/23 21:40 05/01/23 21:30 05/01/23 21:20 05/01/23 20:59 05/01/23 20:20 Room Air
[2023-05-02] MEDS: INSULIN ASPART PER UNIT CHARGE SC SCH ×4 (08:31→20:37)
[2023-05-02] MEDS: busPIRone 5 MG TAB PO SCH ×2 (09:28→21:03)
[2023-05-02] MEDS: amLODIPine BESYLATE 5 MG TAB PO SCH (09:28)
[2023-05-02] MEDS: CETIRIZINE HCL 10 MG TABLET PO SCH (09:28)
[2023-05-02] MEDS: CITALOPRAM 40 MG TAB PO SCH (09:29)
[2023-05-02] MEDS: FLUTICASONE PROPIONATE NA SPR 16 GM BTL NAE SCH ×2 (09:29→21:03)
[2023-05-02] MEDS: FLUTICASONE/VILANTEROL 200/25MCG 14 PUFFS/INHALER INH SCH (09:29)
[2023-05-02] MEDS: MONTELUKAST SODIUM 10 MG TABLET PO SCH (09:29)
[2023-05-02] MEDS: DONEPEZIL HCL 10 MG TAB PO SCH (09:29)
[2023-05-02] MEDS: LOSARTAN POTASSIUM 50 MG TAB PO SCH ×2 (09:29→21:03)
[2023-05-02] MEDS: SIMVASTATIN 10 MG TAB PO SCH (09:30)
--- NOTE | 2023-05-02 10:42 | Hospitalist Progress Note ---
Date of Service May 02, 2023 Assessment & Plan (1) Acute ITP: (2) Acid reflux: (3) Allergic rhinitis: (4) Asthma: (5) Depression: (6) Diabetes mellitus: (7) Dyslipidemia: (8) Hypertension: (9) Mild dementia: Plan 1) ITP -- now pancytopenia - Isolated thrombocytopenia with plt count of 2 on admission -- now pancytopenia WBC .84, Hgb 9, Plt 1 -Repeat CBC this afternoon 05/02 improved WBC 1.43, Hgb 9.7, plt 8 -- possible dilutional component? - Preserved PT/PTT, 11.7 and 27.9 respectively - Patient received methylprednisolone and IVIG in ED - Lyme/anaplasmosis screen negative -- PCR pending - Blood smear: No obvious dysplastic changes or abnormal findings other than reactive monocytes.Neoplasm cannot be ruled out. - Hematology consult placed: - Recommend bone marrow biopsy - Continue Methylprednisolone 1g daily pending biopsy results - Continue IVIG 63g daily pending biopsy results - Can consider transfusing in this setting with 1 unit of platelets since underlying hematologic malignancy/infection cannot be ruled out at this time and Platelet count is less than 10,000 -- patient's daughter (POA) consented and patient transfused 1unit 05/02 2) Acid Reflux - continue PPi 3) Allergic Rhinitis: - Continue Cetirizine 4) Asthma - continue symbicort + albuterol + singulair 5) Depression - continue citalopram 6) Diabetes Mellitus - Insulin sliding scale 7) HLD - continue simvastatin 8) HTN: - continue losartan, amlodipine 9) Mild Dementia: - Continue Donepezil - Hold memantine - thrombocytopenia listed as a rare adverse effect, unlikely to be cause of current presentation but will still hold for time being VTE ppx: SCD Dispo: PCU Diet: DM2/HH Full Code Admission and Anticipated Discharge Date Admission Date: May 01, 2023 Supervising Physician Co-Signing Physician Notes Attending attestation Pt seen and examined in concert with St. Dr Medhat Shannon. In agreement with the documented findings as noted in the resident documentation with any exceptions or additions as noted here. Resting in bed anxious regarding her health but without any other new complaint. Chronic cough is nonproductive and 'worse when nervous' but tolerable at present without wheezing/SOB/hemoptysis. On examination, S1/S2 nl RRR no MCG. CTAB. Abd NT/ND BS+ve. Diffuse ecchymoses which are stable from previous. Pancytopenia - hematology consult - continue dexamethasone, IVIG. After review of hematology recommendations, will transfuse platelets 1U and repeat after completion. Pending bone marrow biopsy and send out studies. Reassuring that initial infectious studies are WNL though definitive pending. Close trend with mild rebound. Else see resident documentation as noted. Subjective Today patient is feeling well but is anxious. Reports no pain other than her chronic right knee pain, and no new symptoms other than her bruising. She does report that her previously well controlled asthma has been worse this spring, but otherwise cannot recall any other symptoms she had prior to coming in. Physical Exam Physical Exam: Constitutional: Well appearing, in no acute distress Eyes: PERRL, conjunctivae normal, anicteric sclerae Respiratory: normal respiratory effort, lungs clear to auscultation bilaterally Cardiovascular: RRR, no murmur, no edema Gastrointestinal (Abdomen): normoactive bowel sounds, soft, nontender, no hepatosplenomegaly Skin: Significant bruises present on forearms and legs. Results & Data Results & Data Vital Signs (Past 12 Hours) Vital Signs Temp Pulse Pulse Resp BP BP Pulse Ox 05/02/23 08:30 05/02/23 07:58 36.7 C 59 L 16 143/48 H 96 05/02/23 07:22 62 05/02/23 00:47 63 05/02/23 00:45 05/02/23 02:31 36.5 C 61 16 124/64 95 05/02/23 00:45 36.3 C L 66 20 138/72 95 O2 Del Method 05/02/23 08:30 Room Air 05/02/23 07:58 Room Air 05/02/23 07:22 05/02/23 00:47 05/02/23 00:45 Room Air 05/02/23 02:31 Room Air 05/02/23 00:45 Room Air
[2023-05-02 15:29] LABS: Hematocrit (blood only) 30.8 % (37.0-47.0); Hemoglobin 9.7 g/dl (12.0-16.0); Mean Corpuscular Hemoglobin 25.1 pg (25.0-34.0); Mean Corpuscular Hgb Conc 31.5 g/dL (32.0-36.0); Mean Corpuscular Volume 79.6 fL (80.0-100.0); Platelet Count 8 K/uL (130-400); RDW Coefficient of Variation 18.6 % (11.5-14.5); Red Blood Count 3.87 M/uL (4.20-5.40); White Blood Count 1.43 K/ul (4.8-10.8)
[2023-05-02 15:49] LABS: Immature Granulocytes # (auto) 0.01 K/uL (0.01-0.20); Immature Granulocytes % (auto) 0.7 %; Lymphocytes # (auto) 0.21 K/uL (1.2-3.4); Lymphocytes % (auto) 14.7 %; Monocytes # (auto) 0.08 K/uL (0.11-0.59); Monocytes % (auto) 5.6 %; Neutrophils # (auto) 1.13 K/uL (1.40-6.50)
[2023-05-02] MEDS: methylPREDNISolone 1,000 MG in DEXTROSE 5% 250 ML IV SCH (21:09)
[2023-05-02] MEDS: ACETAMINOPHEN 500 MG TAB PO PRN (22:19)
[2023-05-03 00:15] LABS: Hematocrit (blood only) 29.1 % (37.0-47.0); Hemoglobin 9.3 g/dl (12.0-16.0); Mean Corpuscular Hemoglobin 25.5 pg (25.0-34.0); Mean Corpuscular Volume 79.7 fL (80.0-100.0); Platelet Count 20 K/uL (130-400); RDW Coefficient of Variation 18.8 % (11.5-14.5); RDW Standard Deviation 54.8 fL (36.4-46.3); Red Blood Count 3.65 M/uL (4.20-5.40); White Blood Count 2.19 K/ul (4.8-10.8)
[2023-05-03 00:16] LABS: Immature Granulocytes # (auto) 0.02 K/uL (0.01-0.20); Immature Granulocytes % (auto) 0.9 %; Lymphocytes # (auto) 0.21 K/uL (1.2-3.4); Lymphocytes % (auto) 9.6 %; Monocytes % (auto) 4.6 %; Neutrophils # (auto) 1.86 K/uL (1.40-6.50); Neutrophils % (auto) 84.9 %; RBC Morphology Unremarkable
[2023-05-03] MEDS ORDERED: Nursing to Pharmacy Communication SCH ×3 (00:45→11:15)
[2023-05-03] MEDS ORDERED: INSULIN ASPART PER UNIT CHARGE SC ONE (01:30)
[2023-05-03] MEDS ORDERED: INSULIN ASPART PER UNIT CHARGE SC SCH (06:00)
[2023-05-03 06:35] LABS: Hematocrit (blood only) 31.1 % (37.0-47.0); Hemoglobin 9.9 g/dl (12.0-16.0); Mean Corpuscular Hemoglobin 25.5 pg (25.0-34.0); Mean Corpuscular Hgb Conc 31.8 g/dL (32.0-36.0); Mean Corpuscular Volume 80.2 fL (80.0-100.0); Platelet Count 25 K/uL (130-400); RDW Standard Deviation 54.4 fL (36.4-46.3); Red Blood Count 3.88 M/uL (4.20-5.40); White Blood Count 2.17 K/ul (4.8-10.8)
[2023-05-03 06:39] LABS: BUN Creatinine Ratio 22.5 (10-20); Calcium 8.3 mg/dl (8.6-10.3); Creatinine Clr Calc Pharmacy 37.5 ml/min; Est GFR (African American) 76.3 ml/min; Est GFR (Non-African American) 65.8 ml/min
[2023-05-03 06:59] LABS: Immature Granulocytes # (auto) 0.02 K/uL (0.01-0.20); Immature Granulocytes % (auto) 0.9 %; Lymphocytes # (auto) 0.25 K/uL (1.2-3.4); Lymphocytes % (auto) 11.5 %; Monocytes # (auto) 0.06 K/uL (0.11-0.59); Monocytes % (auto) 2.8 %; Neutrophils # (auto) 1.84 K/uL (1.40-6.50); Neutrophils % (auto) 84.8 %
--- NOTE | 2023-05-03 07:46 | Hospitalist Progress Note ---
Date of Service May 03, 2023 Assessment & Plan (1) Acute ITP: (2) Acid reflux: (3) Allergic rhinitis: (4) Asthma: (5) Depression: (6) Diabetes mellitus: (7) Dyslipidemia: (8) Hypertension: (9) Mild dementia: Plan 1) ITP -- now pancytopenia - Isolated thrombocytopenia with plt count of 2 on admission -- now pancytopenia WBC .84, Hgb 9, Plt 1 -Repeat CBC 05/03 improved WBC 2.17, Hgb 9.9, plt 25 - s/p 1unit platelets given 05/02 - Preserved PT/PTT, 11.7 and 27.9 respectively - Patient received methylprednisolone and IVIG in ED - Lyme/anaplasmosis screen negative -- PCR pending - Blood smear: No obvious dysplastic changes or abnormal findings other than meera ctive monocytes.Neoplasm cannot be ruled out. - Hematology consult placed: - Bone marrow biopsy performed today 05/03 -- results pending - Continue Methylprednisolone 1g daily pending biopsy results - Continue IVIG 63g daily pending biopsy results 2) Acid Reflux - continue PPi 3) Allergic Rhinitis: - Continue Cetirizine 4) Asthma - continue symbicort + albuterol + singulair 5) Depression - continue citalopram 6) Diabetes Mellitus - Insulin sliding scale 7) HLD - continue simvastatin 8) HTN: - continue losartan, amlodipine 9) Mild Dementia: - Continue Donepezil - Hold memantine - thrombocytopenia listed as a rare adverse effect, unlikely to be cause of current presentation but will still hold for time being VTE ppx: SCD Dispo: PCU Diet: DM2/HH Full Code Admission and Anticipated Discharge Date Admission Date: May 01, 2023 Supervising Physician Co-Signing Physician Notes Attending attestation Pt seen and examined in concert with St. Dr Medhat Shannon. In agreement with the documented findings as noted in the resident documentation with any exceptions or additions as noted here. Resting in bed, feeling more relaxed today now that her care has a clearer picture. Chronic cough has improved On examination, S1/S2 nl RRR no MCG. CTAB. Abd NT/ND BS+ve. Diffuse ecchymoses which are stable from previous. Pancytopenia - hematology consult - s/p 1 U platelets - continue dexamethasone, IVIG. s/p bone marrow bx today and pending results of that and send out testing. Else see resident documentation as noted. Subjective Patient feeling well this morning. Reports some anxiety over pending procedures, but is more comfortable than previously. She has no pain. Physical Exam Physical Exam: Constitutional: Well appearing, in no acute distress Eyes: PERRL, conjunctivae normal, anicteric sclerae Respiratory: normal respiratory effort, lungs clear to auscultation bilaterally Cardiovascular: RRR, no murmur, no edema Gastrointestinal (Abdomen): normoactive bowel sounds, soft, nontender, no hepatosplenomegaly Skin: Significant bruises present on forearms and legs, stable from previous Results & Data Results & Data Vital Signs (Past 12 Hours) Vital Signs Temp Pulse Pulse Resp BP Pulse Ox O2 Del Method 05/03/23 03:00 36.5 C 67 18 128/68 98 Room Air 05/02/23 22:00 Room Air 05/02/23 22:00 73 05/02/23 22:41 36.8 C 71 18 144/66 H 95 Room Air
[2023-05-03] MEDS: FLUTICASONE/VILANTEROL 200/25MCG 14 PUFFS/INHALER INH SCH (08:38)
[2023-05-03] MEDS: FLUTICASONE PROPIONATE NA SPR 16 GM BTL NAE SCH ×2 (08:38→19:50)
[2023-05-03] MEDS: LOSARTAN POTASSIUM 50 MG TAB PO SCH ×2 (08:39→20:58)
[2023-05-03] MEDS: busPIRone 5 MG TAB PO SCH ×2 (08:39→20:57)
[2023-05-03] MEDS: amLODIPine BESYLATE 5 MG TAB PO SCH (08:39)
[2023-05-03] MEDS: CETIRIZINE HCL 10 MG TABLET PO SCH (08:40)
[2023-05-03] MEDS: DONEPEZIL HCL 10 MG TAB PO SCH (08:40)
[2023-05-03] MEDS: MONTELUKAST SODIUM 10 MG TABLET PO SCH (08:40)
[2023-05-03] MEDS: CITALOPRAM 40 MG TAB PO SCH (08:40)
[2023-05-03] MEDS: SIMVASTATIN 10 MG TAB PO SCH (08:41)
[2023-05-03] MEDS ORDERED: fentaNYL citrate PF 100 MCG/2 ML VIAL ONE (09:50)
[2023-05-03] MEDS ORDERED: ACETAMINOPHEN 1000 MG/100 ML IV IV ONE (09:50)
[2023-05-03 11:22] LABS: HBSAG NON-REACTIVE (NON-REACTIVE); Hepatitis A Antibody IgM NON-REACTIVE (NON-REACTIVE); Hepatitis B Core Antibody IgM NON-REACTIVE (NON-REACTIVE)
[2023-05-03] MEDS: INSULIN ASPART PER UNIT CHARGE SC SCH ×3 (12:20→20:42)
--- NOTE | 2023-05-03 14:21 | CT Scan Report ---
CT-guided bone marrow biopsy INDICATION: Pancytopenia PROCEDURE: Procedure and risks were explained. Informed consent was obtained. A final timeout was com pleted. The patient was placed prone on the CT exam table. The left gluteal region was prepped and dr aped in sterile fashion. 1% buffered lidocaine was utilized for skin anesthesia. The patient received 1 g Tylenol IV. Utilizing CT guidance, an 11-gauge bone biopsy needle was advanced into the left iliac bone. Multiple aspirates and one bone core was obtained and sent to the lab. The needle was removed and Band-Aid ap plied. The patient tolerated the procedure well. Vital signs will be monitored postprocedure. IMPRESSION: Bone marrow biopsy as above. Performed, dictated, and signed by Tyrone Mack PA-C; to be co-signed by Dr. Joselo Dunn. Electronically signed by: Joselo Dunn M.D. 05/03/2023 5:58 PM
[2023-05-03] MEDS: methylPREDNISolone 1,000 MG in DEXTROSE 5% 250 ML IV SCH (19:44)
[2023-05-03] MEDS: ACETAMINOPHEN 500 MG TAB PO PRN (21:01)
[2023-05-04 06:33] LABS: Hematocrit (blood only) 30.7 % (37.0-47.0); Mean Corpuscular Hgb Conc 32.6 g/dL (32.0-36.0); Mean Corpuscular Volume 79.7 fL (80.0-100.0); Platelet Count 82 K/uL (130-400); RDW Coefficient of Variation 19.1 % (11.5-14.5); RDW Standard Deviation 54.9 fL (36.4-46.3); Red Blood Count 3.85 M/uL (4.20-5.40); White Blood Count 2.41 K/ul (4.8-10.8)
[2023-05-04 06:40] LABS: BUN Creatinine Ratio 29.5 (10-20); Creatinine Clr Calc Pharmacy 38.5 ml/min; Est GFR (African American) 78.7 ml/min; Est GFR (Non-African American) 67.9 ml/min; Potassium 4.1 mmol/L (3.5-5.1)
[2023-05-04 06:56] LABS: Immature Granulocytes # (auto) 0.03 K/uL (0.01-0.20); Immature Granulocytes % (auto) 1.2 %; Lymphocytes # (auto) 0.26 K/uL (1.2-3.4); Lymphocytes % (auto) 10.8 %; Monocytes # (auto) 0.02 K/uL (0.11-0.59); Monocytes % (auto) 0.8 %; Neutrophils % (auto) 87.2 %
--- NOTE | 2023-05-04 07:29 | Progress Note ---
Date of Service May 04, 2023 Assessment & Plan (1) Acute ITP: (2) Pancytopenia: (3) Iron deficiency: Plan Labs show improvement in platelet count greater than 80,000 with steroids and IVIG indicating that she most likely has ITP. Preliminary bone marrow biopsy unremarkable at this time except for low iron stores for which I recommend giving IV Venofer 200 mg x 1 dose today. I will schedule her for follow-up with me in about 1 week. Recommend discharging home on dexamethasone 40 mg daily x 4 days Admission and Anticipated Discharge Date Admission Date: May 01, 2023 Subjective No new issues. Preliminary bone marrow biopsy results does not show any evidence to suggest underlying hematologic malignancy. Platelet count has improved to 82,000 with steroids Results & Data Vital Signs (Past 12 Hours) Vital Signs Temp Pulse Pulse Resp BP Pulse Ox O2 Del Method 05/04/23 06:57 36.5 C 60 18 137/66 96 Room Air 05/04/23 03:16 36.6 C 58 L 18 118/65 96 Room Air 05/03/23 22:15 62 05/03/23 22:56 36.5 C 63 18 115/55 L 94 Room Air 05/03/23 20:15 Room Air
[2023-05-04] MEDS: busPIRone 5 MG TAB PO SCH (08:37)
[2023-05-04] MEDS: LOSARTAN POTASSIUM 50 MG TAB PO SCH (08:37)
[2023-05-04] MEDS: amLODIPine BESYLATE 5 MG TAB PO SCH (08:37)
[2023-05-04] MEDS: FLUTICASONE/VILANTEROL 200/25MCG 14 PUFFS/INHALER INH SCH (08:38)
[2023-05-04] MEDS: FLUTICASONE PROPIONATE NA SPR 16 GM BTL NAE SCH (08:39)
[2023-05-04] MEDS: INSULIN ASPART PER UNIT CHARGE SC SCH ×2 (08:49→12:35)
[2023-05-04] MEDS: CITALOPRAM 40 MG TAB PO SCH (09:37)
[2023-05-04] MEDS: SIMVASTATIN 10 MG TAB PO SCH (09:38)
[2023-05-04] MEDS: CETIRIZINE HCL 10 MG TABLET PO SCH (09:38)
[2023-05-04] MEDS: DONEPEZIL HCL 10 MG TAB PO SCH (09:38)
--- NOTE | 2023-05-04 10:02 | Discharge Summary ---
Date of Service May 04, 2023 Admission HPI Per Admitting Provider Pt is an 88 year old female presenting due to abnormal outpatient lab results. Patient and daughter have noticed that patient has been bruising much more easily for the past 1-1.5 weeks, outpatient lab work showed severe thrombocytopenia, patient was told to present to the ED for further evaluation. Patient denies recent heparin exposure, newest medication change was addition of memantine in February 2023. Patient denies history of abnormal platelet counts in the past. Denies h/o autoimmune conditions. Denies overt bleeding. Denies recent illness. ED course: - Plt count 2 in ED - CT Head negative for ICH or other acute processes - Blood smear pending - Patient started on IV methylprednisolone and IVIG in ED Admission Exam (Per Admitting) Constitutional Constitutional: WD/WN, vitals as above + frail appearing; no acute distress ENMT: - oral mucosal bleeding Respiratory: normal respiratory effort, lungs clear to auscultation Cardiovascular: regular rate and rhythm, systolic ejection murmur appreciated on auscultation Skin: diffuse petechiae and purpura throughout body Psychiatric: A+Ox3, euthymic affect Discharge Data Consultations 05/01/23 22:09 ED Decision to Admit Stat 05/01/23 23:31 Consult Hematology Routine Hospital Course (1) Acute ITP: (2) Acid reflux: (3) Allergic rhinitis: (4) Asthma: (5) Depression: (6) Diabetes mellitus: (7) Dyslipidemia: (8) Hypertension: (9) Mild dementia: Plan Iris Vega is an 88 year old woman with a history of 1-2 months of easy bruising who was directed to the ED after her outside labs showed severe thrombocytopenia. On admission her labs showed pancytopenia, with WBC .84, Hgb 9, Plt 1, and she was admitted for further evaluation. She was treated with Methylprednisolone and IVIG during her stay. Her lyme/anaplasmosis screens were negative. Her blood smear showed no obvious dysplastic changes or abnormal findings other than reactive monocytes. Hematology was consulted. Per their recommendations, one unit of platelets was transfused 05/02. A bone marrow biopsy was performed 05/03, these results are still pending. On discharge the patients blood lines were recovering. She had a WBC of 2.41, Hgb 10, and Plt 82. She will be discharged on dexamethasone 40mg daily for 4 days. She has a follow up appointment with hematology scheduled in 2 weeks. Supervising Physician Co-Signing Physician Notes Attending attestation Pt seen and examined in concert with [facility]. Dr Medhat Shannon. In agreement with the documented findings as noted in the resident documentation with any exceptions or additions as noted here. Resting in bed, feeling well with improving ecchymoses throughout. On examination, S1/S2 nl RRR no MCG. CTAB. Abd NT/ND BS+ve. Diffuse ecchymoses which are stable from previous. Pancytopenia - hematology consult - s/p 1 U platelets - pending results of sendout lab studies and follow up with hematology. Complete steroid course as noted. Recommend repeat CBC on follow up with PCP. Else see resident documentation as noted. Total attending physician time spent with this patient's care on the day of discharge: 35 minutes.
[2023-05-04] MEDS ORDERED: IRON SUCROSE 200 MG in 0.9 % SODIUM CHLORIDE 100 ML IV ONE (11:00)
[2023-05-04 11:48] LABS: Ferritin 33.8 ng/ml (8-388)
[2023-05-04] MEDS: MONTELUKAST SODIUM 10 MG TABLET PO SCH (13:55)
[2023-05-06 01:22] LABS: Babesia microti DNA Not Detected (Not Detected)
== END 2023-05-04 13:55 | disposition home or self-care (01) | DRG 813 ==
LOC: ED 20:16 → SUATTDRO 23:31 → 2S 23:31

== ENCOUNTER 2023-07-22 15:49 | Inpatient (IN) ==
--- NOTE | 2023-07-22 16:31 | Emergency Department Note ---
ED Provider Note History of Present Illness Chief Complaint: Back Injury/Pain Stated Complaint: UPPER BACK PAIN Time Seen by Provider: 07/22/23 16:13 Source: patient Mode of arrival: ambulatory Limitations: no limitations This patient is an 88-year-old female who presents to the emergency department for evaluation of upper back pain. Pain is bilateral. Patient has a history of asthma and has a frequent cough. She believes that she may have hurt the back of coughing, but does not recall a specific injury. She states that she woke up with the pain. Pain is more severe on the right side. She has been using Tylenol and lidocaine patch without much relief. It is worse with cough, deep breath and movement. She does report some mild shortness of breath. Denies fevers. Denies history of blood clots. She is not sure if the pain radiates into the chest. Home Medications Medication Instructions Recorded Confirmed Type acetaminophen 500 mg tablet 1,000 mg PO DIRECTED PRN Pain 02/03/22 07/22/23 History cetirizine 10 mg tablet 10 mg PO DAILY 02/03/22 07/22/23 History focus select 2 tab PO DAILY 02/03/22 07/22/23 History albuterol sulfate 90 mcg/actuation 2 puff inhalation QID PRN 01/12/23 07/22/23 Rx aerosol inhaler Shortness Of Breath Or Wheezing #8.5 grams cholecalciferol (vitamin D3) 25 1,000 unit PO DAILY 01/30/23 07/22/23 History mcg (1,000 unit) capsule (Vitamin D3) ipratropium bromide 21 mcg (0.03 See Rx Instructions .Route 02/23/23 07/22/23 Rx %) nasal spray .COMPLEX #30 mL amlodipine 10 mg tablet 10 mg PO DAILY #30 tabs 04/03/23 07/22/23 Rx budesonide-formoterol HFA 160 2 inh inhalation BID 05/01/23 07/22/23 History mcg-4.5 mcg/actuation aerosol inhaler (Symbicort) citalopram 40 mg tablet 40 mg PO DAILY 05/01/23 07/22/23 History donepezil 10 mg tablet 10 mg PO DAILY 05/01/23 07/22/23 History fluticasone propionate 50 1 spray intranasal BID 05/01/23 07/22/23 History mcg/actuation nasal spray,suspension montelukast 10 mg tablet 10 mg PO DAILY 05/01/23 07/22/23 History losartan 50 mg tablet See Rx Instructions .Route 05/08/23 07/22/23 Rx .COMPLEX #180 tabs clobetasol 0.05 % topical ointment 1 applic topical 2XWK #30 grams 06/07/23 07/22/23 Rx simvastatin 10 mg tablet 10 mg PO DAILY #90 tabs 06/30/23 07/22/23 Rx hydrochlorothiazide 12.5 mg tablet 12.5 mg PO DAILY #30 tabs 07/04/23 07/22/23 Rx mecobalamin (vitamin B12) 1,000 1,000 mcg PO DAILY 07/04/23 07/22/23 History mcg chewable tablet memantine 10 mg tablet 10 mg PO BID #60 tabs 07/10/23 07/22/23 Rx buspirone 10 mg tablet 10 mg PO BID 07/22/23 07/22/23 History esomeprazole magnesium 40 mg 40 mg PO DAILY 07/22/23 07/22/23 History capsule,delayed release Allergies Allergy/AdvReac Type Severity Reaction Status Date / Time sulfamethoxazole Allergy Intermediate UNSURE Verified 07/10/23 11:39 trimethoprim Allergy Intermediate UNSURE Verified 07/10/23 11:39 BO Inhibitors Allergy Unknown UNK Verified 07/10/23 11:39 Penicillins Allergy Unknown Unknown Verified 07/10/23 11:39 tetanus toxoid, adsorbed Allergy Unknown Unknown Verified 07/10/23 11:39 Past Med/Surg History Medical History (Updated 07/23/23 @ 20:51 by Debbie Rdz PA-C) Acute ITP Acute joint effusion Fall Generalized weakness Hemarthrosis IBS (irritable bowel syndrome) Osteopenia Pancytopenia Pneumonia Postmenopausal atrophic vaginitis Vertigo Vitamin D deficiency Surgical History History of appendectomy S/P bronchoscopy S/P cholecystectomy S/P colonoscopy S/P dilation and curettage S/P tonsillectomy and adenoidectomy S/P tooth extraction Family History Unknown Coronary arteriosclerosis Aneurysm of abdominal aorta Mother No problems noted. Other No pertinent family history Denies family history of Ovarian cancer Social History Smoking Status: Former smoker Tobacco Type: Cigarettes Second Hand Exposure: No; Do You Dip or Chew Tobacco: No; Hx Alcohol Use: No Hx Substance Use: No Preferred Language: Latvian Communication Ability: Effective Table Maker Required: No Beliefs That Will Affect Care: None marital status: / Current Living Situation: Family Current Living Situation Comment: lives with daughter and son in law current occupational status: retired Other Information That Helps Us Care for You: No Feels Safe at Home: Yes Safety Concerns: Feels Safe At This Time Seatbelt Use: always Assistive Devices: Denture - Upper, Denture - Lower, Glasses and Walker Physical Exam Vital Signs Vital Signs - 24 hr 07/22/23 23:24 Pulse Rate [Apical] 67 Respiratory Rate 18 Blood Pressure [Left Arm] 139/75 Blood Pressure Mean [Left Arm] 96 Pulse Oximetry 98 Oxygen Delivery Method Room Air VITALS: Vitals are noted on the nurse's note and reviewed by myself. GENERAL: This is an 88-year-old female, in no acute distress, well-developed well-nourished. SKIN: The skin was without rashes. MOUTH: Mucous membranes moist. NECK: Supple without nuchal rigidity. HEART: Regular rate and rhythm without murmurs gallops or rubs. LUNGS: Clear to auscultation bilaterally without wheezes, rales or rhonchi. No retractions or accessory muscle use. ABDOMEN: Positive bowel sounds x 4. Soft, nontender to palpation. MUSCULOSKELETAL: Tenderness to palpation over the right thoracic back/flank. NEURO: Patient was alert and oriented to person place and time. Course Administered Medications Amlodipine Besylate (Amlodipine Besylate 5 Mg Tab) 10 mg PO DAILY MASON Stop: 08/22/23 08:59 Last Admin: 07/23/23 10:52 Dose: Not Given Documented By: RADHA Buspirone HCl (Buspirone 5 Mg Tab) 10 mg PO BID MASON Stop: 08/22/23 08:59 Last Admin: 07/23/23 20:34 Dose: 10 mg Documented By: Admin: 07/23/23 10:52 Dose: Not Given Documented By: RADHA Cetirizine HCl (Cetirizine Hcl 10 Mg Tablet) 10 mg PO DAILY MASON Stop: 08/22/23 08:59 Last Admin: 07/23/23 11:30 Dose: 10 mg Documented By: RADHA Citalopram Hydrobromide (Citalopram 40 Mg Tab) 40 mg PO DAILY MASON Stop: 08/22/23 08:59 Last Admin: 07/23/23 11:29 Dose: 40 mg Documented By: RADHA Donepezil HCl (Donepezil Hcl 10 Mg Tab) 10 mg PO DAILY MASON Stop: 08/22/23 08:59 Last Admin: 07/23/23 11:29 Dose: 10 mg Documented By: RADHA Fluticasone Propionate (Fluticasone Propionate Na Spr 16 Gm Btl) 1 sprays VOLODYMYR BID MASON Stop: 08/22/23 08:59 Last Admin: 07/23/23 20:32 Dose: 1 sprays Documented By: Admin: 07/23/23 07:57 Dose: 1 sprays Documented By: RADHA Fluticasone/Vilanterol (Fluticasone/Vilanterol 200/25mcg 14 Puffs/Inhaler) 1 puffs INH DAILY MASON Stop: 08/22/23 08:59 Last Admin: 07/23/23 07:57 Dose: 1 puffs Documented By: RADHA Heparin Sodium (Porcine) (Heparin Sod 5,000 Unit/0.5 Ml Vial) 5,000 units SQ Q12 MASON Stop: 08/22/23 20:59 Last Admin: 07/23/23 20:32 Dose: 5,000 units Documented By: EKF Sodium Chloride (Nss) 1,000 mls @ 60 mls/hr IV .[id number] MASON Stop: 08/22/23 03:33 Last Admin: 07/23/23 17:23 Dose: 60 mls/hr Documented By: Infusion: 07/23/23 17:23 Dose: 0 mls/hr Documented By: Infusion: 07/23/23 13:54 Dose: 60 mls/hr Documented By: Infusion: 07/23/23 10:50 Dose: 100 mls/hr Documented By: Infusion: 07/23/23 09:45 Dose: 0 mls/hr Documented By: Admin: 07/23/23 04:00 Dose: 100 mls/hr Documented By: EKF Pantoprazole Sodium 40 mg/ (Syringe) 10 mls @ 5 mls/min IV DAILY@1100 MASON Stop: 08/22/23 10:59 Last Admin: 07/23/23 11:28 Dose: 5 mls/min Documented By: RADHA Ciprofloxacin (Cipro / D5w) 400 mg in 200 mls @ 100 mls/hr IV Q12H MASON; Protocol Stop: 08/02/23 11:59 Last Infusion: 07/23/23 16:18 Dose: 0 mls/hr Documented By: Admin: 07/23/23 14:18 Dose: 100 mls/hr Documented By: RADHA Ipratropium [place] (Ipratropium [place] Nasal [place] 0.06% 15ml) 2 sprays VOLODYMYR Q12 MASON Stop: 08/22/23 08:59 Last Admin: 07/23/23 20:32 Dose: 2 sprays Documented By: Admin: 07/23/23 07:57 Dose: 2 sprays Documented By: RADHA Losartan Potassium (Losartan Potassium 50 Mg Tab) 50 mg PO BID MASON Stop: 08/22/23 08:59 Last Admin: 07/23/23 20:35 Dose: 50 mg Documented By: Admin: 07/23/23 10:52 Dose: Not Given Documented By: RADHA Memantine (Memantine Hcl 10 Mg Tab) 10 mg PO BID MASON Stop: 08/22/23 08:59 Last Admin: 07/23/23 20:34 Dose: 10 mg Documented By: Admin: 07/23/23 10:52 Dose: Not Given Documented By: RADHA Montelukast Sodium (Montelukast Sodium 10 Mg Tablet) 10 mg PO DAILY MASON Stop: 08/22/23 08:59 Last Admin: 07/23/23 11:29 Dose: 10 mg Documented By: RADHA Simvastatin (Simvastatin 10 Mg Tab) 10 mg PO DAILY MASON Stop: 08/22/23 08:59 Last Admin: 07/23/23 10:51 Dose: Not Given Documented By: RADHA Discontinued Medications Hydrochlorothiazide (Hydrochlorothiazide 25 Mg Tab) 12.5 mg PO DAILY MASON Stop: 08/22/23 08:59 Last Admin: 07/23/23 10:21 Dose: Not Given Documented By: RADHA Ioversol (Optiray 320 500ml) 114 ml IV ONCE ONE Stop: 07/22/23 18:23 Last Admin: 10/28/23 18:24 Dose: 114 ml Documented By: JAVID Morphine Sulfate (Morphine Sulfate 2 Mg/Ml Carp) 2 mg IV NOW STA Stop: 07/22/23 16:49 Last Admin: 07/22/23 17:13 Dose: 2 mg Documented By: NKECHI Morphine Sulfate (Morphine Sulfate 2 Mg/Ml Carp) 2 mg IV NOW STA Stop: 07/22/23 18:05 Last Admin: 07/22/23 18:08 Dose: 2 mg Documented By: NKECHI Morphine Sulfate (Morphine Sulfate 2 Mg/Ml Carp) 2 mg IV NOW STA Stop: 07/23/23 00:26 Last Admin: 07/23/23 00:48 Dose: 2 mg Documented By: PREM Ondansetron HCl (Ondansetron Inj 2 Mg/Ml 2 Ml Vial) 4 mg IV NOW STA Stop: 07/22/23 16:49 Last Admin: 07/22/23 17:13 Dose: 4 mg Documented By: NKECHI Pantoprazole Sodium (Pantoprazole 40 Mg Tab) 40 mg PO DAILY MASON Stop: 08/22/23 08:59 Last Admin: 07/23/23 10:21 Dose: Not Given Documented By: RADHA Medical Decision Making Differential Diagnosis Differential diagnosis includes renal calculus, pyelonephritis, musculoskeletal pain, ruptured AAA, aortic dissection, diverticulitis, perforated viscus, bowel obstruction, biliary pathology, pancreatitis, PE, pneumonia, pneumothorax, trauma, herpes zoster, malignancy, among others. Home Medications was personally reviewed by me Laboratory Data Attestation: I reviewed the patient's lab results. 07/22/23 17:11 07/22/23 17:11 Lab Results 07/22/23 07/22/23 07/22/23 Range/Units 17:11 17:11 17:11 WBC 8.95 (4.8-10.8) K/ul RBC 4.45 (4.20-5.40) M/uL Hgb 13.0 (12.0-16.0) g/dl Hct 38.7 (37.0-47.0) % MCV 87.0 (80.0-100.0) fL MCH 29.2 (25.0-34.0) pg MCHC 33.6 (32.0-36.0) g/dL RDW Std Deviation 59.7 H (36.4-46.3) fL RDW Coeff of Sukumar 18.6 H (11.5-14.5) % Plt Count 184 (130-400) K/uL MPV 10.2 (9.4-12.4) fL Immature Gran % (Auto) 1.0 % Neut % (Auto) 69.0 % Lymph % (Auto) 11.2 % Osborne % (Auto) 18.5 % Eos % (Auto) 0.2 % Baso % (Auto) 0.1 % Neut # (Auto) 6.17 (1.40-6.50) K/uL Lymph # (Auto) 1.00 L (1.20-3.40) K/uL Osborne # (Auto) 1.66 H (0.11-0.59) K/uL Eos # (Auto) 0.02 (0.00-0.50) K/uL Baso # (Auto) 0.01 (0.00-0.20) K/uL Immature Gran # (Auto) 0.09 (0.01-0.20) K/uL D-Dimer 1890 H* (0-500) ug/L FEU Sodium 133 L (136-145) mmol/L Potassium 3.9 (3.5-5.1) mmol/L Chloride 103 (98-107) mmol/L Carbon Dioxide 24 (21-32) mmol/L Anion Gap 6 (3-11) BUN 20 (6-23) mg/dl Creatinine 0.67 (0.6-1.2) mg/dl Est Cr Clr Drug Dosing Not Reportable Est GFR ( Amer) 91.0 ml/min Est GFR (Non-Af Amer) 78.5 ml/min BUN/Creatinine Ratio 29.9 H (10-20) Glucose 115 H (70-99(Fasting)) mg/dl Calcium 8.9 (8.6-10.3) mg/dl Total Bilirubin 0.9 (0.2-1.0) mg/dl AST 15 (13-39) U/L ALT 9 (7-52) U/L Alkaline Phosphatase 60 (34-104) U/L Troponin I High Sens 3.1 (0-14) pg/ml Total Protein 7.4 (6.0-8.3) gm/dl Albumin 3.7 (3.4-5.0) gm/dl Globulin 3.7 (2.5-4.0) gm/dl Albumin/Globulin Ratio 1.0 (0.9-2) Lipase 43 (11-82) U/L Imaging Data Attestation: I personally reviewed and interpreted this imaging study as follows: Radiologist's Impression: Chest X-Ray 07/22/23 16:48 XR chest 1V portable HISTORY: 88 years-old Female upper back pain acute chest and back pain COMPARISON: 05/09/2021 TECHNIQUE: AP view of the chest FINDINGS: Cardiac silhouette is enlarged. Calcified hilar lymph nodes. Calcified pulmonary granulomata. No pneumothorax, pleural effusion, airspace consolidation or overt pulmonary edema. Mild right hemidiaphragmatic elevation. Degenerative changes of the shoulders and spine. IMPRESSION: 1. No acute process. 2. Prior granulomatous disease. ACT 112: Negative or not required by law. The above report was generated using voice recognition software. It may contain grammatical, syntax or spelling errors. Electronically signed by: Kunal River M.D. 07/22/2023 5:53 PM MDM Narrative Continuous video player mechanic: Order was placed for continuous video player mechanic. Patient was placed on the video player mechanic. Patient was noted to be in normal sinus rhythm at an initial rate of 70 bpm. This patient is an 88-year-old female who presents to the emergency department for evaluation of upper back/chest pain. Labs revealed no leukocytosis or anemia. There were no concerning electrolyte abnormalities. Troponin was not elevated. D-dimer was found to be elevated at 1890. CT of the chest was then performed. No acute PE was found, although patient is noted to have choledocholithiasis and ductal dilatation. Right upper quadrant ultrasound was then performed which confirmed these findings. MRCP is recommended and follow- up. Given location of patient's pain, I do feel it is reasonable to admit her for MRCP/further testing. She did require several doses of pain medication in the ER. She was agreeable with the plan. [facility] to evaluate the patient for further care. Impression Flank pain, Common bile duct dilatation, Choledocholithiasis Discharge Plan Visit Data Chief Complaint: Back Injury/Pain Stated Complaint: UPPER BACK PAIN ED Provider: Nader Castañeda ED Midlevel Provider: Debbie Rdz Discharge Problem: Flank pain, Common bile duct dilatation, Choledocholithiasis Patient Disposition: Admitted As Inpatient Discharge Instructions Interventions: ED Discharge Assessment Last Done: 07/23/23 02:03
[2023-07-22] MEDS ORDERED: ONDANSETRON INJ 2 MG/ML 2 ML VIAL IV STA (16:48)
[2023-07-22] MEDS ORDERED: MoRPHine SULFATE 2 MG/ML CARP IV STA ×2 (16:48→18:04)
[2023-07-22 17:37] LABS: Basophils # (auto) 0.01 K/uL (0.00-0.20); Basophils % (auto) 0.1 %; Eosinophils # (auto) 0.02 K/uL (0.00-0.50); Eosinophils % (auto) 0.2 %; Hematocrit (blood only) 38.7 % (37.0-47.0); Immature Granulocytes # (auto) 0.09 K/uL (0.01-0.20); Lymphocytes % (auto) 11.2 %; Mean Corpuscular Hemoglobin 29.2 pg (25.0-34.0); Mean Corpuscular Hgb Conc 33.6 g/dL (32.0-36.0); Mean Platelet Volume 10.2 fL (9.4-12.4); Monocytes # (auto) 1.66 K/uL (0.11-0.59); Monocytes % (auto) 18.5 %; Neutrophils # (auto) 6.17 K/uL (1.40-6.50); Platelet Count 184 K/uL (130-400); RDW Coefficient of Variation 18.6 % (11.5-14.5); RDW Standard Deviation 59.7 fL (36.4-46.3); Red Blood Count 4.45 M/uL (4.20-5.40); White Blood Count 8.95 K/ul (4.8-10.8)
[2023-07-22 17:49] LABS: D Dimer 1890 ug/L FEU (0-500)
[2023-07-22 17:53] LABS: Alanine Aminotransferase 9 U/L (7-52); Albumin Level 3.7 gm/dl (3.4-5.0); Alkaline Phosphatase 60 U/L (34-104); Anion Gap 6 (3-11); Aspartate Aminotransferase 15 U/L (13-39); BUN Creatinine Ratio 29.9 (10-20); Bilirubin,Total 0.9 mg/dl (0.2-1.0); Blood Urea Nitrogen 20 mg/dl (6-23); Calcium 8.9 mg/dl (8.6-10.3); Carbon Dioxide 24 mmol/L (21-32); Chloride 103 mmol/L (98-107); Est GFR (Non-African American) 78.5 ml/min; Globulin 3.7 gm/dl (2.5-4.0); Glucose 115 mg/dl (70-99(Fasting)); Potassium 3.9 mmol/L (3.5-5.1); Sodium 133 mmol/L (136-145); Total Protein 7.4 gm/dl (6.0-8.3)
--- NOTE | 2023-07-22 17:54 | XRay Report ---
XR chest 1V portable HISTORY: 88 years-old Female upper back pain acute chest and back pain COMPARISON: 05/09/2021 TECHNIQUE: AP view of the chest FINDINGS: Cardiac silhouette is enlarged. Calcified hilar lymph nodes. Calcified pulmonary granulomata. No pneu mothorax, pleural effusion, airspace consolidation or overt pulmonary edema. Mild right hemidiaphragm atic elevation. Degenerative changes of the shoulders and spine. IMPRESSION: 1. No acute process. 2. Prior granulomatous disease. ACT 112: Negative or not required by law. The above report was generated using voice recognition software. It may contain grammatical, syntax o r spelling errors. Electronically signed by: Kunal River M.D. 07/22/2023 5:53 PM
[2023-07-22 17:59] LABS: Troponin I High Sensitivity 3.1 pg/ml (0-14)
[2023-07-22] MEDS ORDERED: OPTIRAY 320 500ml IV ONE (18:22)
--- NOTE | 2023-07-22 19:51 | CT Scan Report ---
CT angio chest PE protocol CT DOSE: 594.34 mGy.cm HISTORY: 88 years-old Female with elevated dimer, inspiratory back pain. Acute shortness of breath with elevated d-dimer TECHNIQUE: Multiple CTA images of the chest were obtained after the intravenous administration of 114 ml Optiray. Coronal and sagittal MIPS were obtained from the axial data set and were submitted for review. All measurements were obtained according to NASCET criteria. A dose lowering technique was u tilized adhering to the principles of ALARA. COMPARISON: Chest radiograph of same day FINDINGS: CTA: [id number] cardiomegaly. Trace pericardial effusion. Moderate coronary artery calcifications. A therosclerosis of the aorta without aneurysm or dissection. Unremarkable pulmonary artery. No pulmona ry emboli are identified. CT CHEST: Subcentimeter hypodense thyroid nodules. Nonspecific mildly enlarged right hilar lymph node, 10 mm. C alcified mediastinal and hilar lymph nodes with calcified pulmonary and splenic granulomata. Mild sub segmental bibasilar atelectasis without pneumothorax, pleural effusion or airspace consolidation. Mos aic attenuation within a mixed groundglass densities. There are no suspicious pulmonary nodule or mas s is identified. Mild bronchial wall thickening. Intrahepatic and extrahepatic biliary ductal dilation. The common bile duct measures up to 1.5 cm. Pa rtially imaged calcification within the common bile duct, 6 mm. Lobulation versus lesion in the super ior pole right kidney, 5 cm. Bilateral renal cysts are partially imaged. Unremarkable soft tissues. M ild T8 compression deformity, likely chronic. Moderate T12 compression deformity is also likely on a chronic basis. IMPRESSION: 1. Cardiomegaly without pulmonary emboli identified. 2. Air trapping with atelectasis. 3. Prior granulomatous disease. 4. Intrahepatic and extrahepatic biliary ductal dilation with choledocholithiasis. 5. Lobulation versus lesion of the superior pole right kidney. Correlation with a nonemergent follow- up renal ultrasound recommended. ACT 112: Negative or not required by law. The above report was generated using voice recognition software. It may contain grammatical, syntax o r spelling errors. Electronically signed by: Kunal River M.D. 07/22/2023 7:50 PM
--- NOTE | 2023-07-22 22:39 | Ultrasound Report ---
Exam(s): US GALLBLADDER EXAM: US Abdomen Limited, Gallbladder CLINICAL HISTORY: Choledocholithiasis. TECHNIQUE: Real-time ultrasound of the right upper quadrant with image documentation. COMPARISON: None available at the time of this dictation. FINDINGS: Liver: The liver measures 14.3 cm. No mass. Gallbladder: Cholecystectomy. Common bile duct: The common bile duct is markedly dilated measuring 1. 8 cm. There is no visualized filling defect. No stones. Pancreas: The pancreatic head and body are within normal limits. The tail is not visualized due to overlying bowel gas. Right kidney: Increased echogenicity of the renal cortex. The right kidney measures 9.5 cm. No hydronephrosis, mass or visualized nephrolithiasis. IMPRESSION: 1. The common bile duct is markedly dilated measuring 1.8 cm. There is no visualized filling defect. Consider further evaluation with MRCP if clinically indicated. 2. Increased echogenicity of the right renal cortex is most consistent with chronic medical renal disease. Electronically signed by: Kenya Tanner MD 07/22/23 22:38 PM
--- NOTE | 2023-07-22 23:27 | Emergency Department Note ---
ED Visit Note I was consulted by the Advanced Practice Provider Debbie Rdz PA-C. I saw the patient personally and performed a substantive portion of the visit. This includes aspects of the HPI, MDM, diagnostic interpretations, and disposition/plan. Patient presented with back and flank discomfort did have an IV established blood work was obtained. The patient was seen to have some biliary ductal dilatation the patient was admitted for MRCP. .
[2023-07-23] LABS: Lipase 43 U/L (11-82)
[2023-07-23] MEDS ORDERED: MoRPHine SULFATE 2 MG/ML CARP IV STA (00:25)
--- NOTE | 2023-07-23 01:07 | History & Physical Report ---
Date of Service July 23, 2023 Assessment & Plan (1) Common bile duct dilatation: Plan: 88 yo female with PMHx of GERD, asthma, allergic rhinitis, anxiety/depression, HTN, HLD, DM2, and dementia presents with abdominal pain. #CBD dilation -presented with 2 days abdominal pain worse with cough. No leukocytosis. LFTs normal. -CT A/P: Intrahepatic and extrahepatic biliary ductal dilation with choledocholithiasis -Gallbladder US: common bile duct is markedly dilated measuring 1.8 cm. There is no visualized filling defect. -NPO, pain control, IVF -MRCP ordered -GI consulted #HTN -cont. amlodipine, losartan, HCTZ #HLD -cont. statin #Dementia -cont. memantine, donepezil #GERD -cont. PPI #Anxiety/Depression -cont. citalopram, buspar #Asthma -cont. home inhalers #Allergic rhinitis -cont. flonase, cetirizine DVT ppx: SCDs; avoid chemical in case for ERCP FEN/GI: NPO for MRCP Code Status: full Dispo: med surg (2) Acid reflux: (3) Allergic rhinitis: (4) Asthma: (5) Depression: (6) Diabetes mellitus: (7) Dyslipidemia: (8) Hypertension: (9) Memory loss: (10) Mild dementia: (11) Anxiety: History of Present Illness Chief Complaint: abdominal pain Primary Care Provider: Thomas Edgar MD 88 yo female with PMHx of GERD, asthma, allergic rhinitis, anxiety/depression, HTN, HLD, DM2, and dementia presents with abdominal pain. 2 days ago started developing intermittent abdominal and flank pain. Started on L side but now more on the R side. Not worse with eating. Pain exacerbated when she coughs. Some shortness of breath. Denies headache, chest pain, N/V/D, fatigue, chills, extremity weakness/numbness/tingling. She has been using Tylenol and lidocaine patch without much relief. She does have h/o cholecystectomy. Allergies Allergy/AdvReac Type Severity Reaction Status Date / Time sulfamethoxazole Allergy Intermediate UNSURE Verified 07/10/23 11:39 trimethoprim Allergy Intermediate UNSURE Verified 07/10/23 11:39 BO Inhibitors Allergy Unknown UNK Verified 07/10/23 11:39 Penicillins Allergy Unknown Unknown Verified 07/10/23 11:39 tetanus toxoid, adsorbed Allergy Unknown Unknown Verified 07/10/23 11:39 Home Medications Medication Instructions Recorded Confirmed Type acetaminophen 500 mg tablet 1,000 mg PO DIRECTED PRN Pain 02/03/22 07/22/23 History cetirizine 10 mg tablet 10 mg PO DAILY 02/03/22 07/22/23 History focus select 2 tab PO DAILY 02/03/22 07/22/23 History albuterol sulfate 90 mcg/actuation 2 puff inhalation QID PRN 01/12/23 07/22/23 Rx aerosol inhaler Shortness Of Breath Or Wheezing #8.5 grams cholecalciferol (vitamin D3) 25 1,000 unit PO DAILY 01/30/23 07/22/23 History mcg (1,000 unit) capsule (Vitamin D3) ipratropium bromide 21 mcg (0.03 See Rx Instructions .Route 02/23/23 07/22/23 Rx %) nasal spray .COMPLEX #30 mL amlodipine 10 mg tablet 10 mg PO DAILY #30 tabs 04/03/23 07/22/23 Rx budesonide-formoterol HFA 160 2 inh inhalation BID 05/01/23 07/22/23 History mcg-4.5 mcg/actuation aerosol inhaler (Symbicort) citalopram 40 mg tablet 40 mg PO DAILY 05/01/23 07/22/23 History donepezil 10 mg tablet 10 mg PO DAILY 05/01/23 07/22/23 History fluticasone propionate 50 1 spray intranasal BID 05/01/23 07/22/23 History mcg/actuation nasal spray,suspension montelukast 10 mg tablet 10 mg PO DAILY 05/01/23 07/22/23 History losartan 50 mg tablet See Rx Instructions .Route 05/08/23 07/22/23 Rx .COMPLEX #180 tabs clobetasol 0.05 % topical ointment 1 applic topical 2XWK #30 grams 06/07/23 07/22/23 Rx simvastatin 10 mg tablet 10 mg PO DAILY #90 tabs 06/30/23 07/22/23 Rx hydrochlorothiazide 12.5 mg tablet 12.5 mg PO DAILY #30 tabs 07/04/23 07/22/23 Rx mecobalamin (vitamin B12) 1,000 1,000 mcg PO DAILY 07/04/23 07/22/23 History mcg chewable tablet memantine 10 mg tablet 10 mg PO BID #60 tabs 07/10/23 07/22/23 Rx buspirone 10 mg tablet 10 mg PO BID 07/22/23 07/22/23 History esomeprazole magnesium 40 mg 40 mg PO DAILY 07/22/23 07/22/23 History capsule,delayed release Past Med/Surg History Medical History Acute ITP Acute joint effusion Fall Generalized weakness Hemarthrosis IBS (irritable bowel syndrome) Osteopenia Pancytopenia Pneumonia Postmenopausal atrophic vaginitis Vertigo Vitamin D deficiency Surgical History History of appendectomy S/P bronchoscopy S/P cholecystectomy S/P colonoscopy S/P dilation and curettage S/P tonsillectomy and adenoidectomy S/P tooth extraction Family History Unknown Coronary arteriosclerosis Aneurysm of abdominal aorta Mother No problems noted. Other No pertinent family history Denies family history of Ovarian cancer Social History Smoking Status: Former smoker Tobacco Type: Cigarettes Second Hand Exposure: No; Do You Dip or Chew Tobacco: No; Hx Alcohol Use: No Hx Substance Use: No Preferred Language: Kazakh Communication Ability: Effective Switchboard And Control Room Operator Required: No Beliefs That Will Affect Care: None marital status: / Current Living Situation: Family Current Living Situation Comment: lives with daughter and son in law current occupational status: retired Other Information That Helps Us Care for You: No Feels Safe at Home: Yes Safety Concerns: Feels Safe At This Time Seatbelt Use: always Assistive Devices: Denture - Upper, Denture - Lower, Glasses and Walker Review of Systems Review of Systems: All systems reviewed & are unremarkable except as noted in HPI & below Physical Exam Physical Exam: Constitutional: in no acute distress, pleasant and normal affect. AOx3. Vitals as above. HEENT: No scleral injection or discharge. Moist mucous membranes. Neck: Supple without lymphadenopathy or thyromegaly. Trachea midline. Lungs: Clear to auscultation bilaterally with good effort. No wheezes/rales/rhonchi. Cardiac: Regular rate and rhythm.No lower extremity edema. 2+ distal peripheral pulses. Abdomen: Bowel sounds present. Mild diffuse tenderness R>L. Soft and nondistended.No guarding. No hepatosplenomegaly. MSK: No cyanosis or clubbing. Skin: No rashes, warm, dry. Neurologic: no focal deficits Results & Data Results & Data Vital Signs (Past 12 Hours) Vital Signs Temp Pulse Pulse Resp BP BP Pulse Ox 07/22/23 23:24 67 18 139/75 98 07/22/23 20:30 68 18 95 07/22/23 20:00 68 21 95 07/22/23 20:00 128/74 07/22/23 19:30 73 17 94 07/22/23 19:00 76 24 94 07/22/23 19:00 144/79 H 07/22/23 18:30 68 21 97 07/22/23 18:00 76 21 97 07/22/23 18:00 141/85 H 07/22/23 17:41 75 21 97 07/22/23 17:20 07/22/23 17:20 73 20 137/80 93 07/22/23 15:57 36.6 C 85 18 100/70 95 O2 Del Method O2 Flow Rate 07/22/23 23:24 Room Air 07/22/23 20:30 07/22/23 20:00 07/22/23 20:00 07/22/23 19:30 07/22/23 19:00 Nasal Cannula 2 07/22/23 19:00 07/22/23 18:30 Nasal Cannula 2 07/22/23 18:00 07/22/23 18:00 07/22/23 17:41 07/22/23 17:20 Room Air 07/22/23 17:20 Room Air 07/22/23 15:57 Room Air Laboratory Results Laboratory Results WBC 8.95 K/ul (4.8-10.8) 07/22/23 17:11 RBC 4.45 M/uL (4.20-5.40) 07/22/23 17:11 Hgb 13.0 g/dl (12.0-16.0) 07/22/23 17:11 Hct 38.7 % (37.0-47.0) 07/22/23 17:11 MCV 87.0 fL (80.0-100.0) 07/22/23 17:11 MCH 29.2 pg (25.0-34.0) 07/22/23 17:11 MCHC 33.6 g/dL (32.0-36.0) 07/22/23 17:11 RDW Std Deviation 59.7 fL (36.4-46.3) H 07/22/23 17:11 RDW Coeff of Sukumar 18.6 % (11.5-14.5) H 07/22/23 17:11 Plt Count 184 K/uL (130-400) 07/22/23 17:11 MPV 10.2 fL (9.4-12.4) 07/22/23 17:11 Immature Gran % (Auto) 1.0 % 07/22/23 17:11 Neut % (Auto) 69.0 % 07/22/23 17:11 Lymph % (Auto) 11.2 % 07/22/23 17:11 [place] % (Auto) 18.5 % 07/22/23 17:11 Eos % (Auto) 0.2 % 07/22/23 17:11 Baso % (Auto) 0.1 % 07/22/23 17:11 Neut # (Auto) 6.17 K/uL (1.40-6.50) 07/22/23 17:11 Lymph # (Auto) 1.00 K/uL (1.20-3.40) L 07/22/23 17:11 [place] # (Auto) 1.66 K/uL (0.11-0.59) H 07/22/23 17:11 Eos # (Auto) 0.02 K/uL (0.00-0.50) 07/22/23 17:11 Baso # (Auto) 0.01 K/uL (0.00-0.20) 07/22/23 17:11 Immature Gran # (Auto) 0.09 K/uL (0.01-0.20) 07/22/23 17:11 D-Dimer 1890 ug/L FEU (0-500) H* 07/22/23 17:11 Sodium 133 mmol/L (136-145) L 07/22/23 17:11 Potassium 3.9 mmol/L (3.5-5.1) 07/22/23 17:11 Chloride 103 mmol/L (98-107) 07/22/23 17:11 Carbon Dioxide 24 mmol/L (21-32) 07/22/23 17:11 Anion Gap 6 (3-11) 07/22/23 17:11 BUN 20 mg/dl (6-23) 07/22/23 17:11 Creatinine 0.67 mg/dl (0.6-1.2) 07/22/23 17:11 Est Cr Clr Drug Dosing Not Reportable 07/22/23 17:11 Est GFR ( Amer) 91.0 ml/min 07/22/23 17:11 Est GFR (Non-Af Amer) 78.5 ml/min 07/22/23 17:11 BUN/Creatinine Ratio 29.9 (10-20) H 07/22/23 17:11 Glucose 115 mg/dl (70-99(Fasting)) H 07/22/23 17:11 Calcium 8.9 mg/dl (8.6-10.3) 07/22/23 17:11 Total Bilirubin 0.9 mg/dl (0.2-1.0) 07/22/23 17:11 AST 15 U/L (13-39) 07/22/23 17:11 ALT 9 U/L (7-52) 07/22/23 17:11 Alkaline Phosphatase 60 U/L (34-104) 07/22/23 17:11 Troponin I High Sens 3.1 pg/ml (0-14) 07/22/23 17:11 Total Protein 7.4 gm/dl (6.0-8.3) 07/22/23 17:11 Albumin 3.7 gm/dl (3.4-5.0) 07/22/23 17:11 Globulin 3.7 gm/dl (2.5-4.0) 07/22/23 17:11 Albumin/Globulin Ratio 1.0 (0.9-2) 07/22/23 17:11 Lipase 43 U/L (11-82) 07/22/23 17:11 Impressions Chest X-Ray 07/22/23 16:48 XR chest 1V portable HISTORY: 88 years-old Female upper back pain acute chest and back pain COMPARISON: 05/09/2021 TECHNIQUE: AP view of the chest FINDINGS: Cardiac silhouette is enlarged. Calcified hilar lymph nodes. Calcified pulmonary granulomata. No pneumothorax, pleural effusion, airspace consolidation or overt pulmonary edema. Mild right hemidiaphragmatic elevation. Degenerative changes of the shoulders and spine. IMPRESSION: 1. No acute process. 2. Prior granulomatous disease. ACT 112: Negative or not required by law. The above report was generated using voice recognition software. It may contain grammatical, syntax or spelling errors. Electronically signed by: Kunal River M.D. 07/22/2023 5:53 PM Chest CTA 07/22/23 18:04 CT angio chest PE protocol CT DOSE: 594.34 mGy.cm HISTORY: 88 years-old Female with elevated dimer, inspiratory back pain. Acute shortness of breath with elevated d-dimer TECHNIQUE: Multiple CTA images of the chest were obtained after the intravenous administration of 114 ml Optiray. Coronal and sagittal MIPS were obtained from the axial data set and were submitted for review. All measurements were obtained according to NASCET criteria. A dose lowering technique was utilized adhering to the principles of ALARA. COMPARISON: Chest radiograph of same day FINDINGS: CTA: [id number] cardiomegaly. Trace pericardial effusion. Moderate coronary artery calcifications. Atherosclerosis of the aorta without aneurysm or dissection. Unremarkable pulmonary artery. No pulmonary emboli are identified. CT CHEST: Subcentimeter hypodense thyroid nodules. Nonspecific mildly enlarged right hilar lymph node, 10 mm. Calcified mediastinal and hilar lymph nodes with calcified pulmonary and splenic granulomata. Mild subsegmental bibasilar atelectasis without pneumothorax, pleural effusion or airspace consolidation. Mosaic attenuation within a mixed groundglass densities. There are no suspicious pulmonary nodule or mass is identified. Mild bronchial wall thickening. Intrahepatic and extrahepatic biliary ductal dilation. The common bile duct measures up to 1.5 cm. Partially imaged calcification within the common bile duct, 6 mm. Lobulation versus lesion in the superior pole right kidney, 5 cm. Bilateral renal cysts are partially imaged. Unremarkable soft tissues. Mild T8 compression deformity, likely chronic. Moderate T12 compression deformity is also likely on a chronic basis. IMPRESSION: 1. Cardiomegaly without pulmonary emboli identified. 2. Air trapping with atelectasis. 3. Prior granulomatous disease. 4. Intrahepatic and extrahepatic biliary ductal dilation with choledocholithiasis. 5. Lobulation versus lesion of the superior pole right kidney. Correlation with a nonemergent follow-up renal ultrasound recommended. ACT 112: Negative or not required by law. The above report was generated using voice recognition software. It may contain grammatical, syntax or spelling errors. Electronically signed by: Kunal River M.D. 07/22/2023 7:50 PM Gallbladder Ultrasound 07/22/23 20:05 Exam(s): US GALLBLADDER EXAM: US Abdomen Limited, Gallbladder CLINICAL HISTORY: Choledocholithiasis. TECHNIQUE: Real-time ultrasound of the right upper quadrant with image documentation. COMPARISON: None available at the time of this dictation. FINDINGS: Liver: The liver measures 14.3 cm. No mass. Gallbladder: Cholecystectomy. Common bile duct: The common bile duct is markedly dilated measuring 1. 8 cm. There is no visualized filling defect. No stones. Pancreas: The pancreatic head and body are within normal limits. The tail is not visualized due to overlying bowel gas. Right kidney: Increased echogenicity of the renal cortex. The right kidney measures 9.5 cm. No hydronephrosis, mass or visualized nephrolithiasis. IMPRESSION: 1. The common bile duct is markedly dilated measuring 1.8 cm. There is no visualized filling defect. Consider further evaluation with MRCP if clinically indicated. 2. Increased echogenicity of the right renal cortex is most consistent with chronic medical renal disease. Electronically signed by: Kenya Tanner MD 07/22/23 22:38 PM Code Status & VTE Plan VTE Prophylaxis Plan VTE Prophylaxis will be ordered: Yes Supervising Physician Co-Signing Physician Notes Attending addendum: I have physically seen this patient, have supervised the medical residents activities, and agree with the H&P unless as otherwise noted. Assessment and Plan: Choledocholithiasis/intra and extrahepatic biliary duct dilatation- As noted on CT Normal LFTs and lipase Order MRCP Consult gastroenterology if ERCP needed NPO IV fluids and pain control as noted Hypertension- Continue amlodipine, hold losartan 8 and HCTZ GERD- Continue use esomeprazole/pantoprazole Dementia- Patient is a poor historian, and symptom reporting is not reliable Resident Activity Tracking Resident Involvement: Resident Care Provided Care Provided: Adult [facility] Medicine
[2023-07-23] MEDS ORDERED: ONDANSETRON INJ 2 MG/ML 2 ML VIAL IV PRN (03:34)
[2023-07-23] MEDS ORDERED: ACETAMINOPHEN 1,000 MG/100 ML VIAL IV PRN (03:34)
[2023-07-23] MEDS ORDERED: ALBUTEROL HFA 8 GM INHALER INH PRN (03:34)
[2023-07-23] MEDS ORDERED: POLYETHYLENE (MIRALAX) 17 GM PACK PO PRN (03:34)
[2023-07-23] MEDS ORDERED: MoRPHine SULFATE 2 MG/ML CARP IV PRN (03:34)
[2023-07-23] MEDS: SODIUM CHLORIDE 0.9% 1,000 ML IV SCH ×2 (04:00→17:23)
--- NOTE | 2023-07-23 07:00 | Electrocardiogram Report ---
Test Reason : Blood Pressure : / mmHG Vent. Rate : 071 BPM Atrial Rate : 071 BPM P-R Int : 124 ms QRS Dur : 070 ms QT Int : 398 ms P-R-T Axes : 047 -09 017 degrees QTc Int : 432 ms Sinus rhythm with Premature atrial complexes Low voltage QRS Borderline ECG When compared with ECG of 28-FEB-2021 18:34, Premature atrial complexes are now Present Confirmed by Donnell Rivera ([id number]) on 07/23/2023 7:00:19 AM Referred By: REFERRED SELF Confirmed By:Torito Rivera
[2023-07-23] MEDS: FLUTICASONE PROPIONATE NA SPR 16 GM BTL NAE SCH ×2 (07:57→20:32)
[2023-07-23] MEDS: IPRATROPIUM BROMIDE NASAL SPRAY 0.06% 15ML NAE SCH ×2 (07:57→20:32)
[2023-07-23] MEDS: FLUTICASONE/VILANTEROL 200/25MCG 14 PUFFS/INHALER INH SCH (07:57)
[2023-07-23 08:20] LABS: Eosinophils # (auto) 0.02 K/uL (0.00-0.50); Eosinophils % (auto) 0.3 %; Hemoglobin 12.1 g/dl (12.0-16.0); Immature Granulocytes # (auto) 0.06 K/uL (0.01-0.20); Lymphocytes # (auto) 0.83 K/uL (1.20-3.40); Lymphocytes % (auto) 14.5 %; Mean Corpuscular Hemoglobin 28.8 pg (25.0-34.0); Mean Corpuscular Hgb Conc 32.7 g/dL (32.0-36.0); Mean Corpuscular Volume 88.1 fL (80.0-100.0); Mean Platelet Volume 10.5 fL (9.4-12.4); Monocytes # (auto) 1.57 K/uL (0.11-0.59); Monocytes % (auto) 27.4 %; Neutrophils # (auto) 3.26 K/uL (1.40-6.50); Neutrophils % (auto) 56.8 %; Platelet Count 158 K/uL (130-400); RDW Coefficient of Variation 18.6 % (11.5-14.5); RDW Standard Deviation 60.3 fL (36.4-46.3); White Blood Count 5.74 K/ul (4.8-10.8)
[2023-07-23 08:40] LABS: Albumin Level 3.2 gm/dl (3.4-5.0); BUN Creatinine Ratio 21.2 (10-20); Bilirubin,Total 0.9 mg/dl (0.2-1.0); Calcium 8.2 mg/dl (8.6-10.3); Est GFR (African American) 91.4 ml/min; Est GFR (Non-African American) 78.9 ml/min; Globulin 3.3 gm/dl (2.5-4.0); Potassium 3.7 mmol/L (3.5-5.1); Total Protein 6.5 gm/dl (6.0-8.3)
[2023-07-23] MEDS ORDERED: PANTOprazole 40 MG TAB PO SCH (09:00)
[2023-07-23] MEDS ORDERED: hydroCHLOROthiazide 25 MG TAB PO SCH (09:00)
--- NOTE | 2023-07-23 10:35 | Magnetic Resonance Report ---
MR MRCP HISTORY: 88 years-old Female CBD dilation choledocholithiasis. COMPARISON: CTA chest and gallbladder ultrasound studies 07/22/2023 TECHNIQUE: MRCP was obtained without the use of IV contrast. FINDINGS: Motion degraded exam. Right hemidiaphragmatic elevation. Cardiomegaly. Bibasilar atelectasis. Unremar kable spleen, mildly atrophic pancreas and adrenal glands. Intrahepatic and extrahepatic biliary duct al dilation. Common bile duct measures up to 1.8 cm. Confirmation of the choledocholithiasis with sto michelet measuring up to 6 mm within the mid to distal common bile duct. Cholecystectomy. No pancreatic du ctal dilation or pancreatic divisum identified. Mildly atrophic kidneys with bilateral renal cysts and perinephric stranding. Diastases recti. No bow el obstruction. IMPRESSION: Cholecystectomy with choledocholithiasis resulting in intrahepatic and extrahepatic bilia ry ductal dilation. ACT 112: Negative or not required by law. The above report was generated using voice recognition software. It may contain grammatical, syntax o r spelling errors. Electronically signed by: Kunal River M.D. 07/23/2023 10:33 AM
[2023-07-23] MEDS: SIMVASTATIN 10 MG TAB PO SCH (10:51)
[2023-07-23] MEDS: MEMANTINE HCL 10 MG TAB PO SCH ×2 (10:52→20:34)
[2023-07-23] MEDS: amLODIPine BESYLATE 5 MG TAB PO SCH (10:52)
[2023-07-23] MEDS: busPIRone 5 MG TAB PO SCH ×2 (10:52→20:34)
[2023-07-23] MEDS: LOSARTAN POTASSIUM 50 MG TAB PO SCH ×2 (10:52→20:35)
--- NOTE | 2023-07-23 11:12 | Gastrointestinal Consultation ---
Date of Consultation July 23, 2023 Assessment & Plan (1) Choledocholithiasis: Plan choledocholithiasis confirmed on MRCP in a patient presenting with RUQ pains, no evidence for cholangitis at this time. recs: clear liquid diet today, NPO post midnight tonight ERCP tomorrow with [facility] to remove stone supportive care, IVFs rest as per robin ventura Thank you for allowing me to participate in the care of this patient History of Present Illness Attending Physician: Jose Puri MD History of Present Illness 88 yo female with hx GERD, asthma, anxiety/depression, dementia here with abdominal pain. pain in RUQ never had this pain before, denies nausea, vomiting, fevers. imaging including MRCP shows choledocholithiasis and CBD 1.8 cm. she has hx ccy. no leukocytosis and afebrile at this time. labs reviewed, vss. Allergies Allergy/AdvReac Type Severity Reaction Status Date / Time sulfamethoxazole Allergy Intermediate UNSURE Verified 07/10/23 11:39 trimethoprim Allergy Intermediate UNSURE Verified 07/10/23 11:39 BO Inhibitors Allergy Unknown UNK Verified 07/10/23 11:39 Penicillins Allergy Unknown Unknown Verified 07/10/23 11:39 tetanus toxoid, adsorbed Allergy Unknown Unknown Verified 07/10/23 11:39 Home Medications Medication Instructions Recorded Confirmed Type acetaminophen 500 mg tablet 1,000 mg PO DIRECTED PRN Pain 02/03/22 07/22/23 History cetirizine 10 mg tablet 10 mg PO DAILY 02/03/22 07/22/23 History focus select 2 tab PO DAILY 02/03/22 07/22/23 History albuterol sulfate 90 mcg/actuation 2 puff inhalation QID PRN 01/12/23 07/22/23 Rx aerosol inhaler Shortness Of Breath Or Wheezing #8.5 grams cholecalciferol (vitamin D3) 25 1,000 unit PO DAILY 01/30/23 07/22/23 History mcg (1,000 unit) capsule (Vitamin D3) ipratropium bromide 21 mcg (0.03 See Rx Instructions .Route 02/23/23 07/22/23 Rx %) nasal spray .COMPLEX #30 mL amlodipine 10 mg tablet 10 mg PO DAILY #30 tabs 04/03/23 07/22/23 Rx budesonide-formoterol HFA 160 2 inh inhalation BID 05/01/23 07/22/23 History mcg-4.5 mcg/actuation aerosol inhaler (Symbicort) citalopram 40 mg tablet 40 mg PO DAILY 05/01/23 07/22/23 History donepezil 10 mg tablet 10 mg PO DAILY 05/01/23 07/22/23 History fluticasone propionate 50 1 spray intranasal BID 05/01/23 07/22/23 History mcg/actuation nasal spray,suspension montelukast 10 mg tablet 10 mg PO DAILY 05/01/23 07/22/23 History losartan 50 mg tablet See Rx Instructions .Route 05/08/23 07/22/23 Rx .COMPLEX #180 tabs clobetasol 0.05 % topical ointment 1 applic topical 2XWK #30 grams 06/07/23 Rx simvastatin 10 mg tablet 10 mg PO DAILY #90 tabs 06/30/23 07/22/23 Rx hydrochlorothiazide 12.5 mg tablet 12.5 mg PO DAILY #30 tabs 07/04/23 07/22/23 Rx mecobalamin (vitamin B12) 1,000 1,000 mcg PO DAILY 07/04/23 07/22/23 History mcg chewable tablet memantine 10 mg tablet 10 mg PO BID #60 tabs 07/10/23 07/22/23 Rx buspirone 10 mg tablet 10 mg PO BID 07/22/23 07/22/23 History esomeprazole magnesium 40 mg 40 mg PO DAILY 07/22/23 07/22/23 History capsule,delayed release Patient History Medical History (Updated 07/23/23 @ 11:10 by Son Gonzalez MD) Acute ITP Acute joint effusion Fall Generalized weakness Hemarthrosis IBS (irritable bowel syndrome) Osteopenia Pancytopenia Pneumonia Postmenopausal atrophic vaginitis Vertigo Vitamin D deficiency Surgical History History of appendectomy S/P bronchoscopy S/P cholecystectomy S/P colonoscopy S/P dilation and curettage S/P tonsillectomy and adenoidectomy S/P tooth extraction Family History Unknown Coronary arteriosclerosis Aneurysm of abdominal aorta Mother No problems noted. Other No pertinent family history Denies family history of Ovarian cancer Social History Smoking Status: Former smoker Tobacco Type: Cigarettes Second Hand Exposure: No; Do You Dip or Chew Tobacco: No; Hx Alcohol Use: No Hx Substance Use: No Preferred Language: Palauan Communication Ability: Effective Import/Export Agent Required: No Beliefs That Will Affect Care: None marital status: / Current Living Situation: Family Current Living Situation Comment: lives with daughter and son in law current occupational status: retired Other Information That Helps Us Care for You: No Feels Safe at Home: Yes Safety Concerns: Feels Safe At This Time Seatbelt Use: always Assistive Devices: Denture - Upper, Denture - Lower, Glasses and Walker Review of Systems Constitutional: no fever, no chills and no weight loss Eyes: as per Subjective / HPI Ear, Nose, Mouth, Throat: as per Subjective / HPI Respiratory: no dyspnea and no dyspnea on exertion Cardiovascular: no chest pain and no palpitations Gastrointestinal: as per Subjective / HPI Musculoskeletal: no joint pain and no swelling Integumentary: no rash and no lesions Neurologic: no numbness and no paresthesia Psychiatric: no depression and no anxiety Endocrine: no fatigue Hematologic / Lymphatic: no easy bleeding and no easy bruising Physical Exam Constitutional: WD/WN, vitals as above Eyes: EOM intact bilaterally Neck: normal visual inspection Respiratory: normal respiratory effort, lungs clear to auscultation Cardiovascular: RRR, no murmur, no edema Gastrointestinal (Abdomen): Inspection/Auscultation: abdomen normal to in spection; abdomen not distended Percussion/Palpation: abdomen soft; abdomen nontender and no hepatosplenomegaly Musculoskeletal: Head/Neck/Chest: normocephalic and head atraumatic Extremities: no cyanosis Skin: no rashes, warm and dry Neurologic: moves all extremities Psychiatric: Orientation: alert and cooperative Affect: euthymic affect Results & Data Vital Signs (Past 12 Hours) Vital Signs Temp Pulse Pulse Resp BP Pulse Ox O2 Del Method 07/23/23 08:03 Room Air 07/23/23 07:12 36.6 C 65 16 124/71 93 Room Air 07/23/23 03:34 Room Air 07/23/23 03:37 36.4 C L 64 18 137/74 92 Room Air 07/23/23 02:03 65 14 95 Room Air 07/22/23 23:24 67 18 139/75 98 Room Air PG Care Time/CCT Total # of Minutes Spent Total Time Spent with Patient: Total time spent is greater than 50% in coordination of care (as documented) at patient's floor/unit and/or counseling patient: Coding Level of Care Code 31301 INT INP/OBS CARE MIN Diagnoses Choledocholithiasis K80.50
[2023-07-23] MEDS: PANTOprazole 40 MG in SYRINGE 0 ML IV SCH (11:28)
[2023-07-23] MEDS: MONTELUKAST SODIUM 10 MG TABLET PO SCH (11:29)
[2023-07-23] MEDS: CITALOPRAM 40 MG TAB PO SCH (11:29)
[2023-07-23] MEDS: DONEPEZIL HCL 10 MG TAB PO SCH (11:29)
[2023-07-23] MEDS: CETIRIZINE HCL 10 MG TABLET PO SCH (11:30)
--- NOTE | 2023-07-23 12:37 | Hospitalist Progress Note ---
Date of Service July 23, 2023 Assessment & Plan (1) Choledocholithiasis: Plan: Appreciate gastroenterology consultation and recommendations. Abnormal MRCP obtained. Anticipate ERCP tomorrow, July 24, with definitive treatment of common bile duct stone. Cipro, day 1 (2) Acid reflux: Plan: Intravenous PPI therapy for now (3) Asthma: Plan: Stable. Continue current medical manage (4) Depression: Plan: Stable. Continue current medical management (5) Diabetes mellitus: Plan: ADA diet. Sliding scale coverage. (6) Dyslipidemia: Plan: Stable. Continue statin therapy (7) Hypertension: Plan: Stable. Continue current medical management Plan Hopeful discharge to home within the next day or 2 Admission and Anticipated Discharge Date Admission Date: July 23, 2023 Subjective Alert and oriented. No complaints. Will allow a diet today, July 23. GI consultation noted. MRCP with CBD stone extraction tomorrow, July 24. She is now on parenteral Cipro therapy, day 1. IV fluids have been tapered down. Review of Systems Review of Systems: Constitutional-no fever or chills ENT-no blurred vision, no double vision, no epistaxis, no sore throat. No scleral icterus Respiratory-no cough, no wheezing, no shortness of breath Cardiac-no palpitations, no chest pain, no syncope GI-no nausea, vomiting, diarrhea, melena, hematochezia -no urinary retention, no urinary incontinence, no dysuria, no hematuria Musculoskeletal-no joint pain, no muscle tenderness Skin-no bruising, no rashes, no pruritus. No jaundice Neuro-no isolated weakness, no paresthesia, no weakness Psych-no depression, no anxiety Physical Exam Physical Exam: General-alert and oriented x3, no fevers, no chills HEENT-head atraumatic and normocephalic, pupils equal and reactive to light, extraocular muscles intact Neck-no lymphadenopathy or thyromegaly, trachea midline Chest-clear to auscultation percussion. No rales wheezing or rhonchi Cardiac-regular rate and rhythm, normal S1 and S2 Abdomen-normal bowel sounds, nontender, no hepatosplenomegaly Extremities-no cyanosis, clubbing, or edema Neuro-cranial nerves II through XII intact, motor and sensory function within normal limits, strength symmetrical , no focal deficits Psych-normal affect, normal mood Results & Data Results & Data Vital Signs (Past 12 Hours) Vital Signs Temp Pulse Pulse Resp BP Pulse Ox O2 Del Method 07/23/23 08:03 Room Air 07/23/23 07:12 36.6 C 65 16 124/71 93 Room Air 07/23/23 03:34 Room Air 07/23/23 03:37 36.4 C L 64 18 137/74 92 Room Air 07/23/23 02:03 65 14 95 Room Air Laboratory Results 07/23/23 07:50 07/23/23 07:50 PG Care Time/CCT Total # of Minutes Spent Total Time Spent with Patient: Total time spent is greater than 50% in coordination of care (as documented) at patient's floor/unit and/or counseling patient: Coding Level of Care Code 52326 SUB INP/OBS CARE 350MIN Diagnoses Choledocholithiasis K80.50 Acid reflux K21.9 Asthma J45.909 Depression F32.9 Diabetes mellitus E11.9 Dyslipidemia E78.5 Hypertension I10
[2023-07-23] MEDS: CIPROFLOXACIN / D5W 400 MG/200 ML BAG IV SCH ×2 (14:18→23:48)
--- NOTE | 2023-07-23 17:53 | Anesthesiology Consultation ---
Date of Service July 23, 2023 Assessment & Plan Chart Review Chart Review: Acceptable Risk for Surgery and Patient NOT seen in Pre Admission Testing Consults Requested none ASA ASA4 Proposed Anesthesia Anesthesia Type: General History Height/Weight Height: 4 ft 9 in Weight: 63.1 kg Allergies Allergy/AdvReac Type Severity Reaction Status Date / Time sulfamethoxazole Allergy Intermediate UNSURE Verified 07/10/23 11:39 trimethoprim Allergy Intermediate UNSURE Verified 07/10/23 11:39 BO Inhibitors Allergy Unknown UNK Verified 07/10/23 11:39 Penicillins Allergy Unknown Unknown Verified 07/10/23 11:39 tetanus toxoid, adsorbed Allergy Unknown Unknown Verified 07/10/23 11:39 Medications Home Medications Medication Instructions Recorded Confirmed Last Taken acetaminophen 500 mg tablet 1,000 mg PO DIRECTED PRN Pain 02/03/22 07/22/23 Unknown cetirizine 10 mg tablet 10 mg PO DAILY 02/03/22 07/22/23 05/01/23 focus select 2 tab PO DAILY 02/03/22 07/22/23 05/01/23 albuterol sulfate 90 mcg/actuation 2 puff inhalation QID PRN 01/12/23 07/22/23 Unknown aerosol inhaler Shortness Of Breath Or Wheezing #8.5 grams cholecalciferol (vitamin D3) 25 1,000 unit PO DAILY 01/30/23 07/22/23 05/01/23 mcg (1,000 unit) capsule (Vitamin D3) ipratropium bromide 21 mcg (0.03 See Rx Instructions .Route 02/23/23 07/22/23 05/01/23 %) nasal spray .COMPLEX #30 mL amlodipine 10 mg tablet 10 mg PO DAILY #30 tabs 04/03/23 07/22/23 05/01/23 budesonide-formoterol HFA 160 2 inh inhalation BID 05/01/23 07/22/23 05/01/23 08:00 mcg-4.5 mcg/actuation aerosol inhaler (Symbicort) citalopram 40 mg tablet 40 mg PO DAILY 05/01/23 07/22/23 05/01/23 donepezil 10 mg tablet 10 mg PO DAILY 05/01/23 07/22/23 05/01/23 fluticasone propionate 50 1 spray intranasal BID 05/01/23 07/22/23 05/01/23 08:00 mcg/actuation nasal spray,suspension montelukast 10 mg tablet 10 mg PO DAILY 05/01/23 07/22/23 05/01/23 losartan 50 mg tablet See Rx Instructions .Route 05/08/23 07/22/23 Unknown .COMPLEX #180 tabs clobetasol 0.05 % topical ointment 1 applic topical 2XWK #30 grams 06/07/23 07/22/23 Unknown simvastatin 10 mg tablet 10 mg PO DAILY #90 tabs 06/30/23 07/22/23 Unknown hydrochlorothiazide 12.5 mg tablet 12.5 mg PO DAILY #30 tabs 07/04/23 07/22/23 Unknown mecobalamin (vitamin B12) 1,000 1,000 mcg PO DAILY 07/04/23 07/22/23 Unknown mcg chewable tablet memantine 10 mg tablet 10 mg PO BID #60 tabs 07/10/23 07/22/23 Unknown buspirone 10 mg tablet 10 mg PO BID 07/22/23 07/22/23 Unknown esomeprazole magnesium 40 mg 40 mg PO DAILY 07/22/23 07/22/23 Unknown capsule,delayed release Active Medications Generic Name Dose Route Start Last Admin Trade Name Freq PRN Reason Stop Dose Admin Amlodipine Besylate 10 mg 07/23/23 09:00 07/23/23 10:52 Amlodipine Besylate 5 Mg Tab PO 08/22/23 08:59 Not Given DAILY MASON Buspirone HCl 10 mg 07/23/23 09:00 07/23/23 10:52 Buspirone 5 Mg Tab PO 08/22/23 08:59 Not Given BID MASON Cetirizine HCl 10 mg 07/23/23 09:00 07/23/23 11:30 Cetirizine Hcl 10 Mg Tablet PO 08/22/23 08:59 10 mg DAILY MASON Administration Citalopram Hydrobromide 40 mg 07/23/23 09:00 07/23/23 11:29 Citalopram 40 Mg Tab PO 08/22/23 08:59 40 mg DAILY MASON Administration Donepezil HCl 10 mg 07/23/23 09:00 07/23/23 11:29 Donepezil Hcl 10 Mg Tab PO 08/22/23 08:59 10 mg DAILY MASNO Administration Fluticasone Propionate 1 sprays 07/23/23 09:00 07/23/23 07:57 Fluticasone Propionate Na Spr 16 Gm Btl VOLODYMYR 08/22/23 08:59 1 sprays BID MASON Administration Fluticasone/Vilanterol 1 puffs 07/23/23 09:00 07/23/23 07:57 Fluticasone/Vilanterol 200/25mcg 14 Puffs/Inhaler INH 08/22/23 08:59 1 puffs DAILY MASON Administration Sodium Chloride 1,000 mls @ 60 mls/hr 07/23/23 03:34 07/23/23 17:23 Nss IV 08/22/23 03:33 60 mls/hr .[id number] MASON Administration Pantoprazole Sodium 40 mg/ 10 mls @ 5 mls/min 07/23/23 11:00 07/23/23 11:28 Syringe IV 08/22/23 10:59 5 mls/min DAILY@1100 MASON Administration Ciprofloxacin 400 mg in 200 mls @ 100 mls/hr 07/23/23 12:00 07/23/23 16:18 Cipro / D5w IV 08/02/23 11:59 Infused Q12H MASON Infusion Protocol Ipratropium [place] 2 sprays 07/23/23 09:00 07/23/23 07:57 Ipratropium [place] Nasal [place] 0.06% 15ml VOLODYMYR 08/22/23 08:59 2 sprays Q12 MASON Administration Losartan Potassium 50 mg 07/23/23 09:00 07/23/23 10:52 Losartan Potassium 50 Mg Tab PO 08/22/23 08:59 Not Given BID MASON Memantine 10 mg 07/23/23 09:00 07/23/23 10:52 Memantine Hcl 10 Mg Tab PO 08/22/23 08:59 Not Given BID MASON Montelukast Sodium 10 mg 07/23/23 09:00 07/23/23 11:29 Montelukast Sodium 10 Mg Tablet PO 08/22/23 08:59 10 mg DAILY MASON Administration Simvastatin 10 mg 07/23/23 09:00 07/23/23 10:51 Simvastatin 10 Mg Tab PO 08/22/23 08:59 Not Given DAILY MASON Past Medical History Medical History Acute ITP Acute joint effusion Fall Generalized weakness Hemarthrosis IBS (irritable bowel syndrome) Osteopenia Pancytopenia Pneumonia Postmenopausal atrophic vaginitis Vertigo Vitamin D deficiency HLD ASCVD Aorta moderate coronary artery calcifications asthma/copd HTN Exercise / Class Metabolic Activity III < 4 Walking/Shop/Light housework Past Family History Family History Unknown Coronary arteriosclerosis Aneurysm of abdominal aorta Mother No problems noted. Other No pertinent family history Denies family history of Ovarian cancer Past Surgical History Surgical History History of appendectomy S/P bronchoscopy S/P cholecystectomy S/P colonoscopy S/P dilation and curettage S/P tonsillectomy and adenoidectomy S/P tooth extraction ORIF right patellar Fx Past Anesthesia History No Hx of Anesthesia Complications and No Family Hx of Anesthesia Complications History of PONV No Hx of PONV and No Hx of Motion Sickness Social History Smoking Status: Former smoker tobacco type: cigarettes Do You Dip or Chew Tobacco: No Hx Alcohol Use: No Hx Substance Use: No substance use type: does not use Physical Exam Vital Signs Last Vital Signs Temp 36.5 C 07/23/23 14:44 Pulse 74 07/23/23 14:44 Resp 18 07/23/23 14:44 BP 112/70 07/23/23 14:44 Pulse Ox 93 07/23/23 14:44 O2 Del Method Room Air 07/23/23 14:44 O2 Flow Rate 2 07/22/23 19:00 Testing Laboratory Results 07/23/23 07:50 07/23/23 07:50 Electrocardiogram Date: 07/22/23 Findings: + NSR @ (SR @ 71 w/PAC's;Low voltage QRS) Chest X-Ray Date: 07/22/23 Findings: + NAD, + cardiomegaly and + other (prior granulomatous disease) Other Testing 07/22/2023-CTA Chest-cardiomegaly;moderate coronary artery calcifications
[2023-07-23 18:00] LABS: Appearance Urine Clear (Clear); Bacteria Urine Automated Negative (Negative); Bilirubin Urine Negative (Negative); Blood Urine Negative (Negative); Cast Urine Automated 0 /lpf (0-5); Color Urine Yellow; Glucose Urine UA Negative (Negative); Ketones Urine Negative (Negative); Leukocyte Esterase Urine 1+ (Negative); Nitrite Urine Negative (Negative); Protein Urine Negative (Negative); RBC Urine Automated 0-4 /hpf (0-4); Urobilinogen Urine Negative (Negative)
--- NOTE | 2023-07-23 19:27 | Billing Data ---
Date of Service July 23, 2023 Coding Level of Care Code 28887 INT INP/OBS CARE
[2023-07-23] MEDS: HEPARIN SOD 5,000 UNIT/0.5 ML VIAL SQ SCH (20:32)
[2023-07-24 06:53] LABS: Basophils # (auto) 0.01 K/uL (0.00-0.20); Basophils % (auto) 0.2 %; Eosinophils # (auto) 0.01 K/uL (0.00-0.50); Eosinophils % (auto) 0.2 %; Hematocrit (blood only) 34.4 % (37.0-47.0); Hemoglobin 11.2 g/dl (12.0-16.0); Immature Granulocytes # (auto) 0.04 K/uL (0.01-0.20); Immature Granulocytes % (auto) 0.7 %; Lymphocytes % (auto) 16.8 %; Mean Corpuscular Hemoglobin 28.4 pg (25.0-34.0); Mean Corpuscular Hgb Conc 32.6 g/dL (32.0-36.0); Mean Corpuscular Volume 87.3 fL (80.0-100.0); Mean Platelet Volume 10.3 fL (9.4-12.4); Monocytes # (auto) 1.58 K/uL (0.11-0.59); Monocytes % (auto) 29.4 %; Neutrophils # (auto) 2.83 K/uL (1.40-6.50); Neutrophils % (auto) 52.7 %; Platelet Count 157 K/uL (130-400); RDW Coefficient of Variation 18.4 % (11.5-14.5); RDW Standard Deviation 59.3 fL (36.4-46.3); Red Blood Count 3.94 M/uL (4.20-5.40); White Blood Count 5.37 K/ul (4.8-10.8)
[2023-07-24 07:13] LABS: Albumin Globulin Ratio 0.9 (0.9-2); Albumin Level 2.9 gm/dl (3.4-5.0); BUN Creatinine Ratio 17.9 (10-20); Bilirubin,Total 0.8 mg/dl (0.2-1.0); Creatinine Clr Calc Pharmacy 44.3 ml/min; Est GFR (Non-African American) 78.5 ml/min; Globulin 3.1 gm/dl (2.5-4.0); Potassium 3.6 mmol/L (3.5-5.1)
[2023-07-24] MEDS: FLUTICASONE/VILANTEROL 200/25MCG 14 PUFFS/INHALER INH SCH (08:03)
[2023-07-24] MEDS: FLUTICASONE PROPIONATE NA SPR 16 GM BTL NAE SCH ×2 (08:03→21:54)
[2023-07-24 09:28] LABS: INR 1.1 (0.9-1.1); Prothrombin Time 11.8 Seconds (9.0-12.0)
[2023-07-24] MEDS ORDERED: LORazepam 2 MG/1 ML VIAL IV STA (09:37)
[2023-07-24] MEDS ORDERED: LORazepam 2 MG/1 ML VIAL IV PRN (09:37)
--- NOTE | 2023-07-24 10:31 | Gastroenterology Progress Note ---
Date of Service July 24, 2023 Assessment & Plan (1) Choledocholithiasis: Plan ERCP today by Dr. Rey Levy. Please keep NPO. Procedure was explained in detail using illustrations. Complication including bleeding, infection, bile duct injury were also discussed. All questions answered. The pt and her son in law at the bedside would like to go forward with ERCP. Admission and Anticipated Discharge Date Admission Date: July 23, 2023 Supervising Physician Co-Signing Physician Notes I personally saw and evaluated the patient on 07/24/2023 with ROSE Cano and agree with her findings and plan of care. 88 y/o F w/ PMH of depression, anxiety, HTN, HLD, DM2 admitted with abdominal pain and cough found to have choledocholithiasis on MRCP with CBD measuring 1.8 cm. LFTs normal. No fever or leukocytosis at this time to suggest any cholangitis. She is currently on IV cipro. At bedside patient without any current complaints. She is AAOx3 and there is no abdominal tenderness on exam. We will plan for ERCP this afternoon with Dr. Levy. Remain NPO. Continue to trend daily LFTs. Son in law at bedside updated as well. Destiney Fry, DO Gastroenterology and Hepatology Subjective Ms. Iris Vega is an 88 yr old female pt of Dr. Edgar w a hx of asthma, depression/anxiety. Admitted on Sat 07/[address], MRCP w mid/distal CBD stones. Pain resolved w medication. No el in WBC, LFTs, lipase. No fevers, chills, sweats. Comfortable, awake, alert, oriented. Son in law w her in the room. Review of Systems Constitutional: no fever, no chills and no weight loss Eyes: as per Subjective / HPI Ear, Nose, Mouth, Throat: as per Subjective / HPI Respiratory: no dyspnea and no dyspnea on exertion Cardiovascular: no chest pain and no palpitations Gastrointestinal: as per Subjective / HPI Musculoskeletal: no joint pain and no swelling Integumentary: no rash and no lesions Neurologic: no numbness and no paresthesia Psychiatric: no depression and no anxiety Endocrine: no fatigue Hematologic / Lymphatic: no easy bleeding and no easy bruising Physical Exam Constitutional: WD/WN, vitals as above Eyes: PERRL, conjunctivae normal, anicteric sclerae (except slight mucoid dc from right eye) ENMT: external ear and nose normal, oropharynx normal Neck: trachea midline, no thyromegaly Respiratory: normal respiratory effort, lungs clear to auscultation Cardiovascular: RRR, no murmur, no edema Gastrointestinal (Abdomen): normal bowel sounds, soft, nontender, no hepatosplenomegaly Musculoskeletal: no cyanosis or clubbing, extremities motor strength 5/5 Skin: no rashes, warm and dry Neurologic: PERRL, EOMI, accommodation nl, no face palsy, no dysarthria Psychiatric: A+Ox3, euthymic affect Genitourinary: Urine cath in place draining light yellow urine. Lymphatic: no cervical or axillary lymphadenopathy Results & Data Vital Signs (Past 12 Hours) Vital Signs Temp Pulse Resp BP Pulse Ox O2 Del Method 07/24/23 07:42 Room Air 07/24/23 06:14 36.9 C 72 16 147/70 H 93 Room Air Laboratory Results T bili 0.8, AST 13, ALT 7, Alk Phos 44, WBC 5.3, Hb 11.2, Hct 34.4, plts 157, Na 137, K 3.6, Cl 106, CO2 25, BUN 12, Cr 0.67. PT 11.8, INR 1.1 Diagnostic Findings MRCP 07/22: Cholecystectomy with choledocholithiasis resulting in intrahepatic and extrahepatic biliary ductal dilation. US 07/22/23: 1. The common bile duct is markedly dilated measuring 1.8 cm. There is no visualized filling defect. Consider further evaluation with MRCP if clinically indicated. 2. Increased echogenicity of the right renal cortex is most consistent with chronic medical renal disease.
--- NOTE | 2023-07-24 11:41 | Hospitalist Progress Note ---
Date of Service July 24, 2023 Assessment & Plan (1) Choledocholithiasis: Plan: ERCP later today, July 24, per GI service. Continue intravenous Cipro, day 2. MRCP was completed earlier this admission and reveals a common bile duct stone. (2) Acid reflux: Plan: Stable. Continue PPI therapy (3) Diabetes mellitus: Plan: Stable. Continue basal insulin and sliding scale coverage as needed (4) Hypertension: Plan: Stable. Continue current medical management (5) Anxiety: Plan: IV lorazepam as needed Plan Hopeful discharge to home soon. Possibly tomorrow, July 25 Admission and Anticipated Discharge Date Admission Date: July 23, 2023 Subjective Alert and oriented. No distress. She is anxious and asking for something. As needed IV lorazepam has been ordered. Son is at the bedside. ERCP will be completed later today, July 24 Review of Systems Review of Systems: Constitutional-no fever or chills ENT-no blurred vision, no double vision, no epistaxis, no sore throat. No scleral icterus Respiratory-no cough, no wheezing, no shortness of breath Cardiac-no palpitations, no chest pain, no syncope GI-no nausea, vomiting, diarrhea, melena, hematochezia -no urinary retention, no urinary incontinence, no dysuria, no hematuria Musculoskeletal-no joint pain, no muscle tenderness Skin-no bruising, no rashes, no pruritus. No jaundice Neuro-no isolated weakness, no paresthesia, no weakness Psych-no depression, no anxiety Physical Exam Physical Exam: General-alert and oriented x3, no fevers, no chills HEENT-head atraumatic and normocephalic, pupils equal and reactive to light, extraocular muscles intact Neck-no lymphadenopathy or thyromegaly, trachea midline Chest-clear to auscultation percussion. No rales wheezing or rhonchi Cardiac-regular rate and rhythm, normal S1 and S2 Abdomen-normal bowel sounds, nontender, no hepatosplenomegaly Extremities-no cyanosis, clubbing, or edema Neuro-cranial nerves II through XII intact, motor and sensory function within normal limits, strength symmetrical , no focal deficits Psych-normal affect, normal mood Results & Data Results & Data Vital Signs (Past 12 Hours) Vital Signs Temp Pulse Resp BP Pulse Ox O2 Del Method 07/24/23 07:42 Room Air 07/24/23 06:14 36.9 C 72 16 147/70 H 93 Room Air Laboratory Results 07/24/23 06:14 07/24/23 06:14 PG Care Time/CCT Total # of Minutes Spent Total Time Spent with Patient: Total time spent is greater than 50% in coordination of care (as documented) at patient's floor/unit and/or counseling patient: Coding Level of Care Code 58223 SUB INP/OBS CARE 3/50MIN Diagnoses Choledocholithiasis K80.50 Acid reflux K21.9 Diabetes mellitus E11.9 Hypertension I10 Anxiety F41.9
--- NOTE | 2023-07-24 11:56 | Anesthesiology Consultation ---
Date of Service July 24, 2023 History Surgery Operation Date: 07/24/23 08:35 Proposed Procedures p Endoscopic Retrograde Cholangiopancreato - Marten Timothy Levy, Height/Weight Height: 4 ft 9 in Weight: 63.1 kg Allergies Allergy/AdvReac Type Severity Reaction Status Date / Time sulfamethoxazole Allergy Intermediate UNSURE Verified 07/10/23 11:39 trimethoprim Allergy Intermediate UNSURE Verified 07/10/23 11:39 BO Inhibitors Allergy Unknown UNK Verified 07/10/23 11:39 Penicillins Allergy Unknown Unknown Verified 07/10/23 11:39 tetanus toxoid, adsorbed Allergy Unknown Unknown Verified 07/10/23 11:39 Medications Home Medications Medication Instructions Recorded Confirmed Last Taken acetaminophen 500 mg tablet 1,000 mg PO DIRECTED PRN Pain 02/03/22 07/22/23 Unknown cetirizine 10 mg tablet 10 mg PO DAILY 02/03/22 07/22/23 05/01/23 focus select 2 tab PO DAILY 02/03/22 07/22/23 05/01/23 albuterol sulfate 90 mcg/actuation 2 puff inhalation QID PRN 01/12/23 07/22/23 Unknown aerosol inhaler Shortness Of Breath Or Wheezing #8.5 grams cholecalciferol (vitamin D3) 25 1,000 unit PO DAILY 01/30/23 07/22/23 05/01/23 mcg (1,000 unit) capsule (Vitamin D3) ipratropium bromide 21 mcg (0.03 See Rx Instructions .Route 02/23/23 07/22/23 05/01/23 %) nasal spray .COMPLEX #30 mL amlodipine 10 mg tablet 10 mg PO DAILY #30 tabs 04/03/23 07/22/23 05/01/23 budesonide-formoterol HFA 160 2 inh inhalation BID 05/01/23 07/22/23 05/01/23 08:00 mcg-4.5 mcg/actuation aerosol inhaler (Symbicort) citalopram 40 mg tablet 40 mg PO DAILY 05/01/23 07/22/23 05/01/23 donepezil 10 mg tablet 10 mg PO DAILY 05/01/23 07/22/23 05/01/23 fluticasone propionate 50 1 spray intranasal BID 05/01/23 07/22/23 05/01/23 08:00 mcg/actuation nasal spray,suspension montelukast 10 mg tablet 10 mg PO DAILY 05/01/23 07/22/23 05/01/23 losartan 50 mg tablet See Rx Instructions .Route 05/08/23 07/22/23 Unknown .COMPLEX #180 tabs clobetasol 0.05 % topical ointment 1 applic topical 2XWK #30 grams 06/07/23 07/22/23 Unknown simvastatin 10 mg tablet 10 mg PO DAILY #90 tabs 06/30/23 07/22/23 Unknown hydrochlorothiazide 12.5 mg tablet 12.5 mg PO DAILY #30 tabs 07/04/23 07/22/23 Unknown mecobalamin (vitamin B12) 1,000 1,000 mcg PO DAILY 07/04/23 07/22/23 Unknown mcg chewable tablet memantine 10 mg tablet 10 mg PO BID #60 tabs 07/10/23 07/22/23 Unknown buspirone 10 mg tablet 10 mg PO BID 07/22/23 07/22/23 Unknown esomeprazole magnesium 40 mg 40 mg PO DAILY 07/22/23 07/22/23 Unknown capsule,delayed release Active Medications Generic Name Dose Route Start Last Admin Trade Name Freq PRN Reason Stop Dose Admin Amlodipine Besylate 10 mg 07/23/23 09:00 07/23/23 10:52 Amlodipine Besylate 5 Mg Tab PO 08/22/23 08:59 Not Given DAILY MASON Buspirone HCl 10 mg 07/23/23 09:00 07/23/23 20:34 Buspirone 5 Mg Tab PO 08/22/23 08:59 10 mg BID MASON Administration Cetirizine HCl 10 mg 07/23/23 09:00 07/23/23 11:30 Cetirizine Hcl 10 Mg Tablet PO 08/22/23 08:59 10 mg DAILY MASON Administration Citalopram Hydrobromide 40 mg 07/23/23 09:00 07/23/23 11:29 Citalopram 40 Mg Tab PO 08/22/23 08:59 40 mg DAILY MASON Administration Donepezil HCl 10 mg 07/23/23 09:00 07/23/23 11:29 Donepezil Hcl 10 Mg Tab PO 08/22/23 08:59 10 mg DAILY MASON Administration Fluticasone Propionate 1 sprays 07/23/23 09:00 07/24/23 08:03 Fluticasone Propionate Na Spr 16 Gm Btl VOLODYMYR 08/22/23 08:59 1 sprays BID MASON Administration Fluticasone/Vilanterol 1 puffs 07/23/23 09:00 07/24/23 08:03 Fluticasone/Vilanterol 200/25mcg 14 Puffs/Inhaler INH 08/22/23 08:59 1 puffs DAILY MASON Administration Heparin Sodium (Porcine) 5,000 units 07/23/23 21:00 07/23/23 20:32 Heparin Sod 5,000 Unit/0.5 Ml Vial SQ 08/22/23 20:59 5,000 units Q12 MASON Administration Sodium Chloride 1,000 mls @ 60 mls/hr 07/23/23 03:34 07/24/23 01:48 Nss IV 08/22/23 03:33 60 mls/hr .[id number] MASON Infusion Pantoprazole Sodium 40 mg/ 10 mls @ 5 mls/min 07/23/23 11:00 07/23/23 11:28 Syringe IV 08/22/23 10:59 5 mls/min DAILY@1100 MASON Administration Ciprofloxacin 400 mg in 200 mls @ 100 mls/hr 07/23/23 12:00 07/24/23 01:48 Cipro / D5w IV 08/02/23 11:59 Infused Q12H MASON Infusion Protocol Ipratropium [place] 2 sprays 07/23/23 09:00 07/23/23 20:32 Ipratropium [place] Nasal [place] 0.06% 15ml VOLODYMYR 08/22/23 08:59 2 sprays Q12 MASON Administration Losartan Potassium 50 mg 07/23/23 09:00 07/23/23 20:35 Losartan Potassium 50 Mg Tab PO 08/22/23 08:59 50 mg BID MASON Administration Memantine 10 mg 07/23/23 09:00 07/23/23 20:34 Memantine Hcl 10 Mg Tab PO 08/22/23 08:59 10 mg BID MASON Administration Montelukast Sodium 10 mg 07/23/23 09:00 07/23/23 11:29 Montelukast Sodium 10 Mg Tablet PO 08/22/23 08:59 10 mg DAILY MASON Administration Simvastatin 10 mg 07/23/23 09:00 07/23/23 10:51 Simvastatin 10 Mg Tab PO 08/22/23 08:59 Not Given DAILY MASON Past Medical History Medical History Acute ITP Acute joint effusion Fall Generalized weakness Hemarthrosis IBS (irritable bowel syndrome) Osteopenia Pancytopenia Pneumonia Postmenopausal atrophic vaginitis Vertigo Vitamin D deficiency Past Family History Family History Unknown Coronary arteriosclerosis Aneurysm of abdominal aorta Mother No problems noted. Other No pertinent family history Denies family history of Ovarian cancer Past Surgical History Surgical History History of appendectomy S/P bronchoscopy S/P cholecystectomy S/P colonoscopy S/P dilation and curettage S/P tonsillectomy and adenoidectomy S/P tooth extraction Social History Smoking Status: Former smoker tobacco type: cigarettes Do You Dip or Chew Tobacco: No Hx Alcohol Use: No Hx Substance Use: No substance use type: does not use Physical Exam Vital Signs Last Vital Signs Temp 36.9 C 07/24/23 06:14 Pulse 72 07/24/23 06:14 Resp 16 07/24/23 06:14 BP 147/70 H 07/24/23 06:14 Pulse Ox 93 07/24/23 06:14 O2 Del Method Room Air 07/24/23 07:42 O2 Flow Rate 2 07/22/23 19:00 Testing Laboratory Results 07/24/23 06:14 07/24/23 06:14 PT 11.8 Seconds (9.0-12.0) 07/24/23 08:29 INR 1.1 (0.9-1.1) 07/24/23 08:29 Urine Color Yellow 07/23/23 17:30 Urine Appearance Clear (Clear) 07/23/23 17:30 Urine pH 6.0 (4.5-7.5) 07/23/23 17:30 Ur Specific [place] 1.020 (1.000-1.030) 07/23/23 17:30 Urine Protein Negative (Negative) 07/23/23 17:30 Urine Glucose (UA) Negative (Negative) 07/23/23 17:30 Urine Ketones Negative (Negative) 07/23/23 17:30 Urine Nitrite Negative (Negative) 07/23/23 17:30 Ur Leukocyte Esterase 1+ (Negative) H 07/23/23 17:30 Urine WBC (Auto) 1-5 /hpf (0-5) 07/23/23 17:30 Urine RBC (Auto) 0-4 /hpf (0-4) 07/23/23 17:30 U Hyaline Cast (Auto) 0 /lpf (0-5) 07/23/23 17:30 U Epithel Cells (Auto) 10-20 /lpf (0-5) H 07/23/23 17:30 Urine Bacteria (Auto) Negative (Negative) 07/23/23 17:30 Electrocardiogram Date: 07/22/23 Findings: + NSR @ (SR @ 71 w/PAC's;Low voltage QRS) Chest X-Ray Date: 07/22/23 Findings: + NAD, + cardiomegaly and + other (prior granulomatous disease) Other Testing 07/22/2023-CTA Chest-cardiomegaly;moderate coronary artery calcifications
[2023-07-24] MEDS ORDERED: LACTATED RINGER'S 1,000 ML IV SCH (12:15)
[2023-07-24] MEDS ORDERED: fentaNYL citrate PF 100 MCG/2 ML VIAL ONE (12:33)
[2023-07-24] MEDS ORDERED: PROPOFOL IV EMULSION 10 MG/ML 20 ML VIAL IV ONE (12:33)
[2023-07-24] MEDS ORDERED: LIDOCAINE 2% 2 ML VIAL/AMP(20MG/ML) INFIL ONE (12:33)
[2023-07-24] MEDS ORDERED: DEXAMETHASONE SOD INJ 4 MG/ML VIAL ONE (12:38)
[2023-07-24] MEDS ORDERED: ONDANSETRON INJ 2 MG/ML 2 ML VIAL ONE (12:38)
[2023-07-24] MEDS ORDERED: ATROPINE SULFATE 0.1 MG/ML 10ML SYR IV PRN (12:43)
[2023-07-24] MEDS ORDERED: fentaNYL citrate PF 100 MCG/2 ML VIAL IV PRN (12:43)
[2023-07-24] MEDS ORDERED: ePHEDrine sulfate 50 MG/ML AMP IV PRN (12:43)
[2023-07-24] MEDS ORDERED: ONDANSETRON INJ 2 MG/ML 2 ML VIAL IV PRN (12:43)
[2023-07-24] MEDS: CIPROFLOXACIN / D5W 400 MG/200 ML BAG IV SCH ×2 (13:00→23:30)
--- NOTE | 2023-07-24 13:03 | History & Physical Bridge Note ---
Date of Service July 24, 2023 History & Physical Bridge Note I have examined the patient, reviewed the History & Physical and in the interval since the performance of the History & Physical I have noted the following changes of clinical significance: no changes not the patient was referred for ERCP due to the stones seen in her distal common bile duct on a recent imaging study. I discussed the risks and benefits of the procedure with the patient to include bleeding infection perforation pain pancreatitis and failed cannulation.
[2023-07-24] MEDS ORDERED: ROCURONIUM BROMIDE 10 MG/ML 5 ML VIAL IV ONE (13:24)
[2023-07-24] MEDS ORDERED: INDOMETHACIN 50 MG SUPP PR ONE ×2 (13:46)
--- NOTE | 2023-07-24 14:00 | Gastrointestinal Consultation ---
Date of Consultation July 24, 2023 History of Present Illness Reason for Consultation: Elevated liver enzymes and suspected common bile duct stones Requesting Physician: Dr. Gonzalez Attending Physician: Jose Puri MD Allergies Allergy/AdvReac Type Severity Reaction Status Date / Time sulfamethoxazole Allergy Intermediate UNSURE Verified 07/24/23 12:32 trimethoprim Allergy Intermediate UNSURE Verified 07/24/23 12:32 BO Inhibitors Allergy Unknown UNK Verified 07/24/23 12:32 Penicillins Allergy Unknown Unknown Verified 07/24/23 12:32 tetanus toxoid, adsorbed Allergy Unknown Unknown Verified 07/24/23 12:32 Home Medications Medication Instructions Recorded Confirmed Type acetaminophen 500 mg tablet 1,000 mg PO DIRECTED PRN Pain 02/03/22 07/22/23 History cetirizine 10 mg tablet 10 mg PO DAILY 02/03/22 07/22/23 History focus select 2 tab PO DAILY 02/03/22 07/22/23 History albuterol sulfate 90 mcg/actuation 2 puff inhalation QID PRN 01/12/23 07/22/23 Rx aerosol inhaler Shortness Of Breath Or Wheezing #8.5 grams cholecalciferol (vitamin D3) 25 1,000 unit PO DAILY 01/30/23 07/22/23 History mcg (1,000 unit) capsule (Vitamin D3) ipratropium bromide 21 mcg (0.03 See Rx Instructions .Route 02/23/23 07/22/23 Rx %) nasal spray .COMPLEX #30 mL amlodipine 10 mg tablet 10 mg PO DAILY #30 tabs 04/03/23 07/22/23 Rx budesonide-formoterol HFA 160 2 inh inhalation BID 05/01/23 07/22/23 History mcg-4.5 mcg/actuation aerosol inhaler (Symbicort) citalopram 40 mg tablet 40 mg PO DAILY 05/01/23 07/22/23 History donepezil 10 mg tablet 10 mg PO DAILY 05/01/23 07/22/23 History fluticasone propionate 50 1 spray intranasal BID 05/01/23 07/22/23 History mcg/actuation nasal spray,suspension montelukast 10 mg tablet 10 mg PO DAILY 05/01/23 07/22/23 History losartan 50 mg tablet See Rx Instructions .Route 05/08/23 07/22/23 Rx .COMPLEX #180 tabs clobetasol 0.05 % topical ointment 1 applic topical 2XWK #30 grams 06/07/23 07/22/23 Rx simvastatin 10 mg tablet 10 mg PO DAILY #90 tabs 06/30/23 07/22/23 Rx hydrochlorothiazide 12.5 mg tablet 12.5 mg PO DAILY #30 tabs 07/04/23 07/22/23 Rx mecobalamin (vitamin B12) 1,000 1,000 mcg PO DAILY 07/04/23 07/22/23 History mcg chewable tablet memantine 10 mg tablet 10 mg PO BID #60 tabs 07/10/23 07/22/23 Rx buspirone 10 mg tablet 10 mg PO BID 07/22/23 07/22/23 History esomeprazole magnesium 40 mg 40 mg PO DAILY 07/22/23 07/22/23 History capsule,delayed release Patient History Medical History Acute ITP Acute joint effusion Fall Generalized weakness Hemarthrosis IBS (irritable bowel syndrome) Osteopenia Pancytopenia Pneumonia Postmenopausal atrophic vaginitis Vertigo Vitamin D deficiency Surgical History History of appendectomy S/P bronchoscopy S/P cholecystectomy S/P colonoscopy S/P dilation and curettage S/P tonsillectomy and adenoidectomy S/P tooth extraction Family History Unknown Coronary arteriosclerosis Aneurysm of abdominal aorta Mother No problems noted. Other No pertinent family history Denies family history of Ovarian cancer Social History Smoking Status: Former smoker Tobacco Type: Cigarettes Second Hand Exposure: No; Do You Dip or Chew Tobacco: No; Hx Alcohol Use: No Hx Substance Use: No Preferred Language: Serbian Communication Ability: Effective Real Estate Analyst Required: No Beliefs That Will Affect Care: None marital status: / Current Living Situation: Family Current Living Situation Comment: lives with daughter and son in law current occupational status: retired Other Information That Helps Us Care for You: No Feels Safe at Home: Yes Safety Concerns: Feels Safe At This Time Seatbelt Use: always Assistive Devices: Denture - Upper, Denture - Lower, Glasses and Walker Results & Data Vital Signs (Past 12 Hours) Vital Signs Temp Pulse Resp BP Pulse Ox O2 Del Method 07/24/23 12:33 36.9 C 78 20 168/73 H 92 Room Air 07/24/23 07:42 Room Air 07/24/23 06:14 36.9 C 72 16 147/70 H 93 Room Air
--- NOTE | 2023-07-24 14:13 | Post Operative Brief Note ---
Immediate Post Op Note v1 Date of Surgery July 24, 2023 Pre & Post Diagnosis Operation Date: 07/24/23 08:35 Pre-Op Diagnosis: ABDOMINAL PAIN Post-Op Diagnosis: CBD stones I identified the patient and participated in the time-out.: Yes Procedure Operation Date: 07/24/23 08:35 Actual Procedures p Endoscopic Retrograde Cholangiopancreato - Rey Levy DO Surgeon Rey Levy, Beach Attendant none Estimated Blood Loss 0 Findings Consistent with Post-Op Diagnosis
--- NOTE | 2023-07-24 14:14 | Communication Note ---
Date of Service: July 24, 2023 Patient underwent ERCP this afternoon for treatment of choledocholithiasis. We did perform a biliary sphincterotomy, due to inadvertent cannulation of the pancreatic duct a prophylactic pancreatic stent was placed. The patient was found to have a persistent stricture in the distal common bile duct, thus a covered metal stent was placed for stricture remodeling. Recommendations Patient may have a clear liquid diet today Continue antibiotic coverage for total of 10 days With nonsteroidals and anticoagulation for 5 days please Repeat ERCP for stent removal in 6 to 8 weeks Please contact our general GI service with any additional questions or concerns.
--- NOTE | 2023-07-24 14:23 | GI REPORT ---
Patient Name: Iris Vega Procedure Date: 07/24/2023 1:10 PM Date of : 1935 Admit Type: Inpatient Age: 88 Gender: Female Attending MD: Rey Levy DO, Procedure: ERCP Providers: Rey Levy DO Referring MD: Jose Puri Indications: Abdominal pain of suspected biliary origin, Abnormal MRCP Medicines: General Anesthesia Complications: No immediate complications. Estimated blood loss: Minimal. Estimated Blood Loss: Estimated blood loss was minimal. Procedure: Pre-Anesthesia Assessment: - Prior to the procedure, a History and Physical was performed, and patient medications, allergies and sensitivities were reviewed. The patient's tolerance of previous anesthesia was reviewed. - The risks and benefits of the procedure and the sedation options and risks were discussed with the patient. All questions were answered and informed consent was obtained. - Patient identification and proposed procedure were verified prior to the procedure by the physician and the nurse. The procedure was verified in the procedure room. - Pre-procedure physical examination revealed no contraindications to sedation. - ASA Grade Assessment: III - A patient with severe systemic disease. - After reviewing the risks and benefits, the patient was deemed in satisfactory condition to undergo the procedure. - The anesthesia plan was to use general anesthesia. - The anesthesia plan was to use general anesthesia. - Immediately prior to administration of medications, the patient was re-assessed for adequacy to receive sedatives. - The heart rate, respiratory rate, oxygen saturations, blood pressure, adequacy of pulmonary ventilation, and response to care were monitored throughout the procedure. After obtaining informed consent, the scope was passed under direct vision. Throughout the procedure, the patient's blood pressure, pulse, and oxygen saturations were monitored continuously. The Duodenoscope was introduced through the mouth, and advanced to the duodenum and used to inject contrast into the bile duct. The ERCP was accomplished without difficulty. The patient tolerated the procedure well. Findings: The court interpreter film was normal (remote history of an open cholecystectomy). The esophagus was successfully intubated under direct vision without detailed examination of the pharynx, larynx, and associated structures, and upper GI tract. The upper GI tract was grossly normal. The major papilla was normal. The ventral pancreatic duct was inadvertently cannulated with the short-nosed traction sphincterotome and guidewire without any complications, the wire was left in place to aid in biliary cannulation with a double wire technique and later recent reflux pancreatic stent. The bile duct was deeply cannulated with the short-nosed traction sphincterotome and a second 0.035 in Acrobat 2 guidewire. Contrast was injected. I personally interpreted the bile duct images. The main bile duct was moderately dilated and diffusely dilated. The largest diameter was 15 mm. The biliary orifice was stenotic. This appeared benign. Biliary sphincterotomy was made with a monofilament Fusion OMNI sphincterotome using ERBE electrocautery. There was no post-sphincterotomy bleeding. To discover objects, the biliary tree was swept with an 18 mm balloon starting at the bifurcation. Many darkly pigmented stones were removed. No stones remained. Due to persistent narrowing in the distal common bile, one 10 Fr by 8 cm covered metal stent was placed 7.5 cm into the common bile duct for stricture remodeling. Bile flowed through the stent. The stent was in good position. One 5 Fr by 7 cm pancreatic stent with a full external pigtail and no internal flaps was placed 7 cm into the ventral pancreatic duct. Clear fluid flowed through the stent. The stent was in good position. The endoscope was withdrawn from the patient. Indomethacin 100 mg was given via suppository to decrease the risk of post-ERCP pancreatitis (PEP). Impression: - The major papilla appeared normal. - Choledocholithiasis and a short segmental biliary stricture was found. Complete removal was accomplished by biliary sphincterotomy and balloon extraction. - One covered metal stent was placed into the common bile duct for stricture remodeling. - One pancreatic stent was placed into the ventral pancreatic duct for prophylaxis. - Indomethacin given to decrease risk of post-ERCP pancreatitis. Recommendation: - Avoid aspirin and nonsteroidal anti-inflammatory medicines for 5 days. - Clear liquid diet today. - Use broad spectrum antibiotics for 10 days. - Repeat ERCP in 6 weeks to remove stent. Rey Levy D.O. Rey Levy, 07/24/2023 2:22:41 PM This report has been signed electronically. Note Initiated On: 07/24/2023 1:10 PM Number of Addenda: 0 I attest to the content of the Intraoperative Record and orders documented therein, exceptions below {[id number]}
--- NOTE | 2023-07-24 14:28 | Anesthesiology Progress Note ---
Date of Service July 24, 2023 Anesthesia Post Procedure Vital Signs Vital Signs: Temp Pulse Pulse Resp BP Pulse Ox O2 Del Method 07/24/23 14:20 81 22 120/79 92 Nasal Cannula 07/24/23 14:10 80 22 134/91 96 Oxymask 07/24/23 14:00 97.5 F L 77 20 144/74 H 94 Oxymask 07/24/23 12:33 98.4 F 78 20 168/73 H 92 Room Air 07/24/23 07:42 Room Air 07/24/23 06:14 98.4 F 72 16 147/70 H 93 Room Air 07/23/23 19:50 Room Air 07/23/23 20:41 97.7 F 71 18 137/75 93 Room Air 07/23/23 14:44 97.7 F 74 18 112/70 93 Room Air O2 Flow Rate 07/24/23 14:20 2 07/24/23 14:10 9 07/24/23 14:00 9 07/24/23 12:33 07/24/23 07:42 07/24/23 06:14 07/23/23 19:50 07/23/23 20:41 07/23/23 14:44 Pain Intensity Back: Pain Intensity: 6 Transfer of Care Handoff Completed per policy Notes Mental Status: alert / awake / arousable and participated in evaluation Patient Amnestic to Procedure: Yes Nausea / Vomiting: adequately controlled Pain: adequately controlled Airway Patency, RR, SpO2: stable & adequate BP & HR: stable & adequate Hydration State: stable & adequate Anesthetic Complications: no major complications apparent and Pt Satisfied with anesthetic care
--- NOTE | 2023-07-24 16:20 | Fluoroscopy Report ---
INTRAOPERATIVE RADIOGRAPHS CLINICAL HISTORY: ERCP. Fluoro time: 43 seconds Ka,r: 7.69 mGy FINDINGS: 9 spot fluoroscopic views of the right upper quadrant are correlated with MRCP dated 2022. On the initial images the endoscope projects over the stomach. Catheters were advanced into the common bile duct and the pancreatic duct. Contrast within the common bile duct shows extrahepatic bi liary ductal dilatation. A balloon sweep of the common bile duct is performed. The final image shows common bile duct and pancreatic duct stents in place. IMPRESSION: Intraoperative ERCP images as above. See operative report for detailed findings and recom mendations. Electronically signed by: Derrick Lott M.D. 07/24/2023 4:18 PM
[2023-07-24] MEDS: CITALOPRAM 40 MG TAB PO SCH (16:47)
[2023-07-24] MEDS: CETIRIZINE HCL 10 MG TABLET PO SCH (16:49)
[2023-07-24] MEDS: MONTELUKAST SODIUM 10 MG TABLET PO SCH (16:49)
[2023-07-24] MEDS: DONEPEZIL HCL 10 MG TAB PO SCH (16:49)
[2023-07-24] MEDS: LOSARTAN POTASSIUM 50 MG TAB PO SCH ×2 (16:49→21:57)
[2023-07-24] MEDS: MEMANTINE HCL 10 MG TAB PO SCH ×2 (16:49→21:57)
[2023-07-24] MEDS: amLODIPine BESYLATE 5 MG TAB PO SCH (16:49)
[2023-07-24] MEDS: busPIRone 5 MG TAB PO SCH ×2 (16:50→21:58)
[2023-07-24] MEDS: IPRATROPIUM BROMIDE NASAL SPRAY 0.06% 15ML NAE SCH ×2 (16:51→21:53)
[2023-07-24] MEDS: SIMVASTATIN 10 MG TAB PO SCH (16:51)
[2023-07-24] MEDS: PANTOprazole 40 MG in SYRINGE 0 ML IV SCH (16:51)
[2023-07-24] MEDS: SODIUM CHLORIDE 0.9% 1,000 ML IV SCH (17:01)
[2023-07-25] MEDS: HEPARIN SOD 5,000 UNIT/0.5 ML VIAL SQ SCH (07:07)
[2023-07-25 07:09] LABS: Eosinophils # (auto) 0.01 K/uL (0.00-0.50); Eosinophils % (auto) 0.2 %; Hematocrit (blood only) 33.9 % (37.0-47.0); Hemoglobin 11.5 g/dl (12.0-16.0); Immature Granulocytes # (auto) 0.07 K/uL (0.01-0.20); Immature Granulocytes % (auto) 1.5 %; Lymphocytes # (auto) 0.45 K/uL (1.20-3.40); Mean Corpuscular Hgb Conc 33.9 g/dL (32.0-36.0); Mean Corpuscular Volume 85.6 fL (80.0-100.0); Mean Platelet Volume 10.3 fL (9.4-12.4); Monocytes # (auto) 0.81 K/uL (0.11-0.59); Monocytes % (auto) 17.9 %; Neutrophils # (auto) 3.18 K/uL (1.40-6.50); Neutrophils % (auto) 70.4 %; Platelet Count 153 K/uL (130-400); RDW Coefficient of Variation 17.4 % (11.5-14.5); RDW Standard Deviation 54.5 fL (36.4-46.3); Red Blood Count 3.96 M/uL (4.20-5.40); White Blood Count 4.52 K/ul (4.8-10.8)
[2023-07-25 07:48] LABS: Albumin Globulin Ratio 0.9 (0.9-2); BUN Creatinine Ratio 23.1 (10-20); Calcium 8.1 mg/dl (8.6-10.3); Creatinine Clr Calc Pharmacy 45.7 ml/min; Est GFR (African American) 91.9 ml/min; Est GFR (Non-African American) 79.3 ml/min; Globulin 3.3 gm/dl (2.5-4.0); Potassium 3.8 mmol/L (3.5-5.1); Total Protein 6.3 gm/dl (6.0-8.3)
[2023-07-25] MEDS: amLODIPine BESYLATE 5 MG TAB PO SCH (08:26)
[2023-07-25] MEDS: CETIRIZINE HCL 10 MG TABLET PO SCH (08:26)
[2023-07-25] MEDS: busPIRone 5 MG TAB PO SCH (08:28)
[2023-07-25] MEDS: DONEPEZIL HCL 10 MG TAB PO SCH (08:29)
[2023-07-25] MEDS: FLUTICASONE PROPIONATE NA SPR 16 GM BTL NAE SCH (08:30)
[2023-07-25] MEDS: FLUTICASONE/VILANTEROL 200/25MCG 14 PUFFS/INHALER INH SCH (08:31)
[2023-07-25] MEDS: IPRATROPIUM BROMIDE NASAL SPRAY 0.06% 15ML NAE SCH (08:32)
[2023-07-25] MEDS: LOSARTAN POTASSIUM 50 MG TAB PO SCH (08:33)
[2023-07-25] MEDS: CITALOPRAM 40 MG TAB PO SCH (08:33)
[2023-07-25] MEDS: MEMANTINE HCL 10 MG TAB PO SCH (08:34)
[2023-07-25] MEDS: MONTELUKAST SODIUM 10 MG TABLET PO SCH (08:34)
[2023-07-25] MEDS: SIMVASTATIN 10 MG TAB PO SCH (08:35)
[2023-07-25] MEDS: SODIUM CHLORIDE 0.9% 1,000 ML IV SCH (09:29)
--- NOTE | 2023-07-25 10:13 | Gastroenterology Progress Note ---
Date of Service July 25, 2023 Assessment & Plan (1) Choledocholithiasis: Plan: Resolved w yesterday's ERCP w sphincterotomy and sweeping of the bile ducts. However, a short segment biliary stricture was seen which was stented. Plan ERCP yesterday 07/24/23: - Avoid aspirin and nonsteroidal anti-inflammatory medicines for 5 days. - Use broad spectrum antibiotics for 10 days. - Repeat ERCP in 6 weeks to remove stent. Diet advanced to low fat regular. If does well w lunch then OK to DC from a GI standpoint. Admission and Anticipated Discharge Date Admission Date: July 23, 2023 Supervising Physician Co-Signing Physician Notes I personally saw and evaluated the patient on 07/25/2023 with ROSE Cano and agree with her findings and plan of care. On exam abdomen is soft and non-tender. Patient denies any pain today and was able to tolerate a liquid diet for breakfast. She is eager to be discharged. She is s/p ERCP yesterday with findings of a short segmental biliary stricture and choledocholithiasis with stone removal and stent placement into the CBD and pancreas. LFTs are normal today. Recommend to hold all NSAIDs/anticoagulation for 5 days. Broad spectrum antibiotics for a total of 10 day. We will arrange outpatient ERCP in 6-8 weeks for stent removal. Ok to advance diet. GI will sign off but please call back with questions. Destiney Fry, DO Gastroenterology and Hepatology Subjective 88 yr old female, post procedure day #1 from ERCP w sphincterotomy for stones. Also a short segment bile duct stricture was seen that was stented. Right sided "soreness" discomfort - resolved w ERCP. Taking clear liquids po well. Asks to eat and go home. Review of Systems Review of Systems: ROS: Gen: Denies weakness, fevers, weight loss Eyes: No eye redness, or pain, no recent vision changes Resp: No SOB, no cough Cardio: No palpitations/irregular beats, no chest pain GI: No abdominal pain, no nausea/vomiting : Denies pain on urination Skin: No jaundice, itching or new rashes Physical Exam Constitutional: WD/WN, vitals as above Eyes: PERRL, conjunctivae normal, anicteric sclerae (except slight mucoid dc from right eye) ENMT: external ear and nose normal, oropharynx normal Neck: trachea midline, no thyromegaly Respiratory: normal respiratory effort, lungs clear to auscultation Cardiovascular: RRR, no murmur, no edema Gastrointestinal (Abdomen): normal bowel sounds, soft, nontender, no hepatosplenomegaly Musculoskeletal: no cyanosis or clubbing, extremities motor strength 5/5 Skin: no rashes, warm and dry Neurologic: PERRL, EOMI, accommodation nl, no face palsy, no dysarthria Psychiatric: A+Ox3, euthymic affect Lymphatic: no cervical or axillary lymphadenopathy Results & Data Vital Signs (Past 12 Hours) Vital Signs Temp Pulse Resp BP Pulse Ox O2 Del Method O2 Flow Rate 07/25/23 08:06 Room Air 07/25/23 08:02 36.4 C L 74 16 145/73 H 94 Room Air 07/25/23 03:07 36.3 C L 57 L 16 114/66 98 Nasal Cannula 2.0 07/24/23 22:08 36.3 C L 65 16 115/63 97 Nasal Cannula 2.0 Laboratory Results WBC 4.5, Hb 11.5,Hct 339, Plts 153, PT 11.8, INR 1.1, Na 136, K 3.8, Cl 105, CO2 25, BUN 15, Cr 0.6
[2023-07-25] MEDS: PANTOprazole 40 MG in SYRINGE 0 ML IV SCH (11:07)
--- NOTE | 2023-07-25 12:36 | Discharge Summary ---
Date of Service July 25, 2023 Admission HPI Per Admitting Provider 88 yo female with PMHx of GERD, asthma, allergic rhinitis, anxiety/depression, HTN, HLD, DM2, and dementia presents with abdominal pain. 2 days ago started developing intermittent abdominal and flank pain. Started on L side but now more on the R side. Not worse with eating. Pain exacerbated when she coughs. Some shortness of breath. Denies headache, chest pain, N/V/D, fatigue, chills, extremity weakness/numbness/tingling. She has been using Tylenol and lidocaine patch without much relief. She does have h/o cholecystectomy. Principal Diagnosis Abdominal pain, choledocholithiasis, anxiety state Discharge Exam General-alert and oriented x3, no fevers, no chills HEENT-head atraumatic and normocephalic, pupils equal and reactive to light, extraocular muscles intact Neck-no lymphadenopathy or thyromegaly, trachea midline Chest-clear to auscultation percussion. No rales wheezing or rhonchi Cardiac-regular rate and rhythm, normal S1 and S2 Abdomen-normal bowel sounds, nontender, no hepatosplenomegaly Extremities-no cyanosis, clubbing, or edema Neuro-cranial nerves II through XII intact, motor and sensory function within normal limits, strength symmetrical , no focal deficits Psych-normal affect, normal mood Discharge Data Allergies Allergy/AdvReac Type Severity Reaction Status Date / Time sulfamethoxazole Allergy Intermediate UNSURE Verified 07/24/23 12:32 trimethoprim Allergy Intermediate UNSURE Verified 07/24/23 12:32 BO Inhibitors Allergy Unknown UNK Verified 07/24/23 12:32 Penicillins Allergy Unknown Unknown Verified 07/24/23 12:32 tetanus toxoid, adsorbed Allergy Unknown Unknown Verified 07/24/23 12:32 Consultations 07/22/23 23:41 ED Decision to Admit Stat 07/23/23 01:06 Consult Gastroenterology Routine Procedures Performed Operation Date: 07/24/23 08:35 Actual Procedures p Endoscopic Retrograde Cholangiopancresarah Levy DO Ordered Studies 07/22/23 18:04 CT angio chest PE protocol Stat 07/22/23 20:05 US gallbladder Stat 07/23/23 03:34 MR MRCP Routine 07/24/23 [place] ERCP biliary ductal Routine Hospital Course (1) Choledocholithiasis: ERCP was performed on July 24 per GI service. She underwent sphincterotomy with stone removal and had common bile duct stent and pancreatic duct stent placed. These will be removed in 6 weeks with another procedure. She was treated with parenteral Cipro while hospitalized. She will be discharged home on oral Cipro for 10 more days. MRCP was completed earlier this admission and revealed a common bile duct stone. (2) Acid reflux: Stable. Continue PPI therapy (3) Diabetes mellitus: Stable. Continue basal insulin and sliding scale coverage as needed (4) Hypertension: Stable. Continue current medical management (5) Anxiety: IV lorazepam as needed Plan Hopeful discharge to home today, July 25, on oral Cipro. She will see gastroenterology in follow-up and have another ERCP in 6 weeks for pancreatic duct stent and common bile duct stent removal Total Time Total Time Spent Total Time Spent (In Minutes): 45 minutes Discharge Plan Discharge Items Patient Disposition: Home - Self-Care Reason For Visit: ABDOMINAL PAIN Discharge Diagnosis: Abdominal pain due to choledocholithiasis, anxiety state Activity: Resume your previous activity Non-emergency contact: Primary Care Provider and Mushroom Farmer Call non-emergency contact if: your symptoms worsen Follow-up/Referrals: Thomas Edgar MD [Primary Care Provider] - Diet: Carb Consistent or DM2 and Heart Healthy Addtl Attending Provider Instructions: Take Cipro antibiotic for 10 more days. See gastroenterology for scheduling of repeat ERCP procedure in 6 weeks for stent removal Pending Studies at Discharge: No Stand-Alone Forms: My [employer], Smoking Cessation Medications and DC Order Prescriptions: New ciprofloxacin HCl [Cipro] 500 mg tablet 500 mg PO BID Qty: 20 0RF Continued albuterol sulfate 90 mcg/actuation HFA aerosol inhaler 2 puff INHALATION QID PRN (Reason: Shortness Of Breath Or Wheezing) Qty: 8.5 6RF amlodipine 10 mg tablet 10 mg PO DAILY Qty: 30 11RF losartan 50 mg tablet See Rx Instructions .ROUTE .COMPLEX Qty: 180 3RF Dose Instruction: TAKE 1 TABLET BY MOUTH TWICE DAILY Rx Instructions: TAKE 1 TABLET BY MOUTH TWICE DAILY clobetasol 0.05 % ointment 1 applic topical 2XWK Qty: 30 0RF Rx Instructions: 1 applic topical monday, simvastatin 10 mg tablet 10 mg PO DAILY Qty: 90 1RF Rx Instructions: TAKE 1 TABLET BY MOUTH ONCE DAILY focus select 2 tab PO DAILY acetaminophen 500 mg tablet 1,000 mg PO DIRECTED PRN (Reason: Pain) cetirizine 10 mg tablet 10 mg PO DAILY mecobalamin (vitamin B12) 1,000 mcg tablet,chewable 1,000 mcg PO DAILY ipratropium bromide 21 mcg (0.03 %) spray,non-aerosol See Rx Instructions .ROUTE .COMPLEX Qty: 30 5RF Rx Instructions: USE 1-2 SPRAYS EACH NOSTRIL 1-2 TIMES DAILY.; administer into each nostril memantine 10 mg tablet 10 mg PO BID Qty: 60 6RF hydrochlorothiazide 12.5 mg tablet 12.5 mg PO DAILY Qty: 30 5RF cholecalciferol (vitamin D3) [Vitamin D3] 25 mcg (1,000 unit) capsule 1,000 unit PO DAILY buspirone 10 mg tablet 10 mg PO BID esomeprazole magnesium 40 mg capsule,delayed release(DR/EC) 40 mg PO DAILY Rx Instructions: TAKE 1 CAPSULE BY MOUTH ONCE DAILY citalopram 40 mg tablet 40 mg PO DAILY Rx Instructions: TAKE 1 TABLET BY MOUTH ONCE DAILY donepezil 10 mg tablet 10 mg PO DAILY Rx Instructions: TAKE 1 TABLET BY MOUTH ONCE DAILY montelukast 10 mg tablet 10 mg PO DAILY Rx Instructions: TAKE 1 TABLET BY MOUTH ONCE DAILY fluticasone propionate 50 mcg/actuation spray,suspension 1 spray intranasal BID Rx Instructions: USE 1 SPRAY IN EACH NOSTRIL ONCE TO TWICE DAILY budesonide-formoterol [Symbicort] 160-4.5 mcg/actuation HFA aerosol inhaler 2 inh inhalation BID Rx Instructions: INHALE 2 PUFFS TWICE DAILY BY MOUTH WITH A RINSE OF WATER AFTERWARDS Discharge Orders: Discharge Order (Routine); Ordered 07/25/23 Ordered By: Jose Puri Admission Data Admit Date/Time: 07/23/23 00:59 Attending Provider: Jose Puri Admit Provider: Arturo Villagomez Primary Care Provider: Thomas Edgar Other Providers: Jerrell Aden ; Son Gonzalez Coding Level of Care Code 42075 INP/OBS DISCH >30 MIN Diagnoses Choledocholithiasis K80.50 Acid reflux K21.9 Diabetes mellitus E11.9 Hypertension I10 Anxiety F41.9
== END 2023-07-25 14:37 | disposition home or self-care (01) | DRG 445 ==
LOC: ED 15:49 → SUATTDRO 07-23 00:59 → 3E 07-23 00:59

== ENCOUNTER 2024-04-03 12:57 | Inpatient (IN) ==
[2024-04-03] MEDS ORDERED: Patient's HEIGHT &/or WEIGHT Needed STA (13:10)
--- NOTE | 2024-04-03 14:00 | XRay Report ---
XR chest 1V not portable HISTORY: cough COMPARISON: Chest 03/24/2024. FINDINGS: No pneumothorax. No pleural effusions. There are low lung volumes. The heart remains border line enlarged. Calcified left hilar lymph nodes and a left lower lobe calcified granuloma are again n oted. There are old, healed left-sided rib fractures. No new focal lung consolidations to suggest a p neumonia. No evidence for pulmonary edema. IMPRESSION: No significant change compared to the prior study. No acute process. ACT 112: Negative or not required by law. Electronically signed by: Shamar Garcia M.D. 04/03/2024 1:59 PM
--- NOTE | 2024-04-03 14:39 | Emergency Department Note ---
Impression & Plan Weakness, SOB (shortness of breath), Wheezing, Asthma exacerbation, COVID-19 ED Provider Note NAME: MIKE CHANEY AGE: 88 SEX: F : 1935 ARRIVES VIA: Walk-In INFORMANT: [Patient][family] ED PROVIDER(S): [Derrick Parson MD] CHIEF COMPLAINT: Illness HISTORY OF PRESENT ILLNESS: The patient is an 88-year-old female who has underlying asthma. She has been sick for about 10 days. She began with cough and congestion and did test positive for COVID-19. Her whole family has COVID. She just is not improving and that is why she is here. She is short of breath. She is coughing up some yellow mucus. There has been no vomiting or diarrhea, no abdominal pain. The patient does have a nebulizer that she is using at home to try to help her breathing. PMHx/PSHx/Social Hx: See Below PHYSICAL EXAM: GENERAL: Patient is in no acute distress. HEENT: No acute trauma, normocephalic atraumatic, mucous membranes moist, no nasal congestion. NECK: No stridor, no adenopathy, no meningismus, trachea is midline. LUNGS: Wheezing and crackles bilaterally, she has a dry cough. No respiratory distress. HEART: Without murmurs gallops or rubs, regular rate and rhythm. ABDOMEN: Soft, nontender, no peritonitis. EXTREMITIES: No cyanosis, full range of motion of all the joints without pain or difficulty. NEUROLOGIC: Oriented x 3, no acute motor or sensory deficits, no focal weakness. SKIN: No jaundice, no diaphoresis. DIFFERENTIAL DIAGNOSIS: Bronchitis or pneumonia, PE, exacerbation of asthma, anemia, electrolyte imbalance, COVID-19, among others. EMERGENCY DEPARTMENT PROCEDURES: MEDICAL DECISION MAKING: There is no leukocytosis or concerning anemia. There is a normal platelet count. No coagulopathy. No renal failure or significant electrolyte abnormality. No concerning liver enzyme elevation. ECG shows a sinus rhythm, no obvious ischemia. Cardiac enzyme testing x 1 is not consistent with acute cardiac injury. Chest x-ray shows some chronic change, I see no CHF or focal pneumonia. On exam, the patient was wheezing. She had a dry cough noted. The patient received IV Decadron 6 mg. She was given a DuoNeb. She was given IV ceftriaxone as antibiotic coverage. She received a 500 cc saline bolus. A chest CT was performed, no PE. There was a potential small pneumonia on the right. The patient is not doing well outpatient, she is 88 years of age. She has COVID-19, a flare of her asthma and now a subtle pneumonia, hospitalization is indicated. I spoke with the patient and case management. The on-call hospitalist was consulted. Prior/Outside records/notes reviewed: None ECG per my interpretation: Indication was shortness of breath. The ECG shows a sinus rhythm with PACs. The rate is 81. There is some baseline artifact. No acute ST elevation. No PVCs. The QTc is 394. Continuous Cardiac Monitoring per my interpretation: An order was placed for continuous cardiac monitoring. The monitor shows a rate of 86 with sinus rhythm with PACs. Imaging/x-ray results per my interpretation: Chest x-ray shows some chronic changes at the bases, there is no obvious focal infiltrate, no CHF. Chronic Medical/Social conditions affecting care: Advanced age, history of asthma. Care/Management discussed with: Case management, the on-call hospitalist. Level of care consideration(s): After review of the information above and other included data: --I believe the patient requires escalation of care to admission DISPOSITION: Admission Past Med/Surg History Problem List (Updated 04/03/24 @ 15:45 by Derrick Parson MD) COVID-19 (Acute) Asthma exacerbation (Acute) Wheezing (Acute) SOB (shortness of breath) (Acute) Weakness (Acute) Cough (Acute) COVID-19 (Acute) Osteoporosis Compression fx, lumbar spine (Acute) Age-indeterminate L3, chronic L1 per lumbar CT 12/23/2023 Closed fracture of spinous process of thoracic vertebra (Acute) subacute spinous process fractures of T5, T6, T7 and T8 Compression fx, thoracic spine (Acute) T8, T12, subacute left transverse process fracture of T3--Per thoracic CT 12/23/2023 Ribs, multiple fractures Subacute fracture of left posterior 4th through 10th ribs at the costovertebral junction per Thoracic CT 12/23/2023 Abnormal skin of vulva Choledocholithiasis (Acute) Common bile duct dilatation (Acute) Iron deficiency Breast pain Ambulatory dysfunction (Chronic) Impairment of balance (Acute) Anxiety Degenerative arthritis of knee, bilateral Tremor Right patella fracture Skin tag Lichen planus Medical History Mild dementia Memory loss Hypertension Dyslipidemia Diabetes mellitus Depression Asthma Allergic rhinitis Acid reflux Acute ITP Pancytopenia Acute joint effusion Hemarthrosis Fall Vitamin D deficiency Postmenopausal atrophic vaginitis Osteopenia Vertigo Generalized weakness IBS (irritable bowel syndrome) Pneumonia Surgical History S/P tooth extraction S/P dilation and curettage S/P colonoscopy S/P cholecystectomy S/P bronchoscopy History of appendectomy S/P tonsillectomy and adenoidectomy Family History Unknown Coronary arteriosclerosis Aneurysm of abdominal aorta Mother No problems noted. Other No pertinent family history Denies family history of Ovarian cancer Social History Smoking Status: Former smoker Tobacco Type: Cigarettes Second Hand Exposure: No; Do You Dip or Chew Tobacco: No; Hx Alcohol Use: No Hx Substance Use: No Preferred Language: Maori Communication Ability: Effective Field Underwriter Required: No Beliefs That Will Affect Care: None marital status: / Current Living Situation: Family Current Living Situation Comment: lives with daughter and son in law current occupational status: retired Feels Safe at Home: Yes Seatbelt Use: always Assistive Devices: Cane and Walker Allergies Allergies Allergy/AdvReac Type Severity Reaction Status Date / Time sulfamethoxazole Allergy Intermediate UNSURE Verified 03/24/24 18:33 trimethoprim Allergy Intermediate UNSURE Verified 03/24/24 18:33 BO Inhibitors Allergy Unknown UNK Verified 03/24/24 18:33 Milk Containing Products Allergy Unknown IBS Unverified 03/24/24 18:35 (Dairy) Penicillins Allergy Unknown Unknown Verified 03/24/24 18:33 tetanus toxoid, adsorbed Allergy Unknown Unknown Verified 03/24/24 18:33 Home Meds Home Medications Medication Instructions Recorded Confirmed cetirizine 10 mg tablet 10 mg PO DAILY 02/03/22 03/24/24 focus select 2 tab PO DAILY 02/03/22 03/24/24 cholecalciferol (vitamin D3) 25 1,000 unit PO DAILY 01/30/23 03/24/24 mcg (1,000 unit) capsule (Vitamin D3) mecobalamin (vitamin B12) 1,000 1,000 mcg PO DAILY 07/04/23 03/24/24 mcg chewable tablet buspirone 10 mg tablet 10 mg PO BID 07/22/23 03/24/24 esomeprazole magnesium 40 mg 40 mg PO DAILY 07/22/23 03/24/24 capsule,delayed release acetaminophen 500 mg tablet 500 mg PO Q6H Pain 01/16/24 03/24/24 amlodipine 10 mg tablet 10 mg PO DAILY 03/24/24 03/24/24 citalopram 40 mg tablet 40 mg PO DAILY 03/24/24 03/24/24 donepezil 10 mg tablet 10 mg PO DAILY 03/24/24 03/24/24 estradiol 0.01% (0.1 mg/gram) 1 applic vaginal 2XWK 03/24/24 03/24/24 vaginal cream fluticasone propionate 50 1 spray intranasal BID 03/24/24 03/24/24 mcg/actuation nasal spray,suspension ipratropium bromide 21 mcg (0.03 1 - 2 spray intranasal UD 03/24/24 03/24/24 %) nasal spray losartan 50 mg tablet 50 mg PO BID 03/24/24 03/24/24 memantine 10 mg tablet 5 mg PO BID 03/24/24 03/24/24 montelukast 10 mg tablet 10 mg PO DAILY 03/24/24 03/24/24 simvastatin 10 mg tablet 10 mg PO DAILY 03/24/24 03/24/24 tramadol 50 mg tablet 100 mg PO TID 03/24/24 03/24/24 Previous Rx's Medication Instructions Recorded albuterol sulfate 90 mcg/actuation 2 puff inhalation QID PRN 01/12/23 aerosol inhaler Shortness Of Breath Or Wheezing #8.5 grams clobetasol 0.05 % topical ointment 1 applic topical 2XWK #30 grams 09/01/23 mometasone-formoterol HFA 200 2 puff inhalation BID #13 grams 12/07/23 mcg-5 mcg/actuation aerosol inhaler (Dulera) buprenorphine 10 mcg/hour weekly 1 patch transdermal Q7D Pain #4 ea 03/15/24 transdermal patch (Butrans) ipratropium 0.5 mg-albuterol 3 mg 3 ml inhalation Q8H PRN wheezing 03/24/24 (2.5 mg base)/3 mL nebulization #90 mL soln nirmatrelvir 300 mg (150 mg See Rx Instructions PO .COMPLEX 03/24/24 x2)-ritonavir 100 mg tablet,dose #30 ea pack (Paxlovid) Results & Data (ED) Vital Signs Vital Signs - 24 hr 04/03/24 13:03 04/03/24 14:07 04/03/24 14:30 Temperature 36.6 C Temperature Source Temporal Artery Scan Pulse Rate 80 79 Pulse Rate [Left Finger] 94 H Pulse Rhythm Regular Regular Pulse Rhythm [Left Finger] Regular Pulse Strength Normal Pulse Strength [Left Finger] Normal Respiratory Rate 20 20 20 Respiratory Effort / Characteristics Non-Labored Spontaneous Non-Labored Spontaneous Respiratory Depth Normal Normal Respiratory Pattern Regular Blood Pressure 123/61 Blood Pressure [Right Arm] 121/84 Blood Pressure Mean 81 Blood Pressure Mean [Right Arm] 96 Blood Pressure Position Sitting Blood Pressure Position [Right Arm] Sitting Pulse Oximetry 94 94 93 Oxygen Delivery Method Room Air Room Air Room Air Sepsis Recent Fever Within 48 Hours No Sepsis New/Unexplained Change in Mental Status N/A Sepsis Action Taken by Nursing No Action Required 04/03/24 14:41 Temperature Temperature Source Pulse Rate 86 Pulse Rate [Left Finger] Pulse Rhythm Pulse Rhythm [Left Finger] Pulse Strength Pulse Strength [Left Finger] Respiratory Rate Respiratory Effort / Characteristics Respiratory Depth Respiratory Pattern Blood Pressure Blood Pressure [Right Arm] Blood Pressure Mean Blood Pressure Mean [Right Arm] Blood Pressure Position Blood Pressure Position [Right Arm] Pulse Oximetry Oxygen Delivery Method Sepsis Recent Fever Within 48 Hours Sepsis New/Unexplained Change in Mental Status Sepsis Action Taken by Assisted Medications Current Medication List: was personally reviewed by me Laboratory Data Attestation: I reviewed the patient's lab results. 04/03/24 14:25 04/03/24 14:25 Lab Results 04/03/24 Range/Units 14:25 WBC 7.76 (4.8-10.8) K/ul RBC 4.89 (4.20-5.40) M/uL Hgb 13.9 (12.0-16.0) g/dl Hct 43.2 (37.0-47.0) % MCV 88.3 (80.0-100.0) fL MCH 28.4 (25.0-34.0) pg MCHC 32.2 (32.0-36.0) g/dL RDW Std Deviation 44.4 (36.4-46.3) fL RDW Coeff of Sukumar 13.8 (11.5-14.5) % Plt Count 158 (130-400) K/uL MPV 11.9 (9.4-12.4) fL Immature Gran % (Auto) 1.4 % Neut % (Auto) 60.9 % Lymph % (Auto) 11.0 % Jessamine % (Auto) 25.5 % Eos % (Auto) 0.8 % Baso % (Auto) 0.4 % Neut # (Auto) 4.73 (1.40-6.50) K/uL Lymph # (Auto) 0.85 L (1.20-3.40) K/uL Jessamine # (Auto) 1.98 H (0.11-0.59) K/uL Eos # (Auto) 0.06 (0.00-0.50) K/uL Baso # (Auto) 0.03 (0.00-0.20) K/uL Immature Gran # (Auto) 0.11 (0.01-0.20) K/uL PT 11.1 (9.0-12.0) Seconds INR 1.0 (0.9-1.1) APTT 30 (21-31) Seconds PTT Ratio 1.1 Sodium 134 L (136-145) mmol/L Potassium 3.6 (3.5-5.1) mmol/L Chloride 102 (98-107) mmol/L Carbon Dioxide 24 (21-32) mmol/L Anion Gap 8 (3-11) BUN 19 (6-23) mg/dl Creatinine 0.67 (0.6-1.2) mg/dl Est Cr Clr Drug Dosing Not Reportable Est GFR ( Amer) 91.0 ml/min Est GFR (Non-Af Amer) 78.5 ml/min BUN/Creatinine Ratio 28.4 H (10-20) Glucose 115 H (70-99(Fasting)) mg/dl Calcium 8.7 (8.6-10.3) mg/dl Magnesium 1.7 (1.7-2.4) mg/dl Total Bilirubin 0.9 (0.2-1.0) mg/dl AST 38 (13-39) U/L ALT 57 H (7-52) U/L Alkaline Phosphatase 67 (34-104) U/L Troponin I High Sens 3.7 (0-14) pg/ml Total Protein 6.8 (6.0-8.3) gm/dl Albumin 3.8 (3.4-5.0) gm/dl Globulin 3.0 (2.5-4.0) gm/dl Albumin/Globulin Ratio 1.3 (0.9-2) Administered Medications Discontinued Medications Albuterol (Albut/Ipratrop 3mg/0.5mg Neb 3 Ml Vial) 3 ml NEB NOW STA; Protocol Stop: 04/03/24 14:37 Last Admin: 04/03/24 14:45 Dose: 3 ml Documented By: FELISA Dexamethasone Sodium Phosphate (DexamethasonePf 10 Mg/Ml Vial) 6 mg IV NOW ONE Stop: 04/03/24 14:37 Last Admin: 04/03/24 14:45 Dose: 6 mg Documented By: FELISA Sodium Chloride (Nss) 500 mls @ 999 mls/hr IV .Q31M STA Stop: 04/03/24 15:00 Last Admin: 04/03/24 14:51 Dose: 999 mls/hr Documented By: FELISA Ceftriaxone Sodium (Rocephin) 2,000 mg in 50 mls @ 100 mls/hr IV NOW STA Stop: 04/03/24 15:05 Last Admin: 04/03/24 15:48 Dose: 100 mls/hr Documented By: TIM Ioversol (Optiray 320 125ml) 120 ml IV ONCE ONE Stop: 04/03/24 15:25 Last Admin: 04/03/24 15:25 Dose: 120 ml Documented By: NIKI Imaging Data Radiologist's Impression: Chest X-Ray 04/03/24 13:06 XR chest 1V not portable HISTORY: cough COMPARISON: Chest 03/24/2024. FINDINGS: No pneumothorax. No pleural effusions. There are low lung volumes. The heart remains borderline enlarged. Calcified left hilar lymph nodes and a left lower lobe calcified granuloma are again noted. There are old, healed left-sided rib fractures. No new focal lung consolidations to suggest a pneumonia. No evidence for pulmonary edema. IMPRESSION: No significant change compared to the prior study. No acute process. ACT 112: Negative or not required by law. Electronically signed by: Shamar Garcia M.D. 04/03/2024 1:59 PM Chest CTA 04/03/24 14:30 CHEST CTA for PULMONARY ARTERIES CT DOSE: 645.6 mGy.cm HISTORY: Shortness of breath. TECHNIQUE: Multiaxial CT images of the chest were performed following the intravenous administration of contrast to evaluate the pulmonary arteries. 3D/Maximal intensity projection images were also obtained. Sagittal and coronal reformations were also reviewed. A dose lowering technique was utilized adhering to the principles of ALARA. COMPARISON STUDY: Thoracic spine CT 12/23/2023. Chest CTA 07/14/2023. FINDINGS: Calcified plaque within the normal caliber thoracic aorta. No evidence for an aortic dissection. The heart is mildly enlarged. No filling defects within the pulmonary arteries to suggest a pulmonary embolus. No pleural or pericardial effusions. A few subcentimeter thyroid nodules. These do not meet CT criteria for follow-up. Limited views of the upper abdomen demonstrate a normal liver and spleen. Pneumobilia is noted. Normal caliber esophagus. No mediastinal or hilar lymphadenopathy. Calcified left hilar lymph nodes are again noted. Multiple subacute to chronic fractures within the thoracic spine and ribs. No acute fractures identified. No pneumothorax. Stable 4 mm nodule within the left lung apex on image 137. Left upper lobe calcified granuloma again noted. A few bibasilar linear densities favor subsegmental atelectasis. Partial opacification of the distal right lower lobe bronchi with a small focus of consolidation within the right lower lobe posteriorly. This could represent a mild aspiration pneumonitis. IMPRESSION: 1. No evidence for a pulmonary embolus. 2. Partial opacification of the distal right lower lobe bronchi with a small focus of consolidation within the right lower lobe posteriorly. This could represent a mild aspiration pneumonitis. 3. Additional findings as described above. ACT 112: Negative or not required by law. Electronically signed by: Shamar Garcia M.D. 04/03/2024 4:08 PM Discharge Plan Visit Data Chief Complaint: Illness Stated Complaint: COVID SYMPTOMS, CONCERNED SHE MIGHT HAVE COVID ED Provider: Derrick Parson Discharge Problem: Weakness, SOB (shortness of breath), Wheezing, Asthma exacerbation, COVID-19 Patient Disposition: Admitted As Inpatient Condition: Fair Forms Stand Alone Forms: [facility] [employer] Prescriptions Prescriptions: No Action buprenorphine [Butrans] 10 mcg/hour patch weekly 1 patch transdermal Q7D Qty: 4 0RF Rx Instructions: Tuesdays albuterol sulfate 90 mcg/actuation HFA aerosol inhaler 2 puff INHALATION QID PRN (Reason: Shortness Of Breath Or Wheezing) Qty: 8.5 6RF clobetasol 0.05 % ointment 1 applic topical 2XWK Qty: 30 0RF Rx Instructions: 1 applic topical monday, Dulera 200-5 mcg/actuation HFA aerosol inhaler 2 puff inhalation BID Qty: 13 5RF Rx Instructions: Unable to verify medication at this date/time. WITH A RINSE OF MOUTH AFERWARDS. focus select 2 tab PO DAILY cetirizine 10 mg tablet 10 mg PO DAILY acetaminophen 500 mg tablet 500 mg PO Q6H Rx Instructions: 1000mg 500 500 mecobalamin (vitamin B12) 1,000 mcg tablet,chewable 1,000 mcg PO DAILY cholecalciferol (vitamin D3) [Vitamin D3] 25 mcg (1,000 unit) capsule 1,000 unit PO DAILY buspirone 10 mg tablet 10 mg PO BID esomeprazole magnesium 40 mg capsule,delayed release(DR/EC) 40 mg PO DAILY Rx Instructions: TAKE 1 CAPSULE BY MOUTH ONCE DAILY losartan 50 mg tablet 50 mg PO BID Rx Instructions: TAKE 1 TABLET BY MOUTH TWICE DAILY citalopram 40 mg tablet 40 mg PO DAILY Rx Instructions: TAKE 1 TABLET BY MOUTH ONCE DAILY donepezil 10 mg tablet 10 mg PO DAILY Rx Instructions: TAKE 1 TABLET BY MOUTH ONCE DAILY simvastatin 10 mg tablet 10 mg PO DAILY tramadol 50 mg tablet 100 mg PO TID amlodipine 10 mg tablet 10 mg PO DAILY Rx Instructions: TAKE 1 TABLET BY MOUTH ONCE DAILY montelukast 10 mg tablet 10 mg PO DAILY Rx Instructions: TAKE 1 TABLET BY MOUTH ONCE DAILY estradiol 0.01 % (0.1 mg/gram) cream 1 applic vaginal 2XWK Rx Instructions: large pea sized amount at opening of vagina on and fluticasone propionate 50 mcg/actuation spray,suspension 1 spray intranasal BID Rx Instructions: USE 1 SPRAY IN EACH NOSTRIL ONCE TO TWICE DAILY ipratropium bromide 21 mcg (0.03 %) spray,non-aerosol 1 - 2 spray intranasal UD Rx Instructions: INSTILL 1 TO 2 SPRAYS INTO EACH NOSTRIL 1 TO 2 TIMES DAILY memantine 10 mg tablet 5 mg PO BID Paxlovid 300 mg (150 mg x 2)-100 mg tablets,dose pack See Rx Instructions .ROUTE .COMPLEX Qty: 30 0RF Rx Instructions: take TWO 150 mg tablets of nirmatrelvir with ONE 100 mg tablet of ritonavir twice daily for 5 days ipratropium-albuterol 0.5 mg-3 mg(2.5 mg base)/3 mL solution for nebulization 3 ml INH Q8H PRN (Reason: wheezing) Qty: 90 0RF Rx Instructions: J10.1, R05 Referrals Referrals: Thomas Edgar MD [Primary Care Provider] - Discharge Problem: Asthma exacerbation Qualifiers: Asthma severity: moderate Asthma persistence: unspecified Qualified Code(s): J 45.901 - Unspecified asthma with (acute) exacerbation
[2024-04-03] MEDS: ALBUT/IPRATROP 3MG/0.5MG NEB 3 ML VIAL NEB STA (14:45)
[2024-04-03] MEDS: dexAMETHasone**PF** 10 MG/ML VIAL IV ONE (14:45)
[2024-04-03] MEDS: SODIUM CHLORIDE 0.9% 500 ML IV STA (14:51)
[2024-04-03 15:05] LABS: Alanine Aminotransferase 57 U/L (7-52); Albumin Globulin Ratio 1.3 (0.9-2); Albumin Level 3.8 gm/dl (3.4-5.0); Alkaline Phosphatase 67 U/L (34-104); Anion Gap 8 (3-11); Aspartate Aminotransferase 38 U/L (13-39); BUN Creatinine Ratio 28.4 (10-20); Bilirubin,Total 0.9 mg/dl (0.2-1.0); Blood Urea Nitrogen 19 mg/dl (6-23); Calcium 8.7 mg/dl (8.6-10.3); Carbon Dioxide 24 mmol/L (21-32); Chloride 102 mmol/L (98-107); Est GFR (Non-African American) 78.5 ml/min; Glucose 115 mg/dl (70-99(Fasting)); Magnesium 1.7 mg/dl (1.7-2.4); Potassium 3.6 mmol/L (3.5-5.1); Sodium 134 mmol/L (136-145); Total Protein 6.8 gm/dl (6.0-8.3)
[2024-04-03 15:11] LABS: Troponin I High Sensitivity 3.7 pg/ml (0-14)
[2024-04-03] MEDS: OPTIRAY 320 125ml IV ONE (15:25)
[2024-04-03 15:32] LABS: Basophils # (auto) 0.03 K/uL (0.00-0.20); Basophils % (auto) 0.4 %; Eosinophils # (auto) 0.06 K/uL (0.00-0.50); Eosinophils % (auto) 0.8 %; Hematocrit (blood only) 43.2 % (37.0-47.0); Hemoglobin 13.9 g/dl (12.0-16.0); Immature Granulocytes # (auto) 0.11 K/uL (0.01-0.20); Immature Granulocytes % (auto) 1.4 %; Lymphocytes # (auto) 0.85 K/uL (1.20-3.40); Mean Corpuscular Hemoglobin 28.4 pg (25.0-34.0); Mean Corpuscular Hgb Conc 32.2 g/dL (32.0-36.0); Mean Corpuscular Volume 88.3 fL (80.0-100.0); Mean Platelet Volume 11.9 fL (9.4-12.4); Monocytes # (auto) 1.98 K/uL (0.11-0.59); Monocytes % (auto) 25.5 %; Neutrophils # (auto) 4.73 K/uL (1.40-6.50); Neutrophils % (auto) 60.9 %; Platelet Count 158 K/uL (130-400); RDW Coefficient of Variation 13.8 % (11.5-14.5); RDW Standard Deviation 44.4 fL (36.4-46.3); Red Blood Count 4.89 M/uL (4.20-5.40); White Blood Count 7.76 K/ul (4.8-10.8)
[2024-04-03 15:38] LABS: Partial Thromboplastin Ratio 1.1; Partial Thromboplastin Time 30 Seconds (21-31); Prothrombin Time 11.1 Seconds (9.0-12.0)
[2024-04-03] MEDS: cefTRIAXone SODIUM 2,000 MG/50 ML BAG IV STA (15:48)
--- NOTE | 2024-04-03 16:10 | CT Scan Report ---
CHEST CTA for PULMONARY ARTERIES CT DOSE: 645.6 mGy.cm HISTORY: Shortness of breath. TECHNIQUE: Multiaxial CT images of the chest were performed following the intravenous administration of contrast to evaluate the pulmonary arteries. 3D/Maximal intensity projection images were also obta ined. Sagittal and coronal reformations were also reviewed. A dose lowering technique was utilized a dhering to the principles of ALARA. COMPARISON STUDY: Thoracic spine CT 12/23/2023. Chest CTA 07/14/2023. FINDINGS: Calcified plaque within the normal caliber thoracic aorta. No evidence for an aortic dissec tion. The heart is mildly enlarged. No filling defects within the pulmonary arteries to suggest a pul monary embolus. No pleural or pericardial effusions. A few subcentimeter thyroid nodules. These do no t meet CT criteria for follow-up. Limited views of the upper abdomen demonstrate a normal liver and s pleen. Pneumobilia is noted. Normal caliber esophagus. No mediastinal or hilar lymphadenopathy. Calci fied left hilar lymph nodes are again noted. Multiple subacute to chronic fractures within the thorac ic spine and ribs. No acute fractures identified. No pneumothorax. Stable 4 mm nodule within the left lung apex on image 137. Left upper lobe calcified granuloma again noted. A few bibasilar linear dens ities favor subsegmental atelectasis. Partial opacification of the distal right lower lobe bronchi wi th a small focus of consolidation within the right lower lobe posteriorly. This could represent a mil d aspiration pneumonitis. IMPRESSION: 1. No evidence for a pulmonary embolus. 2. Partial opacification of the distal right lower lobe bronchi with a small focus of consolidation w ithin the right lower lobe posteriorly. This could represent a mild aspiration pneumonitis. 3. Additional findings as described above. ACT 112: Negative or not required by law. Electronically signed by: Shamar Garcia M.D. 04/03/2024 4:08 PM
--- NOTE | 2024-04-03 17:20 | History & Physical Report ---
Date of Service April 03, 2024 Assessment & Plan (1) Asthma exacerbation: Plan: Mild wheezing on exam, improvement with nebulizer in the ER Recommend short course of steroids due to osteoporosis and history of multiple compression fractures Decadron given in the ER, Prednisone 40mg PO daily for 2 further days Duoneb QID, Formoterol/Budesonide nebulizers Sputum culture (2) COVID-19: Plan: Diagnosed 03/24/2024 Finished course of Paxlovid, does not meet criteria for any other intervention Isolation precautions (3) Aspiration into lower respiratory tract: Plan: Noted on CT. With negative procalcitonin, WBC, afebrile and not hypoxic will defer further antibiotics (ceftriaxone given in the ER) given no large area of consolidation SLT consult ordered Plan VTE Prophylaxis - Lovenox 40mg SQ daily Diet - regular Disposition - admit to med/surg Admission and Anticipated Discharge Date Admission Date: April 03, 2024 History of Present Illness Chief Complaint: Nausea, cough, shortness of breath Primary Care Provider: Thomas Edgar MD Iris Vega is an 88 year old female who presents to the ER with COVID symptoms. History taking difficult from the patient due to underlying dementia. She reports main symptoms of cough, shortness of breath and overall weakness. She notes no new symptoms as these have been going on for years but all her normal symptoms are just worse. Difficult for her to stay on track with the history and she goes off in tangents talking about exactly what she eats everyday and how her bones are mushy. She was diagnosed with COVID about 12 days ago and took a course of Paxlovid at that time. No fever, diarrhea, abdominal p ain. She reports she is eating and drinking well. Significant improvement with nebulizer given in the ER. Patient discussed with her daughter over the phone who she lives with (Korina). She reports she is similar to her normal self. Unclear if she is really having worsening symptoms but given the patient complaints brought her to the ER today. She is constantly snorting back mucus which is not unusual for her. She did give her nebulizer later last night so she got less sleep and wonders whether that was why she just felt worse today which again isn't unusual for her. She isn't surprised she may be aspirating food contents due to her dementia as she has to be reminded to eat slowly. She was in the ER earlier with her mother but was told by the ER provider she was being admitted therefore left at that time. Allergies Allergy/AdvReac Type Severity Reaction Status Date / Time sulfamethoxazole Allergy Intermediate UNSURE Verified 04/03/24 17:38 trimethoprim Allergy Intermediate UNSURE Verified 04/03/24 17:38 BO Inhibitors Allergy Unknown UNK Verified 04/03/24 17:38 Milk Containing Products Allergy Unknown IBS Unverified 04/03/24 17:38 (Dairy) Penicillins Allergy Unknown Unknown Verified 04/03/24 17:38 tetanus toxoid, adsorbed Allergy Unknown Unknown Verified 04/03/24 17:38 Home Medications Medication Instructions Recorded Confirmed Type cetirizine 10 mg tablet 10 mg PO DAILY 02/03/22 04/03/24 History focus select 2 tab PO DAILY 02/03/22 04/03/24 History albuterol sulfate 90 mcg/actuation 2 puff inhalation QID PRN 01/12/23 04/03/24 Rx aerosol inhaler Shortness Of Breath Or Wheezing #8.5 grams cholecalciferol (vitamin D3) 25 1,000 unit PO DAILY 01/30/23 04/03/24 History mcg (1,000 unit) capsule (Vitamin D3) mecobalamin (vitamin B12) 1,000 1,000 mcg PO DAILY 07/04/23 04/03/24 History mcg chewable tablet buspirone 10 mg tablet 10 mg PO BID 07/22/23 04/03/24 History esomeprazole magnesium 40 mg 40 mg PO DAILY 07/22/23 04/03/24 History capsule,delayed release clobetasol 0.05 % topical ointment 1 applic topical 2XWK #30 grams 09/01/23 04/03/24 Rx mometasone-formoterol HFA 200 2 puff inhalation BID #13 grams 12/07/23 04/03/24 Rx mcg-5 mcg/actuation aerosol inhaler (Dulera) acetaminophen 500 mg tablet 500 mg PO Q6H Pain 01/16/24 04/03/24 History buprenorphine 10 mcg/hour weekly 1 patch transdermal Q7D Pain #4 ea 03/15/24 04/03/24 Rx transdermal patch (Butrans) amlodipine 10 mg tablet 10 mg PO DAILY 03/24/24 04/03/24 History citalopram 40 mg tablet 40 mg PO DAILY 03/24/24 04/03/24 History donepezil 10 mg tablet 10 mg PO DAILY 03/24/24 04/03/24 History estradiol 0.01% (0.1 mg/gram) 1 applic vaginal 2XWK 03/24/24 04/03/24 History vaginal cream fluticasone propionate 50 1 spray intranasal BID 03/24/24 04/03/24 History mcg/actuation nasal spray,suspension ipratropium 0.5 mg-albuterol 3 mg 3 ml inhalation Q8H PRN wheezing 03/24/24 04/03/24 Rx (2.5 mg base)/3 mL nebulization #90 mL soln ipratropium bromide 21 mcg (0.03 1 - 2 spray intranasal UD 03/24/24 04/03/24 History %) nasal spray losartan 50 mg tablet 50 mg PO BID 03/24/24 04/03/24 History memantine 10 mg tablet 5 mg PO BID 03/24/24 04/03/24 History montelukast 10 mg tablet 10 mg PO DAILY 03/24/24 04/03/24 History simvastatin 10 mg tablet 10 mg PO DAILY 03/24/24 04/03/24 History tramadol 50 mg tablet 100 mg PO TID 03/24/24 04/03/24 History Past Med/Surg History Problem List (Updated 04/04/24 @ 06:04 by Jacques Cabello MD) Aspiration into lower respiratory tract COVID-19 (Acute) Asthma exacerbation (Acute) Wheezing (Acute) SOB (shortness of breath) (Acute) Weakness (Acute) Cough (Acute) COVID-19 (Acute) Osteoporosis Compression fx, lumbar spine (Acute) Age-indeterminate L3, chronic L1 per lumbar CT 12/23/2023 Closed fracture of spinous process of thoracic vertebra (Acute) subacute spinous process fractures of T5, T6, T7 and T8 Compression fx, thoracic spine (Acute) T8, T12, subacute left transverse process fracture of T3--Per thoracic CT 12/23/2023 Ribs, multiple fractures Subacute fracture of left posterior 4th through 10th ribs at the costovertebral junction per Thoracic CT 12/23/2023 Abnormal skin of vulva Choledocholithiasis (Acute) Common bile duct dilatation (Acute) Iron deficiency Breast pain Ambulatory dysfunction (Chronic) Impairment of balance (Acute) Anxiety Degenerative arthritis of knee, bilateral Tremor Right patella fracture Skin tag Lichen planus Medical History Mild dementia Memory loss Hypertension Dyslipidemia Diabetes mellitus Depression Asthma Allergic rhinitis Acid reflux Acute ITP Pancytopenia Acute joint effusion Hemarthrosis Fall Vitamin D deficiency Postmenopausal atrophic vaginitis Osteopenia Vertigo Generalized weakness IBS (irritable bowel syndrome) Pneumonia Surgical History S/P tooth extraction S/P dilation and curettage S/P colonoscopy S/P cholecystectomy S/P bronchoscopy History of appendectomy S/P tonsillectomy and adenoidectomy Family History Unknown Coronary arteriosclerosis Aneurysm of abdominal aorta Mother No problems noted. Other No pertinent family history Denies family history of Ovarian cancer Social History Smoking Status: Former smoker Tobacco Type: Cigarettes Second Hand Exposure: No; Do You Dip or Chew Tobacco: No; Hx Alcohol Use: No Hx Substance Use: No Preferred Language: Mongolian Communication Ability: Effective Blind Lacer Required: No Beliefs That Will Affect Care: None marital status: / Current Living Situation: Family Current Living Situation Comment: lives with daughter and son in law current occupational status: retired Feels Safe at Home: Yes Seatbelt Use: always Assistive Devices: Cane and Walker Review of Systems Review of Systems: All systems reviewed & are unremarkable except as noted in HPI & below Physical Exam Constitutional: well developed, well nourished and + frail appearing; no acute distress Eyes: PERRL, conjunctivae normal, anicteric sclerae Respiratory: normal respiratory effort, + cough and able to speak in complete sentences; no respiratory distress, not tachypneic, no audible wheezes and no pursed lip breathing Auscultation: + crackles (bibasal) and + wheezes (mild end expiratory); breath sounds present and no diminished lung sounds Cardiovascular: Rate/Rhythm: regular rate and regular rhythm Heart Sounds: + murmur Gastrointestinal (Abdomen): normal bowel sounds, soft, nontender, no hepatosplenomegaly Musculoskeletal: no cyanosis or clubbing, extremities motor strength 5/5 Skin: no rashes, warm and dry Neurologic: moves all extremities and awake; not confused Motor/Sensory: + tremor (action) Psychiatric: Orientation: alert, oriented to person and oriented to place; + not oriented to time Genitourinary: no CVA tenderness Results & Data Results & Data Vital Signs (Past 12 Hours) Vital Signs Temp Pulse Pulse Resp BP BP Pulse Ox 04/03/24 14:41 86 04/03/24 14:30 79 20 93 04/03/24 14:07 94 H 20 121/84 94 04/03/24 13:03 36.6 C 80 20 123/61 94 O2 Del Method 04/03/24 14:41 04/03/24 14:30 Room Air 04/03/24 14:07 Room Air 04/03/24 13:03 Room Air Laboratory Results Abnormal lab results 04/03/24 Range/Units 14:25 Lymph # (Auto) 0.85 L (1.20-3.40) K/uL [place] # (Auto) 1.98 H (0.11-0.59) K/uL Sodium 134 L (136-145) mmol/L BUN/Creatinine Ratio 28.4 H (10-20) Glucose 115 H (70-99(Fasting)) mg/dl ALT 57 H (7-52) U/L Diagnostic Findings XR chest 1V not portable HISTORY: cough COMPARISON: Chest 03/24/2024. FINDINGS: No pneumothorax. No pleural effusions. There are low lung volumes. The heart remains borderline enlarged. Calcified left hilar lymph nodes and a left lower lobe calcified granuloma are again noted. There are old, healed left-sided rib fractures. No new focal lung consolidations to suggest a pneumonia. No evidence for pulmonary edema. IMPRESSION: No significant change compared to the prior study. No acute process. CHEST CTA for PULMONARY ARTERIES CT DOSE: 645.6 mGy.cm HISTORY: Shortness of breath. TECHNIQUE: Multiaxial CT images of the chest were performed following the intravenous administration of contrast to evaluate the pulmonary arteries. 3D/Maximal intensity projection images were also obtained. Sagittal and coronal reformations were also reviewed. A dose lowering technique was utilized adhering to the principles of ALARA. COMPARISON STUDY: Thoracic spine CT 12/23/2023. Chest CTA 07/14/2023. FINDINGS: Calcified plaque within the normal caliber thoracic aorta. No evidence for an aortic dissection. The heart is mildly enlarged. No filling defects within the pulmonary arteries to suggest a pulmonary embolus. No pleural or pericardial effusions. A few subcentimeter thyroid nodules. These do not meet CT criteria for follow-up. Limited views of the upper abdomen demonstrate a normal liver and spleen. Pneumobilia is noted. Normal caliber esophagus. No mediastinal or hilar lymphadenopathy. Calcified left hilar lymph nodes are again noted. Multiple subacute to chronic fractures within the thoracic spine and ribs. No acute fractures identified. No pneumothorax. Stable 4 mm nodule within the left lung apex on image 137. Left upper lobe calcified granuloma again noted. A few bibasilar linear densities favor subsegmental atelectasis. Partial opacification of the distal right lower lobe bronchi with a small focus of consolidation within the right lower lobe posteriorly. This could represent a mild aspiration pneumonitis. IMPRESSION: 1. No evidence for a pulmonary embolus. 2. Partial opacification of the distal right lower lobe bronchi with a small focus of consolidation within the right lower lobe posteriorly. This could represent a mild aspiration pneumonitis. 3. Additional findings as described above. Medications Administered ER medications given: Normal saline 500 mL bolus DuoNeb 3 mL neb Dexamethasone 6 mg IV Ceftriaxone 2000 mg IV ECG Rate (beats per minute): 81 Rhythm: normal sinus Findings: + other (Premature supraventricular complexes) and + T-wave inversion (Inferior) Comparison ECG Date: from (March 24, 2024) Change: the following changes noted (T wave inversions inferiorly and new from flattening previously) Code Status & VTE Plan Code Status DNR/DNI per patient wishes VTE Prophylaxis Plan VTE Prophylaxis will be ordered: Yes PG Care Time/CCT Total # of Minutes Spent Total Time Spent: 80 Total Time Spent with Patient: Total time spent is greater than 50% in coordination of care (as documented) at patient's floor/unit and/or counseling patient: Coding Level of Care Code 80268 INT INP/OBS CARE 3/75MIN Diagnoses Asthma exacerbation J45.901 Asthma persistence: unspecified Asthma severity: moderate COVID-19 U07.1 Aspiration into lower respiratory tract T17.800A (1) Asthma exacerbation Asthma persistence: unspecified Asthma severity: moderate Qualified Code(s): J45.901 - Unspecified asthma with (acute) exacerbation
--- NOTE | 2024-04-03 18:34 | Electrocardiogram Report ---
Test Reason : Blood Pressure : / mmHG Vent. Rate : 081 BPM Atrial Rate : 081 BPM P-R Int : 132 ms QRS Dur : 066 ms QT Int : 340 ms P-R-T Axes : 093 -07 015 degrees QTc Int : 394 ms Sinus rhythm with Premature supraventricular complexes Low voltage QRS Poor R wave progression, consider anterior NH vs. lead placement vs. LVH Abnormal ECG When compared with ECG of 24-MAR-2024 17:22, Premature supraventricular complexes are now Present T wave inversion now evident in Inferior leads Confirmed by Donnell Rivera ([id number]) on 04/03/2024 6:33:32 PM Referred By: REFERRED SELF Confirmed By:Torito Rivera
[2024-04-03] MEDS: BUDESONIDE 0.5 MG/2 ML VIAL (PULMICORT) NEB SCH (22:47)
[2024-04-03] MEDS: FORMOTEROL 20 MCG/2 ML VIAL NEB SCH (22:47)
[2024-04-03] MEDS: ALBUT/IPRATROP 3MG/0.5MG NEB 3 ML VIAL NEB SCH (22:48)
[2024-04-03] MEDS: traMADol HCL 50 MG TABLET PO SCH (23:06)
[2024-04-03] MEDS: LOSARTAN POTASSIUM 50 MG TAB PO SCH (23:07)
[2024-04-03] MEDS: busPIRone 5 MG TAB PO SCH (23:08)
[2024-04-03] MEDS: MEMANTINE HCL 5 MG TAB PO SCH (23:08)
[2024-04-03] MEDS: ENOXAPARIN INJ 40 MG/0.4 ML SYR SQ SCH (23:09)
[2024-04-03] MEDS: FLUTICASONE PROPIONATE NA SPR 16 GM BTL NAE SCH (23:10)
[2024-04-03] MEDS: ACETAMINOPHEN 325 MG TAB PO PRN (23:11)
[2024-04-03 23:49] LABS: Appearance Urine Clear (Clear); Bacteria Urine Automated None Seen (None Seen); Bilirubin Urine Negative (Negative); Blood Urine Negative (Negative); Cast Urine Automated 0-2 /lpf (0-2); Color Urine Yellow; Epithelial Cell Urine Auto 0-2 /hpf (0-2); Glucose Urine UA Trace (Negative); Ketones Urine Negative (Negative); Leukocyte Esterase Urine Negative (Negative); Nitrite Urine Negative (Negative); Protein Urine Trace (Negative); RBC Urine Automated 0-2 /hpf (0-2); Specific Gravity Urine > 1.045 (1.000-1.030); Urobilinogen Urine Negative (Negative); WBC Urine Automated 0-5 /hpf (0-5); pH Urine 6.5 (4.5-7.5)
[2024-04-04] MEDS: CHECK BUPRENORPHINE PATCH SCH (00:15)
[2024-04-04 08:21] LABS: Basophils # (auto) 0.01 K/uL (0.00-0.20); Basophils % (auto) 0.2 %; Eosinophils # (auto) 0.03 K/uL (0.00-0.50); Eosinophils % (auto) 0.6 %; Hematocrit (blood only) 41.7 % (37.0-47.0); Hemoglobin 13.6 g/dl (12.0-16.0); Immature Granulocytes # (auto) 0.05 K/uL (0.01-0.20); Lymphocytes # (auto) 0.63 K/uL (1.20-3.40); Lymphocytes % (auto) 12.8 %; Mean Corpuscular Hemoglobin 28.7 pg (25.0-34.0); Mean Corpuscular Hgb Conc 32.6 g/dL (32.0-36.0); Mean Platelet Volume 11.8 fL (9.4-12.4); Monocytes % (auto) 20.4 %; Neutrophils # (auto) 3.19 K/uL (1.40-6.50); Platelet Count 171 K/uL (130-400); RDW Coefficient of Variation 13.7 % (11.5-14.5); RDW Standard Deviation 44.2 fL (36.4-46.3); Red Blood Count 4.74 M/uL (4.20-5.40); White Blood Count 4.91 K/ul (4.8-10.8)
[2024-04-04 08:38] LABS: BUN Creatinine Ratio 26.2 (10-20); Calcium 8.4 mg/dl (8.6-10.3); Creatinine Clr Calc Pharmacy 45.3 ml/min; Est GFR (African American) 91.9 ml/min; Est GFR (Non-African American) 79.3 ml/min; Potassium 4.1 mmol/L (3.5-5.1)
[2024-04-04] MEDS: MONTELUKAST SODIUM 10 MG TABLET PO SCH (09:11)
[2024-04-04] MEDS: SIMVASTATIN 10 MG TAB PO SCH (09:11)
[2024-04-04] MEDS: CETIRIZINE HCL 10 MG TABLET PO SCH (09:11)
[2024-04-04] MEDS: amLODIPine BESYLATE 5 MG TAB PO SCH (09:12)
[2024-04-04] MEDS: predniSONE 20 MG TAB PO SCH (09:12)
[2024-04-04] MEDS: PANTOprazole 40 MG TAB PO SCH (09:13)
[2024-04-04] MEDS: CYANOCOBALAMIN (B-12) 500 MCG TABLET PO SCH (09:13)
[2024-04-04] MEDS: CHOLECALCIFEROL 25 MCG (1000 UNITS) TAB PO SCH (09:13)
[2024-04-04] MEDS: CITALOPRAM 40 MG TAB PO SCH (09:13)
[2024-04-04] MEDS: DONEPEZIL HCL 10 MG TAB PO SCH (09:14)
--- NOTE | 2024-04-04 22:57 | Hospitalist Progress Note ---
Date of Service April 04, 2024 Assessment & Plan (1) Asthma exacerbation: Plan: Mild wheezing on exam, improvement with nebulizer in the ER Recommend short course of steroids due to osteoporosis and history of multiple compression fractures Decadron given in the ER, Prednisone 40mg PO daily for another day. Duoneb QID, Formoterol/Budesonide nebulizers Sputum culture Patient showing improvement.Plan to discharge in AM. (2) COVID-19: Plan: Diagnosed 03/24/2024 Finished course of Paxlovid, does not meet criteria for any other intervention Isolation precautions (3) Aspiration into lower respiratory tract: Plan: Noted on CT. With negative procalcitonin, WBC, afebrile and not hypoxic will defer further antibiotics (ceftriaxone given in the ER) given no large area of consolidation SLT consult ordered Plan VTE Prophylaxis - Lovenox 40mg SQ daily Diet - regular Admission and Anticipated Discharge Date Admission Date: April 03, 2024 Subjective 88 yo female reports feeling much better. She has no new complaints. Review of Systems Review of Systems: All systems reviewed & are unremarkable except as noted in HPI & below Physical Exam Constitutional: well developed, well nourished and + frail appearing; no acute distress Eyes: PERRL, conjunctivae normal, anicteric sclerae Respiratory: normal respiratory effort, + cough and able to speak in complete sentences; no audible wheezes and no pursed lip breathing Cardiovascular: Rate/Rhythm: regular rate and regular rhythm Heart Sounds: + murmur Gastrointestinal (Abdomen): normal bowel sounds, soft, nontender, no hepatosplenomegaly Musculoskeletal: no cyanosis or clubbing, extremities motor strength 5/5 Skin: no rashes, warm and dry Neurologic: moves all extremities and awake; not confused Motor/Sensory: + tremor (action) Psychiatric: Orientation: alert, oriented to person and oriented to place; + not oriented to time Genitourinary: no CVA tenderness Results & Data Results & Data Vital Signs (Past 12 Hours) Vital Signs Temp Pulse Resp BP Pulse Ox O2 Del Method 04/04/24 21:18 36.6 C 92 H 18 117/68 94 Room Air 04/04/24 19:50 73 18 97 Room Air 04/04/24 15:29 88 18 97 Room Air 04/04/24 15:25 36.2 C L 94 H 18 134/82 94 Room Air 04/04/24 11:29 76 18 94 Room Air PG Care Time/CCT Total # of Minutes Spent Total Time Spent with Patient: Total time spent is greater than 50% in coordination of care (as documented) at patient's floor/unit and/or counseling patient: Coding Level of Care Code 83531 SUB INP/OBS CARE 2/35MIN Diagnoses Asthma exacerbation J45.901 Asthma persistence: unspecified Asthma severity: moderate COVID-19 U07.1 Aspiration into lower respiratory tract T17.800A (1) Asthma exacerbation Asthma persistence: unspecified Asthma severity: moderate Qualified Code(s): J45.901 - Unspecified asthma with (acute) exacerbation
[2024-04-05 06:53] LABS: Hematocrit (blood only) 39.9 % (37.0-47.0); Hemoglobin 13.4 g/dl (12.0-16.0); Mean Corpuscular Hemoglobin 29.3 pg (25.0-34.0); Mean Corpuscular Hgb Conc 33.6 g/dL (32.0-36.0); Mean Corpuscular Volume 87.1 fL (80.0-100.0); Mean Platelet Volume 11.4 fL (9.4-12.4); Platelet Count 166 K/uL (130-400); RDW Coefficient of Variation 13.8 % (11.5-14.5); RDW Standard Deviation 44.4 fL (36.4-46.3); Red Blood Count 4.58 M/uL (4.20-5.40); White Blood Count 8.53 K/ul (4.8-10.8)
[2024-04-05 07:11] LABS: Anion Gap 9 (3-11); BUN Creatinine Ratio 24.6 (10-20); Blood Urea Nitrogen 15 mg/dl (6-23); C Reactive Protein < 0.50 mg/dl (0-0.5); Calcium 8.4 mg/dl (8.6-10.3); Carbon Dioxide 24 mmol/L (21-32); Chloride 105 mmol/L (98-107); Creatinine Clr Calc Pharmacy 48.3 ml/min; Est GFR (African American) 93.8 ml/min; Est GFR (Non-African American) 80.9 ml/min; Glucose 76 mg/dl (70-99(Fasting)); Potassium 3.5 mmol/L (3.5-5.1); Sodium 138 mmol/L (136-145)
--- NOTE | 2024-04-05 10:57 | Discharge Summary ---
Date of Service April 05, 2024 Admission HPI Per Admitting Provider Iris Vega is an 88 year old female who presents to the ER with COVID symptoms. History taking difficult from the patient due to underlying dementia. She reports main symptoms of cough, shortness of breath and overall weakness. She notes no new symptoms as these have been going on for years but all her normal symptoms are just worse. Difficult for her to stay on track with the history and she goes off in tangents talking about exactly what she eats everyday and how her bones are mushy. She was diagnosed with COVID about 12 days ago and took a course of Paxlovid at that time. No fever, diarrhea, abdominal pain. She reports she is eating and drinking well. Significant improvement with nebulizer given in the ER. Patient discussed with her daughter over the phone who she lives with (Korina). She reports she is similar to her normal self. Unclear if she is really having worsening symptoms but given the patient complaints brought her to the ER today. She is constantly snorting back mucus which is not unusual for her. She did give her nebulizer later last night so she got less sleep and wonders whether that was why she just felt worse today which again isn't unusual for her. She isn't surprised she may be aspirating food contents due to her dementia as she has to be reminded to eat slowly. She was in the ER earlier with her mother but was told by the ER provider she was being admitted therefore left at that time. Principal Diagnosis COVID 19 Discharge Exam Constitutional well developed, well nourished and + frail appearing; no acute distress Eyes PERRL, conjunctivae normal, anicteric sclerae Respiratory normal respiratory effort; no audible wheezes and no pursed lip breathing Cardiovascular Rate/Rhythm: regular rate and regular rhythm Heart Sounds: + murmur Gastrointestinal (Abdomen) normal bowel sounds, soft, nontender, no hepatosplenomegaly Musculoskeletal no cyanosis or clubbing, extremities motor strength 5/5 Skin no rashes, warm and dry Neurologic moves all extremities and awake; not confused Motor/Sensory: + tremor (action) Psychiatric Orientation: alert, oriented to person and oriented to place; + not oriented to time Genitourinary no CVA tenderness Discharge Data Allergies Allergy/AdvReac Type Severity Reaction Status Date / Time sulfamethoxazole Allergy Intermediate UNSURE Verified 04/03/24 17:38 trimethoprim Allergy Intermediate UNSURE Verified 04/03/24 17:38 BO Inhibitors Allergy Unknown UNK Verified 04/03/24 17:38 Milk Containing Products Allergy Unknown IBS Unverified 04/03/24 17:38 (Dairy) Penicillins Allergy Unknown Unknown Verified 04/03/24 17:38 tetanus toxoid, adsorbed Allergy Unknown Unknown Verified 04/03/24 17:38 lactose AdvReac Unknown Gastrointestinal Verified 04/04/24 18:23 Upset Consultations 04/03/24 16:13 ED Decision to Admit Stat Ordered Studies 04/03/24 14:30 CT angio chest PE protocol Stat Hospital Course (1) Asthma exacerbation: Mild wheezing on exam, improvement with nebulizer in the ER Recommend short course of steroids due to osteoporosis and history of multiple compression fractures Decadron given in the ER, Prednisone 40mg PO daily for another day. Duoneb QID, Formoterol/Budesonide nebulizers Sputum culture Patient showing improvement. Plan to discharge in AM. (2) COVID-19: Diagnosed 03/24/2024 Finished course of Paxlovid, does not meet criteria for any other intervention Symptoms improved. Patient ack to baseline in regards to her breathing. Patient with some hospital acquired delirium, discussed with family, they are agreeale o discharge. Anticipate she will improve once she returns to her normal environment. (3) Aspiration into lower respiratory tract: Noted on CT. With negative procalcitonin, WBC, afebrile and not hypoxic will defer further antibiotics (ceftriaxone given in the ER) given no large area of consolidation SLT consult ordered Total Time Total Time Spent Total Time Spent (In Minutes): 32 Discharge Plan Discharge Items Patient Disposition: Home - Self-Care Reason For Visit: COVID, ASTHMA EXACERBATION Discharge Diagnosis: Covid Condition on Discharge: Fair Activity: Resume your previous activity Non-emergency contact: Primary Care Provider Call non-emergency contact if: you have any medication questions Follow-up/Referrals: Thomas Edgar MD [Primary Care Provider] - 04/15/24 2:00 pm Diet: Regular Addtl Attending Provider Instructions: Recommend close followup with PCP. in 1-2 weeks. Pending Studies at Discharge: No Stand-Alone Forms: My [email or web address], Smoking Cessation Medications and DC Order Prescriptions: Continued buprenorphine [Butrans] 10 mcg/hour patch weekly 1 patch transdermal Q7D Qty: 4 0RF Rx Instructions: Tuesdays albuterol sulfate 90 mcg/actuation HFA aerosol inhaler 2 puff INHALATION QID PRN (Reason: Shortness Of Breath Or Wheezing) Qty: 8.5 6RF clobetasol 0.05 % ointment 1 applic topical 2XWK Qty: 30 0RF Rx Instructions: 1 applic topical monday, Dulera 200-5 mcg/actuation HFA aerosol inhaler 2 puff inhalation BID Qty: 13 5RF Rx Instructions: RINSE MOUTH AFTER USING focus select 2 tab PO DAILY cetirizine 10 mg tablet 10 mg PO DAILY acetaminophen 500 mg tablet 500 mg PO Q6H Rx Instructions: 1000mg 500 500 mecobalamin (vitamin B12) 1,000 mcg tablet,chewable 1,000 mcg PO DAILY cholecalciferol (vitamin D3) [Vitamin D3] 25 mcg (1,000 unit) capsule 1,000 unit PO DAILY buspirone 10 mg tablet 10 mg PO BID esomeprazole magnesium 40 mg capsule,delayed release(DR/EC) 40 mg PO DAILY losartan 50 mg tablet 50 mg PO BID Rx Instructions: TAKE 1 TABLET BY MOUTH TWICE DAILY citalopram 40 mg tablet 40 mg PO DAILY donepezil 10 mg tablet 10 mg PO DAILY simvastatin 10 mg tablet 10 mg PO DAILY tramadol 50 mg tablet 100 mg PO TID amlodipine 10 mg tablet 10 mg PO DAILY montelukast 10 mg tablet 10 mg PO DAILY estradiol 0.01 % (0.1 mg/gram) cream 1 applic vaginal 2XWK Rx Instructions: large pea sized amount at opening of vagina on and fluticasone propionate 50 mcg/actuation spray,suspension 1 spray intranasal BID Rx Instructions: USE 1 SPRAY IN EACH NOSTRIL ONCE TO TWICE DAILY ipratropium bromide 21 mcg (0.03 %) spray,non-aerosol 1 - 2 spray intranasal UD Rx Instructions: INSTILL 1 TO 2 SPRAYS INTO EACH NOSTRIL 1 TO 2 TIMES DAILY memantine 10 mg tablet 5 mg PO BID ipratropium-albuterol 0.5 mg-3 mg(2.5 mg base)/3 mL solution for nebulization 3 ml INH Q8H PRN (Reason: wheezing) Qty: 90 0RF Rx Instructions: J10.1, R05 Discharge Orders: Discharge Order (Routine); Ordered 04/05/24 Ordered By: Gama Dykes Admission Data Admit Date/Time: 04/03/24 17:50 Attending Provider: Gama Dykes Admit Provider: Jacques Cabello Primary Care Provider: Thomas Edgar Other Providers: Jacques Cabello Other Interventions: Discharge Summary Assessment (RN) Last Done: 04/05/24 11:04 Coding Level of Care Code 21125 INP/OBS DISCH >30 MIN Diagnoses Asthma exacerbation J45.901 Asthma persistence: unspecified Asthma severity: moderate COVID-19 U07.1 Aspiration into lower respiratory tract T17.800A
[2024-04-09] MEDS ORDERED: BUPRENORPHINE 5 MCG/HR TDSY TD SCH (09:00)
== END 2024-04-05 12:01 | disposition home or self-care (01) | DRG 202 ==
LOC: ED 12:57 → 3N 17:50 → SUATTDRO 17:50 → 3N 21:24